=== PATIENT | female | born 1930 | race Caucasian/White ===

== ENCOUNTER 2016-07-04 00:29 | Inpatient (IN) | payer MEDICARE, MEDICAID ==
[~2016-07-04] VITALS: Ht 154.9 cm; Wt 54.4 kg
[2016-07-04 00:35] VITALS: BP 133/53
[2016-07-04] MEDS ORDERED: MIRTAZAPINE45 MG ORAL (00:51)
[2016-07-04] MEDS ORDERED: METOPROLOL TART25 MG ORAL (00:51)
[2016-07-04] MEDS ORDERED: TYLENOL PO (00:51)
[2016-07-04] MEDS ORDERED: HYDROCHLOROTHIA25 MG ORAL (00:51)
[2016-07-04] MEDS ORDERED: SEROQUEL50 MG ORAL (00:51)
[2016-07-04] MEDS ORDERED: MULTIVITAMINS1 EAC8 ORAL (00:51)
[2016-07-04] MEDS ORDERED: NAMENDA5 MG ORAL (00:51)
[2016-07-04] MEDS ORDERED: VITAMIN D400 INTLU ORAL (00:51)
[2016-07-04] MEDS ORDERED: MILK OF MA400 MG/51 ORAL (00:51)
[2016-07-04] MEDS ORDERED: MAGNESIUM400 M1 PO (00:51)
[2016-07-04] MEDS ORDERED: OMEPRAZOLE20 M2 ORAL (00:51)
[2016-07-04] MEDS ORDERED: LIPITOR10 MG ORAL (00:51)
[2016-07-04] MEDS ORDERED: VITAMIN D1000 UNI1 ORAL (00:51)
[2016-07-04 01:35] VITALS: BP 138/56
[2016-07-04 01:52] LABS: BASOPHILS % (AUTO) 0.4 % (0.0-2.0); EOSINOPHILS % (AUTO) 0.2 % (0.0-3.0); LYMPHOCYTES % (AUTO) 23.7 % (20.0-45.0); MEAN CORPUSCULAR HEMOGLOBIN 28.1 PG (27.0-31.0); MEAN CORPUSCULAR HGB CONC 34.1 G/DL (32.0-36.0); MEAN CORPUSCULAR VOLUME 82 FL (80-99); MEAN PLATELET VOLUME 7.3 FL (6.5-10.1); NEUTROPHILS % (AUTO) 69.7 % (45.0-75.0); PLATELET COUNT 287 K/UL (150-450); RED BLOOD COUNT 4.75 M/UL (4.20-5.40); RED CELL DISTRIBUTION WIDTH 12.7 % (11.6-14.8); WHITE BLOOD COUNT 8.2 K/UL (4.8-10.8)
[2016-07-04 01:53] LABS: APPEARANCE,URINE CLEAR; KETONES,URINE NEGATIVE (NEGATIVE); LEUKOCYTE ESTERASE ,URINE NEGATIVE (NEGATIVE); NITRITE,URINE NEGATIVE (NEGATIVE); PH,URINE 7 (4.5-8.0); PROTEIN,URINE NEGATIVE (NEGATIVE); UROBILINOGEN,URINE NORMAL MG/DL (0.0-1.0)
[2016-07-04 02:08] LABS: PROTHROMBIN TIME 10.1 SEC (9.30-11.50)
[2016-07-04 02:14] LABS: ALANINE AMINOTRANSFERASE 8 U/L (3-33); ANION GAP 14 (5-15); ASPARTATE AMINO TRANSFERASE 16 U/L (5-40); CALCIUM 9.3 mg/dL (8.6-10.2); CARBON DIOXIDE 30 mEQ/L (20-30); CHLORIDE 97 mEQ/L (98-107); CREATININE 1.3 mg/dL (0.5-0.9); HEMOLYSIS 7; LIPASE 23 U/L (< 60); POTASSIUM 3.6 mEQ/L (3.4-4.9); SODIUM 141 mEQ/L (135-145); TOTAL PROTEIN 7.1 g/dL (6.6-8.7)
--- NOTE | 2016-07-04 02:45 | Emergency Room Report ---
History of Present Illness General Chief Complaint: Gastrointestinal Illness Source: Medical Record, PMD Present Illness HPI This is a pleasantly demented 86-year-old English speaking female who is in a long term. She presents with chief complaint of vomiting. Onset this evening. Several episode. Per long term note and by PMD, there was some blood in it. Unable to get history from the patient. No diarrhea. No pain. Denies any other complaint. Allergies: Coded Allergies: No Known Allergies (Unverified , 07/04/16) Patient History Past Medical History: old chart reviewed, unable to obtain, HTN, dementia Past Surgical History: other Pertinent Family History: none Social History: Denies: smoking Now: No Immunizations: other Reviewed Nursing Documentation: PMH: Agreed, PSxH: Agreed Nursing Documentation-PMH Hx Cardiac Problems: Yes - HYPERCHOLESTEROLEMIA Hx Hypertension: Yes Hx Gastrointestinal Problems: Yes - GERD History Of Psychiatric Problem: Yes - DEPRESSION,SCHIZO,DEMENTIA Review of Systems Eye: Denies: blurred vision, eye pain ENT: Denies: ear pain, nose congestion, throat swelling Respiratory: Denies: cough, shortness of breath Cardiovascular: Denies: chest pain, palpitations Gastrointestinal: Reports: hematemesis, nausea, vomiting, Denies: abdominal pain, diarrhea Musculoskeletal: Denies: back pain, joint pain Skin: Denies: rash Neurological: Denies: headache, numbness Endocrine: Denies: increased thirst, increased urine Hematologic/Lymphatic: Denies: easy bruising All Other Systems: negative except mentioned in HPI Physical Exam Vital Signs Date Time Temp Pulse Resp B/P Pulse Ox O2 Delivery O2 Flow Rate FiO2 07/04/16 00:28 98.1 79 16 139/66 96 Room Air vitals normal Sp02 EP Interpretation: reviewed, normal General Appearance: well appearing, no apparent distress, alert Head: normocephalic, atraumatic Eyes: bilateral eye EOMI, bilateral eye PERRL ENT: hearing grossly normal, normal pharynx Neck: full range of motion, supple, no meningismus Respiratory: chest non-tender, lungs clear, normal breath sounds Cardiovascular #1: regular rate, rhythm, no murmur Gastrointestinal: normal bowel sounds, non tender, no mass, no organomegaly, no bruit, non-distended Musculoskeletal: back normal, normal range of motion Neurologic: alert Psychiatric: mood/affect normal Skin: warm/dry Medical Decision Making Diagnostic Impression: Primary Impression: Hematemesis Qualified Codes: K92.0 - Hematemesis; R11.0 - Nausea Additional Impression: Dementia Qualified Codes: G30.1 - Alzheimer's disease with late onset; F02.80 - Dementia in other diseases classified elsewhere without behavioral disturbance ER Course Patient present with hematemesis. Most likely Kristi-Marcus. CT scan unremarkable. Labs unremarkable. We'll admit patient for serial exam and blood work. I discussed the case with primary care Dr. No evidence of acute abdomen. No evidence of obstruction. No evidence of perforation. Lab Results Impression labs unremarkable Rhythm Strip Diag. Results EP Interpretation: yes Rate: 80 Rhythm: NSR, no PVC's, no ectopy Last Vital Signs Date Time Temp Pulse Resp B/P Pulse Ox O2 Delivery O2 Flow Rate FiO2 07/04/16 00:28 98.1 79 16 139/66 96 Room Air Status: improved Disposition: ADMITTED INPATIENT Condition: Serious Referrals: Coco Jackson MD (PCP) MILAGROS ALLEN M.D. Jul 04, 2016 02:45
[2016-07-04 03:35] VITALS: BP 136/58
[2016-07-04] MEDS ORDERED: LISINOPRIL20 MG ORAL (06:28)
[2016-07-04] MEDS ORDERED: DOCUSATE SODIU100 MG ORAL (06:28)
[2016-07-04] MEDS ORDERED: Miralax 17gm pkt ORAL PRN (07:00)
[2016-07-04] MEDS ORDERED: Ketorolac 30mg Inj IV PRN (07:00)
[2016-07-04] MEDS ORDERED: Nitroglycerin Subl 0.4mg tab (Bottle Of 25) SL PRN (07:00)
[2016-07-04] MEDS ORDERED: Mylanta II UD 30ml ORAL PRN (07:00)
[2016-07-04 08:00] VITALS: BP 112/70
[2016-07-04] MEDS ORDERED: Haloperidol 5mg/ml Inj IM PRN (08:30)
[2016-07-04] MEDS ORDERED: Lisinopril 20mg tab ORAL SCH (09:00)
[2016-07-04] MEDS ORDERED: Metoprolol 25mg tab ORAL SCH (09:00)
[2016-07-04 09:17] LABS: BASOPHILS % (AUTO) 0.2 % (0.0-2.0); LYMPHOCYTES % (AUTO) 24.3 % (20.0-45.0); MEAN CORPUSCULAR HEMOGLOBIN 27.5 PG (27.0-31.0); MEAN CORPUSCULAR HGB CONC 33.2 G/DL (32.0-36.0); MEAN CORPUSCULAR VOLUME 83 FL (80-99); MEAN PLATELET VOLUME 7.2 FL (6.5-10.1); MONOCYTES % (AUTO) 7.7 % (1.0-10.0); NEUTROPHILS % (AUTO) 67.8 % (45.0-75.0); PLATELET COUNT 292 K/UL (150-450); RED BLOOD COUNT 5.02 M/UL (4.20-5.40); RED CELL DISTRIBUTION WIDTH 12.9 % (11.6-14.8); WHITE BLOOD COUNT 6.2 K/UL (4.8-10.8)
--- NOTE | 2016-07-04 09:33 | Diagnostic Imaging Report ---
Clinical Indication: Abdominal pain Technique: No oral contrast utilized, per emergency room physician request IV administration nonionic contrast. Venous phase spiral acquisition obtained through the abdomen and pelvis. Multiplanar reconstructions were generated. Total dose length product 63 mGycm. CTDIvol(s) 14 mGy Comparison: None Findings: The appendix is normal. There are equivocally a very few scattered diverticula. No evidence of diverticulitis. No small bowel distention. No free or loculated intraperitoneal air or fluid. There is a small sliding-type hiatal hernia. The stomach and duodenum are otherwise unremarkable. There is broad-based diastasis of the rectus abdominis tendon. The liver, gallbladder, bile ducts, pancreas, spleen, adrenals are unremarkable. The kidneys demonstrate multiple cysts bilaterally. No mesenteric or retroperitoneal mass or adenopathy. No pelvic mass or adenopathy. Calcified granuloma is seen at the right lung base. There is a calcified granulomatous right hilar lymph node. There is bilateral basilar bronchial wall thickening and atelectasis. The heart is enlarged. Bones demonstrate degenerative spondylosis and mild bilateral hip degenerative changes. There is grade 1 anterolisthesis of L4 on L5 Impression: No acute abnormality Questionable colonic diverticulosis Evidence of old granulomatous disease of the right lung and pulmonary hilum Bilateral basilar bronchial wall thickening and pulmonary atelectasis Cardiomegaly Incidental findings as noted, including grade 1 anterolisthesis of L4 on L5, degenerative spondylosis, mild bilateral hip degenerative change, broad-based diastases of the rectus abdominis tendon, small sliding-type hiatal hernia, bilateral renal cysts This agrees with the preliminary interpretation provided overnight by [facility]erad[facility] service. The CT scanner at [facility] is accredited by the [employer] and the scans are performed using protocols designed to limit radiation exposure to as low as reasonably achievable to attain images of sufficient resolution adequate for diagnostic evaluation.
[2016-07-04] MEDS: Milk of Magnesia 30ml Ud ORAL SCH (10:13)
[2016-07-04] MEDS: Lisinopril 20mg tab ORAL SCH (10:14)
[2016-07-04] MEDS: Metoprolol 25mg tab ORAL SCH ×2 (10:14→22:22)
[2016-07-04 16:27] VITALS: BP 153/75
[2016-07-04] MEDS ORDERED: D5 1/2NS 1,000 ML IV SCH (17:40)
[2016-07-04 20:00] VITALS: BP 153/78
--- NOTE | 2016-07-04 20:28 | Consultation ---
DATE OF CONSULTATION: 07/04/2016 GASTROLOGY CONSULTATION CHIEF COMPLAINT: I was asked to this patient by Dr. Coco Jackson, for evaluation of upper gastrointestinal bleeding. . HISTORY OF PRESENT ILLNESS: The patient is a debilitated and demented 86-year-old [place]ian woman, who was brought into the hospital due to hematemesis. The patient herself is unable to provide any history and most of the information is only available from the chart. I spoke with the patient's family member by the name of , who stated that what she knows that she had heard some dark color emesis from the board and care where the patient stayed and therefore, the patient was brought to the hospital. The patient appears well nourished. She is sitting on a wheelchair without any complaints. PAST MEDICAL HISTORY: 1. History of dementia. 2. History of hypercholesterolemia. 3. History of hypertension. 4. Presumed history of gastroesophageal reflux disease based on the work result on her medication list. MEDICATIONS: Reviewed. SOCIAL HISTORY: The patient resides in a [facility] with no recent history of smoking or drinking. FAMILY HISTORY: Noncontributory. REVIEW OF SYSTEMS: Otherwise negative. PHYSICAL EXAMINATION: GENERAL: The patient is a debilitated elderly woman, seen in her wheelchair. HEENT: Normocephalic and atraumatic. Sclerae anicteric. Oropharynx clear. NECK: Supple. CHEST: Clear to auscultation. CARDIOVASCULAR: Regular rate. ABDOMEN: Soft with good bowel sounds. There is no organomegaly. There is an old scar in the pelvis area. EXTREMITIES: Revealed no edema. LABORATORY AND DIAGNOSTIC DATA: Laboratory data were noted. ASSESSMENT: This patient presents with presumably small bowel hematemesis versus hemoptysis. Her hematocrit was not changed and she appears hemodynamically intact and therefore, I suspect this is a minor process. From gastrointestinal standpoint, the differential diagnosis would include gastroesophageal reflux or peptic ulcers. Alternatively, the patient may have had different source of the bleeding, this is . The indications, risks, alternatives, and possible complications were explained the patient's family. Informed consent was obtained. RECOMMENDATION: 1. NPO after midnight. 2. Endoscopy tomorrow morning. 3. Continue other medications. Thank you very much. Marlys Andersen M.D. DR: TUNDE JOB#: [id number] CC:
[2016-07-04] MEDS ORDERED: Memantine 10mg tab ORAL SCH (21:00)
[2016-07-04 22:00] LABS: BASOPHILS % (AUTO) 0.3 % (0.0-2.0); EOSINOPHILS % (AUTO) 0.2 % (0.0-3.0); LYMPHOCYTES % (AUTO) 22.3 % (20.0-45.0); MEAN CORPUSCULAR HEMOGLOBIN 28.1 PG (27.0-31.0); MEAN CORPUSCULAR HGB CONC 33.7 G/DL (32.0-36.0); MEAN CORPUSCULAR VOLUME 83 FL (80-99); MEAN PLATELET VOLUME 6.7 FL (6.5-10.1); MONOCYTES % (AUTO) 6.3 % (1.0-10.0); PLATELET COUNT 256 K/UL (150-450); RED BLOOD COUNT 4.32 M/UL (4.20-5.40); WHITE BLOOD COUNT 7.3 K/UL (4.8-10.8)
[2016-07-04] MEDS: Memantine 10mg tab ORAL SCH (22:23)
[2016-07-04] MEDS ORDERED: Heparin 25,000u/D5W 500ml 500 ML IV SCH (22:30)
[2016-07-04] MEDS ORDERED: Heparin 5000 units/ml inj IV ONE (22:30)
--- NOTE | 2016-07-04 22:37 | History and Physical Report ---
DATE OF ADMISSION: 07/04/2016 HISTORY OF PRESENT ILLNESS: The patient is a poor historian, admitted for hematemesis at the [facility]. The patient also has agitation, admitted for GI bleed. The patient per nursing staff. The patient is a poor historian and cannot get from the patient. PAST MEDICAL HISTORY: Significant for GERD, hyperlipidemia, hypertension, episode of psychosis, dementia, and constipation. PAST SURGICAL HISTORY: None. ALLERGIES: No known allergies. MEDICATIONS: Vitamin D, Colace, hydrochlorothiazide, lisinopril, magnesium oxide, Namenda, metoprolol, mirtazapine, multivitamin, omeprazole, and . FAMILY HISTORY: Unable to obtain. SOCIAL HISTORY: Unable to obtain. REVIEW OF SYSTEMS: Unable to obtain. PHYSICAL EXAMINATION: VITAL SIGNS: Temperature is 98.4, pulse is 70, and blood pressure 133/53. HEENT: PERRLA. NECK: Supple. No lymphadenopathy. CHEST: Clear to auscultation. ABDOMEN: Soft and nontender. No organomegaly. EXTREMITIES: No edema. NEUROLOGIC: Reflexes are equal on both sides. . She is able to move extremities. LABORATORY DATA: WBC 8.3, hemoglobin 13.3, and platelets 287,000. Sodium 141, potassium 3.6, BUN 20, creatinine 1.3, and glucose of 112. negative. ASSESSMENT AND PLAN: 1. Vomiting blood. 2. Gastrointestinal bleed. 3. Mild dehydration. 4. Agitation. 5. Anxiety. I have asked Dr. Andersen, Dr. Moon, and Dr. Fernando to see the patient for the above-mentioned diagnoses and treatment. Coco Jackson M.D. DR: MAMIE JOB#: [id number] CC:
--- NOTE | 2016-07-04 23:29 | Consultation ---
History of Present Illness General Date patient seen: Jul 04, 2016 Chief Complaint: Gastrointestinal Illness Referring physician: Dr Henriquez Reason for Consultation: inpatinet management Present Illness HPI 86-year-old Azerbaijani speaking female with pmhx of Dementia, residential resident presented with chief complaint of vomiting. there was some blood in it. Patient is a very poor historian and all information is obtained form the chart. She looks very comfortable and not in any distress. Allergies: Coded Allergies: No Known Allergies (Unverified , 07/04/16) Medication History Scheduled Atorvastatin Calcium* (Lipitor*), 10 MG ORAL BEDTIME, (Reported) Cholecalciferol (Vitamin D3)* (Vitamin D*), 2,000 UNITS ORAL TWICE A DAY, ( Reported) Docusate Sodium* (Docusate Sodium*), 100 MG ORAL TWICE A DAY, (Reported) Hydrochlorothiazide* (Hydrochlorothiazide*), 25 MG ORAL DAILY, (Reported) Lisinopril (Lisinopril*), 20 MG ORAL DAILY, (Reported) Magnesium Hydroxide* (Milk Of Magnesia*), 30 ML ORAL DAILY, (Reported) Magnesium Oxide (Magnesium), 400 MG PO BID, (Reported) Memantine Hcl* (Namenda*), 5 MG ORAL BEDTIME, (Reported) Metoprolol Tartrate* (Metoprolol Tartrate*), 25 MG ORAL EVERY 12 HOURS, ( Reported) Mirtazapine* (Remeron*), 22.5 MG ORAL BEDTIME, (Reported) Multivitamin With Minerals (Multivitamins With Minerals*), 1 TAB ORAL DAILY, ( Reported) Omeprazole (Omeprazole), 20 MG ORAL DAILY, (Reported) Quetiapine Fumarate (Seroquel), 50 MG ORAL TWICE A DAY, (Reported) Vitamin D (Vitamin D3), 2,000 UNITS ORAL DAILY, (Reported) Scheduled PRN [Tylenol], 650 MG PO EVERY 4 HOURS PRN for Pain Scale (3-5), (Reported) Patient History Healthcare decision maker YEVGENIY BRYANT -A/R [employer]-POA [employer]CIAL Resuscitation status Full Code Advanced Directive on File Yes Past Medical/Surgical History Past Medical/Surgical History: (1) Dementia (2) HTN (hypertension) Review of Systems All Other Systems: negative except mentioned in HPI Physical Exam General Appearance: WD/WN, no apparent distress Lines, tubes and drains: peripheral HEENT: normocephalic, atraumatic Neck: normal alignment Respiratory/Chest: chest wall non-tender, lungs clear Breasts: no masses Abdomen: normal bowel sounds, non tender Genitourinary/Rectal: normal genital exam Extremities: normal range of motion, non-tender Skin Exam: normal pigmentation Neurologic: rib cloth knitter II-XII grossly normal Last 24 Hour Vital Signs Date Time Temp Pulse Resp B/P Pulse Ox O2 Delivery O2 Flow Rate FiO2 07/04/16 22:22 66 153/78 07/04/16 20:00 97.9 66 20 153/78 99 Room Air 07/04/16 16:27 98.4 79 18 153/75 95 Room Air 07/04/16 10:14 78 112/70 07/04/16 10:14 112/70 07/04/16 08:00 97.7 78 18 112/70 98 Room Air 07/04/16 04:00 98.6 76 17 136/58 100 Room Air 07/04/16 03:35 98.6 76 17 136/58 100 Room Air 07/04/16 01:35 74 17 138/56 99 Room Air 07/04/16 00:35 98.4 70 16 133/53 100 Room Air 07/04/16 00:28 98.1 79 16 139/66 96 Room Air Intake and Output 07/03/16 07/04/16 19:00 07:00 Intake Total 1000 ml Balance 1000 ml IV Total 1000 ml # Voids 2 Laboratory Tests Test 07/04/16 01:30 07/04/16 01:35 07/04/16 08:30 07/04/16 21:35 White Blood Count 8.2 K/UL (4.8-10.8) 6.2 K/UL (4.8-10.8) 7.3 K/UL (4.8-10.8) Red Blood Count 4.75 M/UL (4.20-5.40) 5.02 M/UL (4.20-5.40) 4.32 M/UL (4.20-5.40) Hemoglobin 13.3 G/DL (12.0-16.0) 13.8 G/DL (12.0-16.0) 12.1 G/DL (12.0-16.0) Hematocrit 39.0 % (37.0-47.0) 41.6 % (37.0-47.0) 35.9 % (37.0-47.0) L Mean Corpuscular Volume 82 FL (80-99) 83 FL (80-99) 83 FL (80-99) Mean Corpuscular Hemoglobin 28.1 PG (27.0-31.0) 27.5 PG (27.0-31.0) 28.1 PG (27.0-31.0) Mean Corpuscular Hemoglobin Concent 34.1 G/DL (32.0-36.0) 33.2 G/DL (32.0-36.0) 33.7 G/DL (32.0-36.0) Red Cell Distribution Width 12.7 % (11.6-14.8) 12.9 % (11.6-14.8) 13.0 % (11.6-14.8) Platelet Count 287 K/UL (150-450) 292 K/UL (150-450) 256 K/UL (150-450) Mean Platelet Volume 7.3 FL (6.5-10.1) 7.2 FL (6.5-10.1) 6.7 FL (6.5-10.1) Neutrophils (%) (Auto) 69.7 % (45.0-75.0) 67.8 % (45.0-75.0) 71.0 % (45.0-75.0) Lymphocytes (%) (Auto) 23.7 % (20.0-45.0) 24.3 % (20.0-45.0) 22.3 % (20.0-45.0) Monocytes (%) (Auto) 6.0 % (1.0-10.0) 7.7 % (1.0-10.0) 6.3 % (1.0-10.0) Eosinophils (%) (Auto) 0.2 % (0.0-3.0) 0.0 % (0.0-3.0) 0.2 % (0.0-3.0) Basophils (%) (Auto) 0.4 % (0.0-2.0) 0.2 % (0.0-2.0) 0.3 % (0.0-2.0) Prothrombin Time 10.1 SEC (9.30-11.50) Prothromb Time International Ratio 1.0 (0.9-1.1) Activated Partial Thromboplast Time 25 SEC (23-33) 27 SEC (23-33) Sodium Level 141 mEQ/L (135-145) Potassium Level 3.6 mEQ/L (3.4-4.9) Chloride Level 97 mEQ/L (98-107) L Carbon Dioxide Level 30 mEQ/L (20-30) Anion Gap 14 (5-15) Blood Urea Nitrogen 20 mg/dL (7-23) Creatinine 1.3 mg/dL (0.5-0.9) H Estimat Glomerular Filtration Rate mL/min (>60) Glucose Level 115 mg/dL (74-106) H Calcium Level 9.3 mg/dL (8.6-10.2) Total Bilirubin 0.6 mg/dL (0.0-1.2) Aspartate Amino Transf (AST/SGOT) 16 U/L (5-40) Alanine Aminotransferase (ALT/SGPT) 8 U/L (3-33) Alkaline Phosphatase 71 U/L (35-104) Total Protein 7.1 g/dL (6.6-8.7) Albumin 3.6 g/dL (3.5-5.2) Globulin 3.5 g/dL Albumin/Globulin Ratio 1.0 (1.0-2.7) Lipase 23 U/L (< 60) Urine Color Pale yellow Urine Appearance Clear Urine pH 7 (4.5-8.0) Urine Specific [place] 1.010 (1.005-1.035) Urine Protein Negative (NEGATIVE) Urine Glucose (UA) Negative (NEGATIVE) Urine Ketones Negative (NEGATIVE) Urine Occult Blood Negative (NEGATIVE) Urine Nitrite Negative (NEGATIVE) Urine Bilirubin Negative (NEGATIVE) Urine Urobilinogen Normal MG/DL (0.0-1.0) Urine Leukocyte Esterase Negative (NEGATIVE) Height (Feet): 5 Height (Inches): 1.00 Weight (Pounds): 120 Medications Current Medications Medications (Trade) Dose Ordered Sig/Selena Route PRN Reason Start Time Stop Time Status Last Admin Dose Admin Acetaminophen (Tylenol) 650 mg Q4H PRN ORAL Mild Pain/Temp > 100.5 07/04/16 06:45 08/03/16 06:44 Acetaminophen (Tylenol) 650 mg Q4H PRN ORAL fever 07/04/16 07:00 08/03/16 06:59 Al Hydroxide/Mg Hydroxide (Mylanta II) 30 ml Q6H PRN ORAL dyspepsia 07/04/16 07:00 08/03/16 06:59 Atorvastatin Calcium (Lipitor) 10 mg BEDTIME ORAL 07/04/16 21:00 08/03/16 20:59 07/04/16 22:22 Dextrose (Dextrose 50%) STAT PRN IV Hypoglycemia 07/04/16 07:00 08/03/16 06:59 Diphenhydramine HCl (Benadryl) 25 mg Q6H PRN ORAL Itching/Pruritis 07/04/16 07:00 08/03/16 06:59 Haloperidol Lactate 5 mg 5 mg Q6H PRN IM Agitation 07/04/16 08:30 08/03/16 08:29 Heparin Sodium/ Dextrose (Heparin) 500 ml @ 19.595 mls/ hr adjust per protocol IV 07/04/16 22:30 08/03/16 22:29 Hydrochlorothiazide (Hydrodiuril) 25 mg DAILY ORAL 07/04/16 09:00 08/03/16 08:59 07/04/16 10:14 Ketorolac Tromethamine 30 mg 30 mg Q6H PRN IV moderate pian 4-6 07/04/16 07:00 07/09/16 06:59 Lisinopril (Prinivil) 20 mg DAILY ORAL 07/04/16 09:00 08/03/16 08:59 07/04/16 10:14 Magnesium Hydroxide (Mom) 30 ml DAILY ORAL 07/04/16 09:00 08/03/16 08:59 07/04/16 10:13 Memantine (Namenda) 5 mg BEDTIME ORAL 07/04/16 21:00 08/03/16 20:59 07/04/16 22:23 Metoprolol Tartrate (Lopressor) 25 mg EVERY 12 HOURS ORAL 07/04/16 09:00 08/03/16 08:59 07/04/16 22:22 Mirtazapine (Remeron) 7.5 mg BEDTIME ORAL 07/05/16 21:00 08/04/16 20:59 UNV Morphine Sulfate (Morphine Sulfate) 2 mg Q4H PRN IVP severe Pain (Pain Scale 7-10) 07/04/16 07:00 07/11/16 06:59 Nitroglycerin (Ntg) 0.4 mg Q5M X 3 DOSES PRN SL Prn Chest Pain 07/04/16 07:00 08/03/16 06:59 Ondansetron HCl (Zofran) 4 mg Q6H PRN IVP Nausea & Vomiting 07/04/16 07:00 08/03/16 06:59 Pantoprazole (Protonix) 40 mg DAILY ORAL 07/04/16 09:00 08/03/16 08:59 07/04/16 10:14 Polyethylene Glycol (Miralax) 17 gm HSPRN PRN ORAL Constipation 07/04/16 07:00 08/03/16 06:59 Quetiapine Fumarate (SEROquel) 50 mg Q12HR ORAL 07/04/16 09:00 08/03/16 08:59 07/04/16 22:26 Sodium Chloride (0.45% NS 1000ml) 1,000 ml @ 65 mls/hr [id number] IV 07/04/16 08:49 08/03/16 08:48 Temazepam (Restoril) 15 mg HSPRN PRN ORAL Insomnia 07/04/16 07:00 07/11/16 06:59 Assessment/Plan Problem List: (1) Hematemesis ICD Codes: K92.0 - Hematemesis SNOMED: 4643589 Qualifiers: Qualified Codes: K92.0 - Hematemesis; R11.0 - Nausea (2) At high risk for aspiration ICD Codes: Z91.89 - Other specified personal risk factors, not elsewhere classified SNOMED: 414681116 (3) ATN (acute tubular necrosis) ICD Codes: N17.0 - Acute kidney failure with tubular necrosis SNOMED: 48118540 (4) Nursing difficulty ICD Codes: O92.79 - Other disorders of SNOMED: 219370137 (5) Debility ICD Codes: R53.81 - Other malaise SNOMED: 30342614 (6) Dementia ICD Codes: F03.90 - Unspecified dementia without behavioral disturbance SNOMED: 91988912 Qualifiers: Qualified Codes: G30.1 - Alzheimer's disease with late onset; F02.80 - Dementia in other diseases classified elsewhere without behavioral disturbance (7) HTN (hypertension) ICD Codes: I10 - Essential (primary) hypertension SNOMED: 59976038 (8) [facility] resident ICD Codes: Z59.3 - Problems related to living in residential institution SNOMED: 782823798 Assessment/Plan NPO IV fluids aspiration precaution check h/h GI evaluation check BELKIS Benton Jul 04, 2016 23:29
[2016-07-05] VITALS (11 sets, daily range): BP systolic 105–153; BP diastolic 47–91
[2016-07-05] MEDS ORDERED: NS Irrig 1000ml ONE (07:00)
[2016-07-05] MEDS ORDERED: Propofol 10mg/ml 20ml IV ONE (07:00)
[2016-07-05] MEDS ORDERED: NS 550ML IV ONE (07:13)
--- NOTE | 2016-07-05 07:14 | Anethesia Preoperative Eval ---
Anesthesia Pre-op PMH/ROS General Date of Evaluation: Jul 05, 2016 Time of Evaluation: 07:00 Anesthesiologist: mikayla ASA Score: ASA 3 Mallampati Score Class I : Soft palate, uvula, fauces, pillars visible Class II: Soft palate, uvula, fauces visible Class III: Soft palate, base of uvula visible Class IV: Only hard plate visible Mallampati Classification: Class II Surgeon: mani Diagnosis: GI bleed Surgical Procedure: egd Anesthesia History: none Allergies: Coded Allergies: No Known Allergies (Unverified , 07/04/16) Past Medical History Cardiovascular: Reports: HTN Gastrointestinal/Genitourinary: Reports: GERD Neurologic/Psychiatric: Reports: dementia Anesthesia Pre-op Phys. Exam Physician Exam Last Vital Signs Date Time Temp Pulse Resp B/P Pulse Ox O2 Delivery O2 Flow Rate FiO2 07/05/16 04:00 97.8 66 18 141/56 92 Room Air Airway Exam Mallampati Score: Class II Teeth: missing Anesthesia Pre-op A/P Labs Hematology Test 07/04/16 08:30 07/04/16 21:35 07/05/16 06:35 White Blood Count 6.2 K/UL (4.8-10.8) 7.3 K/UL (4.8-10.8) Pending Red Blood Count 5.02 M/UL (4.20-5.40) 4.32 M/UL (4.20-5.40) Pending Hemoglobin 13.8 G/DL (12.0-16.0) 12.1 G/DL (12.0-16.0) Pending Hematocrit 41.6 % (37.0-47.0) 35.9 % (37.0-47.0) L Pending Mean Corpuscular Volume 83 FL (80-99) 83 FL (80-99) Pending Mean Corpuscular Hemoglobin 27.5 PG (27.0-31.0) 28.1 PG (27.0-31.0) Pending Mean Corpuscular Hemoglobin Concent 33.2 G/DL (32.0-36.0) 33.7 G/DL (32.0-36.0) Pending Red Cell Distribution Width 12.9 % (11.6-14.8) 13.0 % (11.6-14.8) Pending Platelet Count 292 K/UL (150-450) 256 K/UL (150-450) Pending Mean Platelet Volume 7.2 FL (6.5-10.1) 6.7 FL (6.5-10.1) Pending Neutrophils (%) (Auto) 67.8 % (45.0-75.0) 71.0 % (45.0-75.0) Pending Lymphocytes (%) (Auto) 24.3 % (20.0-45.0) 22.3 % (20.0-45.0) Pending Monocytes (%) (Auto) 7.7 % (1.0-10.0) 6.3 % (1.0-10.0) Pending Eosinophils (%) (Auto) 0.0 % (0.0-3.0) 0.2 % (0.0-3.0) Pending Basophils (%) (Auto) 0.2 % (0.0-2.0) 0.3 % (0.0-2.0) Pending Coagulation Test 07/04/16 21:35 07/05/16 06:35 Activated Partial Thromboplast Time 27 SEC (23-33) Pending Prothrombin Time Pending Prothromb Time International Ratio Pending Chemistry Test 07/05/16 06:35 Sodium Level Pending Potassium Level Pending Chloride Level Pending Carbon Dioxide Level Pending Blood Urea Nitrogen Pending Creatinine Pending Estimat Glomerular Filtration Rate Pending Glucose Level Pending Calcium Level Pending Total Bilirubin Pending Aspartate Amino Transf (AST/SGOT) Pending Alanine Aminotransferase (ALT/SGPT) Pending Alkaline Phosphatase Pending Total Protein Pending Albumin Pending Globulin Pending Amylase Level Pending Lipase Pending Risk Assessment & Plan Plan: propofol Status Change Before Surgery: Stephen Randolph MD Jul 05, 2016 07:14
--- NOTE | 2016-07-05 07:15 | Immediate Post-Op Evaluation ---
Immediate Post-Op Evalulation Immediate Post-Op Evalulation Date of Evaluation: Jul 05, 2016 Time of Evaluation: 07:50 IV Fluids: 400 Blood Pressure Systolic: 105 Blood Pressure Diastolic: 69 Pulse Rate: 75 Respiratory Rate: 23 O2 Sat by Pulse Oximetry: 99 Temperature (Fahrenheit): 97.3 Pain Score (1-10): 0 Nausea: No Vomiting: No Complications none Patient Status: awake, patent, none Hydration Status: adequate Stephen Bryson MD Jul 05, 2016 07:15
--- NOTE | 2016-07-05 07:18 | 48 Hour Post Anesthesia Eval ---
Post Anesthesia Evaluation Date of Evaluation: Jul 05, 2016 Time of Evaluation: 08:10 Blood Pressure Systolic: 121 0: 55 Pulse Rate: 72 Respiratory Rate: 17 Temperature (Fahrenheit): 97.2 O2 Sat by Pulse Oximetry: 94 Airway: patent Nausea: No Vomiting: No Pain Intensity: 0 Hydration Status: adequate Cardiopulmonary Status: stable Mental Status/LOC: patient returned to baseline Follow-up Care/Observations: n/a Post-Anesthesia Complications: tolerated well Follow-up care needed: N/A Stephen Bryson MD Jul 05, 2016 07:18
--- NOTE | 2016-07-05 07:21 | Pre-Procedure Note/Attestation ---
Pre-Procedure Note/Attestation Complete Prior to Procedure Planned Procedure: not applicable Procedure Narrative: egd Indications for Procedure Pre-Operative Diagnosis: UGIB Attestation I attest that I discussed the nature of the procedure; its benefits; risks and complications; and alternatives (and the risks and benefits of such alternatives ), prior to the procedure, with the patient (or the patient's legal community health program representative). I attest that, if there was a reasonable possibility of needing a blood transfusion, the patient (or the patient's legal community health program representative) was given the [facility] standardized written summary, pursuant to the Fernando Wolbach Blood Safety Act ([place] Health and Safety Code # 1645, as amended). I attest that I re-evaluated the patient just prior to the surgery and that there has been no change in the patient's H&P, except as documented below: JUSTO MAYERS Jul 05, 2016 07:21
--- NOTE | 2016-07-05 07:21 | General Progress Note ---
Assessment/Plan Assessment/Plan Assessment - UGIB - Acute DVT - drop in H&H - ? hydration, GIB, ? effect of heparin - OBS Recommendations - Will proceed with EGD as planned to risk assess for IV heparin use - Monitor CBC - NPO Subjective Allergies: Coded Allergies: No Known Allergies (Unverified , 07/04/16) Subjective Above noted found to have acute femoral DVT last night now on heparin gtt H&H lower Objective Last 24 Hour Vital Signs Date Time Temp Pulse Resp B/P Pulse Ox O2 Delivery O2 Flow Rate FiO2 07/05/16 04:00 97.8 66 18 141/56 92 Room Air 07/05/16 00:00 97.9 68 18 146/58 91 Room Air 07/04/16 22:22 66 153/78 07/04/16 20:00 97.9 66 20 153/78 99 Room Air 07/04/16 16:27 98.4 79 18 153/75 95 Room Air 07/04/16 10:14 78 112/70 07/04/16 10:14 112/70 07/04/16 08:00 97.7 78 18 112/70 98 Room Air Intake and Output 07/04/16 07/05/16 19:00 07:00 Intake Total 480 ml 1019 ml Balance 480 ml 1019 ml Intake Oral 480 ml 560 ml IV Total 459 ml # Voids 3 3 Laboratory Tests 07/04/16 08:30: White Blood Count 6.2, Red Blood Count 5.02, Hemoglobin 13.8, Hematocrit 41.6, Mean Corpuscular Volume 83, Mean Corpuscular Hemoglobin 27.5, Mean Corpuscular Hemoglobin Concent 33.2, Red Cell Distribution Width 12.9, Platelet Count 292, Mean Platelet Volume 7.2, Neutrophils (%) (Auto) 67.8, Lymphocytes (%) (Auto) 24.3, Monocytes (%) (Auto) 7.7, Eosinophils (%) (Auto) 0.0, Basophils (%) (Auto ) 0.2 07/04/16 21:35: White Blood Count 7.3, Red Blood Count 4.32, Hemoglobin 12.1, Hematocrit 35.9L, Mean Corpuscular Volume 83, Mean Corpuscular Hemoglobin 28.1, Mean Corpuscular Hemoglobin Concent 33.7, Red Cell Distribution Width 13.0, Platelet Count 256, Mean Platelet Volume 6.7, Neutrophils (%) (Auto) 71.0, Lymphocytes (%) (Auto) 22.3, Monocytes (%) (Auto) 6.3, Eosinophils (%) (Auto) 0.2, Basophils (%) (Auto ) 0.3, Activated Partial Thromboplast Time 27 07/05/16 06:35: White Blood Count [Pending], Red Blood Count [Pending], Hemoglobin [Pending], Hematocrit [Pending], Mean Corpuscular Volume [Pending], Mean Corpuscular Hemoglobin [Pending], Mean Corpuscular Hemoglobin Concent [Pending], Red Cell Distribution Width [Pending], Platelet Count [Pending], Mean Platelet Volume [ Pending], Neutrophils (%) (Auto) [Pending], Lymphocytes (%) (Auto) [Pending], Monocytes (%) (Auto) [Pending], Eosinophils (%) (Auto) [Pending], Basophils (%) (Auto) [Pending], Activated Partial Thromboplast Time [Pending], Prothrombin Time [Pending], Prothromb Time International Ratio [Pending], Sodium Level [ Pending], Potassium Level [Pending], Chloride Level [Pending], Carbon Dioxide Level [Pending], Blood Urea Nitrogen [Pending], Creatinine [Pending], Estimat Glomerular Filtration Rate [Pending], Glucose Level [Pending], Calcium Level [ Pending], Total Bilirubin [Pending], Aspartate Amino Transf (AST/SGOT) [Pending] , Alanine Aminotransferase (ALT/SGPT) [Pending], Alkaline Phosphatase [Pending] , Total Protein [Pending], Albumin [Pending], Globulin [Pending], Amylase Level [Pending], Lipase [Pending] Height (Feet): 5 Height (Inches): 1.00 Weight (Pounds): 120 Objective WDWN NCAT Supple CTA RRR Soft ND NT no edema non focal JUSTO MAYERS Jul 05, 2016 07:21
[2016-07-05 07:27] LABS: ALANINE AMINOTRANSFERASE 7 U/L (3-33); AMYLASE 70 U/L (10-110); ANION GAP 14 (5-15); ASPARTATE AMINO TRANSFERASE 15 U/L (5-40); CALCIUM 9.1 mg/dL (8.6-10.2); CARBON DIOXIDE 27 mEQ/L (20-30); CHLORIDE 99 mEQ/L (98-107); CREATININE 1.2 mg/dL (0.5-0.9); HEMOLYSIS 4; LIPASE 21 U/L (< 60); POTASSIUM 3.9 mEQ/L (3.4-4.9); SODIUM 140 mEQ/L (135-145); TOTAL PROTEIN 6.6 g/dL (6.6-8.7)
[2016-07-05 07:28] LABS: PROTHROMBIN TIME 10.6 SEC (9.30-11.50)
[2016-07-05 07:41] LABS: BASOPHILS % (AUTO) 0.4 % (0.0-2.0); EOSINOPHILS % (AUTO) 0.1 % (0.0-3.0); LYMPHOCYTES % (AUTO) 30.8 % (20.0-45.0); MEAN CORPUSCULAR HEMOGLOBIN 27.7 PG (27.0-31.0); MEAN CORPUSCULAR HGB CONC 33.6 G/DL (32.0-36.0); MEAN CORPUSCULAR VOLUME 82 FL (80-99); MEAN PLATELET VOLUME 7.7 FL (6.5-10.1); MONOCYTES % (AUTO) 5.6 % (1.0-10.0); NEUTROPHILS % (AUTO) 63.1 % (45.0-75.0); PLATELET COUNT 292 K/UL (150-450); RED BLOOD COUNT 4.44 M/UL (4.20-5.40); RED CELL DISTRIBUTION WIDTH 12.9 % (11.6-14.8); WHITE BLOOD COUNT 7.4 K/UL (4.8-10.8)
--- NOTE | 2016-07-05 07:44 | Endoscopy Procedure Note ---
Endoscopy Procedure Note Indication for Procedure: UGIB Procedures Performed: EGD Operative Findings/Diagnosis: HH , GERD Specimen: none Pt Tolerated Procedure Well: Yes Estimated Blood Loss: none Anesthesiologist: Braydon Anesthesia: MAC Medication Given: see anesthesia record Implant(s) used?: No 50 yrs or older w/o bx or poly: Not Applicable 10yrs. F/U not recommended: Not Applicable If not recommended, why?: JUSTO MAYERS Jul 05, 2016 07:44
--- NOTE | 2016-07-05 07:46 | Brief Operative Note ---
Immediate Post Operative Note Operative Note Chief Complaint: UGI Pre-op Diagnosis: UGIB Procedure: EGD Post-op Diagnosis: 4 cm HH, GERD with lower esophageal erosions, no active bleeding mildly elevated but acceptable risk of GIB with anticoagulation - OK to continue IV heparin BID PPI Surgeon: mani Anesthesiologist: Braydon Anesthesia: moderate sedation Specimen: none Complications: yes Condition: stable Estimated Blood Loss: none Drains: none Implant(s) used?: No JUSTO MAYERS Jul 05, 2016 07:46
[2016-07-05] MEDS ORDERED: Heparin 25,000u/D5W 500ml 500 ML IV SCH ×3 (08:15→23:43)
[2016-07-05] MEDS: Heparin 25,000u/D5W 500ml 500 ML IV SCH ×2 (08:45→16:56)
[2016-07-05] MEDS: Milk of Magnesia 30ml Ud ORAL SCH (09:00)
[2016-07-05] MEDS: Metoprolol 25mg tab ORAL SCH ×2 (09:28→20:29)
[2016-07-05] MEDS: Lisinopril 20mg tab ORAL SCH (09:28)
[2016-07-05 11:05] LABS: PROTHROMBIN TIME 10.5 SEC (9.30-11.50)
[2016-07-05] MEDS ORDERED: Heparin 5000 units/ml inj IV ONE (16:30)
[2016-07-05] MEDS ORDERED: Warfarin Sodium 2.5mg ORAL ONE (17:00)
--- NOTE | 2016-07-05 17:08 | Consultation ---
DATE OF CONSULTATION: 07/05/2016 HEMATOLOGY/ONCOLOGY CONSULTATION CONSULTING PHYSICIAN: Mike Paige M.D. REFERRING PHYSICIAN: Coco Jackson M.D. REASON FOR CONSULTATION: Evaluation of acute clot, acute DVT of the left common femoral vein. IDENTIFYING DATA: Dear Dr. Coco Jackson, The patient is a pleasant 86-year-old female with history of dementia; history of debilitation; [place]ayan speaking; and history of speaking [place]ian, however, given dementia, her Bolivian speaking ability has gotten worse. At this time, she presented with dark color emesis from nursing facility, brought into the hospital for further evaluation. It was noted the patient had an acute blood clot in the common femoral vein. She also had an EGD completed this morning, which showed GERD as well as hiatal hernia. Hematology Service was consulted given the patient's history of acute clot. PAST MEDICAL HISTORY: Dementia, hypercholesterolemia, hypertension, and history of GERD. MEDICATIONS: Reviewed. SOCIAL HISTORY: Resides in [facility] and [facility]. No recent history of alcohol, tobacco or illicit drug use. FAMILY HISTORY: Noncontributory. REVIEW OF SYSTEMS: Constitutional: No fever, chills, or night sweats. Skin: No rashes, lumps, or itching. HEENT: No headache, hearing or vision changes. Breasts: No lumps, pain, or discharge. Pulmonary: No cough, sputum, or shortness of breath. Cardiovascular: No chest pain, tightness, or palpitations. Gastrointestinal: No nausea, vomiting, or diarrhea. Genitourinary: No dysuria, frequency, or urgency. Musculoskeletal: No joint swelling, muscle pain, or trauma. Neurological: No dizziness, fainting, or seizures. PHYSICAL EXAMINATION: GENERAL: In no acute distress. VITAL SIGNS: Temperature is 96.6 degrees Fahrenheit, pulse is 72, respiratory rate 12, blood pressure 153/91, and pulse oximetry 94% on room air. PULMONARY: Decreased breath sounds. CARDIOVASCULAR: Regular rate and rhythm. No S3 or S4. ABDOMEN: Soft, nontender, and nondistended. EXTREMITIES: A 1+ edema. LABORATORY AND DIAGNOSTIC DATA: BUN 15 and creatinine 1.0. INR 1 and PTT of 127. WBC 7.4, hemoglobin 12.3, hematocrit 36, and platelet count 290,000. ASSESSMENT: 1. Acute deep vein thrombosis of the left common femoral vein. The patient is currently on heparin drip, will be started on Coumadin. 2. Anemia, secondary to gastrointestinal bleed and hematemesis. Currently, no evidence of bleed noted on EGD. 3. Acute drop in hemoglobin and hematocrit. 4. Dementia. 5. Altered mental status. 6. Acute kidney injury. 7. Hiatal hernia. 8. Acid reflux. RECOMMENDATIONS: 1. Monitor counts. 2. Transfuse as needed. 3. Begin the patient on Coumadin. 4. Maintain INR between 2 and 3. 5. Continue heparin drip. 6. I will discuss with fpc. 7. We will see the patient on 07/11/2016 in Hematology Clinic for evaluation of the patient's INR. 8. We will follow up on Pulmonary and GI recommendations. 9. EGD has been reviewed. 10. No evidence of bleeding noted. 11. GI prophylaxis with Protonix. 12. DVT prophylaxis, continue heparin drip. 13. Discussed with the staff. Thank you, Dr. Coco Jackson, for this kind referral. Please do not hesitate to contact me with any further questions. Mike Paige M.D. DR: YULY JOB#: [id number] CC:
[2016-07-05 17:50] LABS: BASOPHILS % (AUTO) 0.5 % (0.0-2.0); EOSINOPHILS % (AUTO) 0.3 % (0.0-3.0); LYMPHOCYTES % (AUTO) 23.3 % (20.0-45.0); MEAN CORPUSCULAR HEMOGLOBIN 27.9 PG (27.0-31.0); MEAN CORPUSCULAR HGB CONC 33.4 G/DL (32.0-36.0); MEAN CORPUSCULAR VOLUME 84 FL (80-99); MONOCYTES % (AUTO) 5.7 % (1.0-10.0); NEUTROPHILS % (AUTO) 70.2 % (45.0-75.0); PLATELET COUNT 254 K/UL (150-450); RED BLOOD COUNT 4.04 M/UL (4.20-5.40); RED CELL DISTRIBUTION WIDTH 12.7 % (11.6-14.8); WHITE BLOOD COUNT 6.8 K/UL (4.8-10.8)
[2016-07-05] MEDS: Memantine 10mg tab ORAL SCH (20:29)
--- NOTE | 2016-07-05 21:59 | Consultation ---
DATE OF CONSULTATION: 07/05/2016 HISTORY OF PRESENT ILLNESS: This is an 86-year-old female, who is a poor historian. She has been admitted for hematemesis and has been admitted for gastrointestinal bleeding. She has also had a history of cognitive impairment, anxiety and agitation. The patient has been presenting with waxing and waning consciousness, impairment in concentration, memory and attention. due to severe agitation and being aggressive. The patient is a poor historian. Unable to provide any history secondary to impairment of cognition. PAST PSYCHIATRIC HISTORY: She has a history of cognitive impairment, agitation and noncompliance with medication. She has been treated with benzodiazepine and antipsychotics. PAST MEDICAL HISTORY: Significant for hypertension and hyperlipidemia. ALLERGIES: No known drug allergies. SUBSTANCE ABUSE HISTORY: No known history of illicit drug use or alcohol. MENTAL STATUS EXAMINATION: The patient is confused, disoriented, and uncooperative with examination. Poor historian. Mood is anxious. Affect is flat. Congruent with mood. Thought process is disorganized and there is a paucity of thought content. No suicidal or homicidal ideations. Cognition is impaired including memory concentration, and attention. Insight and judgment is impaired. ASSESSMENT: AXIS I Delirium having cognitive impairment. AXIS II Deferred. AXIS III Gastrointestinal bleeding. AXIS IV Low. AXIS V Global assessment of functioning is 20. PLAN: 1. The patient will be started on low-dose of antipsychotics. 2. Provide the patient with supportive therapy and reality orientation. Meena Moon M.D. DR: LUCIAN JOB#: [id number] CC:
--- NOTE | 2016-07-05 23:09 | General Progress Note ---
Assessment/Plan Assessment/Plan Assessment - UGIB - Acute DVT - drop in H&H - ? hydration, GIB, ? effect of heparin - OBS Recommendations - Will proceed with EGD as planned to risk assess for IV heparin use - will continue IV heparin, given acute DVT (per risk/benefit analysis) - since on heparin, will likely only do diagnostic EGD - Monitor CBC - NPO - Guarded Subjective Allergies: Coded Allergies: No Known Allergies (Unverified , 07/04/16) Subjective Above noted found to have acute femoral DVT last night now on heparin gtt H&H lower no melena overnight Objective Last 24 Hour Vital Signs Date Time Temp Pulse Resp B/P Pulse Ox O2 Delivery O2 Flow Rate FiO2 07/05/16 21:00 98.2 77 20 140/68 97 Room Air 07/05/16 20:29 73 153/59 07/05/16 20:00 99.0 73 19 153/59 93 Room Air 07/05/16 16:09 97.9 67 18 113/47 96 Room Air 07/05/16 11:57 96.1 64 19 146/71 95 Room Air 07/05/16 09:28 72 153/91 07/05/16 09:28 153/91 07/05/16 08:35 96.6 72 21 153/91 94 Room Air 07/05/16 08:20 72 17 94 07/05/16 08:05 97.2 72 17 121/55 94 Room Air 07/05/16 07:55 74 18 138/62 96 Room Air 07/05/16 07:50 73 15 120/66 98 Nasal Cannula 3.0 07/05/16 07:48 75 23 99 07/05/16 07:45 97.4 73 17 105/69 98 Nasal Cannula 3.0 07/05/16 04:00 97.8 66 18 141/56 92 Room Air 07/05/16 00:00 97.9 68 18 146/58 91 Room Air Intake and Output 07/04/16 07/05/16 19:00 07:00 Intake Total 480 ml 1084 ml Balance 480 ml 1084 ml Intake Oral 480 ml 560 ml IV Total 524 ml # Voids 3 3 Laboratory Tests 07/05/16 06:35: White Blood Count 7.4, Red Blood Count 4.44, Hemoglobin 12.3, Hematocrit 36.6L, Mean Corpuscular Volume 82, Mean Corpuscular Hemoglobin 27.7, Mean Corpuscular Hemoglobin Concent 33.6, Red Cell Distribution Width 12.9, Platelet Count 292, Mean Platelet Volume 7.7, Neutrophils (%) (Auto) 63.1, Lymphocytes (%) (Auto) 30.8, Monocytes (%) (Auto) 5.6, Eosinophils (%) (Auto) 0.1, Basophils (%) (Auto ) 0.4, Prothrombin Time 10.6, Prothromb Time International Ratio 1.0, Activated Partial Thromboplast Time 127H, Sodium Level 140, Potassium Level 3.9, Chloride Level 99, Carbon Dioxide Level 27, Anion Gap 14, Blood Urea Nitrogen 15, Creatinine 1.2H, Estimat Glomerular Filtration Rate , Glucose Level 107H, Calcium Level 9.1, Total Bilirubin 0.5, Aspartate Amino Transf (AST/SGOT) 15, Alanine Aminotransferase (ALT/SGPT) 7, Alkaline Phosphatase 66, Total Protein 6.6, Albumin 3.4L, Globulin 3.2, Albumin/Globulin Ratio 1.0, Amylase Level 70, Lipase 21 07/05/16 10:41: Prothrombin Time 10.5, Prothromb Time International Ratio 1.0 07/05/16 15:00: Activated Partial Thromboplast Time 62H 07/05/16 16:40: White Blood Count 6.8, Red Blood Count 4.04L, Hemoglobin 11.3L, Hematocrit 33.8L , Mean Corpuscular Volume 84, Mean Corpuscular Hemoglobin 27.9, Mean Corpuscular Hemoglobin Concent 33.4, Red Cell Distribution Width 12.7, Platelet Count 254, Mean Platelet Volume 7.0, Neutrophils (%) (Auto) 70.2, Lymphocytes (% ) (Auto) 23.3, Monocytes (%) (Auto) 5.7, Eosinophils (%) (Auto) 0.3, Basophils ( %) (Auto) 0.5 07/05/16 22:45: Activated Partial Thromboplast Time [Pending] Height (Feet): 5 Height (Inches): 1.00 Weight (Pounds): 120 Objective WDWN NCAT Supple CTA RRR Soft ND NT no edema non focal JUSTO MAYERS Jul 05, 2016 23:09
[2016-07-06] VITALS: BP 145/72
--- NOTE | 2016-07-06 00:01 | Pulmonology Progress Note ---
Assessment/Plan Problems: (1) Hematemesis (2) At high risk for aspiration (3) ATN (acute tubular necrosis) (4) HTN (hypertension) (5) Dementia (6) [facility] resident (7) Nursing difficulty (8) Debility Assessment/Plan no new complains H/H stable IV fluids aspiration precaution check h/h GI evaluation check electroltyes Subjective ROS Limited/Unobtainable: No Interval Events: doing better Allergies: Coded Allergies: No Known Allergies (Unverified , 07/04/16) Objective Last 24 Hour Vital Signs Date Time Temp Pulse Resp B/P Pulse Ox O2 Delivery O2 Flow Rate FiO2 07/05/16 21:00 98.2 77 20 140/68 97 Room Air 07/05/16 20:29 73 153/59 07/05/16 20:00 99.0 73 19 153/59 93 Room Air 07/05/16 16:09 97.9 67 18 113/47 96 Room Air 07/05/16 11:57 96.1 64 19 146/71 95 Room Air 07/05/16 09:28 72 153/91 07/05/16 09:28 153/91 07/05/16 08:35 96.6 72 21 153/91 94 Room Air 07/05/16 08:20 72 17 94 07/05/16 08:05 97.2 72 17 121/55 94 Room Air 07/05/16 07:55 74 18 138/62 96 Room Air 07/05/16 07:50 73 15 120/66 98 Nasal Cannula 3.0 07/05/16 07:48 75 23 99 07/05/16 07:45 97.4 73 17 105/69 98 Nasal Cannula 3.0 07/05/16 04:00 97.8 66 18 141/56 92 Room Air Intake and Output 07/05/16 07/06/16 19:00 07:00 Intake Total 1637.646 ml 450.521 ml Output Total 0 ml Balance 1637.646 ml 450.521 ml Intake Oral 480 ml 200 ml IV Total 1157.646 ml 250.521 ml Output Estimated Blood Loss 0 ml # Voids 1 2 General Appearance: WD/WN, no acute distress HEENT: atraumatic Respiratory/Chest: chest wall non-tender Cardiovascular: normal peripheral pulses Abdomen: normal bowel sounds Extremities: no cyanosis Microbiology Date/Time Source Procedure Growth Status 07/04/16 01:45 Arm Right Blood Culture - Preliminary NO GROWTH AFTER 24 HOURS Resulted 07/04/16 01:30 Arm Right Blood Culture - Preliminary NO GROWTH AFTER 24 HOURS Resulted Laboratory Tests 07/05/16 06:35: White Blood Count 7.4, Red Blood Count 4.44, Hemoglobin 12.3, Hematocrit 36.6L, Mean Corpuscular Volume 82, Mean Corpuscular Hemoglobin 27.7, Mean Corpuscular Hemoglobin Concent 33.6, Red Cell Distribution Width 12.9, Platelet Count 292, Mean Platelet Volume 7.7, Neutrophils (%) (Auto) 63.1, Lymphocytes (%) (Auto) 30.8, Monocytes (%) (Auto) 5.6, Eosinophils (%) (Auto) 0.1, Basophils (%) (Auto ) 0.4, Prothrombin Time 10.6, Prothromb Time International Ratio 1.0, Activated Partial Thromboplast Time 127H, Sodium Level 140, Potassium Level 3.9, Chloride Level 99, Carbon Dioxide Level 27, Anion Gap 14, Blood Urea Nitrogen 15, Creatinine 1.2H, Estimat Glomerular Filtration Rate , Glucose Level 107H, Calcium Level 9.1, Total Bilirubin 0.5, Aspartate Amino Transf (AST/SGOT) 15, Alanine Aminotransferase (ALT/SGPT) 7, Alkaline Phosphatase 66, Total Protein 6.6, Albumin 3.4L, Globulin 3.2, Albumin/Globulin Ratio 1.0, Amylase Level 70, Lipase 21 07/05/16 10:41: Prothrombin Time 10.5, Prothromb Time International Ratio 1.0 07/05/16 15:00: Activated Partial Thromboplast Time 62H 07/05/16 16:40: White Blood Count 6.8, Red Blood Count 4.04L, Hemoglobin 11.3L, Hematocrit 33.8L , Mean Corpuscular Volume 84, Mean Corpuscular Hemoglobin 27.9, Mean Corpuscular Hemoglobin Concent 33.4, Red Cell Distribution Width 12.7, Platelet Count 254, Mean Platelet Volume 7.0, Neutrophils (%) (Auto) 70.2, Lymphocytes (% ) (Auto) 23.3, Monocytes (%) (Auto) 5.7, Eosinophils (%) (Auto) 0.3, Basophils ( %) (Auto) 0.5 2/10/17 22:45: Activated Partial Thromboplast Time 123H Current Medications Medications (Trade) Dose Ordered Sig/Selena Route PRN Reason Start Time Stop Time Status Last Admin Dose Admin Acetaminophen (Tylenol) 650 mg Q4H PRN ORAL Mild Pain/Temp > 100.5 07/04/16 06:45 08/03/16 06:44 Acetaminophen (Tylenol) 650 mg Q4H PRN ORAL fever 07/04/16 07:00 08/03/16 06:59 Al Hydroxide/Mg Hydroxide (Mylanta II) 30 ml Q6H PRN ORAL dyspepsia 07/04/16 07:00 08/03/16 06:59 Atorvastatin Calcium (Lipitor) 10 mg BEDTIME ORAL 07/04/16 21:00 08/03/16 20:59 07/05/16 20:29 Dextrose (Dextrose 50%) STAT PRN IV Hypoglycemia 07/04/16 07:00 08/03/16 06:59 Diphenhydramine HCl (Benadryl) 25 mg Q6H PRN ORAL Itching/Pruritis 07/04/16 07:00 08/03/16 06:59 Haloperidol Lactate (Haldol) 5 mg Q6H PRN IM Agitation 07/04/16 08:30 08/03/16 08:29 Heparin Sodium/ Dextrose (Heparin) 500 ml @ 15.241 mls/ hr adjust per protocol IV 07/05/16 23:43 08/04/16 08:44 Hydrochlorothiazide (Hydrodiuril) 25 mg DAILY ORAL 07/04/16 09:00 08/03/16 08:59 07/05/16 09:28 Ketorolac Tromethamine 30 mg 30 mg Q6H PRN IV moderate pian 4-6 07/04/16 07:00 07/09/16 06:59 Lisinopril (Prinivil) 20 mg DAILY ORAL 07/04/16 09:00 08/03/16 08:59 07/05/16 09:28 Magnesium Hydroxide (Mom) 30 ml DAILY ORAL 07/04/16 09:00 08/03/16 08:59 07/04/16 10:13 Memantine (Namenda) 5 mg BEDTIME ORAL 07/04/16 21:00 08/03/16 20:59 07/05/16 20:29 Metoprolol Tartrate (Lopressor) 25 mg EVERY 12 HOURS ORAL 07/04/16 09:00 08/03/16 08:59 07/05/16 20:29 Mirtazapine (Remeron) 7.5 mg BEDTIME ORAL 07/05/16 21:00 08/04/16 20:59 07/05/16 20:29 Morphine Sulfate (Morphine Sulfate) 2 mg Q4H PRN IVP severe Pain (Pain Scale 7-10) 07/04/16 07:00 07/11/16 06:59 Nitroglycerin (Ntg) 0.4 mg Q5M X 3 DOSES PRN SL Prn Chest Pain 07/04/16 07:00 08/03/16 06:59 Ondansetron HCl (Zofran) 4 mg Q6H PRN IVP Nausea & Vomiting 07/04/16 07:00 08/03/16 06:59 Pantoprazole (Protonix) 40 mg BID ORAL 07/05/16 09:00 08/04/16 08:59 07/05/16 18:26 Polyethylene Glycol (Miralax) 17 gm HSPRN PRN ORAL Constipation 07/04/16 07:00 08/03/16 06:59 Quetiapine Fumarate (SEROquel) 50 mg Q12HR ORAL 07/04/16 09:00 08/03/16 08:59 07/05/16 20:29 Sodium Chloride (0.45% NS 1000ml) 1,000 ml @ 65 mls/hr [id number] IV 07/04/16 08:49 08/03/16 08:48 07/05/16 16:31 Temazepam (Restoril) 15 mg HSPRN PRN ORAL Insomnia 07/04/16 07:00 07/11/16 06:59 Warfarin Sodium 1 ea 1 ea DAILY PRN MISC Per rx protocol 07/05/16 12:00 08/04/16 11:59 BELKIS WELLINGTON Jul 06, 2016 00:01
[2016-07-06 04:00] VITALS: BP 129/84
[2016-07-06 06:38] LABS: BASOPHILS % (AUTO) 0.6 % (0.0-2.0); EOSINOPHILS % (AUTO) 0.3 % (0.0-3.0); LYMPHOCYTES % (AUTO) 36.5 % (20.0-45.0); MEAN CORPUSCULAR HEMOGLOBIN 27.9 PG (27.0-31.0); MEAN CORPUSCULAR HGB CONC 33.8 G/DL (32.0-36.0); MEAN CORPUSCULAR VOLUME 82 FL (80-99); MEAN PLATELET VOLUME 7.4 FL (6.5-10.1); MONOCYTES % (AUTO) 7.8 % (1.0-10.0); NEUTROPHILS % (AUTO) 54.8 % (45.0-75.0); PLATELET COUNT 212 K/UL (150-450)
[2016-07-06 07:07] LABS: INR 1.1 (0.9-1.1); PROTHROMBIN TIME 11.2 SEC (9.30-11.50)
[2016-07-06 07:51] VITALS: BP 117/90
[2016-07-06] MEDS: Metoprolol 25mg tab ORAL SCH ×2 (09:00→22:42)
[2016-07-06] MEDS: Lisinopril 20mg tab ORAL SCH (09:00)
[2016-07-06] MEDS: Milk of Magnesia 30ml Ud ORAL SCH (09:00)
[2016-07-06 12:18] VITALS: BP 131/79
--- NOTE | 2016-07-06 12:41 | Diagnostic Imaging Report ---
APPROVED REPORT CPT Code: 65500 Present Symptoms Lower Extremity Pain: RIGHT LEG: Venous imaging reveals a patent deep venous system. There is no evidence of thrombus within the femoral, popliteal or tibial segments. The greater saphenous vein is also within normal limits. Doppler indicates normal spontaneous flow within these segments. LEFT LEG: Venous imaging reveals acute thrombus in the common femoral and distal superficial femoral veins. Large collateral vein noted anterior to the distal superficial femoral artery. Imaging also reveals chronic, recanalized thrombus in the proximal superficial femoral vein. Remainder of the deep venous system within normal limits. No evidence of thrombus in the calf veins. Greater saphenous vein also within normal limits. TAMEKA Marx was notified of abnormal results at 2030 hrs.
--- NOTE | 2016-07-06 12:42 | General Progress Note ---
Assessment/Plan Problem List: (1) Dementia ICD Codes: F03.90 - Unspecified dementia without behavioral disturbance SNOMED: 38451301 Qualifiers: Qualified Codes: G30.1 - Alzheimer's disease with late onset; F02.80 - Dementia in other diseases classified elsewhere without behavioral disturbance (2) Hematemesis ICD Codes: K92.0 - Hematemesis SNOMED: 8700480 Qualifiers: Qualified Codes: K92.0 - Hematemesis; R11.0 - Nausea Status: progressing Assessment/Plan gi bleeding moniter for bleeding check h/h Subjective ROS Limited/Unobtainable: Yes Constitutional: Reports: no symptoms Allergies: Coded Allergies: No Known Allergies (Unverified , 07/04/16) Objective Last 24 Hour Vital Signs Date Time Temp Pulse Resp B/P Pulse Ox O2 Delivery O2 Flow Rate FiO2 07/06/16 12:18 97.9 66 19 131/79 97 Room Air 07/06/16 09:00 60 117/90 07/06/16 09:00 117/90 07/06/16 07:51 98.0 60 19 117/90 94 Room Air 07/06/16 04:00 97.2 72 18 129/84 95 Room Air 07/06/16 00:00 98.0 75 16 145/72 95 Room Air 07/05/16 21:00 98.2 77 20 140/68 97 Room Air 07/05/16 20:29 73 153/59 07/05/16 20:00 99.0 73 19 153/59 93 Room Air 07/05/16 16:09 97.9 67 18 113/47 96 Room Air Intake and Output 07/05/16 07/06/16 19:00 07:00 Intake Total 1917.646 ml 1380.474 ml Output Total 0 ml Balance 1917.646 ml 1380.474 ml Intake Oral 760 ml 500 ml IV Total 1157.646 ml 880.474 ml Output Estimated Blood Loss 0 ml # Voids 2 6 Laboratory Tests 07/05/16 15:00: Activated Partial Thromboplast Time 62H 07/05/16 16:40: White Blood Count 6.8, Red Blood Count 4.04L, Hemoglobin 11.3L, Hematocrit 33.8L , Mean Corpuscular Volume 84, Mean Corpuscular Hemoglobin 27.9, Mean Corpuscular Hemoglobin Concent 33.4, Red Cell Distribution Width 12.7, Platelet Count 254, Mean Platelet Volume 7.0, Neutrophils (%) (Auto) 70.2, Lymphocytes (% ) (Auto) 23.3, Monocytes (%) (Auto) 5.7, Eosinophils (%) (Auto) 0.3, Basophils ( %) (Auto) 0.5 07/05/16 22:45: Activated Partial Thromboplast Time 123H 07/06/16 05:45: Activated Partial Thromboplast Time 87H, White Blood Count 5.0, Red Blood Count 4.00L, Hemoglobin 11.2L, Hematocrit 33.0L, Mean Corpuscular Volume 82, Mean Corpuscular Hemoglobin 27.9, Mean Corpuscular Hemoglobin Concent 33.8, Red Cell Distribution Width 13.0, Platelet Count 212, Mean Platelet Volume 7.4, Neutrophils (%) (Auto) 54.8, Lymphocytes (%) (Auto) 36.5, Monocytes (%) (Auto) 7.8, Eosinophils (%) (Auto) 0.3, Basophils (%) (Auto) 0.6, Prothrombin Time 11.2 , Prothromb Time International Ratio 1.1 Height (Feet): 5 Height (Inches): 1.00 Weight (Pounds): 120 Neck: supple Cardiovascular: normal rate Respiratory/Chest: lungs clear Abdomen: soft Coco Jackson MD Jul 06, 2016 12:42
[2016-07-06 15:55] VITALS: BP 150/64
--- NOTE | 2016-07-06 16:36 | General Progress Note ---
Assessment/Plan Assessment/Plan ASSESSMENT: 1. Acute deep vein thrombosis of the left common femoral vein. The patient is currently on heparin drip, will be started on Coumadin. 2. Anemia, secondary to gastrointestinal bleed and hematemesis. Currently, no evidence of bleed noted on EGD. 3. Acute drop in hemoglobin and hematocrit. 4. Dementia. 5. Altered mental status. 6. Acute kidney injury. 7. Hiatal hernia. 8. Acid reflux. RECOMMENDATIONS: 1. Monitor counts. 2. Transfuse as needed. 3. Begin the patient on Coumadin. 4. Maintain INR between 2 and 3. 5. Continue heparin drip. 6. I will discuss with longterm. 7. We will see the patient on 07/11/2016 in [facility]ology Clinic for evaluation of the patient's INR. 8. We will follow up on Pulmonary and GI recommendations. 9. EGD has been reviewed. 10. No evidence of bleeding noted. 11. GI prophylaxis with Protonix. 12. DVT prophylaxis, continue heparin drip. 13. Discussed with the staff. Sirnath Paige M.D. Subjective Constitutional: Reports: no symptoms HEENT: Reports: no symptoms Cardiovascular: Reports: no symptoms Respiratory: Reports: no symptoms Gastrointestinal/Abdominal: Reports: no symptoms Genitourinary: Reports: no symptoms Neurologic/Psychiatric: Reports: no symptoms Endocrine: Reports: no symptoms Hematologic/Lymphatic: Reports: no symptoms Allergies: Coded Allergies: No Known Allergies (Unverified , 07/04/16) Objective Last 24 Hour Vital Signs Date Time Temp Pulse Resp B/P Pulse Ox O2 Delivery O2 Flow Rate FiO2 07/06/16 15:55 97.3 72 20 150/64 97 Room Air 07/06/16 12:18 97.9 66 19 131/79 97 Room Air 07/06/16 09:00 60 117/90 07/06/16 09:00 117/90 07/06/16 07:51 98.0 60 19 117/90 94 Room Air 07/06/16 04:00 97.2 72 18 129/84 95 Room Air 07/06/16 00:00 98.0 75 16 145/72 95 Room Air 07/05/16 21:00 98.2 77 20 140/68 97 Room Air 07/05/16 20:29 73 153/59 07/05/16 20:00 99.0 73 19 153/59 93 Room Air Intake and Output 07/05/16 07/06/16 19:00 07:00 Intake Total 1917.646 ml 1380.474 ml Output Total 0 ml Balance 1917.646 ml 1380.474 ml Intake Oral 760 ml 500 ml IV Total 1157.646 ml 880.474 ml Output Estimated Blood Loss 0 ml # Voids 2 6 Laboratory Tests 07/05/16 16:40: White Blood Count 6.8, Red Blood Count 4.04L, Hemoglobin 11.3L, Hematocrit 33.8L , Mean Corpuscular Volume 84, Mean Corpuscular Hemoglobin 27.9, Mean Corpuscular Hemoglobin Concent 33.4, Red Cell Distribution Width 12.7, Platelet Count 254, Mean Platelet Volume 7.0, Neutrophils (%) (Auto) 70.2, Lymphocytes (% ) (Auto) 23.3, Monocytes (%) (Auto) 5.7, Eosinophils (%) (Auto) 0.3, Basophils ( %) (Auto) 0.5 07/05/16 22:45: Activated Partial Thromboplast Time 123H 07/06/16 05:45: White Blood Count 5.0, Red Blood Count 4.00L, Hemoglobin 11.2L, Hematocrit 33.0L , Mean Corpuscular Volume 82, Mean Corpuscular Hemoglobin 27.9, Mean Corpuscular Hemoglobin Concent 33.8, Red Cell Distribution Width 13.0, Platelet Count 212, Mean Platelet Volume 7.4, Neutrophils (%) (Auto) 54.8, Lymphocytes (% ) (Auto) 36.5, Monocytes (%) (Auto) 7.8, Eosinophils (%) (Auto) 0.3, Basophils ( %) (Auto) 0.6, Activated Partial Thromboplast Time 87H, Prothrombin Time 11.2, Prothromb Time International Ratio 1.1 Height (Feet): 5 Height (Inches): 1.00 Weight (Pounds): 120 General Appearance: no apparent distress EENT: TMs normal Neck: supple Cardiovascular: regular rhythm Respiratory/Chest: lungs clear Abdomen: soft Extremities: non-tender Edema: no edema noted Arm (L), no edema noted Arm (R), no edema noted Leg (L), no edema noted Leg (R), no edema noted Pedal (L), no edema noted Pedal (R), no edema noted Generalized Neurologic: no motor/sensory deficits Skin: warm/dry Lymphatic: normal anterior cervical (L), normal anterior cervical (R), normal axillary (L), normal axillary (R), normal inguinal (L), normal inguinal (R), normal other, normal posterior cervical (L), normal posterior cervical (R), normal submandibular (L), normal submandibular (R), normal supraclavicular (L), normal supraclavicular (R) SRINATH PAIGE Jul 06, 2016 16:36
[2016-07-06] MEDS ORDERED: Warfarin Sodium 2.5mg ORAL SCH (17:00)
--- NOTE | 2016-07-06 19:09 | Operative Note - Dictated ---
DATE OF OPERATION: 07/05/2016 PROCEDURE: Upper gastric wall endoscopy. SURGEON: Marlys Andersen M.D. ANESTHESIA: Please see the separate anesthesiologist notes for details. PRE-ENDOSCOPIC DIAGNOSIS: Upper gastrointestinal bleeding. POST-ENDOSCOPIC DIAGNOSES: 1. A 4 to 5 cm hiatal hernia. 2. Gastroesophageal reflux disease with reflux related erosions and shallow ulcerations in the lower esophagus without active bleeding. DESCRIPTION OF PROCEDURE: The procedure, its risks, indications, alternatives, and possible complications were explained to the patient's family. Informed consent was obtained. The patient was then sedated in the left lateral decubitus position. A diagnostic upper endoscope was introduced through the oropharynx and advanced to the duodenum. The endoscope was then gradually withdrawn and the mucosa examined carefully. Examination was notable for above findings. RECOMMENDATIONS: 1. Reflux precautions. 2. Proton pump inhibitor. 3. Monitor CBC. 4. Resume oral diet. Marlys Andersen M.D. DR: SERGEI JOB#: [id number] CC:
--- NOTE | 2016-07-06 19:26 | Pulmonology Progress Note ---
Assessment/Plan Problems: (1) DVT (deep venous thrombosis) (2) Hematemesis (3) At high risk for aspiration (4) ATN (acute tubular necrosis) (5) HTN (hypertension) (6) Dementia (7) longterm resident (8) Nursing difficulty (9) Debility Assessment/Plan on heparing and coumadine no new complains H/H stable IV fluids aspiration precaution check h/h GI evaluation check electroltyes Subjective ROS Limited/Unobtainable: No Interval Events: venous dopller positiiove for DVT Allergies: Coded Allergies: No Known Allergies (Unverified , 07/04/16) Objective Last 24 Hour Vital Signs Date Time Temp Pulse Resp B/P Pulse Ox O2 Delivery O2 Flow Rate FiO2 07/06/16 15:55 97.3 72 20 150/64 97 Room Air 07/06/16 12:18 97.9 66 19 131/79 97 Room Air 07/06/16 09:00 60 117/90 07/06/16 09:00 117/90 07/06/16 07:51 98.0 60 19 117/90 94 Room Air 07/06/16 04:00 97.2 72 18 129/84 95 Room Air 07/06/16 00:00 98.0 75 16 145/72 95 Room Air 07/05/16 21:00 98.2 77 20 140/68 97 Room Air 07/05/16 20:29 73 153/59 07/05/16 20:00 99.0 73 19 153/59 93 Room Air Intake and Output 07/05/16 07/06/16 19:00 07:00 Intake Total 1917.646 ml 1380.474 ml Output Total 0 ml Balance 1917.646 ml 1380.474 ml Intake Oral 760 ml 500 ml IV Total 1157.646 ml 880.474 ml Output Estimated Blood Loss 0 ml # Voids 2 6 General Appearance: WD/WN HEENT: normocephalic Respiratory/Chest: chest wall non-tender Breasts: no masses Microbiology Date/Time Source Procedure Growth Status 07/04/16 01:45 Arm Right Blood Culture - Preliminary NO GROWTH AFTER 48 HOURS Resulted 07/04/16 01:30 Arm Right Blood Culture - Preliminary NO GROWTH AFTER 48 HOURS Resulted Laboratory Tests 07/05/16 22:45: Activated Partial Thromboplast Time 123H 07/06/16 05:45: Activated Partial Thromboplast Time 87H, White Blood Count 5.0, Red Blood Count 4.00L, Hemoglobin 11.2L, Hematocrit 33.0L, Mean Corpuscular Volume 82, Mean Corpuscular Hemoglobin 27.9, Mean Corpuscular Hemoglobin Concent 33.8, Red Cell Distribution Width 13.0, Platelet Count 212, Mean Platelet Volume 7.4, Neutrophils (%) (Auto) 54.8, Lymphocytes (%) (Auto) 36.5, Monocytes (%) (Auto) 7.8, Eosinophils (%) (Auto) 0.3, Basophils (%) (Auto) 0.6, Prothrombin Time 11.2 , Prothromb Time International Ratio 1.1 Current Medications Medications (Trade) Dose Ordered Sig/Selena Route PRN Reason Start Time Stop Time Status Last Admin Dose Admin Acetaminophen (Tylenol) 650 mg Q4H PRN ORAL Mild Pain/Temp > 100.5 07/04/16 06:45 08/03/16 06:44 Acetaminophen (Tylenol) 650 mg Q4H PRN ORAL fever 07/04/16 07:00 08/03/16 06:59 Al Hydroxide/Mg Hydroxide (Mylanta II) 30 ml Q6H PRN ORAL dyspepsia 07/04/16 07:00 08/03/16 06:59 Atorvastatin Calcium (Lipitor) 10 mg BEDTIME ORAL 07/04/16 21:00 08/03/16 20:59 07/05/16 20:29 Dextrose (Dextrose 50%) STAT PRN IV Hypoglycemia 07/04/16 07:00 08/03/16 06:59 Diphenhydramine HCl (Benadryl) 25 mg Q6H PRN ORAL Itching/Pruritis 07/04/16 07:00 08/03/16 06:59 Haloperidol Lactate (Haldol) 5 mg Q6H PRN IM Agitation 07/04/16 08:30 08/03/16 08:29 Heparin Sodium/ Dextrose (Heparin) 500 ml @ 15.241 mls/ hr adjust per protocol IV 07/05/16 23:43 08/04/16 08:44 07/06/16 00:22 Hydrochlorothiazide (Hydrodiuril) 25 mg DAILY ORAL 07/04/16 09:00 08/03/16 08:59 07/06/16 09:00 Ketorolac Tromethamine 30 mg 30 mg Q6H PRN IV moderate pian 4-6 07/04/16 07:00 07/09/16 06:59 Lisinopril (Prinivil) 20 mg DAILY ORAL 07/04/16 09:00 08/03/16 08:59 07/05/16 09:28 Magnesium Hydroxide (Mom) 30 ml DAILY ORAL 07/04/16 09:00 08/03/16 08:59 07/06/16 09:00 Memantine (Namenda) 5 mg BEDTIME ORAL 07/04/16 21:00 08/03/16 20:59 07/05/16 20:29 Metoprolol Tartrate (Lopressor) 25 mg EVERY 12 HOURS ORAL 07/04/16 09:00 08/03/16 08:59 07/05/16 20:29 Mirtazapine (Remeron) 7.5 mg BEDTIME ORAL 07/05/16 21:00 08/04/16 20:59 07/05/16 20:29 Morphine Sulfate (Morphine Sulfate) 2 mg Q4H PRN IVP severe Pain (Pain Scale 7-10) 07/04/16 07:00 07/11/16 06:59 Nitroglycerin (Ntg) 0.4 mg Q5M X 3 DOSES PRN SL Prn Chest Pain 07/04/16 07:00 08/03/16 06:59 Ondansetron HCl (Zofran) 4 mg Q6H PRN IVP Nausea & Vomiting 07/04/16 07:00 08/03/16 06:59 Pantoprazole (Protonix) 40 mg BID ORAL 07/05/16 09:00 08/04/16 08:59 07/06/16 18:34 Polyethylene Glycol (Miralax) 17 gm HSPRN PRN ORAL Constipation 07/04/16 07:00 08/03/16 06:59 Quetiapine Fumarate (SEROquel) 50 mg Q12HR ORAL 07/04/16 09:00 08/03/16 08:59 07/06/16 09:00 Sodium Chloride (0.45% NS 1000ml) 1,000 ml @ 65 mls/hr [id number] IV 07/04/16 08:49 08/03/16 08:48 07/06/16 05:01 Temazepam (Restoril) 15 mg HSPRN PRN ORAL Insomnia 07/04/16 07:00 07/11/16 06:59 Warfarin Sodium 1 ea 1 ea DAILY PRN MISC Per rx protocol 07/05/16 12:00 08/04/16 11:59 BELKIS WELLINGTON Jul 06, 2016 19:26
[2016-07-06 19:41] VITALS: BP 149/75
--- NOTE | 2016-07-06 21:13 | General Progress Note ---
Assessment/Plan Assessment/Plan Assessment - UGIB - GERD - Acute DVT - Anemia - OBS Recommendations - Anticoagulation - PPI - Monitor CBC - Elevate HOB Subjective Allergies: Coded Allergies: No Known Allergies (Unverified , 07/04/16) Subjective No events feels OK toleration PO Objective Last 24 Hour Vital Signs Date Time Temp Pulse Resp B/P Pulse Ox O2 Delivery O2 Flow Rate FiO2 07/06/16 19:41 98.7 71 20 149/75 94 Room Air 07/06/16 15:55 97.3 72 20 150/64 97 Room Air 07/06/16 12:18 97.9 66 19 131/79 97 Room Air 07/06/16 09:00 60 117/90 07/06/16 09:00 117/90 07/06/16 07:51 98.0 60 19 117/90 94 Room Air 07/06/16 04:00 97.2 72 18 129/84 95 Room Air 07/06/16 00:00 98.0 75 16 145/72 95 Room Air Intake and Output 07/05/16 07/06/16 19:00 07:00 Intake Total 1917.646 ml 1380.474 ml Output Total 0 ml Balance 1917.646 ml 1380.474 ml Intake Oral 760 ml 500 ml IV Total 1157.646 ml 880.474 ml Output Estimated Blood Loss 0 ml # Voids 2 6 Laboratory Tests 07/05/16 22:45: Activated Partial Thromboplast Time 123H 07/06/16 05:45: Activated Partial Thromboplast Time 87H, White Blood Count 5.0, Red Blood Count 4.00L, Hemoglobin 11.2L, Hematocrit 33.0L, Mean Corpuscular Volume 82, Mean Corpuscular Hemoglobin 27.9, Mean Corpuscular Hemoglobin Concent 33.8, Red Cell Distribution Width 13.0, Platelet Count 212, Mean Platelet Volume 7.4, Neutrophils (%) (Auto) 54.8, Lymphocytes (%) (Auto) 36.5, Monocytes (%) (Auto) 7.8, Eosinophils (%) (Auto) 0.3, Basophils (%) (Auto) 0.6, Prothrombin Time 11.2 , Prothromb Time International Ratio 1.1 Height (Feet): 5 Height (Inches): 1.00 Weight (Pounds): 120 Objective WDWN NCAT Supple CTA RRR Soft ND NT no edema non focal JUSTO MAYERS Jul 06, 2016 21:13
[2016-07-06] MEDS: Memantine 10mg tab ORAL SCH (22:42)
[2016-07-07] VITALS: BP 158/84
[2016-07-07 04:00] VITALS: BP 173/74
[2016-07-07 05:52] LABS: INR 1.2 (0.9-1.1); PROTHROMBIN TIME 12.2 SEC (9.30-11.50)
[2016-07-07 08:15] VITALS: BP 150/85
[2016-07-07] MEDS: Lisinopril 20mg tab ORAL SCH (11:17)
[2016-07-07] MEDS: Metoprolol 25mg tab ORAL SCH ×2 (11:18→21:07)
[2016-07-07] MEDS: Milk of Magnesia 30ml Ud ORAL SCH (11:18)
[2016-07-07 11:38] VITALS: BP 191/74
--- NOTE | 2016-07-07 12:14 | Diagnostic Imaging Report ---
Clinical history: Dyspnea. Technique: Portable AP chest radiograph was obtained. Comparison: 10/20/07. Findings: Lung volumes are low with probable basilar atelectasis and scattered changes of chronic lung disease. No focal consolidation or overt vascular congestion. Calcified right hilar lymph nodes are suspected. Degenerative changes involving the right humeral head and glenohumeral joint noted. Impression: Low lung volumes with probable basilar atelectasis and scattered changes of chronic lung disease. Prominent mediastinal diameter is likely due to age-related unfolding of the aorta exacerbated by low lung volumes. Consider PA and lateral chest radiographs in full inspiration when patient is able.
--- NOTE | 2016-07-07 13:21 | General Progress Note ---
Assessment/Plan Assessment/Plan ASSESSMENT: 1. Acute deep vein thrombosis of the left common femoral vein. On heparin gtt and coumadin as well 2. Anemia, secondary to gastrointestinal bleed and hematemesis. Currently is > 11 hgb 3. Acute drop in hemoglobin and hematocrit. Monitor 4. Dementia. 5. Altered mental status. 6. Acute kidney injury. 7. Hiatal hernia. 8. Acid reflux. RECOMMENDATIONS: 1. Monitor counts. 2. Transfuse as needed. 3. Continue Gi recs, for EGD 4. Maintain INR between 2-3. 5. Continue heparin gtt 6. We will see the patient on 07/11/2016 in Hematology Clinic for INR check 7. Follow up on pulmonary and GI recs 8. GI ppx with protonix 9. DW the staff. Thank you, Mike Paige M.D. Subjective Constitutional: Reports: no symptoms HEENT: Reports: no symptoms Cardiovascular: Reports: no symptoms Respiratory: Reports: no symptoms Gastrointestinal/Abdominal: Reports: poor appetite Genitourinary: Reports: no symptoms Neurologic/Psychiatric: Reports: no symptoms Endocrine: Reports: no symptoms Hematologic/Lymphatic: Reports: anemia Allergies: Coded Allergies: No Known Allergies (Unverified , 07/04/16) Subjective stable, no night sweats, fevers, chills or hematochezia Objective Last 24 Hour Vital Signs Date Time Temp Pulse Resp B/P Pulse Ox O2 Delivery O2 Flow Rate FiO2 07/07/16 11:38 97.0 64 20 191/74 95 Room Air 07/07/16 11:18 67 150/85 07/07/16 11:17 150/85 07/07/16 08:15 96.9 67 19 150/85 95 Room Air 07/07/16 00:00 97.9 73 16 158/84 94 Room Air 07/06/16 22:42 71 149/75 07/06/16 19:41 98.7 71 20 149/75 94 Room Air 07/06/16 15:55 97.3 72 20 150/64 97 Room Air Intake and Output 07/06/16 07/07/16 19:00 07:00 Intake Total 936.928 ml Balance 936.928 ml Intake Oral 360 ml IV Total 576.928 ml # Voids 1 5 Laboratory Tests 07/07/16 04:00: Prothrombin Time 12.2H, Prothromb Time International Ratio 1.2H 07/07/16 04:10: Activated Partial Thromboplast Time 98H 07/07/16 11:45: Activated Partial Thromboplast Time 95H Height (Feet): 5 Height (Inches): 1.00 Weight (Pounds): 120 General Appearance: no apparent distress EENT: TMs normal Neck: supple Cardiovascular: normal rate Respiratory/Chest: lungs clear Abdomen: non tender Extremities: normal inspection Edema: 1+ Leg (L), 1+ Leg (R) Edema: mild edema Neurologic: alert Skin: warm/dry Mike Paige Jul 07, 2016 13:21
[2016-07-07 16:00] VITALS: BP 156/79
--- NOTE | 2016-07-07 16:06 | Pulmonology Progress Note ---
Assessment/Plan Problems: (1) DVT (deep venous thrombosis) (2) At high risk for aspiration (3) ATN (acute tubular necrosis) (4) HTN (hypertension) (5) Dementia (6) [facility] resident (7) Nursing difficulty (8) Debility Assessment/Plan on heparing and coumadine no new complains H/H stable IV fluids aspiration precaution check h/h GI evaluation check electroltyes Subjective ROS Limited/Unobtainable: No Interval Events: comfortable Allergies: Coded Allergies: No Known Allergies (Unverified , 07/04/16) Objective Last 24 Hour Vital Signs Date Time Temp Pulse Resp B/P Pulse Ox O2 Delivery O2 Flow Rate FiO2 07/07/16 11:38 97.0 64 20 191/74 95 Room Air 07/07/16 11:18 67 150/85 07/07/16 11:17 150/85 07/07/16 08:15 96.9 67 19 150/85 95 Room Air 07/07/16 00:00 97.9 73 16 158/84 94 Room Air 07/06/16 22:42 71 149/75 07/06/16 19:41 98.7 71 20 149/75 94 Room Air Intake and Output 07/06/16 07/07/16 19:00 07:00 Intake Total 936.928 ml Balance 936.928 ml Intake Oral 360 ml IV Total 576.928 ml # Voids 1 5 General Appearance: WD/WN HEENT: normocephalic, atraumatic Respiratory/Chest: chest wall non-tender, lungs clear Breasts: no masses Cardiovascular: normal peripheral pulses Genitourinary: normal external genitalia Extremities: no cyanosis Skin: no rash Neurologic/Psychiatric: tree trimmer II-XII grossly normal, no motor/sensory deficits Laboratory Tests 07/07/16 04:00: Prothrombin Time 12.2H, Prothromb Time International Ratio 1.2H 07/07/16 04:10: Activated Partial Thromboplast Time 98H 07/07/16 11:45: Activated Partial Thromboplast Time 95H Current Medications Medications (Trade) Dose Ordered Sig/Selena Route PRN Reason Start Time Stop Time Status Last Admin Dose Admin Acetaminophen (Tylenol) 650 mg Q4H PRN ORAL Mild Pain/Temp > 100.5 07/04/16 06:45 08/03/16 06:44 Acetaminophen (Tylenol) 650 mg Q4H PRN ORAL fever 07/04/16 07:00 08/03/16 06:59 Al Hydroxide/Mg Hydroxide (Mylanta II) 30 ml Q6H PRN ORAL dyspepsia 07/04/16 07:00 08/03/16 06:59 Atorvastatin Calcium (Lipitor) 10 mg BEDTIME ORAL 07/04/16 21:00 08/03/16 20:59 07/06/16 22:41 Dextrose (Dextrose 50%) STAT PRN IV Hypoglycemia 07/04/16 07:00 08/03/16 06:59 Diphenhydramine HCl (Benadryl) 25 mg Q6H PRN ORAL Itching/Pruritis 07/04/16 07:00 08/03/16 06:59 Haloperidol Lactate (Haldol) 5 mg Q6H PRN IM Agitation 07/04/16 08:30 08/03/16 08:29 Heparin Sodium/ Dextrose (Heparin) 500 ml @ 13.063 mls/ hr adjust per protocol IV 07/07/16 05:49 08/04/16 08:44 Hydrochlorothiazide (Hydrodiuril) 25 mg DAILY ORAL 07/04/16 09:00 08/03/16 08:59 07/07/16 11:17 Ketorolac Tromethamine 30 mg 30 mg Q6H PRN IV moderate pian 4-6 07/04/16 07:00 07/09/16 06:59 Lisinopril (Prinivil) 20 mg DAILY ORAL 07/04/16 09:00 08/03/16 08:59 07/07/16 11:17 Magnesium Hydroxide (Mom) 30 ml DAILY ORAL 07/04/16 09:00 08/03/16 08:59 07/07/16 11:18 Memantine (Namenda) 5 mg BEDTIME ORAL 07/04/16 21:00 08/03/16 20:59 07/06/16 22:42 Metoprolol Tartrate (Lopressor) 25 mg EVERY 12 HOURS ORAL 07/04/16 09:00 08/03/16 08:59 07/07/16 11:18 Mirtazapine (Remeron) 7.5 mg BEDTIME ORAL 07/05/16 21:00 08/04/16 20:59 07/06/16 22:41 Morphine Sulfate (Morphine Sulfate) 2 mg Q4H PRN IVP severe Pain (Pain Scale 7-10) 07/04/16 07:00 07/11/16 06:59 Nitroglycerin (Ntg) 0.4 mg Q5M X 3 DOSES PRN SL Prn Chest Pain 07/04/16 07:00 08/03/16 06:59 Ondansetron HCl (Zofran) 4 mg Q6H PRN IVP Nausea & Vomiting 07/04/16 07:00 08/03/16 06:59 Pantoprazole (Protonix) 40 mg BID ORAL 07/05/16 09:00 08/04/16 08:59 07/07/16 11:17 Polyethylene Glycol (Miralax) 17 gm HSPRN PRN ORAL Constipation 07/04/16 07:00 08/03/16 06:59 Quetiapine Fumarate (SEROquel) 50 mg Q12HR ORAL 07/04/16 09:00 08/03/16 08:59 07/07/16 11:18 Sodium Chloride (0.45% NS 1000ml) 1,000 ml @ 65 mls/hr [id number] IV 07/04/16 08:49 08/03/16 08:48 07/07/16 13:40 Temazepam (Restoril) 15 mg HSPRN PRN ORAL Insomnia 07/04/16 07:00 07/11/16 06:59 Warfarin Sodium (Coumadin) 2.5 mg COUMADIN ORAL 07/07/16 17:00 07/07/16 17:01 Warfarin Sodium 1 ea 1 ea DAILY PRN MISC Per rx protocol 07/05/16 12:00 08/04/16 11:59 BELKIS WELLINGTON Jul 07, 2016 16:06
[2016-07-07] MEDS: Heparin 25,000u/D5W 500ml 500 ML IV SCH (16:16)
--- NOTE | 2016-07-07 16:52 | General Progress Note ---
Assessment/Plan Assessment/Plan Assessment - UGIB - GERD - resolved - Acute DVT - Anemia - OBS Recommendations - Anticoagulation - PPI - Monitor CBC - Elevate HOB Subjective Allergies: Coded Allergies: No Known Allergies (Unverified , 07/04/16) Subjective No events feels OK toleration PO Objective Last 24 Hour Vital Signs Date Time Temp Pulse Resp B/P Pulse Ox O2 Delivery O2 Flow Rate FiO2 07/07/16 16:00 98.0 66 18 156/79 97 Room Air 07/07/16 11:38 97.0 64 20 191/74 95 Room Air 07/07/16 11:18 67 150/85 07/07/16 11:17 150/85 07/07/16 08:15 96.9 67 19 150/85 95 Room Air 07/07/16 00:00 97.9 73 16 158/84 94 Room Air 07/06/16 22:42 71 149/75 07/06/16 19:41 98.7 71 20 149/75 94 Room Air Intake and Output 07/06/16 07/07/16 19:00 07:00 Intake Total 936.928 ml Balance 936.928 ml Intake Oral 360 ml IV Total 576.928 ml # Voids 1 5 Laboratory Tests 07/07/16 04:00: Prothrombin Time 12.2H, Prothromb Time International Ratio 1.2H 07/07/16 04:10: Activated Partial Thromboplast Time 98H 07/07/16 11:45: Activated Partial Thromboplast Time 95H Height (Feet): 5 Height (Inches): 1.00 Weight (Pounds): 120 Objective WDWN NCAT Supple CTA RRR Soft ND NT no edema non focal JUSTO MAYERS Jul 07, 2016 16:52
[2016-07-07] MEDS ORDERED: 1/2 NS 1000ml IV ONE (16:57)
[2016-07-07] MEDS ORDERED: Warfarin Sodium 2.5mg ORAL SCH (17:00)
[2016-07-07 20:00] VITALS: BP 171/83
[2016-07-07] MEDS: Memantine 10mg tab ORAL SCH (21:07)
[2016-07-08 04:00] VITALS: BP 173/74
[2016-07-08 04:41] LABS: INR 1.9 (0.9-1.1); PROTHROMBIN TIME 20.1 SEC (9.30-11.50)
[2016-07-08 06:39] VITALS: BP 166/71
[2016-07-08 08:00] VITALS: BP 173/93
[2016-07-08] MEDS: Milk of Magnesia 30ml Ud ORAL SCH (08:25)
[2016-07-08] MEDS: Lisinopril 20mg tab ORAL SCH (08:25)
[2016-07-08] MEDS: Metoprolol 25mg tab ORAL SCH ×2 (08:26→20:10)
--- NOTE | 2016-07-08 11:30 | General Progress Note ---
Assessment/Plan Assessment/Plan ASSESSMENT: 1. Acute deep vein thrombosis of the left common femoral vein. On heparin gtt and coumadin too 2. Anemia, secondary to gastrointestinal bleed and hematemesis. Currently is > 11 hgb 3. Acute drop in hemoglobin and hematocrit. Monitor 4. Dementia. 5. Altered mental status. 6. Acute kidney injury. 7. Hiatal hernia. 8. Acid reflux. RECOMMENDATIONS: 1. Monitor counts. 2. Transfuse as needed. 3. Followup Gi recs 4. Maintain INR between 2-3. 5. Continue heparin gtt 6. We will see the patient on 07/11/2016 in [facility]ology Clinic for INR check 7. Follow up on pulmonary and GI recs 8. GI ppx with protonix 9. DW the staff. Thank you, Mike Paige M.D. Subjective Constitutional: Reports: no symptoms HEENT: Reports: no symptoms Cardiovascular: Reports: no symptoms Respiratory: Reports: no symptoms Gastrointestinal/Abdominal: Reports: no symptoms Genitourinary: Reports: no symptoms Neurologic/Psychiatric: Reports: anxiety Endocrine: Reports: no symptoms Hematologic/Lymphatic: Reports: anemia Allergies: Coded Allergies: No Known Allergies (Unverified , 07/04/16) Subjective stable, no night sweats, fevers, chills or hematochezia Objective Last 24 Hour Vital Signs Date Time Temp Pulse Resp B/P Pulse Ox O2 Delivery O2 Flow Rate FiO2 07/08/16 08:26 62 173/93 07/08/16 08:25 173/93 07/08/16 08:25 173/93 07/08/16 08:00 97.7 62 18 173/93 94 Room Air 07/08/16 06:39 166/71 07/08/16 04:00 95.9 64 16 173/74 94 Room Air 07/07/16 21:07 64 171/83 07/07/16 20:00 97.2 64 18 171/83 94 Room Air 07/07/16 16:00 98.0 66 18 156/79 97 Room Air 07/07/16 11:38 97.0 64 20 191/74 95 Room Air Intake and Output 07/07/16 07/08/16 19:00 07:00 Intake Total 435 ml 1280 ml Balance 435 ml 1280 ml Intake Oral 240 ml 325 ml IV Total 195 ml 715 ml Other 240 ml # Voids 1 4 Laboratory Tests 07/07/16 11:45: Activated Partial Thromboplast Time 95H 07/08/16 04:05: Activated Partial Thromboplast Time 78H, Prothrombin Time 20.1H, Prothromb Time International Ratio 1.9H Height (Feet): 5 Height (Inches): 1.00 Weight (Pounds): 120 General Appearance: no apparent distress EENT: TMs normal Neck: normal inspection Cardiovascular: normal rate Respiratory/Chest: lungs clear Abdomen: soft Extremities: non-tender Edema: 1+ Leg (L), 1+ Leg (R) Edema: mild edema Neurologic: alert Skin: warm/dry Mike Paige Jul 08, 2016 11:30
--- NOTE | 2016-07-08 12:35 | General Progress Note ---
Assessment/Plan Problem List: (1) Dementia ICD Codes: F03.90 - Unspecified dementia without behavioral disturbance SNOMED: 15902704 Qualifiers: Qualified Codes: G30.1 - Alzheimer's disease with late onset; F02.80 - Dementia in other diseases classified elsewhere without behavioral disturbance (2) Hematemesis ICD Codes: K92.0 - Hematemesis SNOMED: 3301511 Qualifiers: Qualified Codes: K92.0 - Hematemesis; R11.0 - Nausea Status: progressing Assessment/Plan moniter for gi bleeding h/h is stable will discuss w gi re findings reviewed chart and labs Subjective ROS Limited/Unobtainable: Yes Constitutional: Reports: no symptoms Allergies: Coded Allergies: No Known Allergies (Unverified , 07/04/16) Objective Last 24 Hour Vital Signs Date Time Temp Pulse Resp B/P Pulse Ox O2 Delivery O2 Flow Rate FiO2 07/08/16 08:26 62 173/93 07/08/16 08:25 173/93 07/08/16 08:25 173/93 07/08/16 08:00 97.7 62 18 173/93 94 Room Air 07/08/16 06:39 166/71 07/08/16 04:00 95.9 64 16 173/74 94 Room Air 07/07/16 21:07 64 171/83 07/07/16 20:00 97.2 64 18 171/83 94 Room Air 07/07/16 16:00 98.0 66 18 156/79 97 Room Air Intake and Output 07/07/16 07/08/16 19:00 07:00 Intake Total 435 ml 1280 ml Balance 435 ml 1280 ml Intake Oral 240 ml 325 ml IV Total 195 ml 715 ml Other 240 ml # Voids 1 4 Laboratory Tests 07/08/16 04:05: Prothrombin Time 20.1H, Prothromb Time International Ratio 1.9H, Activated Partial Thromboplast Time 78H Height (Feet): 5 Height (Inches): 1.00 Weight (Pounds): 120 EENT: PERRL/EOMI Neck: supple Cardiovascular: normal rate Respiratory/Chest: lungs clear Abdomen: soft Coco Jackson MD Jul 08, 2016 12:35
[2016-07-08 12:48] VITALS: BP 134/58
[2016-07-08] MEDS ORDERED: 1/2 NS 1000ml IV ONE (15:13)
[2016-07-08] MEDS: Warfarin Sodium 1mg ORAL ONE ×2 (17:12→17:40)
--- NOTE | 2016-07-08 17:37 | Pulmonology Progress Note ---
Assessment/Plan Problems: (1) DVT (deep venous thrombosis) (2) At high risk for aspiration (3) ATN (acute tubular necrosis) (4) HTN (hypertension) (5) Dementia (6) long term resident (7) Nursing difficulty (8) Debility Assessment/Plan on heparin and coumadin no new complains H/H stable IV fluids aspiration precaution check h/h GI evaluation check electroltyes Subjective ROS Limited/Unobtainable: Yes Constitutional: Reports: anorexia, fatigue Respiratory: Reports: dyspnea at rest, dyspnea on exertion, productive cough, shortness of breath Neurologic: Reports: confusion, weakness Allergies: Coded Allergies: No Known Allergies (Unverified , 07/04/16) Objective Last 24 Hour Vital Signs Date Time Temp Pulse Resp B/P Pulse Ox O2 Delivery O2 Flow Rate FiO2 07/08/16 12:48 97.8 63 18 134/58 98 Room Air 07/08/16 08:26 62 173/93 07/08/16 08:25 173/93 07/08/16 08:25 173/93 07/08/16 08:00 97.7 62 18 173/93 94 Room Air 07/08/16 06:39 166/71 07/08/16 04:00 95.9 64 16 173/74 94 Room Air 07/07/16 21:07 64 171/83 07/07/16 20:00 97.2 64 18 171/83 94 Room Air Intake and Output 07/07/16 07/08/16 19:00 07:00 Intake Total 435 ml 1280 ml Balance 435 ml 1280 ml Intake Oral 240 ml 325 ml IV Total 195 ml 715 ml Other 240 ml # Voids 1 4 General Appearance: no acute distress HEENT: normocephalic, atraumatic, PERRL Respiratory/Chest: chest wall non-tender, decreased breath sounds, accessory muscle use Breasts: no masses Cardiovascular: normal peripheral pulses, normal rate, regular rhythm, no JVD Abdomen: normal bowel sounds, soft, non tender, no organomegaly Genitourinary: normal external genitalia Extremities: no cyanosis Skin: rash, lesions 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, responsive, abnormal CN, disoriented, depressed affect Laboratory Tests 07/08/16 04:05: Prothrombin Time 20.1H, Prothromb Time International Ratio 1.9H, Activated Partial Thromboplast Time 78H Current Medications Medications (Trade) Dose Ordered Sig/Selena Route PRN Reason Start Time Stop Time Status Last Admin Dose Admin Acetaminophen (Tylenol) 650 mg Q4H PRN ORAL Mild Pain/Temp > 100.5 07/04/16 06:45 08/03/16 06:44 Acetaminophen (Tylenol) 650 mg Q4H PRN ORAL fever 07/04/16 07:00 08/03/16 06:59 Al Hydroxide/Mg Hydroxide (Mylanta II) 30 ml Q6H PRN ORAL dyspepsia 07/04/16 07:00 08/03/16 06:59 Atorvastatin Calcium (Lipitor) 10 mg BEDTIME ORAL 07/04/16 21:00 08/03/16 20:59 07/07/16 21:07 Clonidine HCl (Catapres) 0.1 mg Q6H PRN ORAL SBP>160 07/08/16 07:30 08/07/16 07:29 07/08/16 08:25 Dextrose (Dextrose 50%) STAT PRN IV Hypoglycemia 07/04/16 07:00 08/03/16 06:59 Diphenhydramine HCl (Benadryl) 25 mg Q6H PRN ORAL Itching/Pruritis 07/04/16 07:00 08/03/16 06:59 Haloperidol Lactate (Haldol) 5 mg Q6H PRN IM Agitation 07/04/16 08:30 08/03/16 08:29 Heparin Sodium/ Dextrose (Heparin) 500 ml @ 13.063 mls/ hr adjust per protocol IV 07/07/16 05:49 08/04/16 08:44 07/07/16 16:16 Hydrochlorothiazide (Hydrodiuril) 25 mg DAILY ORAL 07/04/16 09:00 08/03/16 08:59 07/08/16 08:26 Ketorolac Tromethamine 30 mg 30 mg Q6H PRN IV moderate pian 4-6 07/04/16 07:00 07/09/16 06:59 Lisinopril (Prinivil) 20 mg DAILY ORAL 07/04/16 09:00 08/03/16 08:59 07/08/16 08:25 Magnesium Hydroxide (Mom) 30 ml DAILY ORAL 07/04/16 09:00 08/03/16 08:59 07/08/16 08:25 Memantine (Namenda) 5 mg BEDTIME ORAL 07/04/16 21:00 08/03/16 20:59 07/07/16 21:07 Metoprolol Tartrate (Lopressor) 25 mg EVERY 12 HOURS ORAL 07/04/16 09:00 08/03/16 08:59 07/08/16 08:26 Mirtazapine (Remeron) 7.5 mg BEDTIME ORAL 07/05/16 21:00 08/04/16 20:59 07/07/16 21:07 Morphine Sulfate (Morphine Sulfate) 2 mg Q4H PRN IVP severe Pain (Pain Scale 7-10) 07/04/16 07:00 07/11/16 06:59 Nitroglycerin (Ntg) 0.4 mg Q5M X 3 DOSES PRN SL Prn Chest Pain 07/04/16 07:00 08/03/16 06:59 Ondansetron HCl (Zofran) 4 mg Q6H PRN IVP Nausea & Vomiting 07/04/16 07:00 08/03/16 06:59 Pantoprazole (Protonix) 40 mg BID ORAL 07/05/16 09:00 08/04/16 08:59 07/08/16 08:26 Polyethylene Glycol (Miralax) 17 gm HSPRN PRN ORAL Constipation 07/04/16 07:00 08/03/16 06:59 Quetiapine Fumarate (SEROquel) 50 mg Q12HR ORAL 07/04/16 09:00 08/03/16 08:59 07/08/16 08:25 Sodium Chloride (0.45% NS 1000ml) 1,000 ml @ 65 mls/hr [id number] IV 07/04/16 08:49 08/03/16 08:48 07/08/16 04:07 Temazepam (Restoril) 15 mg HSPRN PRN ORAL Insomnia 07/04/16 07:00 07/11/16 06:59 Warfarin Sodium 1 ea 1 ea DAILY PRN MISC Per rx protocol 07/05/16 12:00 08/04/16 11:59 BELKIS WELLINGTON Jul 08, 2016 17:37
[2016-07-08] MEDS: Morphine Sulfate 2mg/ml Inj IVP PRN (17:52)
[2016-07-08 20:00] VITALS: BP_SYST 113; BP_SYST 151; BP_DIAS 60; BP_DIAS 83
[2016-07-08] MEDS: Memantine 10mg tab ORAL SCH (20:10)
--- NOTE | 2016-07-08 23:23 | General Progress Note ---
Assessment/Plan Assessment/Plan Assessment - UGIB - GERD - resolved - Acute DVT - anticoagulation - Anemia - OBS Recommendations - Anticoagulation - PPI - Monitor CBC - Elevate HOB Subjective Allergies: Coded Allergies: No Known Allergies (Unverified , 07/04/16) Subjective stable poor po no vomiting Objective Last 24 Hour Vital Signs Date Time Temp Pulse Resp B/P Pulse Ox O2 Delivery O2 Flow Rate FiO2 07/08/16 20:10 63 190/80 07/08/16 20:00 97.9 68 19 151/83 97 Room Air 07/08/16 20:00 98.0 16 113/60 98 Room Air 07/08/16 17:45 190/80 07/08/16 12:48 97.8 63 18 134/58 98 Room Air 07/08/16 08:26 62 173/93 07/08/16 08:25 173/93 07/08/16 08:25 173/93 07/08/16 08:00 97.7 62 18 173/93 94 Room Air 07/08/16 06:39 166/71 07/08/16 04:00 95.9 64 16 173/74 94 Room Air Intake and Output 07/07/16 07/08/16 19:00 07:00 Intake Total 435 ml 1280 ml Balance 435 ml 1280 ml Intake Oral 240 ml 325 ml IV Total 195 ml 715 ml Other 240 ml # Voids 1 4 Laboratory Tests 07/08/16 04:05: Prothrombin Time 20.1H, Prothromb Time International Ratio 1.9H, Activated Partial Thromboplast Time 78H Height (Feet): 5 Height (Inches): 1.00 Weight (Pounds): 120 Objective WDWN NCAT Supple CTA RRR Soft ND NT no edema non focal JUSTO MAYERS Jul 08, 2016 23:23
[2016-07-09] MEDS: Morphine Sulfate 2mg/ml Inj IVP PRN (01:16)
[2016-07-09 04:00] VITALS: BP 128/58
[2016-07-09 06:57] LABS: INR 2.9 (0.9-1.1); PROTHROMBIN TIME 30.9 SEC (9.30-11.50)
[2016-07-09 08:45] VITALS: BP 157/66
[2016-07-09] MEDS: Lisinopril 20mg tab ORAL SCH (08:48)
[2016-07-09] MEDS: Metoprolol 25mg tab ORAL SCH (08:49)
[2016-07-09] MEDS: Milk of Magnesia 30ml Ud ORAL SCH (08:49)
[2016-07-09] MEDS: Heparin 25,000u/D5W 500ml 500 ML IV SCH (08:53)
--- NOTE | 2016-07-09 11:56 | General Progress Note ---
Assessment/Plan Problem List: (1) Dementia ICD Codes: F03.90 - Unspecified dementia without behavioral disturbance SNOMED: 49100738 Qualifiers: Qualified Codes: G30.1 - Alzheimer's disease with late onset; F02.80 - Dementia in other diseases classified elsewhere without behavioral disturbance (2) Hematemesis ICD Codes: K92.0 - Hematemesis SNOMED: 0665960 Qualifiers: Qualified Codes: K92.0 - Hematemesis; R11.0 - Nausea Status: progressing Assessment/Plan no more gi bleed dc to snf Subjective ROS Limited/Unobtainable: Yes Constitutional: Reports: no symptoms Allergies: Coded Allergies: No Known Allergies (Unverified , 07/04/16) Objective Last 24 Hour Vital Signs Date Time Temp Pulse Resp B/P Pulse Ox O2 Delivery O2 Flow Rate FiO2 07/09/16 08:49 61 157/66 07/09/16 08:48 157/66 07/09/16 08:45 97.7 61 19 157/66 96 Room Air 07/09/16 04:00 97.8 64 16 128/58 97 Room Air 07/08/16 20:10 63 190/80 07/08/16 20:00 97.9 68 19 151/83 97 Room Air 07/08/16 20:00 98.0 16 113/60 98 Room Air 07/08/16 17:45 190/80 07/08/16 12:48 97.8 63 18 134/58 98 Room Air Intake and Output 07/08/16 07/09/16 19:00 07:00 Intake Total 380 ml 330 ml Balance 380 ml 330 ml Intake Oral 120 ml 200 ml IV Total 260 ml 130 ml # Voids 1 3 Laboratory Tests 07/09/16 04:45: Prothrombin Time 30.9H, Prothromb Time International Ratio 2.9H, Activated Partial Thromboplast Time 67H Height (Feet): 5 Height (Inches): 1.00 Weight (Pounds): 120 Neck: supple Cardiovascular: normal rate Respiratory/Chest: lungs clear Coco Jackson MD Jul 09, 2016 11:56
[2016-07-09 12:00] VITALS: BP 97/54
[2016-07-09 14:00] VITALS: BP 145/68
[2016-07-09] MEDS ORDERED: 1/2 NS 1000ml IV ONE (14:51)
--- NOTE | 2016-07-09 15:24 | General Progress Note ---
Assessment/Plan Assessment/Plan ASSESSMENT: 1. Acute deep vein thrombosis of the left common femoral vein. On coumadin 2. Anemia, secondary to gastrointestinal bleed and hematemesis. Currently is > 11 hgb 3. Acute drop in hemoglobin and hematocrit. Monitor 4. Dementia. 5. Altered mental status. 6. Acute kidney injury. 7. Hiatal hernia. 8. Acid reflux. RECOMMENDATIONS: 1. Monitor counts. 2. Transfuse as needed. 3. Followup Gi recs 4. Maintain INR between 2-3. 5. Continue heparin gtt 6. We will see the patient on 07/11/2016 in H[facility]ology [facility], patient in [facility] 7. Follow up on pulmonary and GI recs 8. GI ppx with protonix 9. DW the staff. Thank you, Mike Paige M.D. Subjective Constitutional: Reports: no symptoms HEENT: Reports: no symptoms Cardiovascular: Reports: no symptoms Respiratory: Reports: no symptoms Gastrointestinal/Abdominal: Reports: no symptoms Genitourinary: Reports: no symptoms Neurologic/Psychiatric: Reports: no symptoms Endocrine: Reports: no symptoms Hematologic/Lymphatic: Reports: anemia Allergies: Coded Allergies: No Known Allergies (Unverified , 07/04/16) Subjective stable, no night sweats, fevers, chills or hematochezia Objective Last 24 Hour Vital Signs Date Time Temp Pulse Resp B/P Pulse Ox O2 Delivery O2 Flow Rate FiO2 07/09/16 14:00 97.6 58 18 145/68 98 Room Air 07/09/16 12:00 97.5 50 14 97/54 96 Room Air 07/09/16 08:49 61 157/66 07/09/16 08:48 157/66 07/09/16 08:45 97.7 61 19 157/66 96 Room Air 07/09/16 04:00 97.8 64 16 128/58 97 Room Air 07/08/16 20:10 63 190/80 07/08/16 20:00 97.9 68 19 151/83 97 Room Air 07/08/16 20:00 98.0 16 113/60 98 Room Air 07/08/16 17:45 190/80 Intake and Output 07/08/16 07/09/16 19:00 07:00 Intake Total 380 ml 330 ml Balance 380 ml 330 ml Intake Oral 120 ml 200 ml IV Total 260 ml 130 ml # Voids 1 3 Laboratory Tests 07/09/16 04:45: Prothrombin Time 30.9H, Prothromb Time International Ratio 2.9H, Activated Partial Thromboplast Time 67H Height (Feet): 5 Height (Inches): 1.00 Weight (Pounds): 120 General Appearance: no apparent distress EENT: TMs normal Neck: supple Cardiovascular: regular rhythm Respiratory/Chest: normal breath sounds Abdomen: non tender Extremities: non-tender Edema: 1+ Leg (L), 1+ Leg (R) Edema: mild edema Neurologic: alert Skin: normal pigmentation Mike Paige Jul 09, 2016 15:23
--- NOTE | 2016-07-09 15:51 | General Progress Note ---
Assessment/Plan Assessment/Plan Assessment - UGIB - GERD - resolved - Acute DVT - anticoagulation - Anemia - OBS Recommendations - Anticoagulation - PPI - Monitor CBC - Elevate HOB - d/c planning Subjective Allergies: Coded Allergies: No Known Allergies (Unverified , 07/04/16) Subjective stable poor po no vomiting for dc today Objective Last 24 Hour Vital Signs Date Time Temp Pulse Resp B/P Pulse Ox O2 Delivery O2 Flow Rate FiO2 07/09/16 14:00 97.6 58 18 145/68 98 Room Air 07/09/16 12:00 97.5 50 14 97/54 96 Room Air 07/09/16 08:49 61 157/66 07/09/16 08:48 157/66 07/09/16 08:45 97.7 61 19 157/66 96 Room Air 07/09/16 04:00 97.8 64 16 128/58 97 Room Air 07/08/16 20:10 63 190/80 07/08/16 20:00 97.9 68 19 151/83 97 Room Air 07/08/16 20:00 98.0 16 113/60 98 Room Air 07/08/16 17:45 190/80 Intake and Output 07/08/16 07/09/16 19:00 07:00 Intake Total 380 ml 330 ml Balance 380 ml 330 ml Intake Oral 120 ml 200 ml IV Total 260 ml 130 ml # Voids 1 3 Laboratory Tests 07/09/16 04:45: Prothrombin Time 30.9H, Prothromb Time International Ratio 2.9H, Activated Partial Thromboplast Time 67H Height (Feet): 5 Height (Inches): 1.00 Weight (Pounds): 120 Objective WDWN NCAT Supple CTA RRR Soft ND NT no edema non focal JUSTO MAYERS Jul 09, 2016 15:51
--- NOTE | 2016-07-11 15:20 | Discharge Summary ---
Discharge Summary Hospital Course Date of Admission Jul 04, 2016 at 02:41 Date of Discharge Jul 09, 2016 at 14:52 Admitting Diagnosis GI BLEED MAHSA Lopez is a 86 year old female who was admitted on Jul 04, 2016 at 02:41 for Gastrointestinal Bleed Hospital Course [id number] Discharge Discharge Disposition Patient was discharged to SNF/Subacute Facility(03) Discharge Diagnoses: Joi Menchaca NP Jul 11, 2016 15:20
[2016-09-09] MEDS ORDERED: PROTONIX40 MG ORAL (13:23)
[2016-09-09] MEDS ORDERED: MIRTAZAPINE15 MG ORAL (13:23)
== END 2016-07-09 14:52 | DRG 377 ==
LOC: EDBD 00:29 → EMR 00:48 → 4W 02:41 → EDBEDREQ 03:31 → 4W 04:46 → 3E 07-09 05:35
PROC: 0DJ08ZZ Inspection of Upper Intestinal Tract, Via Natural or Artificial Opening Endoscopic (ICD-10-PCS; principal; 2016-07-05 07:24)
DX: K92.2 Gastrointestinal hemorrhage, unspecified (principal); N17.0 Acute kidney failure with tubular necrosis; D62 Acute posthemorrhagic anemia; I82.412 Acute embolism and thrombosis of left femoral vein; K22.10 Ulcer of esophagus without bleeding; E86.0 Dehydration; F41.9 Anxiety disorder, unspecified; R45.1 Restlessness and agitation; K21.9 Gastro-esophageal reflux disease without esophagitis; K44.9 Diaphragmatic hernia without obstruction or gangrene; E78.00 Pure hypercholesterolemia, unspecified; I10 Essential (primary) hypertension; Z91.14 Patient's other noncompliance with medication regimen; G31.84 Mild cognitive impairment of uncertain or unknown etiology
CPT/HCPCS: 36415; 71010; 74177; 80053; 81003; 82150; 83690; 85025; 85610; 85730; 87040; 93970; 94003; 94150; J2405

== ENCOUNTER 2016-08-13 18:38 | Inpatient (IN) | payer MEDICARE, MEDICAID ==
[~2016-08-13] VITALS: Ht 152.4 cm; Wt 48.1 kg
[~2016-08-13 18:38] MED LIST: DOCUSATE SODIU100 MG ORAL; HYDROCHLOROTHIA25 MG ORAL; LIPITOR10 MG ORAL; LISINOPRIL20 MG ORAL; MAGNESIUM400 M1 PO; METOPROLOL TART25 MG ORAL; MILK OF MA400 MG/51 ORAL; MIRTAZAPINE45 MG ORAL; MULTIVITAMINS1 EAC8 ORAL; NAMENDA5 MG ORAL; OMEPRAZOLE20 M2 ORAL; SEROQUEL50 MG ORAL; TYLENOL PO; VITAMIN D1000 UNI1 ORAL; VITAMIN D400 INTLU ORAL
--- NOTE | 2016-08-13 18:58 | Emergency Room Report ---
History of Present Illness General Chief Complaint: Vomiting Source: Patient Present Illness HPI Patient is a 86-year-old female presented after having increased fever as well as vomiting. Patient was noted to have fever. The patient had been having some dark vomiting. Patient was sent from half-way. She had prior history of dementia. Allergies: Coded Allergies: No Known Allergies (Unverified , 07/04/16) Patient History Limited by: language barrier Now: No Reviewed Nursing Documentation: PMH: Agreed, PSxH: Agreed Nursing Documentation-PMH Hx Cardiac Problems: Yes - HYPERCHOLESTEROLEMIA Hx Hypertension: Yes Hx Gastrointestinal Problems: Yes - GERD Hx Dementia: Yes Review of Systems All Other Systems: negative except mentioned in HPI Physical Exam Vital Signs Date Time Temp Pulse Resp B/P Pulse Ox O2 Delivery O2 Flow Rate FiO2 08/13/16 18:41 99.1 100 18 123/49 97 Sp02 EP Interpretation: reviewed, normal General Appearance: normal inspection, alert, moderate distress, Chronically Ill Head: atraumatic ENT: normal ENT inspection, hearing grossly normal, normal voice Neck: normal inspection, full range of motion, supple, no bony tend Respiratory: normal inspection, lungs clear, normal breath sounds, no respiratory distress, no retraction, no wheezing Cardiovascular #1: regular rate, rhythm, no edema Gastrointestinal: normal inspection, normal bowel sounds, non tender, soft, no guarding, no hernia Genitourinary: no CVA tenderness Musculoskeletal: normal inspection, back normal, normal range of motion Neurologic: normal inspection, alert, responsive, 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 Differential diagnoses included ischemic bowel, appendicitis, perforated viscus, abdominal aortic aneurysm, inferior myocardial infarction, viral gastroenteritis Because of complexity of patient's case laboratory testing and imaging studies were ordered.The patient was noted to be initially febrile and tachycardic. CT the abdomen pelvis read by radiology showed evidence of pyelonephritis without evidence of obstruction. Patient started on IV fluids as well as IV antibiotics.The patient given Tylenol for fever. Dr. Coco Burger was contacted for inpatient management Labs Test 08/13/16 19:10 08/13/16 21:28 White Blood Count 12.4 K/UL (4.8-10.8) Red Blood Count 4.22 M/UL (4.20-5.40) Hemoglobin 11.8 G/DL (12.0-16.0) Hematocrit 35.3 % (37.0-47.0) Mean Corpuscular Volume 84 FL (80-99) Mean Corpuscular Hemoglobin 28.1 PG (27.0-31.0) Mean Corpuscular Hemoglobin Concent 33.5 G/DL (32.0-36.0) Red Cell Distribution Width 13.4 % (11.6-14.8) Platelet Count 133 K/UL (150-450) Mean Platelet Volume 8.0 FL (6.5-10.1) Neutrophils (%) (Auto) % (45.0-75.0) Lymphocytes (%) (Auto) % (20.0-45.0) Monocytes (%) (Auto) % (1.0-10.0) Eosinophils (%) (Auto) % (0.0-3.0) Basophils (%) (Auto) % (0.0-2.0) Differential Total Cells Counted 100 Neutrophils % (Manual) 82 % (45-75) Lymphocytes % (Manual) 11 % (20-45) Monocytes % (Manual) 5 % (1-10) Eosinophils % (Manual) 0 % (0-3) Basophils % (Manual) 0 % (0-2) Band Neutrophils 2 % (0-8) Platelet Estimate Decreased Platelet Morphology Normal Red Blood Cell Morphology Normal Prothrombin Time 11.7 SEC (9.30-11.50) Prothromb Time International Ratio 1.1 (0.9-1.1) Activated Partial Thromboplast Time 29 SEC (23-33) Sodium Level 139 mEQ/L (135-145) Potassium Level 3.6 mEQ/L (3.4-4.9) Chloride Level 97 mEQ/L (98-107) Carbon Dioxide Level 23 mEQ/L (20-30) Anion Gap 19 (5-15) Blood Urea Nitrogen 31 mg/dL (7-23) Creatinine 1.6 mg/dL (0.5-0.9) Estimat Glomerular Filtration Rate mL/min (>60) Glucose Level 155 mg/dL (74-106) Lactic Acid Level 1.40 mmol/L (0.66-2.22) Calcium Level 9.1 mg/dL (8.6-10.2) Total Bilirubin 1.3 mg/dL (0.0-1.2) Direct Bilirubin 0.2 mg/dL (0.1-0.3) Aspartate Amino Transf (AST/SGOT) 22 U/L (5-40) Alanine Aminotransferase (ALT/SGPT) 9 U/L (3-33) Alkaline Phosphatase 65 U/L (35-104) Total Creatine Kinase 155 U/L (26-140) Creatine Kinase MB < 1.5 ng/mL (< 3.8) Creatine Kinase MB Relative Index Troponin I < 0.30 ng/mL (<=0.30) Pro-B-Type Natriuretic Peptide 3472 pg/mL (0-450) Total Protein 7.0 g/dL (6.6-8.7) Albumin 3.3 g/dL (3.5-5.2) Globulin 3.7 g/dL Albumin/Globulin Ratio 0.8 (1.0-2.7) Urine Color Yellow Urine Appearance Slightly cloudy Urine pH 5 (4.5-8.0) Urine Specific [place] 1.015 (1.005-1.035) Urine Protein 3+ (NEGATIVE) Urine Glucose (UA) Negative (NEGATIVE) Urine Ketones Negative (NEGATIVE) Urine Occult Blood 4+ (NEGATIVE) Urine Nitrite Positive (NEGATIVE) Urine Bilirubin Negative (NEGATIVE) Urine Urobilinogen Normal MG/DL (0.0-1.0) Urine Leukocyte Esterase 3+ (NEGATIVE) Urine RBC 15-20 /HPF (0 - 2) Urine WBC 10-15 /HPF (0 - 2) Urine Squamous Epithelial Cells Occasional /LPF Urine Amorphous Sediment Few /LPF (NONE) Urine Bacteria Many /HPF (NONE) EKG Diagnostic Results Rate: tachycardiac - 115 Rhythm: NSR ST Segments: no acute changes Rhythm Strip Diag. Results EP Interpretation: yes Rhythm: NSR, no PVC's, no ectopy Chest X-Ray Diagnostic Results EP Interpretation: Yes Findings: no consolidation, no effusion, no pneumothorax, no acute cardiopulmonary disease Number of Views: 1 Last Vital Signs Date Time Temp Pulse Resp B/P Pulse Ox O2 Delivery O2 Flow Rate FiO2 08/13/16 18:41 99.1 100 18 123/49 97 Status: unchanged Disposition: ADMITTED INPATIENT Condition: Serious Edson Stein Aug 13, 2016 18:58
[2016-08-13] MEDS ORDERED: Ampicillin/Sulbactam Sod 3 GM in NS 110 ML IV SCH (19:00)
[2016-08-13] MEDS ORDERED: metroNIDAZOLE 500mg 100 ML IV SCH (19:00)
[2016-08-13 19:15] VITALS: BP 123/49
[2016-08-13] MEDS ORDERED: Unasyn 3gm Inj ONE (19:25)
[2016-08-13] MEDS ORDERED: LORazepam Inj 2mg/ml 1ml IV ONE (19:45)
[2016-08-13 19:49] LABS: MEAN CORPUSCULAR HEMOGLOBIN 28.1 PG (27.0-31.0); MEAN CORPUSCULAR HGB CONC 33.5 G/DL (32.0-36.0); MEAN CORPUSCULAR VOLUME 84 FL (80-99); PLATELET COUNT 133 K/UL (150-450); RED BLOOD COUNT 4.22 M/UL (4.20-5.40); RED CELL DISTRIBUTION WIDTH 13.4 % (11.6-14.8); WHITE BLOOD COUNT 12.4 K/UL (4.8-10.8)
[2016-08-13 20:00] VITALS: BP 135/59
[2016-08-13 20:15] LABS: ALANINE AMINOTRANSFERASE 9 U/L (3-33); ALBUMIN/GLOBULIN RATIO 0.8 (1.0-2.7); ANION GAP 19 (5-15); ASPARTATE AMINO TRANSFERASE 22 U/L (5-40); CALCIUM 9.1 mg/dL (8.6-10.2); CARBON DIOXIDE 23 mEQ/L (20-30); CHLORIDE 97 mEQ/L (98-107); CREATININE 1.6 mg/dL (0.5-0.9); HEMOLYSIS 57; POTASSIUM 3.6 mEQ/L (3.4-4.9); SODIUM 139 mEQ/L (135-145)
[2016-08-13 20:19] LABS: INR 1.1 (0.9-1.1); PROTHROMBIN TIME 11.7 SEC (9.30-11.50)
[2016-08-13 20:26] LABS: CKMB < 1.5 ng/mL (< 3.8)
[2016-08-13 20:27] LABS: TROPONIN I < 0.30 ng/mL (<=0.30)
[2016-08-13 20:36] LABS: BILIRUBIN,DIRECT 0.2 mg/dL (0.1-0.3)
[2016-08-13 21:00] VITALS: BP 141/57
[2016-08-13 21:02] LABS: BAND NEUTROPHILS % (MANUAL) 2 % (0-8); LYMPHOCYTES % (MANUAL) 11 % (20-45); NEUTROPHILS % (MANUAL) 82 % (45-75); PLATELET MORPHOLOGY NORMAL; TOTAL CELLS COUNTED 100
[2016-08-13 21:03] LABS: BASOPHILS % (MANUAL) 0 % (0-2); EOSINOPHILS % (MANUAL) 0 % (0-3); PLATELET ESTIMATE DECREASED
--- NOTE | 2016-08-13 21:08 | Consultation ---
Consult Note Consult Note DATE OF CONSULTATION: 08/13/2016 HEMATOLOGY/ONCOLOGY CONSULTATION CONSULTING PHYSICIAN: Mike Paige M.D. REFERRING PHYSICIAN: Coco Jackson M.D. REASON FOR CONSULTATION: Evaluation of acute DVT of the left common femoral vein and anemia IDENTIFYING DATA: Dear Dr. Coco Jackson, The patient is a pleasant 86-year-old female with history of dementia; history of debilitation; Syrian speaking; and history of speaking Hungarian, however, given dementia, her Hungarian speaking ability has gotten worse. At this time, she presented with dark color emesis from nursing facility, brought into the hospital for further evaluation - in addition she was febrile. It was noted he patient had an acute blood clot in the common femoral vein on 07/05/16. She also had an EGD completed on previous admission, which showed GERD as well as hiatal hernia. Hematology Service was consulted given the patient's history of acute clot in regards to further anticoagulation PAST MEDICAL HISTORY: Dementia, hypercholesterolemia, hypertension, and history of GERD. MEDICATIONS: Reviewed. SOCIAL HISTORY: Resides in [facility] and [facility]. No recent history of alcohol, tobacco or illicit drug use. FAMILY HISTORY: Noncontributory. REVIEW OF SYSTEMS: Constitutional: No fever, chills, or night sweats. Skin: No rashes, lumps, or itching. HEENT: No headache, hearing or vision changes. Breasts: No lumps, pain, or discharge. Pulmonary: No cough, sputum, or shortness of breath. Cardiovascular: No chest pain, tightness, or palpitations. Gastrointestinal: No nausea, vomiting, or diarrhea. Genitourinary: No dysuria, frequency, or urgency. Musculoskeletal: No joint swelling, muscle pain, or trauma. Neurological: No dizziness, fainting, or seizures. PHYSICAL EXAMINATION: GENERAL: In no acute distress. VITAL SIGNS: Last 24 Hour Vital Signs Date Time Temp Pulse Resp B/P Pulse Ox O2 Delivery O2 Flow Rate FiO2 08/13/16 19:15 101.2 100 18 123/49 97 08/13/16 18:41 99.1 100 18 123/49 97 PULMONARY: Decreased breath sounds. CARDIOVASCULAR: Regular rate and rhythm. No S3 or S4. ABDOMEN: Soft, nontender, and nondistended. EXTREMITIES: A 1+ edema. ASSESSMENT: 1. Hx of acute deep vein thrombosis of the left common femoral vein. On coumadin 2. Anemia, secondary to gastrointestinal bleed and hematemesis. Currently is > 10 hgb 3. Thrombocytopenia - new onset, likely 2/2 infection, ID following, patient febrile 4. Nausea and vomiting - current and in past egd showed gerd 5. hx Altered mental status. 6. Acute kidney injury. 7. Hiatal hernia. 8. Acid reflux. RECOMMENDATIONS: 1. Monitor counts. 2. CT a/p is pending 3. Appreciate Gi ID, renal recs 4. If all stable, start coumadin tomorrow 5. Maintain INR between 2-3. 6. Anemia w/u pending 7. Duplex of lower ext to r/o dvt 8. GI ppx with protonix 9. DW the staff. Thank you, Mike Paige M.D. Mike Paige Aug 13, 2016 21:08
[2016-08-13 21:50] LABS: APPEARANCE,URINE SLIGHTLY CLOUDY; KETONES,URINE NEGATIVE (NEGATIVE); LEUKOCYTE ESTERASE ,URINE 3+ (NEGATIVE); NITRITE,URINE POSITIVE (NEGATIVE); PH,URINE 5 (4.5-8.0); PROTEIN,URINE 3+ (NEGATIVE); UROBILINOGEN,URINE NORMAL MG/DL (0.0-1.0)
[2016-08-13 22:01] LABS: RBC,URINE 15-20 /HPF (0 - 2)
[2016-08-13 22:02] LABS: AMORPHOUS SEDIMENT,UR FEW /LPF; BACTERIA,URINE MANY /HPF; SQUAMOUS EPITHELIAL CELL,UR OCCASIONAL /LPF (NONE/OCC)
[2016-08-13 22:30] VITALS: BP 141/57
[2016-08-13 22:59] LABS: PATH BLOOD SMEAR/OMC SENT TO PATHOLOGIST; RETICULOCYTE COUNT 1.2 % (0.0-2.0)
[2016-08-13] MEDS ORDERED: Morphine Sulfate 2mg/ml Inj IVP PRN (23:00)
[2016-08-13] MEDS ORDERED: Miralax 17gm pkt ORAL PRN (23:00)
[2016-08-13] MEDS ORDERED: Nitroglycerin Subl 0.4mg tab (Bottle Of 25) SL PRN (23:00)
[2016-08-13] MEDS ORDERED: Mylanta II UD 30ml ORAL PRN (23:00)
[2016-08-13 23:15] VITALS: BP 146/54
[2016-08-13] MEDS ORDERED: Acetaminophen 650 MG SUPP RECTAL ONE (23:45)
[2016-08-13 23:50] VITALS: BP 146/54
[2016-08-14] MEDS ORDERED: Zosyn 2.25gm inj ONE (00:51)
[2016-08-14] MEDS: Zosyn 2.25 gm in D5W 55ml IV SCH ×2 (00:58→10:30)
[2016-08-14] MEDS: D5 1/2NS 1,000 ML IV SCH ×3 (01:11→20:20)
[2016-08-14 01:30] VITALS: BP 140/60
[2016-08-14] MEDS ORDERED: HEPARIN SO5000 UNIT2 SUBQ (02:27)
[2016-08-14 04:00] VITALS: BP 97/50
[2016-08-14 05:03] LABS: MEAN CORPUSCULAR HEMOGLOBIN 27.9 PG (27.0-31.0); MEAN CORPUSCULAR HGB CONC 33.3 G/DL (32.0-36.0); MEAN CORPUSCULAR VOLUME 84 FL (80-99); MEAN PLATELET VOLUME 8.2 FL (6.5-10.1); PLATELET COUNT 134 K/UL (150-450); RED BLOOD COUNT 3.78 M/UL (4.20-5.40); RED CELL DISTRIBUTION WIDTH 13.7 % (11.6-14.8); WHITE BLOOD COUNT 12.1 K/UL (4.8-10.8)
[2016-08-14 05:31] LABS: ALANINE AMINOTRANSFERASE 9 U/L (3-33); ALBUMIN/GLOBULIN RATIO 0.9 (1.0-2.7); ANION GAP 16 (5-15); ASPARTATE AMINO TRANSFERASE 20 U/L (5-40); CALCIUM 8.1 mg/dL (8.6-10.2); CARBON DIOXIDE 25 mEQ/L (20-30); CHLORIDE 102 mEQ/L (98-107); CREATININE 1.7 mg/dL (0.5-0.9); HEMOLYSIS 4; MAGNESIUM 1.6 mg/dL (1.7-2.5); PHOSPHORUS 2.2 mg/dL (2.5-4.8); SODIUM 143 mEQ/L (135-145); TOTAL PROTEIN 5.9 g/dL (6.6-8.7); URIC ACID 7.7 mg/dL (3.0-7.5)
[2016-08-14 05:44] LABS: THYROID STIMULATING HORMONE 0.336 uIU/mL (0.300-4.500)
[2016-08-14] MEDS ORDERED: Piperacillin/Tazobactam 3.375 GM in NS 110 ML IVPB SCH (06:00)
[2016-08-14 06:11] LABS: AMYLASE 32 U/L (10-110); LIPASE 10 U/L (< 60)
[2016-08-14 06:35] LABS: APPEARANCE,URINE SLIGHTLY CLOUDY; KETONES,URINE NEGATIVE (NEGATIVE); LEUKOCYTE ESTERASE ,URINE 3+ (NEGATIVE); NITRITE,URINE NEGATIVE (NEGATIVE); PH,URINE 5 (4.5-8.0); PROTEIN,URINE 3+ (NEGATIVE); UROBILINOGEN,URINE NORMAL MG/DL (0.0-1.0)
[2016-08-14 06:48] LABS: BILIRUBIN,DIRECT 0.3 mg/dL (0.1-0.3)
[2016-08-14] MEDS: Heparin 5000 units/ml inj SUBQ SCH ×2 (07:24→20:58)
[2016-08-14 08:15] VITALS: BP 90/50
[2016-08-14 08:17] LABS: BACTERIA,URINE MODERATE /HPF; GRANULAR CASTS,URINE 0-2 /LPF; RBC,URINE 30-40 /HPF (0 - 2); SQUAMOUS EPITHELIAL CELL,UR FEW /LPF (NONE/OCC); WBC,URINE 60-80 /HPF (0 - 2)
[2016-08-14] MEDS: Pantoprazole Inj IVP SCH (08:21)
--- NOTE | 2016-08-14 08:33 | Infectious Diseases Prog Note ---
Assessment/Plan Problems: (1) Urinary tract infection Assessment & Plan: on zosyn, await culture (2) Sepsis Assessment & Plan: due to UTI, on zosyn, await urine culture (3) Diarrhea Assessment & Plan: rule out infectious etiology, will send stool culture and C diff toxin, and start oral vancomycin empirically (4) GI bleed Assessment & Plan: due to anticoagulation, monitor H/H , transfuse blood as needed , consult GI, and HEM/ONC (5) DVT (deep venous thrombosis) Assessment & Plan: management as per hematology Subjective Allergies: Coded Allergies: No Known Allergies (Unverified , 07/04/16) Objective Vital Signs Last 24 Hour Vital Signs Date Time Temp Pulse Resp B/P Pulse Ox O2 Delivery O2 Flow Rate FiO2 08/14/16 08:15 97.2 85 18 90/50 97 Room Air 08/14/16 04:00 104 08/14/16 04:00 98.4 92 18 97/50 91 Room Air 08/14/16 01:30 103.3 105 25 140/60 100 Room Air 08/14/16 01:30 103.3 105 25 140/60 100 Room Air 08/13/16 23:15 104.0 110 24 146/54 100 Room Air 08/13/16 22:30 115 22 141/57 97 Room Air 08/13/16 21:00 115 22 141/57 97 Room Air 08/13/16 20:00 99.8 109 21 135/59 97 Room Air 08/13/16 19:15 101.2 100 18 123/49 97 08/13/16 18:41 99.1 100 18 123/49 97 Height (Feet): 5 Height (Inches): 0.00 Weight (Pounds): 106 Laboratory Tests Test 08/13/16 19:10 08/13/16 21:28 08/14/16 04:50 08/14/16 06:00 White Blood Count 12.4 K/UL (4.8-10.8) H 12.1 K/UL (4.8-10.8) H Red Blood Count 4.22 M/UL (4.20-5.40) 3.78 M/UL (4.20-5.40) L Hemoglobin 11.8 G/DL (12.0-16.0) L 10.5 G/DL (12.0-16.0) L Hematocrit 35.3 % (37.0-47.0) L 31.6 % (37.0-47.0) L Mean Corpuscular Volume 84 FL (80-99) 84 FL (80-99) Mean Corpuscular Hemoglobin 28.1 PG (27.0-31.0) 27.9 PG (27.0-31.0) Mean Corpuscular Hemoglobin Concent 33.5 G/DL (32.0-36.0) 33.3 G/DL (32.0-36.0) Red Cell Distribution Width 13.4 % (11.6-14.8) 13.7 % (11.6-14.8) Platelet Count 133 K/UL (150-450) L 134 K/UL (150-450) L Mean Platelet Volume 8.0 FL (6.5-10.1) 8.2 FL (6.5-10.1) Neutrophils (%) (Auto) % (45.0-75.0) % (45.0-75.0) Lymphocytes (%) (Auto) % (20.0-45.0) % (20.0-45.0) Monocytes (%) (Auto) % (1.0-10.0) % (1.0-10.0) Eosinophils (%) (Auto) % (0.0-3.0) % (0.0-3.0) Basophils (%) (Auto) % (0.0-2.0) % (0.0-2.0) Differential Total Cells Counted 100 Neutrophils % (Manual) 82 % (45-75) H Pending Lymphocytes % (Manual) 11 % (20-45) L Pending Monocytes % (Manual) 5 % (1-10) Eosinophils % (Manual) 0 % (0-3) Basophils % (Manual) 0 % (0-2) Band Neutrophils 2 % (0-8) Platelet Estimate Decreased L Pending Platelet Morphology Normal Pending Red Blood Cell Morphology Normal Reticulocyte Count 1.2 % (0.0-2.0) Prothrombin Time 11.7 SEC (9.30-11.50) H Prothromb Time International Ratio 1.1 (0.9-1.1) Activated Partial Thromboplast Time 29 SEC (23-33) 29 SEC (23-33) Sodium Level 139 mEQ/L (135-145) 143 mEQ/L (135-145) Potassium Level 3.6 mEQ/L (3.4-4.9) 3.0 mEQ/L (3.4-4.9) L Chloride Level 97 mEQ/L (98-107) L 102 mEQ/L (98-107) Carbon Dioxide Level 23 mEQ/L (20-30) 25 mEQ/L (20-30) Anion Gap 19 (5-15) H 16 (5-15) H Blood Urea Nitrogen 31 mg/dL (7-23) H 29 mg/dL (7-23) H Creatinine 1.6 mg/dL (0.5-0.9) H 1.7 mg/dL (0.5-0.9) H Estimat Glomerular Filtration Rate mL/min (>60) mL/min (>60) Glucose Level 155 mg/dL (74-106) H 219 mg/dL (74-106) H Lactic Acid Level 1.40 mmol/L (0.66-2.22) Calcium Level 9.1 mg/dL (8.6-10.2) 8.1 mg/dL (8.6-10.2) L Total Bilirubin 1.3 mg/dL (0.0-1.2) H 1.1 mg/dL (0.0-1.2) Direct Bilirubin 0.2 mg/dL (0.1-0.3) 0.3 mg/dL (0.1-0.3) Aspartate Amino Transf (AST/SGOT) 22 U/L (5-40) 20 U/L (5-40) Alanine Aminotransferase (ALT/SGPT) 9 U/L (3-33) 9 U/L (3-33) Alkaline Phosphatase 65 U/L (35-104) 56 U/L (35-104) Total Creatine Kinase 155 U/L (26-140) H Creatine Kinase MB < 1.5 ng/mL (< 3.8) Creatine Kinase MB Relative Index Troponin I < 0.30 ng/mL (<=0.30) Pro-B-Type Natriuretic Peptide 3472 pg/mL (0-450) H Total Protein 7.0 g/dL (6.6-8.7) 5.9 g/dL (6.6-8.7) L Albumin 3.3 g/dL (3.5-5.2) L 2.8 g/dL (3.5-5.2) L Globulin 3.7 g/dL 3.1 g/dL Albumin/Globulin Ratio 0.8 (1.0-2.7) L 0.9 (1.0-2.7) L Urine Color Yellow Pale yellow Urine Appearance Slightly cloudy Slightly cloudy Urine pH 5 (4.5-8.0) 5 (4.5-8.0) Urine Specific [place] 1.015 (1.005-1.035) 1.015 (1.005-1.035) Urine Protein 3+ (NEGATIVE) H 3+ (NEGATIVE) H Urine Glucose (UA) Negative (NEGATIVE) Negative (NEGATIVE) Urine Ketones Negative (NEGATIVE) Negative (NEGATIVE) Urine Occult Blood 4+ (NEGATIVE) H 4+ (NEGATIVE) H Urine Nitrite Positive (NEGATIVE) H Negative (NEGATIVE) Urine Bilirubin Negative (NEGATIVE) Negative (NEGATIVE) Urine Urobilinogen Normal MG/DL (0.0-1.0) Normal MG/DL (0.0-1.0) Urine Leukocyte Esterase 3+ (NEGATIVE) H 3+ (NEGATIVE) H Urine RBC 15-20 /HPF (0 - 2) H 30-40 /HPF (0 - 2) H Urine WBC 10-15 /HPF (0 - 2) H 60-80 /HPF (0 - 2) H Urine Squamous Epithelial Cells Occasional /LPF Few /LPF (NONE/OCC) Urine Amorphous Sediment Few /LPF (NONE) H Urine Bacteria Many /HPF (NONE) H Moderate /HPF (NONE) H Plasma/Serum Osmolality Pending Uric Acid 7.7 mg/dL (3.0-7.5) H Phosphorus Level 2.2 mg/dL (2.5-4.8) L Magnesium Level 1.6 mg/dL (1.7-2.5) L Amylase Level 32 U/L (10-110) Lipase 10 U/L (< 60) Thyroid Stimulating Hormone (TSH) 0.336 uIU/mL (0.300-4.500) Free Thyroxine 1.40 ng/dL (0.86-1.85) Cortisol Pending Urine Granular Casts 0-2 /LPF (NONE) H Urine Eosinophils Pending Urine Osmolality Pending Urine Random Sodium 38 mmol/L Urine Random Chloride 43 mmol/L Urine Potassium Timed 73 mmol/L Current Medications Medications (Trade) Dose Ordered Sig/Selena Route PRN Reason Start Time Stop Time Status Last Admin Dose Admin Acetaminophen (Tylenol) 650 mg Q4H PRN ORAL fever 08/13/16 23:00 09/12/16 22:59 Al Hydroxide/Mg Hydroxide (Mylanta II) 30 ml Q6H PRN ORAL dyspepsia 08/13/16 23:00 09/12/16 22:59 Dextrose (Dextrose 50%) STAT PRN IV Hypoglycemia 08/13/16 23:00 09/12/16 22:59 Dextrose/Sodium Chloride (D5 0.45% NS) 1,000 ml @ 75 mls/hr [id number] IV 08/13/16 17:40 09/12/16 17:39 08/14/16 01:11 Diphenhydramine HCl (Benadryl) 25 mg Q6H PRN ORAL Itching/Pruritis 08/13/16 23:00 09/12/16 22:59 Heparin Sodium (Porcine) (Heparin 5000 units/ml) 5,000 units EVERY 12 HOURS SUBQ 08/14/16 09:00 09/13/16 08:59 Lisinopril (Prinivil) 20 mg DAILY ORAL 08/14/16 09:00 09/13/16 08:59 Magnesium Sulfate 100 ml @ 100 mls/hr Q1H IVPB 08/14/16 07:30 08/14/16 09:29 08/14/16 08:21 Metoprolol Tartrate (Lopressor) 25 mg EVERY 12 HOURS ORAL 08/14/16 09:00 09/13/16 08:59 Mirtazapine (Remeron) 22.5 mg BEDTIME ORAL 08/14/16 21:00 09/13/16 20:59 Morphine Sulfate (Morphine Sulfate) 2 mg Q4H PRN IVP severe Pain (Pain Scale 7-10) 08/13/16 23:00 08/20/16 22:59 Nitroglycerin (Ntg) 0.4 mg Q5M X 3 DOSES PRN SL Prn Chest Pain 08/13/16 23:00 09/12/16 22:59 Ondansetron HCl (Zofran) 4 mg Q6H PRN IVP Nausea & Vomiting 08/13/16 23:00 09/12/16 22:59 Pantoprazole 40 mg 40 mg DAILY IVP 08/14/16 09:00 09/13/16 08:59 08/14/16 08:21 Piperacillin Sod/ Tazobactam Sod 2.25 gm/Dextrose 55 ml @ 110 mls/hr Q8H IV 08/14/16 01:30 08/21/16 01:29 08/14/16 00:58 Polyethylene Glycol (Miralax) 17 gm HSPRN PRN ORAL Constipation 08/13/16 23:00 09/12/16 22:59 Potassium Chloride (KCl 10mEq/100ml Premix) 100 ml @ 100 mls/hr Q1H IVPB 08/14/16 08:00 08/14/16 11:59 Quetiapine Fumarate 50 mg 50 mg Q12HR ORAL 08/14/16 09:00 09/13/16 08:59 Temazepam (Restoril) 15 mg HSPRN PRN ORAL Insomnia 08/13/16 23:00 08/20/16 22:59 Erika Hart M.D. Aug 14, 2016 08:33
[2016-08-14] MEDS: Metoprolol 25mg tab ORAL SCH ×2 (08:35→20:36)
[2016-08-14] MEDS ORDERED: Lisinopril 20mg tab ORAL SCH (09:00)
--- NOTE | 2016-08-14 09:33 | Diagnostic Imaging Report ---
Indication: Abdominal pain Technique: Continuous helical transaxial imaging of the abdomen and pelvis was obtained from the lung bases to the pubic symphysis. No intravenous contrast was administered. Coronal 2-D reformats were also obtained. Total Dose length Product (DLP): [address] Dose Index Volume (CTDIvol): 11 mGy Comparison: 07/04/16 Findings: Multiple cysts, both within the central medullary parapelvic region as well as within the cortex of both kidneys noted. Overall there is no change compared to the last study. No nephrolithiasis identified. There is no hydronephrosis seen. Normal appendix demonstrated. Aorta is moderately calcified. Gallbladder is unremarkable. Solid organ evaluation is limited as no IV contrast was given on this examination. There is no free fluid or free air. Uterus is noted. Urinary bladder is unremarkable in appearance. There is narrowing of intervertebral discs and accompanying endplate osteophyte formation. Hypertrophied facet joints also demonstrated.. Anterolisthesis L4 on 5 noted. Multilevel vacuum disc phenomena noted as well. Minimal retrolisthesis at L1-2 demonstrated also. These findings are chronic. There is a hiatal hernia present. Accessory spleen noted. Impression: No significant change. Multiple bilateral renal cysts Atherosclerotic vascular disease Spondylosis Hiatal hernia Accessory spleen The CT scanner at [facility] is accredited by the [employer] and the scans are performed using protocols designed to limit radiation exposure to as low as reasonably achievable to attain images of sufficient resolution adequate for diagnostic evaluation.
[2016-08-14 09:35] LABS: BAND NEUTROPHILS % (MANUAL) 8 % (0-8); BASOPHILS % (MANUAL) 0 % (0-2); EOSINOPHILS % (MANUAL) 0 % (0-3); LYMPHOCYTES % (MANUAL) 7 % (20-45); NEUTROPHILS % (MANUAL) 83 % (45-75); PLATELET ESTIMATE DECREASED; PLATELET MORPHOLOGY NORMAL; TOTAL CELLS COUNTED 100
[2016-08-14] MEDS: Vancomycin oral 125mg/2.5ml ORAL SCH ×4 (10:00→21:27)
--- NOTE | 2016-08-14 10:42 | Diagnostic Imaging Report ---
Indication: Chest Pain Comparison: 07/07/16 A single view chest radiograph was obtained. Findings: Suggestion of mild right diaphragm eventration. Heart is enlarged. Bones are osteopenic. Severe erosive changes of the right shoulder again noted. Impression: No acute disease
[2016-08-14 11:43] VITALS: BP 95/46
--- NOTE | 2016-08-14 12:45 | Consultation ---
History of Present Illness General Date patient seen: Aug 14, 2016 Time patient seen: 12:42 Chief Complaint: Vomiting Reason for Consultation: possible UTI/Pyelo Present Illness HPI 86 yo female, [facility] resident with dementia, mostly kenyan speaking, admitted for abdominal pain/vomiting. History difficult to ascertain. Reviewed chart, images, labs. Allergies: Coded Allergies: No Known Allergies (Unverified , 07/04/16) Medication History Scheduled Atorvastatin Calcium* (Lipitor*), 10 MG ORAL BEDTIME, (Reported) Docusate Sodium* (Docusate Sodium*), 100 MG ORAL TWICE A DAY, (Reported) Heparin Sod (Porcine) (Heparin Sodium*), 5,000 UNITS SUBQ EVERY 12 HOURS, ( Reported) Hydrochlorothiazide* (Hydrochlorothiazide*), 25 MG ORAL DAILY, (Reported) Lisinopril (Lisinopril*), 20 MG ORAL DAILY, (Reported) Magnesium Oxide (Magnesium), 400 MG PO BID, (Reported) Memantine Hcl* (Namenda*), 5 MG ORAL BEDTIME, (Reported) Metoprolol Tartrate* (Metoprolol Tartrate*), 25 MG ORAL EVERY 12 HOURS, ( Reported) Mirtazapine* (Remeron*), 22.5 MG ORAL BEDTIME, (Reported) Multivitamin With Minerals (Multivitamins With Minerals*), 1 TAB ORAL DAILY, ( Reported) Omeprazole (Omeprazole), 20 MG ORAL DAILY, (Reported) Quetiapine Fumarate (Seroquel), 50 MG ORAL TWICE A DAY, (Reported) Vitamin D (Vitamin D3), 2,000 UNITS ORAL DAILY, (Reported) Scheduled PRN Magnesium Hydroxide* (Milk Of Magnesia*), 30 ML ORAL DAILY PRN for Constipation, (Reported) [Tylenol], 650 MG PO EVERY 4 HOURS PRN for Pain Scale (3-5), (Reported) Discontinued Medications Cholecalciferol (Vitamin D3)* (Vitamin D*), 2,000 UNITS ORAL TWICE A DAY, ( Reported) Discontinued Reason: Medication dose changed Patient History Limited by: medical condition History Provided By: Medical Record Healthcare decision maker Resuscitation status Full Code Advanced Directive on File Past Medical/Surgical History Past Medical/Surgical History: (1) HTN (hypertension) (2) ATN (acute tubular necrosis) (3) Debility (4) Urinary tract infection (5) [facility] resident Review of Systems ROS Narrative unable to ascertain due to dementia Physical Exam General Appearance: confused, mild distress HEENT: normocephalic Abdomen: soft Neurologic: disoriented Last 24 Hour Vital Signs Date Time Temp Pulse Resp B/P Pulse Ox O2 Delivery O2 Flow Rate FiO2 08/14/16 11:43 97.0 79 18 95/46 96 Room Air 08/14/16 08:35 85 90/50 08/14/16 08:35 90/50 08/14/16 08:15 97.2 85 18 90/50 97 Room Air 08/14/16 08:00 85 08/14/16 04:00 104 08/14/16 04:00 98.4 92 18 97/50 91 Room Air 08/14/16 01:30 103.3 105 25 140/60 100 Room Air 08/14/16 01:30 103.3 105 25 140/60 100 Room Air 08/13/16 23:15 104.0 110 24 146/54 100 Room Air 08/13/16 22:30 115 22 141/57 97 Room Air 08/13/16 21:00 115 22 141/57 97 Room Air 08/13/16 20:00 99.8 109 21 135/59 97 Room Air 08/13/16 19:15 101.2 100 18 123/49 97 08/13/16 18:41 99.1 100 18 123/49 97 Intake and Output 08/13/16 08/14/16 19:00 07:00 Intake Total 1660 ml Output Total 300 ml Balance 1360 ml Intake IV Total 1660 ml Output Urine Total 300 ml # Voids 1 Laboratory Tests Test 08/13/16 19:10 08/13/16 21:28 08/14/16 04:50 08/14/16 06:00 White Blood Count 12.4 K/UL (4.8-10.8) H 12.1 K/UL (4.8-10.8) H Red Blood Count 4.22 M/UL (4.20-5.40) 3.78 M/UL (4.20-5.40) L Hemoglobin 11.8 G/DL (12.0-16.0) L 10.5 G/DL (12.0-16.0) L Hematocrit 35.3 % (37.0-47.0) L 31.6 % (37.0-47.0) L Mean Corpuscular Volume 84 FL (80-99) 84 FL (80-99) Mean Corpuscular Hemoglobin 28.1 PG (27.0-31.0) 27.9 PG (27.0-31.0) Mean Corpuscular Hemoglobin Concent 33.5 G/DL (32.0-36.0) 33.3 G/DL (32.0-36.0) Red Cell Distribution Width 13.4 % (11.6-14.8) 13.7 % (11.6-14.8) Platelet Count 133 K/UL (150-450) L 134 K/UL (150-450) L Mean Platelet Volume 8.0 FL (6.5-10.1) 8.2 FL (6.5-10.1) Neutrophils (%) (Auto) % (45.0-75.0) % (45.0-75.0) Lymphocytes (%) (Auto) % (20.0-45.0) % (20.0-45.0) Monocytes (%) (Auto) % (1.0-10.0) % (1.0-10.0) Eosinophils (%) (Auto) % (0.0-3.0) % (0.0-3.0) Basophils (%) (Auto) % (0.0-2.0) % (0.0-2.0) Differential Total Cells Counted 100 100 Neutrophils % (Manual) 82 % (45-75) H 83 % (45-75) H Lymphocytes % (Manual) 11 % (20-45) L 7 % (20-45) L Monocytes % (Manual) 5 % (1-10) 2 % (1-10) Eosinophils % (Manual) 0 % (0-3) 0 % (0-3) Basophils % (Manual) 0 % (0-2) 0 % (0-2) Band Neutrophils 2 % (0-8) 8 % (0-8) Platelet Estimate Decreased L Decreased L Platelet Morphology Normal Normal Red Blood Cell Morphology Normal Normal Reticulocyte Count 1.2 % (0.0-2.0) Prothrombin Time 11.7 SEC (9.30-11.50) H Prothromb Time International Ratio 1.1 (0.9-1.1) Activated Partial Thromboplast Time 29 SEC (23-33) 29 SEC (23-33) Sodium Level 139 mEQ/L (135-145) 143 mEQ/L (135-145) Potassium Level 3.6 mEQ/L (3.4-4.9) 3.0 mEQ/L (3.4-4.9) L Chloride Level 97 mEQ/L (98-107) L 102 mEQ/L (98-107) Carbon Dioxide Level 23 mEQ/L (20-30) 25 mEQ/L (20-30) Anion Gap 19 (5-15) H 16 (5-15) H Blood Urea Nitrogen 31 mg/dL (7-23) H 29 mg/dL (7-23) H Creatinine 1.6 mg/dL (0.5-0.9) H 1.7 mg/dL (0.5-0.9) H Estimat Glomerular Filtration Rate mL/min (>60) mL/min (>60) Glucose Level 155 mg/dL (74-106) H 219 mg/dL (74-106) H Lactic Acid Level 1.40 mmol/L (0.66-2.22) Calcium Level 9.1 mg/dL (8.6-10.2) 8.1 mg/dL (8.6-10.2) L Total Bilirubin 1.3 mg/dL (0.0-1.2) H 1.1 mg/dL (0.0-1.2) Direct Bilirubin 0.2 mg/dL (0.1-0.3) 0.3 mg/dL (0.1-0.3) Aspartate Amino Transf (AST/SGOT) 22 U/L (5-40) 20 U/L (5-40) Alanine Aminotransferase (ALT/SGPT) 9 U/L (3-33) 9 U/L (3-33) Alkaline Phosphatase 65 U/L (35-104) 56 U/L (35-104) Total Creatine Kinase 155 U/L (26-140) H Creatine Kinase MB < 1.5 ng/mL (< 3.8) Creatine Kinase MB Relative Index Troponin I < 0.30 ng/mL (<=0.30) Pro-B-Type Natriuretic Peptide 3472 pg/mL (0-450) H Total Protein 7.0 g/dL (6.6-8.7) 5.9 g/dL (6.6-8.7) L Albumin 3.3 g/dL (3.5-5.2) L 2.8 g/dL (3.5-5.2) L Globulin 3.7 g/dL 3.1 g/dL Albumin/Globulin Ratio 0.8 (1.0-2.7) L 0.9 (1.0-2.7) L Urine Color Yellow Pale yellow Urine Appearance Slightly cloudy Slightly cloudy Urine pH 5 (4.5-8.0) 5 (4.5-8.0) Urine Specific [place] 1.015 (1.005-1.035) 1.015 (1.005-1.035) Urine Protein 3+ (NEGATIVE) H 3+ (NEGATIVE) H Urine Glucose (UA) Negative (NEGATIVE) Negative (NEGATIVE) Urine Ketones Negative (NEGATIVE) Negative (NEGATIVE) Urine Occult Blood 4+ (NEGATIVE) H 4+ (NEGATIVE) H Urine Nitrite Positive (NEGATIVE) H Negative (NEGATIVE) Urine Bilirubin Negative (NEGATIVE) Negative (NEGATIVE) Urine Urobilinogen Normal MG/DL (0.0-1.0) Normal MG/DL (0.0-1.0) Urine Leukocyte Esterase 3+ (NEGATIVE) H 3+ (NEGATIVE) H Urine RBC 15-20 /HPF (0 - 2) H 30-40 /HPF (0 - 2) H Urine WBC 10-15 /HPF (0 - 2) H 60-80 /HPF (0 - 2) H Urine Squamous Epithelial Cells Occasional /LPF Few /LPF (NONE/OCC) Urine Amorphous Sediment Few /LPF (NONE) H Urine Bacteria Many /HPF (NONE) H Moderate /HPF (NONE) H Plasma/Serum Osmolality Pending Uric Acid 7.7 mg/dL (3.0-7.5) H Phosphorus Level 2.2 mg/dL (2.5-4.8) L Magnesium Level 1.6 mg/dL (1.7-2.5) L Amylase Level 32 U/L (10-110) Lipase 10 U/L (< 60) Thyroid Stimulating Hormone (TSH) 0.336 uIU/mL (0.300-4.500) Free Thyroxine 1.40 ng/dL (0.86-1.85) Cortisol Pending Urine Granular Casts 0-2 /LPF (NONE) H Urine Eosinophils None seen Urine Osmolality Pending Urine Random Sodium 38 mmol/L Urine Random Chloride 43 mmol/L Urine Potassium Timed 73 mmol/L Height (Feet): 5 Height (Inches): 0.00 Weight (Pounds): 106 Medications Current Medications Medications (Trade) Dose Ordered Sig/Selena Route PRN Reason Start Time Stop Time Status Last Admin Dose Admin Acetaminophen (Tylenol) 650 mg Q4H PRN ORAL fever 08/13/16 23:00 09/12/16 22:59 Al Hydroxide/Mg Hydroxide (Mylanta II) 30 ml Q6H PRN ORAL dyspepsia 08/13/16 23:00 09/12/16 22:59 Dextrose (Dextrose 50%) STAT PRN IV Hypoglycemia 08/13/16 23:00 09/12/16 22:59 Dextrose/Sodium Chloride (D5 0.45% NS) 1,000 ml @ 75 mls/hr [id number] IV 08/13/16 17:40 09/12/16 17:39 08/14/16 01:11 Diphenhydramine HCl (Benadryl) 25 mg Q6H PRN ORAL Itching/Pruritis 08/13/16 23:00 09/12/16 22:59 Heparin Sodium (Porcine) (Heparin 5000 units/ml) 5,000 units EVERY 12 HOURS SUBQ 08/14/16 09:00 09/13/16 08:59 Lisinopril (Prinivil) 20 mg DAILY ORAL 08/14/16 09:00 09/13/16 08:59 Metoprolol Tartrate (Lopressor) 25 mg EVERY 12 HOURS ORAL 08/14/16 09:00 09/13/16 08:59 Mirtazapine (Remeron) 22.5 mg BEDTIME ORAL 08/14/16 21:00 09/13/16 20:59 Morphine Sulfate (Morphine Sulfate) 2 mg Q4H PRN IVP severe Pain (Pain Scale 7-10) 08/13/16 23:00 08/20/16 22:59 Nitroglycerin (Ntg) 0.4 mg Q5M X 3 DOSES PRN SL Prn Chest Pain 08/13/16 23:00 09/12/16 22:59 Ondansetron HCl (Zofran) 4 mg Q6H PRN IVP Nausea & Vomiting 08/13/16 23:00 09/12/16 22:59 Pantoprazole 40 mg 40 mg DAILY IVP 08/14/16 09:00 09/13/16 08:59 08/14/16 08:21 Piperacillin Sod/ Tazobactam Sod/ Dextrose (Zosyn/D5W) 55 ml @ 110 mls/hr Q8H IV 08/14/16 01:30 08/21/16 01:29 08/14/16 10:30 Polyethylene Glycol (Miralax) 17 gm HSPRN PRN ORAL Constipation 08/13/16 23:00 09/12/16 22:59 Quetiapine Fumarate 50 mg 50 mg Q12HR ORAL 08/14/16 09:00 09/13/16 08:59 Temazepam (Restoril) 15 mg HSPRN PRN ORAL Insomnia 08/13/16 23:00 08/20/16 22:59 Vancomycin HCl (Vancomycin) 125 mg FOUR TIMES A DAY ORAL 08/14/16 10:00 08/21/16 09:[address]: multiple bilateral cysts, maybe mild hydro on right. no stone. normal bladder Assessment/Plan Status: stable Assessment/Plan 86 yo female with likely UTI/pyelonephritis. No obstruction noted on imaging, no stone. Difficult to ascertain more history. 1. 2 weeks culture specific abx 2. no further intervention. Romero Luke M.D. Aug 14, 2016 12:45
--- NOTE | 2016-08-14 13:39 | Diagnostic Imaging Report ---
APPROVED REPORT CPT Code: 63619 Present Symptoms Comments: R/O DVT Abdominal distension Past History DVT : RIGHT LEG: Venous imaging reveals a patent deep venous system. There is no evidence of thrombus within the femoral, popliteal or tibial segments. The greater saphenous vein is also within normal limits. Doppler indicates normal spontaneous flow within these segments. LEFT LEG: Venous imaging reveals acute thrombus in the common femoral and popliteal veins. 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 Large collateral vein noted anterior to the superficial femoral artery. Remainder of the deep venous system within normal limits. No evidence of thrombus in the calf veins. Greater saphenous vein also within normal limits. TAMEKA Hills was notified of abnormal results at 1145hours.
--- NOTE | 2016-08-14 13:47 | Consultation ---
Consult Note Consult Note Asked to eval for renal failure- Patient is a 86-year-old female presented after having increased fever as well as vomiting. Patient was noted to have fever. The patient had been having some dark vomiting. Patient was sent from [facility]. She had prior history of dementia. Hx Cardiac Problems: Yes - HYPERCHOLESTEROLEMIA Hx Hypertension: Yes Hx Gastrointestinal Problems: Yes - GERD Hx Dementia: Yes patinet examined- Data reviewed . Assessment/Plan status: Acute kidney injury, partially dehydration, and low BP, partly sepsis Encephalopathy UTI , Sepsis Vomiting and Diarrhea ? infectious DVT Aspiration prone Dementia Plan: Slow hydrate- Monitor renal parameters- avoid nephrotoxics- Keeps BP and BS in check DC Lisinopril- Fluid challenge DRE CHAN Aug 14, 2016 13:46
[2016-08-14 16:00] VITALS: BP 142/73
--- NOTE | 2016-08-14 16:38 | Consultation ---
History of Present Illness General Date patient seen: Aug 14, 2016 Chief Complaint: Vomiting Reason for Consultation: inpatient management Present Illness HPI 86-year-old female with hx of advanced dementia, intermediate resident, brought in with CC of fever as well as vomiting. Apparently the vomit was dark color. Pt can't give any history and all information was obtained from medical records. She admitted for further care. Allergies: Coded Allergies: No Known Allergies (Unverified , 07/04/16) Medication History Scheduled Atorvastatin Calcium* (Lipitor*), 10 MG ORAL BEDTIME, (Reported) Docusate Sodium* (Docusate Sodium*), 100 MG ORAL TWICE A DAY, (Reported) Heparin Sod (Porcine) (Heparin Sodium*), 5,000 UNITS SUBQ EVERY 12 HOURS, ( Reported) Hydrochlorothiazide* (Hydrochlorothiazide*), 25 MG ORAL DAILY, (Reported) Lisinopril (Lisinopril*), 20 MG ORAL DAILY, (Reported) Magnesium Oxide (Magnesium), 400 MG PO BID, (Reported) Memantine Hcl* (Namenda*), 5 MG ORAL BEDTIME, (Reported) Metoprolol Tartrate* (Metoprolol Tartrate*), 25 MG ORAL EVERY 12 HOURS, ( Reported) Mirtazapine* (Remeron*), 22.5 MG ORAL BEDTIME, (Reported) Multivitamin With Minerals (Multivitamins With Minerals*), 1 TAB ORAL DAILY, ( Reported) Omeprazole (Omeprazole), 20 MG ORAL DAILY, (Reported) Quetiapine Fumarate (Seroquel), 50 MG ORAL TWICE A DAY, (Reported) Vitamin D (Vitamin D3), 2,000 UNITS ORAL DAILY, (Reported) Scheduled PRN Magnesium Hydroxide* (Milk Of Magnesia*), 30 ML ORAL DAILY PRN for Constipation, (Reported) [Tylenol], 650 MG PO EVERY 4 HOURS PRN for Pain Scale (3-5), (Reported) Discontinued Medications Cholecalciferol (Vitamin D3)* (Vitamin D*), 2,000 UNITS ORAL TWICE A DAY, ( Reported) Discontinued Reason: Medication dose changed Patient History Healthcare decision maker Resuscitation status Full Code Advanced Directive on File Social History Social History: (1) HTN (hypertension) (2) Debility (3) DVT (deep venous thrombosis) Review of Systems All Other Systems: negative except mentioned in HPI Physical Exam General Appearance: WD/WN Lines, tubes and drains: peripheral HEENT: normocephalic, atraumatic Neck: non-tender, normal alignment Respiratory/Chest: chest wall non-tender, lungs clear Breasts: no masses Abdomen: normal bowel sounds Last 24 Hour Vital Signs Date Time Temp Pulse Resp B/P Pulse Ox O2 Delivery O2 Flow Rate FiO2 08/14/16 16:00 97.7 81 19 142/73 95 Room Air 08/14/16 12:00 73 08/14/16 11:43 97.0 79 18 95/46 96 Room Air 08/14/16 08:35 85 90/50 08/14/16 08:35 90/50 08/14/16 08:15 97.2 85 18 90/50 97 Room Air 08/14/16 08:00 85 08/14/16 04:00 104 08/14/16 04:00 98.4 92 18 97/50 91 Room Air 08/14/16 01:30 103.3 105 25 140/60 100 Room Air 08/14/16 01:30 103.3 105 25 140/60 100 Room Air 08/13/16 23:15 104.0 110 24 146/54 100 Room Air 08/13/16 22:30 115 22 141/57 97 Room Air 08/13/16 21:00 115 22 141/57 97 Room Air 08/13/16 20:00 99.8 109 21 135/59 97 Room Air 08/13/16 19:15 101.2 100 18 123/49 97 08/13/16 18:41 99.1 100 18 123/49 97 Intake and Output 08/13/16 08/14/16 19:00 07:00 Intake Total 1660 ml Output Total 300 ml Balance 1360 ml Intake IV Total 1660 ml Output Urine Total 300 ml # Voids 1 Laboratory Tests Test 08/13/16 19:10 08/13/16 21:28 08/14/16 04:50 08/14/16 06:00 White Blood Count 12.4 K/UL (4.8-10.8) H 12.1 K/UL (4.8-10.8) H Red Blood Count 4.22 M/UL (4.20-5.40) 3.78 M/UL (4.20-5.40) L Hemoglobin 11.8 G/DL (12.0-16.0) L 10.5 G/DL (12.0-16.0) L Hematocrit 35.3 % (37.0-47.0) L 31.6 % (37.0-47.0) L Mean Corpuscular Volume 84 FL (80-99) 84 FL (80-99) Mean Corpuscular Hemoglobin 28.1 PG (27.0-31.0) 27.9 PG (27.0-31.0) Mean Corpuscular Hemoglobin Concent 33.5 G/DL (32.0-36.0) 33.3 G/DL (32.0-36.0) Red Cell Distribution Width 13.4 % (11.6-14.8) 13.7 % (11.6-14.8) Platelet Count 133 K/UL (150-450) L 134 K/UL (150-450) L Mean Platelet Volume 8.0 FL (6.5-10.1) 8.2 FL (6.5-10.1) Neutrophils (%) (Auto) % (45.0-75.0) % (45.0-75.0) Lymphocytes (%) (Auto) % (20.0-45.0) % (20.0-45.0) Monocytes (%) (Auto) % (1.0-10.0) % (1.0-10.0) Eosinophils (%) (Auto) % (0.0-3.0) % (0.0-3.0) Basophils (%) (Auto) % (0.0-2.0) % (0.0-2.0) Differential Total Cells Counted 100 100 Neutrophils % (Manual) 82 % (45-75) H 83 % (45-75) H Lymphocytes % (Manual) 11 % (20-45) L 7 % (20-45) L Monocytes % (Manual) 5 % (1-10) 2 % (1-10) Eosinophils % (Manual) 0 % (0-3) 0 % (0-3) Basophils % (Manual) 0 % (0-2) 0 % (0-2) Band Neutrophils 2 % (0-8) 8 % (0-8) Platelet Estimate Decreased L Decreased L Platelet Morphology Normal Normal Red Blood Cell Morphology Normal Normal Reticulocyte Count 1.2 % (0.0-2.0) Prothrombin Time 11.7 SEC (9.30-11.50) H Prothromb Time International Ratio 1.1 (0.9-1.1) Activated Partial Thromboplast Time 29 SEC (23-33) 29 SEC (23-33) Sodium Level 139 mEQ/L (135-145) 143 mEQ/L (135-145) Potassium Level 3.6 mEQ/L (3.4-4.9) 3.0 mEQ/L (3.4-4.9) L Chloride Level 97 mEQ/L (98-107) L 102 mEQ/L (98-107) Carbon Dioxide Level 23 mEQ/L (20-30) 25 mEQ/L (20-30) Anion Gap 19 (5-15) H 16 (5-15) H Blood Urea Nitrogen 31 mg/dL (7-23) H 29 mg/dL (7-23) H Creatinine 1.6 mg/dL (0.5-0.9) H 1.7 mg/dL (0.5-0.9) H Estimat Glomerular Filtration Rate mL/min (>60) mL/min (>60) Glucose Level 155 mg/dL (74-106) H 219 mg/dL (74-106) H Lactic Acid Level 1.40 mmol/L (0.66-2.22) Calcium Level 9.1 mg/dL (8.6-10.2) 8.1 mg/dL (8.6-10.2) L Total Bilirubin 1.3 mg/dL (0.0-1.2) H 1.1 mg/dL (0.0-1.2) Direct Bilirubin 0.2 mg/dL (0.1-0.3) 0.3 mg/dL (0.1-0.3) Aspartate Amino Transf (AST/SGOT) 22 U/L (5-40) 20 U/L (5-40) Alanine Aminotransferase (ALT/SGPT) 9 U/L (3-33) 9 U/L (3-33) Alkaline Phosphatase 65 U/L (35-104) 56 U/L (35-104) Total Creatine Kinase 155 U/L (26-140) H Creatine Kinase MB < 1.5 ng/mL (< 3.8) Creatine Kinase MB Relative Index Troponin I < 0.30 ng/mL (<=0.30) Pro-B-Type Natriuretic Peptide 3472 pg/mL (0-450) H Total Protein 7.0 g/dL (6.6-8.7) 5.9 g/dL (6.6-8.7) L Albumin 3.3 g/dL (3.5-5.2) L 2.8 g/dL (3.5-5.2) L Globulin 3.7 g/dL 3.1 g/dL Albumin/Globulin Ratio 0.8 (1.0-2.7) L 0.9 (1.0-2.7) L Urine Color Yellow Pale yellow Urine Appearance Slightly cloudy Slightly cloudy Urine pH 5 (4.5-8.0) 5 (4.5-8.0) Urine Specific [place] 1.015 (1.005-1.035) 1.015 (1.005-1.035) Urine Protein 3+ (NEGATIVE) H 3+ (NEGATIVE) H Urine Glucose (UA) Negative (NEGATIVE) Negative (NEGATIVE) Urine Ketones Negative (NEGATIVE) Negative (NEGATIVE) Urine Occult Blood 4+ (NEGATIVE) H 4+ (NEGATIVE) H Urine Nitrite Positive (NEGATIVE) H Negative (NEGATIVE) Urine Bilirubin Negative (NEGATIVE) Negative (NEGATIVE) Urine Urobilinogen Normal MG/DL (0.0-1.0) Normal MG/DL (0.0-1.0) Urine Leukocyte Esterase 3+ (NEGATIVE) H 3+ (NEGATIVE) H Urine RBC 15-20 /HPF (0 - 2) H 30-40 /HPF (0 - 2) H Urine WBC 10-15 /HPF (0 - 2) H 60-80 /HPF (0 - 2) H Urine Squamous Epithelial Cells Occasional /LPF Few /LPF (NONE/OCC) Urine Amorphous Sediment Few /LPF (NONE) H Urine Bacteria Many /HPF (NONE) H Moderate /HPF (NONE) H Plasma/Serum Osmolality Pending Uric Acid 7.7 mg/dL (3.0-7.5) H Phosphorus Level 2.2 mg/dL (2.5-4.8) L Magnesium Level 1.6 mg/dL (1.7-2.5) L Amylase Level 32 U/L (10-110) Lipase 10 U/L (< 60) Thyroid Stimulating Hormone (TSH) 0.336 uIU/mL (0.300-4.500) Free Thyroxine 1.40 ng/dL (0.86-1.85) Cortisol Pending Urine Granular Casts 0-2 /LPF (NONE) H Urine Eosinophils None seen Urine Osmolality Pending Urine Random Sodium 38 mmol/L Urine Random Chloride 43 mmol/L Urine Potassium Timed 73 mmol/L Test 08/14/16 14:50 Urine Random Sodium 46 mmol/L Height (Feet): 5 Height (Inches): 0.00 Weight (Pounds): 106 Medications Current Medications Medications (Trade) Dose Ordered Sig/Selena Route PRN Reason Start Time Stop Time Status Last Admin Dose Admin Acetaminophen (Tylenol) 650 mg Q4H PRN ORAL fever 08/13/16 23:00 09/12/16 22:59 Dextrose (Dextrose 50%) STAT PRN IV Hypoglycemia 08/13/16 23:00 09/12/16 22:59 Dextrose/Sodium Chloride (D5 0.45% NS) 1,000 ml @ 75 mls/hr [id number] IV 08/13/16 17:40 09/12/16 17:39 08/14/16 01:11 Heparin Sodium (Porcine) (Heparin 5000 units/ml) 5,000 units EVERY 12 HOURS SUBQ 08/14/16 09:00 09/13/16 08:59 Metoprolol Tartrate (Lopressor) 25 mg EVERY 12 HOURS ORAL 08/14/16 09:00 09/13/16 08:59 Mirtazapine (Remeron) 22.5 mg BEDTIME ORAL 08/14/16 21:00 09/13/16 20:59 Morphine Sulfate (Morphine Sulfate) 2 mg Q4H PRN IVP severe Pain (Pain Scale 7-10) 08/13/16 23:00 08/20/16 22:59 Nitroglycerin (Ntg) 0.4 mg Q5M X 3 DOSES PRN SL Prn Chest Pain 08/13/16 23:00 09/12/16 22:59 Ondansetron HCl (Zofran) 4 mg Q6H PRN IVP Nausea & Vomiting 08/13/16 23:00 09/12/16 22:59 Pantoprazole (Protonix) 40 mg DAILY IVP 08/14/16 09:00 09/13/16 08:59 08/14/16 08:21 Piperacillin Sod/ Tazobactam Sod/ Dextrose (Zosyn/D5W) 110 ml @ 27.5 mls/hr EVERY 12 HOURS IVPB 08/14/16 21:00 08/19/16 20:59 Polyethylene Glycol (Miralax) 17 gm HSPRN PRN ORAL Constipation 08/13/16 23:00 09/12/16 22:59 Quetiapine Fumarate 50 mg 50 mg Q12HR ORAL 08/14/16 09:00 09/13/16 08:59 Vancomycin HCl 125 mg 125 mg FOUR TIMES A DAY ORAL 08/14/16 10:00 08/21/16 09:59 Assessment/Plan Problem List: (1) Sepsis ICD Codes: A41.9 - Sepsis, unspecified organism SNOMED: 04029213 (2) Pyelonephritis ICD Codes: N12 - Tubulo-interstitial nephritis, not specified as acute or chronic SNOMED: 94654464 (3) At high risk for aspiration ICD Codes: Z91.89 - Other specified personal risk factors, not elsewhere classified SNOMED: 754307328 (4) Dehydration ICD Codes: E86.0 - Dehydration SNOMED: 18731531 Assessment/Plan IV antibiotics check cultures check electrolytes BELKIS WELLINGTON Aug 14, 2016 16:38
--- NOTE | 2016-08-14 17:46 | General Progress Note ---
Assessment/Plan Assessment/Plan ASSESSMENT: 1. Acute deep vein thrombosis of the left common femoral vein. On coumadin 2. Anemia, secondary to gastrointestinal bleed and hematemesis. Currently is > 10 hgb 3. Thrombocytopenia - new onset, likely 2/2 infection, ID following, patient febrile, is on abx 4. Nausea and vomiting - current and in past egd showed gerd 5. Dementia/Altered mental status. 6. Acute kidney injury. 7. Hiatal hernia. 8. Acid reflux. RECOMMENDATIONS: 1. Monitor counts. 2. CT a/p shows accessory spleen 3. Appreciate Gi ID, renal recs 4. Begin coumadin tomorrow 5. Maintain INR between 2-3. 6. Anemia w/u in prior reviewed, shows ACD 7. Duplex of lower ext to r/o dvt shows same dvt as before 8. GI ppx with protonix 9. DW the staff. Thank you, Mike Paige M.D. Subjective Constitutional: Reports: no symptoms HEENT: Reports: no symptoms Cardiovascular: Reports: no symptoms Respiratory: Reports: no symptoms Gastrointestinal/Abdominal: Reports: poor appetite Genitourinary: Reports: no symptoms Neurologic/Psychiatric: Reports: no symptoms Endocrine: Reports: no symptoms Hematologic/Lymphatic: Reports: anemia Allergies: Coded Allergies: No Known Allergies (Unverified , 07/04/16) Subjective stable, difficult to obtain further history, is demented Objective Last 24 Hour Vital Signs Date Time Temp Pulse Resp B/P Pulse Ox O2 Delivery O2 Flow Rate FiO2 08/14/16 16:00 97.7 81 19 142/73 95 Room Air 08/14/16 12:00 73 08/14/16 11:43 97.0 79 18 95/46 96 Room Air 08/14/16 08:35 85 90/50 08/14/16 08:35 90/50 08/14/16 08:15 97.2 85 18 90/50 97 Room Air 08/14/16 08:00 85 08/14/16 04:00 104 08/14/16 04:00 98.4 92 18 97/50 91 Room Air 08/14/16 01:30 103.3 105 25 140/60 100 Room Air 08/14/16 01:30 103.3 105 25 140/60 100 Room Air 08/13/16 23:15 104.0 110 24 146/54 100 Room Air 08/13/16 22:30 115 22 141/57 97 Room Air 08/13/16 21:00 115 22 141/57 97 Room Air 08/13/16 20:00 99.8 109 21 135/59 97 Room Air 08/13/16 19:15 101.2 100 18 123/49 97 08/13/16 18:41 99.1 100 18 123/49 97 Intake and Output 08/13/16 08/14/16 19:00 07:00 Intake Total 1660 ml Output Total 300 ml Balance 1360 ml Intake IV Total 1660 ml Output Urine Total 300 ml # Voids 1 Laboratory Tests 08/13/16 19:10: White Blood Count 12.4H, Red Blood Count 4.22, Hemoglobin 11.8L, Hematocrit 35.3L, Mean Corpuscular Volume 84, Mean Corpuscular Hemoglobin 28.1, Mean Corpuscular Hemoglobin Concent 33.5, Red Cell Distribution Width 13.4, Platelet Count 133L, Mean Platelet Volume 8.0, Neutrophils (%) (Auto) , Lymphocytes (%) ( Auto) , Monocytes (%) (Auto) , Eosinophils (%) (Auto) , Basophils (%) (Auto) , Differential Total Cells Counted 100, Neutrophils % (Manual) 82H, Lymphocytes % (Manual) 11L, Monocytes % (Manual) 5, Eosinophils % (Manual) 0, Basophils % ( Manual) 0, Band Neutrophils 2, Platelet Estimate DecreasedL, Platelet Morphology Normal, Red Blood Cell Morphology Normal, Reticulocyte Count 1.2, Prothrombin Time 11.7H, Prothromb Time International Ratio 1.1, Activated Partial Thromboplast Time 29, Sodium Level 139, Potassium Level 3.6, Chloride Level 97L, Carbon Dioxide Level 23, Anion Gap 19H, Blood Urea Nitrogen 31H, Creatinine 1.6H, Estimat Glomerular Filtration Rate , Glucose Level 155H, Lactic Acid Level 1.40, Calcium Level 9.1, Total Bilirubin 1.3H, Direct Bilirubin 0.2, Aspartate Amino Transf (AST/SGOT) 22, Alanine Aminotransferase ( ALT/SGPT) 9, Alkaline Phosphatase 65, Total Creatine Kinase 155H, Creatine Kinase MB < 1.5, Creatine Kinase MB Relative Index , Troponin I < 0.30, Pro-B- Type Natriuretic Peptide 3472H, Total Protein 7.0, Albumin 3.3L, Globulin 3.7, Albumin/Globulin Ratio 0.8L 08/13/16 21:28: Urine Color Yellow, Urine Appearance Slightly cloudy, Urine pH 5, Urine Specific [place] 1.015, Urine Protein 3+H, Urine Glucose (UA) Negative, Urine Ketones Negative, Urine Occult Blood 4+H, Urine Nitrite PositiveH, Urine Bilirubin Negative, Urine Urobilinogen Normal, Urine Leukocyte Esterase 3+H, Urine RBC 15-20H, Urine WBC 10-15H, Urine Squamous Epithelial Cells Occasional, Urine Amorphous Sediment FewH, Urine Bacteria ManyH 08/14/16 04:50: White Blood Count 12.1H, Red Blood Count 3.78L, Hemoglobin 10.5L, Hematocrit 31.6L, Mean Corpuscular Volume 84, Mean Corpuscular Hemoglobin 27.9, Mean Corpuscular Hemoglobin Concent 33.3, Red Cell Distribution Width 13.7, Platelet Count 134L, Mean Platelet Volume 8.2, Neutrophils (%) (Auto) , Lymphocytes (%) ( Auto) , Monocytes (%) (Auto) , Eosinophils (%) (Auto) , Basophils (%) (Auto) , Differential Total Cells Counted 100, Neutrophils % (Manual) 83H, Lymphocytes % (Manual) 7L, Monocytes % (Manual) 2, Eosinophils % (Manual) 0, Basophils % ( Manual) 0, Band Neutrophils 8, Platelet Estimate DecreasedL, Platelet Morphology Normal, Red Blood Cell Morphology Normal, Activated Partial Thromboplast Time 29, Sodium Level 143, Potassium Level 3.0L, Chloride Level 102 , Carbon Dioxide Level 25, Anion Gap 16H, Blood Urea Nitrogen 29H, Creatinine 1.7H, Estimat Glomerular Filtration Rate , Glucose Level 219H, Calcium Level 8.1L, Total Bilirubin 1.1, Direct Bilirubin 0.3, Aspartate Amino Transf (AST/ SGOT) 20, Alanine Aminotransferase (ALT/SGPT) 9, Alkaline Phosphatase 56, Total Protein 5.9L, Albumin 2.8L, Globulin 3.1, Albumin/Globulin Ratio 0.9L, Plasma/ Serum Osmolality [Pending], Uric Acid 7.7H, Phosphorus Level 2.2L, Magnesium Level 1.6L, Amylase Level 32, Lipase 10, Thyroid Stimulating Hormone (TSH) 0.336 , Free Thyroxine 1.40, Cortisol [Pending] 08/14/16 06:00: Urine Color Pale yellow, Urine Appearance Slightly cloudy, Urine pH 5, Urine Specific [place] 1.015, Urine Protein 3+H, Urine Glucose (UA) Negative, Urine Ketones Negative, Urine Occult Blood 4+H, Urine Nitrite Negative, Urine Bilirubin Negative, Urine Urobilinogen Normal, Urine Leukocyte Esterase 3+H, Urine RBC 30-40H, Urine WBC 60-80H, Urine Squamous Epithelial Cells Few, Urine Bacteria ModerateH, Urine Granular Casts 0-2H, Urine Eosinophils None seen, Urine Osmolality [Pending], Urine Random Sodium 38, Urine Random Chloride 43, Urine Potassium Timed 73 08/14/16 14:50: Urine Random Sodium 46 Height (Feet): 5 Height (Inches): 0.00 Weight (Pounds): 106 General Appearance: no apparent distress EENT: TMs normal Neck: normal inspection Cardiovascular: regular rhythm Respiratory/Chest: normal breath sounds Abdomen: non tender Extremities: non-tender Edema: 1+ Leg (L), 1+ Leg (R) Edema: mild edema Neurologic: oriented x 3 Skin: warm/dry Mike Paige Aug 14, 2016 17:46
[2016-08-14 20:00] VITALS: BP 159/100
[2016-08-14] MEDS ORDERED: Warfarin Sodium 4mg PO ONE (20:00)
[2016-08-14] MEDS: Zosyn 3.375gm q12h **Extended infusion IVPB SCH ×2 (21:29)
--- NOTE | 2016-08-14 22:48 | Consultation ---
DATE OF CONSULTATION: 08/14/2016 INFECTIOUS DISEASE CONSULTATION REQUESTING PHYSICIAN: Coco Jackson M.D. REASON FOR CONSULTATION: Sepsis, urinary tract infection and diarrhea. Recommendation for antibiotics therapy. HISTORY OF PRESENT ILLNESS: The patient is an 86-year-old female with dementia, GERD, hypertension, and hyperlipidemia, who was sent from [facility] for fever and vomiting. The patient had some dark emesis at the sn[facility], as per the report and she was sent for further evaluation and management. She was found to be febrile in the emergency room with temperature 99.1 degrees, pulse [place] 100[place] [address].4 with hemoglobin of 11.8. The patient's urinalysis showed evidence of infection, so she was admitted for further evaluation and management and I was asked by the primary provider for antibiotics recommendation and further care. As of note, the patient is demented and cannot provide any history at this point. PAST MEDICAL HISTORY: Significant for hypercholesterolemia, hypertension, GERD and dementia. PAST SURGICAL HISTORY: Negative. ALLERGIES: She has no known drug allergy. MEDICATIONS: The patient was started on Zosyn by the cross country coach. For the rest of her medications, please refer to MAR. FAMILY HISTORY: Unable to obtain. REVIEW OF SYSTEMS: Unable to obtain. The patient is demented and cannot provide any good history. PHYSICAL EXAMINATION: VITAL SIGNS: Temperature 97 degrees, pulse 79, respirations 18, blood pressure 95/46, and pulse oximetry 96% on room air. GENERAL: This is an elderly female, lying in bed, awake, alert, nonverbal, not in distress. Demented and seems comfortable. HEENT: Normocephalic and atraumatic. Pupils are reactive to light equally. Dry oral mucosa. Poor dental hygiene. NECK: Supple. No lymphadenopathy. CARDIOVASCULAR: Regular rate and rhythm. No murmur. LUNGS: Clear bilaterally. No wheezing or rhonchi. ABDOMEN: Soft, nontender, and nondistended. Positive bowel sounds. No hepatosplenomegaly. EXTREMITIES: No edema. No cyanosis. LABORATORY DATA: Showed white count Of 12.1, hemoglobin of 10.5, hematocrit of 31.6, and platelet count of 134,000. BUN of 29 and creatinine of 1.7. Urinalysis showed +3 leukocyte esterase, WBC 10 to 15, and urine bacteria many. IMAGING STUDIES: She had chest x-ray on admission showed no acute disease. Abdominal CT scan showed no significant change, multiple bilateral renal cysts, atherosclerotic vascular disease, spondylosis and hiatal hernia. 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 ASSESSMENT AND PLAN: 1. Urinary tract infection possible pyelonephritis on Zosyn already. Await urine culture results. Tailor antibiotics as needed. 2. Sepsis due to the above. Continue Zosyn. We will add vancomycin for empiric treatment until culture is obtained. Tailor antibiotics as needed. 3. Diarrhea, rule out infectious etiology. We will send stool culture and C. difficile toxin and start oral vancomycin empirically. 4. Possible gastrointestinal bleeding. Monitor hemoglobin and hematocrit. Transfuse blood as needed. Consult gastroenterology . 5. Deep vein thrombosis of the left lower extremity. Hematology oncology is consulted for the management as per their recommendation. Erika Hart M.D. DR: LORNA JOB#: [id number] CC: MIO
[2016-08-15] VITALS: BP 143/98
[2016-08-15] MEDS: D5 1/2NS 1,000 ML IV SCH (01:00)
[2016-08-15 04:00] VITALS: BP 112/56
[2016-08-15 06:35] LABS: BASOPHILS % (AUTO) 0.3 % (0.0-2.0); EOSINOPHILS % (AUTO) 0.1 % (0.0-3.0); LYMPHOCYTES % (AUTO) 11.7 % (20.0-45.0); MEAN CORPUSCULAR HEMOGLOBIN 27.8 PG (27.0-31.0); MEAN CORPUSCULAR HGB CONC 33.3 G/DL (32.0-36.0); MEAN CORPUSCULAR VOLUME 83 FL (80-99); MONOCYTES % (AUTO) 6.1 % (1.0-10.0); NEUTROPHILS % (AUTO) 81.7 % (45.0-75.0); PLATELET COUNT 128 K/UL (150-450); RED BLOOD COUNT 3.71 M/UL (4.20-5.40); RED CELL DISTRIBUTION WIDTH 13.8 % (11.6-14.8); WHITE BLOOD COUNT 6.2 K/UL (4.8-10.8)
[2016-08-15 06:41] LABS: INR 1.1 (0.9-1.1); PROTHROMBIN TIME 11.2 SEC (9.30-11.50)
[2016-08-15 07:07] LABS: TROPONIN I < 0.30 ng/mL (<=0.30)
[2016-08-15 07:11] LABS: HEMOGLOBIN A1C 5.4 % (< 6.0)
[2016-08-15 07:54] LABS: ALANINE AMINOTRANSFERASE 8 U/L (3-33); ALBUMIN/GLOBULIN RATIO 1.1 (1.0-2.7); ANION GAP 17 (5-15); ASPARTATE AMINO TRANSFERASE 22 U/L (5-40); CALCIUM 8.3 mg/dL (8.6-10.2); CARBON DIOXIDE 25 mEQ/L (20-30); CHLORIDE 102 mEQ/L (98-107); CHOLESTEROL 96 mg/dL (< 200); CREATININE 1.3 mg/dL (0.5-0.9); CRP QUANT 23.3 mg/dL (< 0.5); HEMOLYSIS 4; LDL CHOLESTEROL (CALC.) 57 mg/dL (60-99); MAGNESIUM 2.2 mg/dL (1.7-2.5); PHOSPHORUS 2.8 mg/dL (2.5-4.8); POTASSIUM 3.4 mEQ/L (3.4-4.9); SODIUM 144 mEQ/L (135-145); TOTAL PROTEIN 5.5 g/dL (6.6-8.7); URIC ACID 6.2 mg/dL (3.0-7.5)
[2016-08-15 07:55] LABS: THYROID STIMULATING HORMONE 0.537 uIU/mL (0.300-4.500)
[2016-08-15 08:08] VITALS: BP 145/63
[2016-08-15 08:11] LABS: CORTISOL LC 25.8 ug/dL (.)
[2016-08-15] MEDS: Pantoprazole Inj IVP SCH (08:32)
[2016-08-15] MEDS: Metoprolol 25mg tab ORAL SCH ×2 (08:33→22:18)
[2016-08-15] MEDS: Heparin 5000 units/ml inj SUBQ SCH (08:35)
--- NOTE | 2016-08-15 08:38 | History and Physical Report ---
DATE OF ADMISSION: 08/13/2016 HISTORY OF PRESENT ILLNESS: The patient is a very poor historian, cannot obtain any history from the patient. The patient is here because of vomiting, fever of 101, not eating, weight loss, failure to thrive, and CT shows possible pyelonephritis, possible passing of a kidney stone. Again, cannot obtain any history from the patient and because of this reason the patient is being admitted. PAST MEDICAL HISTORY: Significant for advanced dementia, psychosis, hypertension, mood disorder, GERD, constipation, and hyperlipidemia. PAST SURGICAL HISTORY: Denies. ALLERGIES: No known allergies. MEDICATIONS: 1. Lipitor. 2. Colace. 3. Heparin. 4. Lisinopril. 5. Namenda. 6. Metoprolol. 7. Mirtazapine. 8. Multivitamin. 9. Omeprazole. 10. Seroquel. SOCIAL HISTORY: Unable to obtain. FAMILY HISTORY: Unable to obtain. REVIEW OF SYSTEMS: Unable to obtain. A very poor historian. PHYSICAL EXAMINATION: VITAL SIGNS: Temperature 98.4, pulse 93, and blood pressure 97/50. HEENT: PERRLA. NECK: Supple. CHEST: Clear to auscultation. CARDIOVASCULAR: Regular rate and rhythm. ABDOMEN: Soft and nontender. EXTREMITIES: No edema. NEUROLOGIC: Oriented x3, does respond to noxious stimuli. Poor historian, which is her baseline. LABORATORY DATA: WBC of 12.4, hemoglobin 11.8, and platelet of 133,000. Sodium , potassium 3, BUN 39 and creatinine 1.7. Glucose of 219. Total bilirubin 1.1. ASSESSMENT AND PLAN: Fever at the [facility], vomiting, failure to thrive, not eating. Possible pyelonephritis, possible kidney stones on the imaging scan, and dehydration, hypokalemia, and azotemia. , the urologist as well as Dr. Fernando, and Dr. Hart, Dr. Andersen, and Dr. Paige to see the patient for the above-mentioned diagnoses and treatment. Coco Jackson M.D. DR: FRANKLIN JOB#: [id number] CC:
[2016-08-15] MEDS: Vancomycin oral 125mg/2.5ml ORAL SCH ×4 (09:00→22:19)
[2016-08-15] MEDS: Zosyn 3.375gm q12h **Extended infusion IVPB SCH ×4 (09:37→22:18)
--- NOTE | 2016-08-15 10:56 | General Progress Note ---
Assessment/Plan Problem List: (1) Pyelonephritis ICD Codes: N12 - Tubulo-interstitial nephritis, not specified as acute or chronic SNOMED: 10232558 (2) Dehydration ICD Codes: E86.0 - Dehydration SNOMED: 89845164 (3) Sepsis ICD Codes: A41.9 - Sepsis, unspecified organism SNOMED: 51410320 (4) Debility ICD Codes: R53.81 - Other malaise SNOMED: 19597777 (5) HTN (hypertension) ICD Codes: I10 - Essential (primary) hypertension SNOMED: 74779532 Status: progressing Assessment/Plan afebrle sepsis and uti abx per id dehyration is improving Subjective ROS Limited/Unobtainable: Yes Constitutional: Reports: no symptoms Allergies: Coded Allergies: No Known Allergies (Unverified , 07/04/16) Objective Last 24 Hour Vital Signs Date Time Temp Pulse Resp B/P Pulse Ox O2 Delivery O2 Flow Rate FiO2 08/15/16 08:33 84 145/63 08/15/16 08:08 97.5 84 18 145/63 96 Room Air 08/15/16 04:00 97.9 89 18 112/56 93 Room Air 08/15/16 04:00 93 08/15/16 00:00 86 08/15/16 00:00 99.1 82 18 143/98 95 Room Air 08/14/16 20:36 80 159/100 08/14/16 20:00 70 08/14/16 20:00 97.7 80 20 159/100 96 Room Air 08/14/16 16:00 83 08/14/16 16:00 97.7 81 19 142/73 95 Room Air 08/14/16 12:00 73 08/14/16 11:43 97.0 79 18 95/46 96 Room Air Intake and Output 08/14/16 08/15/16 19:00 07:00 Intake Total 1684 ml 402.5 ml Output Total 150 ml 730 ml Balance 1534 ml -327.5 ml Intake IV Total 1684 ml 402.5 ml Output Urine Total 150 ml 730 ml Laboratory Tests 08/14/16 14:50: Urine Random Sodium 46 08/15/16 04:45: White Blood Count 6.2, Red Blood Count 3.71L, Hemoglobin 10.3L, Hematocrit 31.0L , Mean Corpuscular Volume 83, Mean Corpuscular Hemoglobin 27.8, Mean Corpuscular Hemoglobin Concent 33.3, Red Cell Distribution Width 13.8, Platelet Count 128L, Mean Platelet Volume 9.0, Neutrophils (%) (Auto) 81.7H, Lymphocytes (%) (Auto) 11.7L, Monocytes (%) (Auto) 6.1, Eosinophils (%) (Auto) 0.1, Basophils (%) (Auto) 0.3, Prothrombin Time 11.2, Prothromb Time International Ratio 1.1, Sodium Level 144, Potassium Level 3.4, Chloride Level 102, Carbon Dioxide Level 25, Anion Gap 17H, Blood Urea Nitrogen 25H, Creatinine 1.3H, Estimat Glomerular Filtration Rate , Glucose Level 120#H, Hemoglobin A1c 5.4, Uric Acid 6.2, Calcium Level 8.3L, Phosphorus Level 2.8, Magnesium Level 2.2, Total Bilirubin 0.6, Gamma Glutamyl Transpeptidase 13, Aspartate Amino Transf ( AST/SGOT) 22, Alanine Aminotransferase (ALT/SGPT) 8, Alkaline Phosphatase 57, Total Creatine Kinase 221H, Troponin I < 0.30, C-Reactive Protein, Quantitative 23.3H, Pro-B-Type Natriuretic Peptide 6814H, Total Protein 5.5L, Albumin 2.9L, Globulin 2.6, Albumin/Globulin Ratio 1.1, Triglycerides Level 167H, Cholesterol Level 96, LDL Cholesterol 57L, HDL Cholesterol 6, Cholesterol/HDL Ratio 16.0H, Thyroid Stimulating Hormone (TSH) 0.537 08/15/16 06:00: Urine Eosinophils None seen Height (Feet): 5 Height (Inches): 0.00 Weight (Pounds): 106 EENT: PERRL/EOMI Neck: supple Cardiovascular: normal rate Respiratory/Chest: lungs clear Coco Jackson MD Aug 15, 2016 10:56
--- NOTE | 2016-08-15 11:06 | Diagnostic Imaging Report ---
Indication:Elevated Bun and Creatinine. Technique: Grayscale and duplex Doppler imaging of the kidneys performed. Comparison: CT 08/13/16 Findings: Multiple cysts are present within both kidneys. This was described on the CT report and confirmed by ultrasound. The largest single cyst is demonstrated in the right kidney and measures approximately 6.3 x 4.2 cm. There is no hydronephrosis definitely identified. There is a prominent right parapelvic cyst also noted. Renal cortical echogenicity is slightly increased above normal. The right kidney is 10.3 CM and the left 9.8 CM in length. IVC is unremarkable. There is a Barahona catheter present. Assess the urinary bladder is nondistended. Impression: Multiple bilateral renal cysts. Slightly increased cortical echogenicity suggestive of medical renal disease. Please correlate clinically.
[2016-08-15 11:18] VITALS: BP 118/50
--- NOTE | 2016-08-15 14:59 | General Progress Note ---
Assessment/Plan Assessment/Plan ASSESSMENT: 1. Acute deep vein thrombosis of the left common femoral vein. Remains on coumadin 2. Anemia, secondary to gastrointestinal bleed and hematemesis. Currently hgb > 10 3. Thrombocytopenia - new onset, likely 2/2 infection, ID following, patient febrile, is on abx 4. Nausea and vomiting - current and in past egd showed gerd 5. Dementia/Altered mental status. 6. Acute kidney injury. 7. Hiatal hernia. 8. Acid reflux. RECOMMENDATIONS: 1. Monitor counts. 2. CT a/p shows accessory spleen 3. Appreciate Gi ID, renal recs 4. Continue Coumadin 5. Maintain INR between 2-3. 6. Anemia w/u in prior reviewed, shows ACD 7. Duplex of lower ext to r/o dvt shows same dvt as before 8. GI ppx with protonix 9. DW the staff. Thank you, Mike Paige M.D. Subjective Constitutional: Reports: no symptoms HEENT: Reports: no symptoms Cardiovascular: Reports: no symptoms Respiratory: Reports: no symptoms Gastrointestinal/Abdominal: Reports: poor appetite Genitourinary: Reports: no symptoms Neurologic/Psychiatric: Reports: no symptoms Endocrine: Reports: no symptoms Hematologic/Lymphatic: Reports: anemia Allergies: Coded Allergies: No Known Allergies (Unverified , 07/04/16) Subjective stable, difficult to obtain further history, is demented, speaks [place] Objective Last 24 Hour Vital Signs Date Time Temp Pulse Resp B/P Pulse Ox O2 Delivery O2 Flow Rate FiO2 08/15/16 11:18 98.1 78 18 118/50 95 Room Air 08/15/16 08:33 84 145/63 08/15/16 08:08 97.5 84 18 145/63 96 Room Air 08/15/16 08:00 88 08/15/16 04:00 97.9 89 18 112/56 93 Room Air 08/15/16 04:00 93 08/15/16 00:00 86 08/15/16 00:00 99.1 82 18 143/98 95 Room Air 08/14/16 20:36 80 159/100 08/14/16 20:00 70 08/14/16 20:00 97.7 80 20 159/100 96 Room Air 08/14/16 16:00 83 08/14/16 16:00 97.7 81 19 142/73 95 Room Air Intake and Output 08/14/16 08/15/16 19:00 07:00 Intake Total 1684 ml 402.5 ml Output Total 150 ml 730 ml Balance 1534 ml -327.5 ml Intake IV Total 1684 ml 402.5 ml Output Urine Total 150 ml 730 ml Laboratory Tests 08/15/16 04:45: White Blood Count 6.2, Red Blood Count 3.71L, Hemoglobin 10.3L, Hematocrit 31.0L , Mean Corpuscular Volume 83, Mean Corpuscular Hemoglobin 27.8, Mean Corpuscular Hemoglobin Concent 33.3, Red Cell Distribution Width 13.8, Platelet Count 128L, Mean Platelet Volume 9.0, Neutrophils (%) (Auto) 81.7H, Lymphocytes (%) (Auto) 11.7L, Monocytes (%) (Auto) 6.1, Eosinophils (%) (Auto) 0.1, Basophils (%) (Auto) 0.3, Prothrombin Time 11.2, Prothromb Time International Ratio 1.1, Sodium Level 144, Potassium Level 3.4, Chloride Level 102, Carbon Dioxide Level 25, Anion Gap 17H, Blood Urea Nitrogen 25H, Creatinine 1.3H, Estimat Glomerular Filtration Rate , Glucose Level 120#H, Hemoglobin A1c 5.4, Uric Acid 6.2, Calcium Level 8.3L, Phosphorus Level 2.8, Magnesium Level 2.2, Total Bilirubin 0.6, Gamma Glutamyl Transpeptidase 13, Aspartate Amino Transf ( AST/SGOT) 22, Alanine Aminotransferase (ALT/SGPT) 8, Alkaline Phosphatase 57, Total Creatine Kinase 221H, Troponin I < 0.30, C-Reactive Protein, Quantitative 23.3H, Pro-B-Type Natriuretic Peptide 6814H, Total Protein 5.5L, Albumin 2.9L, Globulin 2.6, Albumin/Globulin Ratio 1.1, Triglycerides Level 167H, Cholesterol Level 96, LDL Cholesterol 57L, HDL Cholesterol 6, Cholesterol/HDL Ratio 16.0H, Thyroid Stimulating Hormone (TSH) 0.537 08/15/16 06:00: Urine Eosinophils None seen Height (Feet): 5 Height (Inches): 0.00 Weight (Pounds): 106 General Appearance: no apparent distress EENT: TMs normal Neck: supple Cardiovascular: regular rhythm Respiratory/Chest: normal breath sounds Extremities: non-tender Edema: 1+ Leg (L), 1+ Leg (R) Edema: mild edema Neurologic: no motor/sensory deficits Skin: normal pigmentation Mike Paige Aug 15, 2016 14:59
--- NOTE | 2016-08-15 15:59 | Infectious Diseases Prog Note ---
Assessment/Plan Problems: (1) Urinary tract infection Assessment & Plan: with gram negative rods, on zosyn empirically , await culture (2) Sepsis Assessment & Plan: with gram negative rods and gram positive cocci in cluster suspect staphylococcus , on zosyn and vancomycin , await identifications and sensitivities from blood and urine (3) Diarrhea Assessment & Plan: improved, rule out infectious etiology, will send stool culture and C diff toxin, and continue oral vancomycin empirically (4) DVT (deep venous thrombosis) Assessment & Plan: of the left leg veins , management as per hematology Subjective ROS Limited/Unobtainable: Yes Allergies: Coded Allergies: No Known Allergies (Unverified , 07/04/16) Subjective she is quiet and comfortable, lying in bed, open eyes spontaneously, not agitated Objective Vital Signs Last 24 Hour Vital Signs Date Time Temp Pulse Resp B/P Pulse Ox O2 Delivery O2 Flow Rate FiO2 08/15/16 12:00 72 08/15/16 11:18 98.1 78 18 118/50 95 Room Air 08/15/16 08:33 84 145/63 08/15/16 08:08 97.5 84 18 145/63 96 Room Air 08/15/16 08:00 88 08/15/16 04:00 97.9 89 18 112/56 93 Room Air 08/15/16 04:00 93 08/15/16 00:00 86 08/15/16 00:00 99.1 82 18 143/98 95 Room Air 08/14/16 20:36 80 159/100 08/14/16 20:00 70 08/14/16 20:00 97.7 80 20 159/100 96 Room Air 08/14/16 16:00 83 08/14/16 16:00 97.7 81 19 142/73 95 Room Air Height (Feet): 5 Height (Inches): 0.00 Weight (Pounds): 106 General Appearance: WD/WN, no acute distress HEENT: normocephalic, atraumatic, anicteric, no JVD Respiratory/Chest: chest wall non-tender, no accessory muscle use, decreased breath sounds, crackles/rales Cardiovascular: normal peripheral pulses, normal rate, regular rhythm Abdomen: normal bowel sounds, soft, non tender, no organomegaly, non distended , no mass Extremities: no cyanosis, no clubbing Skin: no rash, no lesions Microbiology Date/Time Source Procedure Growth Status 08/13/16 19:15 Blood Blood Culture - Preliminary Resulted 08/13/16 19:10 Blood Blood Culture - Preliminary Resulted 08/14/16 06:00 Urine,Clean Catch Urine Culture - Preliminary Gram Negative Bacillus 1 Resulted 08/13/16 21:28 Urine,Clean Catch Urine Culture - Preliminary Gram Negative Bacillus 1 Resulted Laboratory Tests Test 08/15/16 04:45 08/15/16 06:00 White Blood Count 6.2 K/UL (4.8-10.8) Red Blood Count 3.71 M/UL (4.20-5.40) L Hemoglobin 10.3 G/DL (12.0-16.0) L Hematocrit 31.0 % (37.0-47.0) L Mean Corpuscular Volume 83 FL (80-99) Mean Corpuscular Hemoglobin 27.8 PG (27.0-31.0) Mean Corpuscular Hemoglobin Concent 33.3 G/DL (32.0-36.0) Red Cell Distribution Width 13.8 % (11.6-14.8) Platelet Count 128 K/UL (150-450) L Mean Platelet Volume 9.0 FL (6.5-10.1) Neutrophils (%) (Auto) 81.7 % (45.0-75.0) H Lymphocytes (%) (Auto) 11.7 % (20.0-45.0) L Monocytes (%) (Auto) 6.1 % (1.0-10.0) Eosinophils (%) (Auto) 0.1 % (0.0-3.0) Basophils (%) (Auto) 0.3 % (0.0-2.0) Prothrombin Time 11.2 SEC (9.30-11.50) Prothromb Time International Ratio 1.1 (0.9-1.1) Sodium Level 144 mEQ/L (135-145) Potassium Level 3.4 mEQ/L (3.4-4.9) Chloride Level 102 mEQ/L (98-107) Carbon Dioxide Level 25 mEQ/L (20-30) Anion Gap 17 (5-15) H Blood Urea Nitrogen 25 mg/dL (7-23) H Creatinine 1.3 mg/dL (0.5-0.9) H Estimat Glomerular Filtration Rate mL/min (>60) Glucose Level 120 mg/dL (74-106) #H Hemoglobin A1c 5.4 % (< 6.0) Uric Acid 6.2 mg/dL (3.0-7.5) Calcium Level 8.3 mg/dL (8.6-10.2) L Phosphorus Level 2.8 mg/dL (2.5-4.8) Magnesium Level 2.2 mg/dL (1.7-2.5) Total Bilirubin 0.6 mg/dL (0.0-1.2) Gamma Glutamyl Transpeptidase 13 U/L (5-36) Aspartate Amino Transf (AST/SGOT) 22 U/L (5-40) Alanine Aminotransferase (ALT/SGPT) 8 U/L (3-33) Alkaline Phosphatase 57 U/L (35-104) Total Creatine Kinase 221 U/L (26-140) H Troponin I < 0.30 ng/mL (<=0.30) C-Reactive Protein, Quantitative 23.3 mg/dL (< 0.5) H Pro-B-Type Natriuretic Peptide 6814 pg/mL (0-450) H Total Protein 5.5 g/dL (6.6-8.7) L Albumin 2.9 g/dL (3.5-5.2) L Globulin 2.6 g/dL Albumin/Globulin Ratio 1.1 (1.0-2.7) Triglycerides Level 167 mg/dL (< 150) H Cholesterol Level 96 mg/dL (< 200) LDL Cholesterol 57 mg/dL (60-99) L HDL Cholesterol 6 mg/dL (> 60) Cholesterol/HDL Ratio 16.0 (3.3-4.4) H Thyroid Stimulating Hormone (TSH) 0.537 uIU/mL (0.300-4.500) Urine Eosinophils None seen Current Medications Medications (Trade) Dose Ordered Sig/Selena Route PRN Reason Start Time Stop Time Status Last Admin Dose Admin Acetaminophen (Tylenol) 650 mg Q4H PRN ORAL fever 08/13/16 23:00 09/12/16 22:59 Dextrose (Dextrose 50%) STAT PRN IV Hypoglycemia 08/13/16 23:00 09/12/16 22:59 Dextrose/Sodium Chloride (D5 0.45% NS) 1,000 ml @ 75 mls/hr [id number] IV 08/13/16 17:40 4/20/17 17:39 08/15/16 01:00 Metoprolol Tartrate (Lopressor) 25 mg EVERY 12 HOURS ORAL 08/14/16 09:00 09/13/16 08:59 08/15/16 08:33 Mirtazapine (Remeron) 30 mg BEDTIME ORAL 08/15/16 21:00 09/14/16 20:59 Morphine Sulfate (Morphine Sulfate) 2 mg Q4H PRN IVP severe Pain (Pain Scale 7-10) 08/13/16 23:00 08/20/16 22:59 Nitroglycerin (Ntg) 0.4 mg Q5M X 3 DOSES PRN SL Prn Chest Pain 08/13/16 23:00 09/12/16 22:59 Ondansetron HCl (Zofran) 4 mg Q6H PRN IVP Nausea & Vomiting 08/13/16 23:00 09/12/16 22:59 Pantoprazole (Protonix) 40 mg DAILY IVP 08/14/16 09:00 09/13/16 08:59 08/15/16 08:32 Piperacillin Sod/ Tazobactam Sod/ Dextrose (Zosyn/D5W) 110 ml @ 27.5 mls/hr EVERY 12 HOURS IVPB 08/14/16 21:00 08/19/16 20:59 08/15/16 09:37 Polyethylene Glycol (Miralax) 17 gm HSPRN PRN ORAL Constipation 08/13/16 23:00 09/12/16 22:59 Quetiapine Fumarate 50 mg 50 mg Q12HR ORAL 08/14/16 09:00 09/13/16 08:59 08/15/16 08:32 Vancomycin HCl 125 mg 125 mg FOUR TIMES A DAY ORAL 08/14/16 10:00 08/21/16 09:59 08/15/16 12:59 Warfarin Sodium (Coumadin per pharmacy) 1 ea DAILY PRN MISC Per rx protocol 08/14/16 18:00 09/13/16 17:59 Warfarin Sodium (Coumadin) 4 mg COUMADIN ONCE PO 08/15/16 17:00 08/15/16 17:01 Erika Hart M.D. Aug 15, 2016 15:59
[2016-08-15 16:00] VITALS: BP 151/71
--- NOTE | 2016-08-15 16:53 | General Progress Note ---
Assessment/Plan Status: stable Status Narrative Cr down 1.3 Assessment/Plan Acute kidney injury, partially dehydration, and low BP, partly sepsis Encephalopathy UTI , Sepsis Vomiting and Diarrhea ? infectious DVT Aspiration prone Dementia Plan: Slow hydrate- Monitor renal parameters- avoid nephrotoxics- Keeps BP and BS in check Fluid challenged previously Subjective Constitutional: Reports: malaise, weakness Allergies: Coded Allergies: No Known Allergies (Unverified , 07/04/16) Objective Last 24 Hour Vital Signs Date Time Temp Pulse Resp B/P Pulse Ox O2 Delivery O2 Flow Rate FiO2 08/15/16 16:00 97.9 79 20 151/71 98 Room Air 08/15/16 12:00 72 08/15/16 11:18 98.1 78 18 118/50 95 Room Air 08/15/16 08:33 84 145/63 08/15/16 08:08 97.5 84 18 145/63 96 Room Air 08/15/16 08:00 88 08/15/16 04:00 97.9 89 18 112/56 93 Room Air 08/15/16 04:00 93 08/15/16 00:00 86 08/15/16 00:00 99.1 82 18 143/98 95 Room Air 08/14/16 20:36 80 159/100 08/14/16 20:00 70 08/14/16 20:00 97.7 80 20 159/100 96 Room Air Intake and Output 08/14/16 08/15/16 19:00 07:00 Intake Total 1684 ml 402.5 ml Output Total 150 ml 730 ml Balance 1534 ml -327.5 ml Intake IV Total 1684 ml 402.5 ml Output Urine Total 150 ml 730 ml Laboratory Tests 08/15/16 04:45: White Blood Count 6.2, Red Blood Count 3.71L, Hemoglobin 10.3L, Hematocrit 31.0L , Mean Corpuscular Volume 83, Mean Corpuscular Hemoglobin 27.8, Mean Corpuscular Hemoglobin Concent 33.3, Red Cell Distribution Width 13.8, Platelet Count 128L, Mean Platelet Volume 9.0, Neutrophils (%) (Auto) 81.7H, Lymphocytes (%) (Auto) 11.7L, Monocytes (%) (Auto) 6.1, Eosinophils (%) (Auto) 0.1, Basophils (%) (Auto) 0.3, Prothrombin Time 11.2, Prothromb Time International Ratio 1.1, Sodium Level 144, Potassium Level 3.4, Chloride Level 102, Carbon Dioxide Level 25, Anion Gap 17H, Blood Urea Nitrogen 25H, Creatinine 1.3H, Estimat Glomerular Filtration Rate , Glucose Level 120#H, Hemoglobin A1c 5.4, Uric Acid 6.2, Calcium Level 8.3L, Phosphorus Level 2.8, Magnesium Level 2.2, Total Bilirubin 0.6, Gamma Glutamyl Transpeptidase 13, Aspartate Amino Transf ( AST/SGOT) 22, Alanine Aminotransferase (ALT/SGPT) 8, Alkaline Phosphatase 57, Total Creatine Kinase 221H, Troponin I < 0.30, C-Reactive Protein, Quantitative 23.3H, Pro-B-Type Natriuretic Peptide 6814H, Total Protein 5.5L, Albumin 2.9L, Globulin 2.6, Albumin/Globulin Ratio 1.1, Triglycerides Level 167H, Cholesterol Level 96, LDL Cholesterol 57L, HDL Cholesterol 6, Cholesterol/HDL Ratio 16.0H, Thyroid Stimulating Hormone (TSH) 0.537 08/15/16 06:00: Urine Eosinophils None seen Height (Feet): 5 Height (Inches): 0.00 Weight (Pounds): 106 General Appearance: no apparent distress Objective PE not changed DRE CHAN Aug 15, 2016 16:53
[2016-08-15] MEDS ORDERED: Warfarin Sodium 4mg PO ONE (17:00)
--- NOTE | 2016-08-15 17:01 | Neurology Progress Note ---
Interim History Interim History ROS Limited/Unobtainable: Yes Objective Physical Exam Last Vital Signs Date Time Temp Pulse Resp B/P Pulse Ox O2 Delivery O2 Flow Rate FiO2 08/15/16 16:00 97.9 79 20 151/71 98 Room Air Laboratory Tests Test 08/15/16 04:45 08/15/16 06:00 White Blood Count 6.2 K/UL (4.8-10.8) Red Blood Count 3.71 M/UL (4.20-5.40) L Hemoglobin 10.3 G/DL (12.0-16.0) L Hematocrit 31.0 % (37.0-47.0) L Mean Corpuscular Volume 83 FL (80-99) Mean Corpuscular Hemoglobin 27.8 PG (27.0-31.0) Mean Corpuscular Hemoglobin Concent 33.3 G/DL (32.0-36.0) Red Cell Distribution Width 13.8 % (11.6-14.8) Platelet Count 128 K/UL (150-450) L Mean Platelet Volume 9.0 FL (6.5-10.1) Neutrophils (%) (Auto) 81.7 % (45.0-75.0) H Lymphocytes (%) (Auto) 11.7 % (20.0-45.0) L Monocytes (%) (Auto) 6.1 % (1.0-10.0) Eosinophils (%) (Auto) 0.1 % (0.0-3.0) Basophils (%) (Auto) 0.3 % (0.0-2.0) Prothrombin Time 11.2 SEC (9.30-11.50) Prothromb Time International Ratio 1.1 (0.9-1.1) Sodium Level 144 mEQ/L (135-145) Potassium Level 3.4 mEQ/L (3.4-4.9) Chloride Level 102 mEQ/L (98-107) Carbon Dioxide Level 25 mEQ/L (20-30) Anion Gap 17 (5-15) H Blood Urea Nitrogen 25 mg/dL (7-23) H Creatinine 1.3 mg/dL (0.5-0.9) H Estimat Glomerular Filtration Rate mL/min (>60) Glucose Level 120 mg/dL (74-106) #H Hemoglobin A1c 5.4 % (< 6.0) Uric Acid 6.2 mg/dL (3.0-7.5) Calcium Level 8.3 mg/dL (8.6-10.2) L Phosphorus Level 2.8 mg/dL (2.5-4.8) Magnesium Level 2.2 mg/dL (1.7-2.5) Total Bilirubin 0.6 mg/dL (0.0-1.2) Gamma Glutamyl Transpeptidase 13 U/L (5-36) Aspartate Amino Transf (AST/SGOT) 22 U/L (5-40) Alanine Aminotransferase (ALT/SGPT) 8 U/L (3-33) Alkaline Phosphatase 57 U/L (35-104) Total Creatine Kinase 221 U/L (26-140) H Troponin I < 0.30 ng/mL (<=0.30) C-Reactive Protein, Quantitative 23.3 mg/dL (< 0.5) H Pro-B-Type Natriuretic Peptide 6814 pg/mL (0-450) H Total Protein 5.5 g/dL (6.6-8.7) L Albumin 2.9 g/dL (3.5-5.2) L Globulin 2.6 g/dL Albumin/Globulin Ratio 1.1 (1.0-2.7) Triglycerides Level 167 mg/dL (< 150) H Cholesterol Level 96 mg/dL (< 200) LDL Cholesterol 57 mg/dL (60-99) L HDL Cholesterol 6 mg/dL (> 60) Cholesterol/HDL Ratio 16.0 (3.3-4.4) H Thyroid Stimulating Hormone (TSH) 0.537 uIU/mL (0.300-4.500) Urine Eosinophils None seen Impression/Recommendations Status: stable Recommendations #[id number] SRIKANTH LESLIE Aug 15, 2016 17:01
[2016-08-15] MEDS ORDERED: D5 1/2NS 1,000 ML IV SCH (17:30)
[2016-08-15] MEDS ORDERED: Lisinopril 2.5mg tab ORAL SCH (18:00)
[2016-08-15] MEDS ORDERED: D5 1/2NS 1000ml IV ONE (18:19)
[2016-08-15 20:00] VITALS: BP 167/93
--- NOTE | 2016-08-15 20:25 | General Progress Note ---
Assessment/Plan Assessment/Plan Assessment - N/V - Diarrhea - encephalopathy - GERD Recommendations - check swallow study - follow mental status - check stool w/u - abx per ID Thank you Marlys Andersen MD Subjective Allergies: Coded Allergies: No Known Allergies (Unverified , 07/04/16) Objective Last 24 Hour Vital Signs Date Time Temp Pulse Resp B/P Pulse Ox O2 Delivery O2 Flow Rate FiO2 08/15/16 17:38 195/83 08/15/16 16:00 97.9 79 20 151/71 98 Room Air 08/15/16 16:00 63 08/15/16 12:00 72 08/15/16 11:18 98.1 78 18 118/50 95 Room Air 08/15/16 08:33 84 145/63 08/15/16 08:08 97.5 84 18 145/63 96 Room Air 08/15/16 08:00 88 08/15/16 04:00 97.9 89 18 112/56 93 Room Air 08/15/16 04:00 93 08/15/16 00:00 86 08/15/16 00:00 99.1 82 18 143/98 95 Room Air 08/14/16 20:36 80 159/100 Intake and Output 08/14/16 08/15/16 19:00 07:00 Intake Total 1684 ml 477.5 ml Output Total 150 ml 730 ml Balance 1534 ml -252.5 ml Intake IV Total 1684 ml 477.5 ml Output Urine Total 150 ml 730 ml Laboratory Tests 08/15/16 04:45: White Blood Count 6.2, Red Blood Count 3.71L, Hemoglobin 10.3L, Hematocrit 31.0L , Mean Corpuscular Volume 83, Mean Corpuscular Hemoglobin 27.8, Mean Corpuscular Hemoglobin Concent 33.3, Red Cell Distribution Width 13.8, Platelet Count 128L, Mean Platelet Volume 9.0, Neutrophils (%) (Auto) 81.7H, Lymphocytes (%) (Auto) 11.7L, Monocytes (%) (Auto) 6.1, Eosinophils (%) (Auto) 0.1, Basophils (%) (Auto) 0.3, Prothrombin Time 11.2, Prothromb Time International Ratio 1.1, Sodium Level 144, Potassium Level 3.4, Chloride Level 102, Carbon Dioxide Level 25, Anion Gap 17H, Blood Urea Nitrogen 25H, Creatinine 1.3H, Estimat Glomerular Filtration Rate , Glucose Level 120#H, Hemoglobin A1c 5.4, Uric Acid 6.2, Calcium Level 8.3L, Phosphorus Level 2.8, Magnesium Level 2.2, Total Bilirubin 0.6, Gamma Glutamyl Transpeptidase 13, Aspartate Amino Transf ( AST/SGOT) 22, Alanine Aminotransferase (ALT/SGPT) 8, Alkaline Phosphatase 57, Total Creatine Kinase 221H, Troponin I < 0.30, C-Reactive Protein, Quantitative 23.3H, Pro-B-Type Natriuretic Peptide 6814H, Total Protein 5.5L, Albumin 2.9L, Globulin 2.6, Albumin/Globulin Ratio 1.1, Triglycerides Level 167H, Cholesterol Level 96, LDL Cholesterol 57L, HDL Cholesterol 6, Cholesterol/HDL Ratio 16.0H, Thyroid Stimulating Hormone (TSH) 0.537 08/15/16 06:00: Urine Eosinophils None seen Height (Feet): 5 Height (Inches): 0.00 Weight (Pounds): 106 MARLYS ANDERSEN Aug 15, 2016 20:25
--- NOTE | 2016-08-15 22:28 | Progress Note ---
DATE: 08/15/2016 SUBJECTIVE: The patient's mental condition is unchanged since previous encounter. Continues to present with waxing and waning consciousness. Not engaged during the evaluation, has impairment cognition. Poor insight and judgment. MENTAL STATUS EXAMINATION: Confused and disoriented. Mood is anxious. Affect is constricted. Congruent mood. Thought process, there is a paucity of thought content. Cognition is impaired including memory concentration, and attention. Insight and judgment non-existent. ASSESSMENT: Delirium. PLAN: 1. The patient will be continued on Seroquel 50 mg b.i.d. 2. Remeron 30 mg p.o. nightly. 3. We will continue follow and readjust the medications. Meena Moon M.D. DR: PEGGY JOB#: [id number] CC:
--- NOTE | 2016-08-15 22:38 | Consultation ---
DATE OF CONSULTATION: 08/15/2016 NEUROLOGICAL CONSULTATION REQUESTING PHYSICIAN: Coco Jackson M.D. HISTORY OF PRESENT ILLNESS: This is an 86-year-old female, resident of a nursing facility, who was seen in neurological consultation to evaluate persistent lethargy. The patient developed fever and nausea, vomiting, with this she was brought to emergency room, she had a low-grade fever of 99.1 degrees. Blood pressure 123/49. Her initial laboratory work included a CBC study with WBC 12.4. Coagulation panel unremarkable. Chemistry panel, BUN of 31, creatinine 1.6, blood sugar 155. Elevated BNP 3472. Low albumin 3.3. Imaging studies included a chest x-ray with no acute disease. CT of the pelvis and abdomen, atherosclerotic vascular disease, multiple renal cysts. No significant changes from previous study. The patient was diagnosed with urinary infection with possible pyelonephritis, placed on Zosyn, continued with IV fluids, antibiotics. The patient who has preexistent dementia, had some changes in mental status, but in the last two days noted to be less responsive and Neurology consult was requested. Venous duplex study of both lower extremities revealed acute thrombosis, common femoral popliteal veins on the left and chronic thrombus superficial femoral vein. BNP elevated to CRP of 23.3, but normal TSH and normal troponin. PAST MEDICAL HISTORY: The patient has a history of senile dementia with behavioral abnormalities, history of gastroesophageal reflux disease, DVT of the lower extremity, history of hypertension, and hyperlipidemia. MEDICATIONS: Treatment prior to admission included atorvastatin, lisinopril, hydrochlorothiazide, magnesium oxide, Namenda 5 mg daily, metoprolol, Remeron 22.5 mg at bedtime, omeprazole, Seroquel 50 mg twice a day, and vitamin D. ALLERGIES: None reported. SOCIAL HISTORY: Resident of nursing facility. FAMILY HISTORY: Unavailable. REVIEW OF SYSTEMS: Limited history, the patient had limited verbal output indicating that she is feeling fine. PHYSICAL EXAMINATION: GENERAL: A well-developed and well-nourished elderly female, found to be asleep, on vigorous stimulation she would open eyes. MUSCULOSKELETAL: Her musculoskeletal examination was unremarkable. There are no deformities. Peripheral pulses 1+ symmetric. MENTAL STATUS EXAMINATION: When awake, has a brief eye contact. Able to follow one or two simple commands, but has very limited verbal output, angry, and not cooperative during exam. CRANIAL NERVE II: Pupils both responding to light and accommodation. Extraocular movement are intact. No nystagmus. CRANIAL NERVE V: Normal corneal responses. CRANIAL NERVE VII: No facial asymmetry. CRANIAL NERVE VIII: Decreased hearing. CRANIAL NERVES IX THROUGH XII: Tongue is in midline. Symmetric palate elevation. MOTOR EXAMINATION: Revealed normal muscle tone, strength appears normal. The patient was able to lift arms and legs against gravity. Deep tendon reflexes 1+ symmetric with downgoing toes on both sides. SENSORY EXAMINATION: Normal to pinprick, gait not tested. IMPRESSION: 1. The patient is an 86-year-old female with persistent lethargy multifactorial due to underlying infection, polypharmacy with sedatives. Doubt presence of stroke or seizure activities. 2. Senile dementia with behavioral abnormalities. 3. Urinary tract infection. 4. Hypertension. 5. Gastroesophageal reflux disease. 6. Degenerative joint disease. RECOMMENDATION: 1. Hold all sedatives, continue with IV fluids and antibiotics, may use as needed sedation only. 2. The patient to be observed for any paroxysmal events. Thank you for allowing me to see this interesting patient in neurological consultation. Herber Franks M.D. DR: Felix JOB#: [id number] CC:
--- NOTE | 2016-08-15 22:41 | Pulmonology Progress Note ---
Assessment/Plan Problems: (1) Sepsis (2) Pyelonephritis (3) At high risk for aspiration (4) Dehydration Assessment/Plan continue antibiotics check cultures anemia w/u GI w/u H/H stable, might go to med/surg all labs and notes reviewed Subjective ROS Limited/Unobtainable: No Interval Events: comfortable Allergies: Coded Allergies: No Known Allergies (Unverified , 07/04/16) Objective Last 24 Hour Vital Signs Date Time Temp Pulse Resp B/P Pulse Ox O2 Delivery O2 Flow Rate FiO2 08/15/16 22:18 80 162/90 08/15/16 20:00 97.7 83 19 167/93 96 Room Air 08/15/16 17:38 195/83 08/15/16 16:00 97.9 79 20 151/71 98 Room Air 08/15/16 16:00 63 08/15/16 12:00 72 08/15/16 11:18 98.1 78 18 118/50 95 Room Air 08/15/16 08:33 84 145/63 08/15/16 08:08 97.5 84 18 145/63 96 Room Air 08/15/16 08:00 88 08/15/16 04:00 97.9 89 18 112/56 93 Room Air 08/15/16 04:00 93 08/15/16 00:00 86 08/15/16 00:00 99.1 82 18 143/98 95 Room Air Intake and Output 08/14/16 08/15/16 19:00 07:00 Intake Total 1684 ml 477.5 ml Output Total 150 ml 730 ml Balance 1534 ml -252.5 ml Intake IV Total 1684 ml 477.5 ml Output Urine Total 150 ml 730 ml Objective General Appearance: WD/WN HEENT: normocephalic, atraumatic Respiratory/Chest: chest wall non-tender, lungs clear Breasts: no masses Cardiovascular: normal peripheral pulses Abdomen: normal bowel sounds, soft, non tender Genitourinary: normal external genitalia Extremities: no cyanosis Neurologic/Psychiatric: retention manager II-XII grossly normal, Lymphatic: no neck adenopathy Microbiology Date/Time Source Procedure Growth Status 08/13/16 19:15 Blood Blood Culture - Preliminary Resulted 08/13/16 19:10 Blood Blood Culture - Preliminary Resulted 08/14/16 06:00 Urine,Clean Catch Urine Culture - Preliminary Gram Negative Bacillus 1 Resulted 08/13/16 21:28 Urine,Clean Catch Urine Culture - Preliminary Gram Negative Bacillus 1 Resulted Laboratory Tests 08/15/16 04:45: White Blood Count 6.2, Red Blood Count 3.71L, Hemoglobin 10.3L, Hematocrit 31.0L , Mean Corpuscular Volume 83, Mean Corpuscular Hemoglobin 27.8, Mean Corpuscular Hemoglobin Concent 33.3, Red Cell Distribution Width 13.8, Platelet Count 128L, Mean Platelet Volume 9.0, Neutrophils (%) (Auto) 81.7H, Lymphocytes (%) (Auto) 11.7L, Monocytes (%) (Auto) 6.1, Eosinophils (%) (Auto) 0.1, Basophils (%) (Auto) 0.3, Prothrombin Time 11.2, Prothromb Time International Ratio 1.1, Sodium Level 144, Potassium Level 3.4, Chloride Level 102, Carbon Dioxide Level 25, Anion Gap 17H, Blood Urea Nitrogen 25H, Creatinine 1.3H, Estimat Glomerular Filtration Rate , Glucose Level 120#H, Hemoglobin A1c 5.4, Uric Acid 6.2, Calcium Level 8.3L, Phosphorus Level 2.8, Magnesium Level 2.2, Total Bilirubin 0.6, Gamma Glutamyl Transpeptidase 13, Aspartate Amino Transf ( AST/SGOT) 22, Alanine Aminotransferase (ALT/SGPT) 8, Alkaline Phosphatase 57, Total Creatine Kinase 221H, Troponin I < 0.30, C-Reactive Protein, Quantitative 23.3H, Pro-B-Type Natriuretic Peptide 6814H, Total Protein 5.5L, Albumin 2.9L, Globulin 2.6, Albumin/Globulin Ratio 1.1, Triglycerides Level 167H, Cholesterol Level 96, LDL Cholesterol 57L, HDL Cholesterol 6, Cholesterol/HDL Ratio 16.0H, Thyroid Stimulating Hormone (TSH) 0.537 08/15/16 06:00: Urine Eosinophils None seen Current Medications Medications (Trade) Dose Ordered Sig/Selena Route PRN Reason Start Time Stop Time Status Last Admin Dose Admin Acetaminophen (Tylenol) 650 mg Q4H PRN ORAL fever 08/13/16 23:00 09/12/16 22:59 Dextrose (Dextrose 50%) STAT PRN IV Hypoglycemia 08/13/16 23:00 09/12/16 22:59 Dextrose/Sodium Chloride (D5 0.45% NS) 1,000 ml @ 40 mls/hr Q24H IV 08/15/16 17:30 09/14/16 17:29 08/15/16 17:32 Lisinopril (Zestril) 5 mg DAILY ORAL 08/15/16 18:00 09/14/16 17:59 08/15/16 17:38 Metoprolol Tartrate (Lopressor) 25 mg EVERY 12 HOURS ORAL 08/14/16 09:00 09/13/16 08:59 08/15/16 22:18 Mirtazapine 30 mg 30 mg BEDTIME ORAL 08/15/16 21:00 09/14/16 20:59 08/15/16 22:18 Morphine Sulfate (Morphine Sulfate) 2 mg Q4H PRN IVP severe Pain (Pain Scale 7-10) 08/13/16 23:00 08/20/16 22:59 Nitroglycerin (Ntg) 0.4 mg Q5M X 3 DOSES PRN SL Prn Chest Pain 08/13/16 23:00 09/12/16 22:59 Ondansetron HCl (Zofran) 4 mg Q6H PRN IVP Nausea & Vomiting 08/13/16 23:00 09/12/16 22:59 Pantoprazole (Protonix) 40 mg DAILY IVP 08/14/16 09:00 09/13/16 08:59 08/15/16 08:32 Piperacillin Sod/ Tazobactam Sod/ Dextrose (Zosyn/D5W) 110 ml @ 27.5 mls/hr EVERY 12 HOURS IVPB 08/14/16 21:00 08/19/16 20:59 08/15/16 22:18 Polyethylene Glycol (Miralax) 17 gm HSPRN PRN ORAL Constipation 08/13/16 23:00 09/12/16 22:59 Quetiapine Fumarate (SEROquel) 25 mg Q12HR PRN ORAL agitation 08/15/16 17:30 09/14/16 17:29 Vancomycin HCl 125 mg 125 mg FOUR TIMES A DAY ORAL 08/14/16 10:00 08/21/16 09:59 08/15/16 22:19 Warfarin Sodium (Coumadin per pharmacy) 1 ea DAILY PRN MISC Per rx protocol 08/14/16 18:00 09/13/16 17:59 BELKIS WELLINGTON Aug 15, 2016 22:41
--- NOTE | 2016-08-15 23:08 | Consultation ---
DATE OF CONSULTATION: 08/14/2016 HISTORY OF PRESENT ILLNESS: The patient is a an 86-year-old female with a history of multiple medical problems including dementia, psychotic disorder, hypertension, depression, GERD and hyperlipidemia, who has been admitted for altered mental status and failure to thrive. She has been losing weight and has had decreased appetite, presented with fever and vomiting. During the evaluation, the patient presents with waxing and waning consciousness, not engaged during the evaluation, poor insight and judgment. I was not able to gather information from the patient, therefore most of the information was retrieved from the chart. PAST MEDICAL HISTORY: Includes hypertension, acute tubular necrosis, DVT, diarrhea, sepsis, and dehydration. PAST PSYCHIATRIC HISTORY: Dementia, depression, and psychotic disorder has been treated with antipsychotics and antidepressant. No history of suicide attempts. SUBSTANCE ABUSE HISTORY: No history of illicit drug use or alcohol. SOCIAL HISTORY: The patient resides in a board and care. MENTAL STATUS EXAMINATION: The patient is confused. Presents with waxing and waning consciousness. Mood is anxious and neutral. Affect is constricted. Congruent mood. Thought process is concrete. Thought content, no suicidal or homicidal ideations. ASSESSMENT: AXIS I Delirium due to general medical condition. AXIS II Deferred. AXIS III As above. AXIS IV Low to moderate. AXIS V Global assessment of functioning is 10. PLAN: 1. Seroquel 50 mg b.i.d. and mirtazapine will be increased to 30 mg p.o. q.h.s. 2. The patient was provided with reality orientation. 3. Avoid prescribing benzodiazepine, anticholinergics, or opiate pain medication as it may exacerbate the delirium and agitation. Meena Moon M.D. DR: LUCIAN JOB#: [id number] CC:
[2016-08-16 00:10] VITALS: BP 159/92
[2016-08-16] MEDS ORDERED: D5 1/2NS 1,000 ML IV SCH ×3 (03:30→17:30)
[2016-08-16] MEDS ORDERED: Nitroglycerin Subl 0.4mg tab (Bottle Of 25) SL PRN ×3 (03:30→23:00)
[2016-08-16 04:00] VITALS: BP 151/72
[2016-08-16] MEDS ORDERED: Morphine Sulfate 2mg/ml Inj IVP PRN ×3 (04:32→23:00)
[2016-08-16] MEDS ORDERED: Miralax 17gm pkt ORAL PRN ×3 (04:36→23:00)
[2016-08-16 05:27] LABS: BASOPHILS % (AUTO) 0.4 % (0.0-2.0); EOSINOPHILS % (AUTO) 0.1 % (0.0-3.0); LYMPHOCYTES % (AUTO) 18.8 % (20.0-45.0); MEAN CORPUSCULAR HEMOGLOBIN 27.5 PG (27.0-31.0); MEAN CORPUSCULAR HGB CONC 33.1 G/DL (32.0-36.0); MEAN CORPUSCULAR VOLUME 83 FL (80-99); MEAN PLATELET VOLUME 8.9 FL (6.5-10.1); MONOCYTES % (AUTO) 9.1 % (1.0-10.0); NEUTROPHILS % (AUTO) 71.6 % (45.0-75.0); PLATELET COUNT 141 K/UL (150-450); RED BLOOD COUNT 3.63 M/UL (4.20-5.40); RED CELL DISTRIBUTION WIDTH 13.8 % (11.6-14.8)
[2016-08-16 05:41] LABS: INR 1.9 (0.9-1.1); PROTHROMBIN TIME 19.8 SEC (9.30-11.50)
[2016-08-16 05:49] LABS: ALANINE AMINOTRANSFERASE 9 U/L (3-33); ALBUMIN/GLOBULIN RATIO 0.6 (1.0-2.7); ANION GAP 14 (5-15); ASPARTATE AMINO TRANSFERASE 20 U/L (5-40); CALCIUM 8.2 mg/dL (8.6-10.2); CARBON DIOXIDE 23 mEQ/L (20-30); CHLORIDE 106 mEQ/L (98-107); CREATININE 1.3 mg/dL (0.5-0.9); HEMOLYSIS 5; MAGNESIUM 1.8 mg/dL (1.7-2.5); PHOSPHORUS 2.8 mg/dL (2.5-4.8); POTASSIUM 3.2 mEQ/L (3.4-4.9); SODIUM 143 mEQ/L (135-145); TOTAL PROTEIN 5.6 g/dL (6.6-8.7)
[2016-08-16 06:55] LABS: URIC ACID 4.8 mg/dL (3.0-7.5)
[2016-08-16 08:00] VITALS: BP 140/76
--- NOTE | 2016-08-16 08:48 | Consultation ---
DATE OF CONSULTATION: 08/15/2016 GASTROENTEROLOGY CONSULTATION CONSULTING PHYSICIAN: Marlys Andersen M.D. CHIEF COMPLAINT: I was asked to see this patient for evaluation of nausea and vomiting and diarrhea. HISTORY OF PRESENT ILLNESS: The patient is an 86-year-old Somali woman who lives in the residential with advanced dementia, who was brought into the hospital due to sepsis and urinary tract infection and diarrhea. The patient apparently had some dark emesis at the residential and was subsequently brought to the emergency room for evaluation. She was found to be febrile here to a low degree and with elevated white count. She was admitted for infection and she . Not much more history is obtained from the patient since she has encephalopathy and does not respond. The remainder of the story is only available from the chart. PAST MEDICAL HISTORY: History of hypercholesterolemia, hypertension, gastroesophageal reflux disease, and dementia. FAMILY HISTORY: Unavailable. SOCIAL HISTORY: The patient resides in a residential. Has had no recent history of smoking or drinking. REVIEW OF SYSTEMS: Review of systems is otherwise negative. PHYSICAL EXAMINATION: GENERAL: A well-developed woman, who barely opens her eyes for examination. HEENT: Normocephalic and atraumatic. Oropharynx could not be seen. NECK: Supple. CHEST: Clear to auscultation. CARDIOVASCULAR: Regular rate. ABDOMEN: Soft and seemingly nontender. Good bowel sounds. There is no organomegaly. EXTREMITIES: Revealed no edema. LABORATORY DATA: Noted. ASSESSMENT: This patient presents with nausea, vomiting, and diarrhea, which appear to be possibly transient. Differential diagnosis would include gastroenteritis, which could be viral. Other possibilities be evaluated. The patient also has a significant degree of encephalopathy and therefore her oral intake is likely not safe yet. She before feeding her. I would monitor and check stool evaluation and do a swallow study in the morning. RECOMMENDATIONS: Per above discussion and per orders written in the chart. Thank you for asking me to participate in the care of this patient. Marlys Andersen M.D. DR: PLACIDO JOB#: [id number] CC:
[2016-08-16] MEDS ORDERED: Metoprolol 25mg tab ORAL SCH ×2 (09:00)
[2016-08-16] MEDS ORDERED: Pantoprazole Inj IVP SCH ×2 (09:00)
[2016-08-16] MEDS ORDERED: Piperacillin/Tazobactam 3.375 GM in D5W 110 ML IVPB SCH ×2 (09:00→21:00)
[2016-08-16] MEDS ORDERED: Lisinopril 2.5mg tab ORAL SCH ×2 (09:00→18:00)
[2016-08-16] MEDS: Piperacillin/Tazobactam 3.375 GM in D5W 110 ML IVPB SCH ×3 (09:00→21:16)
[2016-08-16] MEDS ORDERED: Vancomycin oral 125mg/2.5ml ORAL SCH ×2 (09:00→10:00)
[2016-08-16] MEDS: Pantoprazole Inj IVP SCH (09:13)
[2016-08-16] MEDS: Metoprolol 25mg tab ORAL SCH ×2 (09:13→21:16)
[2016-08-16] MEDS: Lisinopril 2.5mg tab ORAL SCH (09:14)
[2016-08-16] MEDS: Vancomycin oral 125mg/2.5ml ORAL SCH ×4 (09:17→21:16)
[2016-08-16] MEDS ORDERED: Lidocaine 1% Plain 30 ml INJ PRN (09:45)
[2016-08-16] MEDS ORDERED: Heparin 2000 units/Ns 1000ml INJ PRN (09:45)
[2016-08-16] MEDS ORDERED: Sodium Bicarbonate 8.4% 50ml Inj IV PRN (10:00)
[2016-08-16 12:00] VITALS: BP 139/80
--- NOTE | 2016-08-16 14:49 | General Progress Note ---
Assessment/Plan Problem List: (1) Pyelonephritis ICD Codes: N12 - Tubulo-interstitial nephritis, not specified as acute or chronic SNOMED: 05147581 (2) Dehydration ICD Codes: E86.0 - Dehydration SNOMED: 81132064 (3) Sepsis ICD Codes: A41.9 - Sepsis, unspecified organism SNOMED: 86863412 (4) Debility ICD Codes: R53.81 - Other malaise SNOMED: 85246636 (5) HTN (hypertension) ICD Codes: I10 - Essential (primary) hypertension SNOMED: 95866671 Status: progressing Assessment/Plan afebrile dehydration vitals stable reviewed chart and meds sepsis improving Subjective ROS Limited/Unobtainable: Yes Constitutional: Reports: no symptoms Allergies: Coded Allergies: No Known Allergies (Unverified , 07/04/16) Objective Last 24 Hour Vital Signs Date Time Temp Pulse Resp B/P Pulse Ox O2 Delivery O2 Flow Rate FiO2 08/16/16 12:00 97.8 68 18 139/80 98 Room Air 08/16/16 09:14 140/76 08/16/16 09:13 66 140/76 08/16/16 08:00 97.7 66 18 140/76 98 Room Air 08/16/16 04:00 98.2 73 19 151/72 99 Room Air 08/16/16 00:10 98.2 74 20 159/92 95 Room Air 08/15/16 22:18 80 162/90 08/15/16 20:00 97.7 83 19 167/93 96 Room Air 08/15/16 17:38 195/83 08/15/16 16:00 97.9 79 20 151/71 98 Room Air 08/15/16 16:00 63 Intake and Output 08/15/16 08/16/16 19:00 07:00 Intake Total 750.0 ml 280 ml Output Total 200 ml 500 ml Balance 550.0 ml -220 ml Intake IV Total 750.0 ml 280 ml Output Urine Total 200 ml 500 ml Laboratory Tests 08/16/16 05:00: White Blood Count 5.0, Red Blood Count 3.63L, Hemoglobin 10.0L, Hematocrit 30.2L , Mean Corpuscular Volume 83, Mean Corpuscular Hemoglobin 27.5, Mean Corpuscular Hemoglobin Concent 33.1, Red Cell Distribution Width 13.8, Platelet Count 141L, Mean Platelet Volume 8.9, Neutrophils (%) (Auto) 71.6, Lymphocytes ( %) (Auto) 18.8L, Monocytes (%) (Auto) 9.1, Eosinophils (%) (Auto) 0.1, Basophils (%) (Auto) 0.4, Prothrombin Time 19.8H, Prothromb Time International Ratio 1.9H, Sodium Level 143, Potassium Level 3.2L, Chloride Level 106, Carbon Dioxide Level 23, Anion Gap 14, Blood Urea Nitrogen 16, Creatinine 1.3H, Estimat Glomerular Filtration Rate , Glucose Level 120H, Uric Acid 4.8, Calcium Level 8.2L, Phosphorus Level 2.8, Magnesium Level 1.8, Total Bilirubin 0.6, Aspartate Amino Transf (AST/SGOT) 20, Alanine Aminotransferase (ALT/SGPT) 9, Alkaline Phosphatase 47, Total Protein 5.6L, Albumin 2.3L, Globulin 3.3, Albumin /Globulin Ratio 0.6L 08/16/16 05:15: Urine Eosinophils None seen Height (Feet): 5 Height (Inches): 0.00 Weight (Pounds): 106 EENT: PERRL/EOMI Neck: supple Cardiovascular: normal rate Respiratory/Chest: lungs clear Abdomen: soft Coco Jackson MD Aug 16, 2016 14:49
--- NOTE | 2016-08-16 15:13 | Infectious Diseases Prog Note ---
Assessment/Plan Problems: (1) Urinary tract infection Assessment & Plan: with E coli, on zosyn empirically (2) Sepsis Assessment & Plan: with gram negative rods, most likely E coli, source is UTI, and coag negative staph most likely contamination , on zosyn and vancomycin , await identifications and sensitivities from blood culture (3) Diarrhea Assessment & Plan: improved, rule out infectious etiology, will send stool culture and C diff toxin, and continue oral vancomycin empirically (4) DVT (deep venous thrombosis) Assessment & Plan: of the left leg veins , management as per hematology Subjective ROS Limited/Unobtainable: Yes Allergies: Coded Allergies: No Known Allergies (Unverified , 07/04/16) Subjective she is demented , comfortable, lying in bed, open eyes spontaneously, not agitated, afebrile Objective Vital Signs Last 24 Hour Vital Signs Date Time Temp Pulse Resp B/P Pulse Ox O2 Delivery O2 Flow Rate FiO2 08/16/16 12:00 97.8 68 18 139/80 98 Room Air 08/16/16 09:14 140/76 08/16/16 09:13 66 140/76 08/16/16 08:00 97.7 66 18 140/76 98 Room Air 08/16/16 04:00 98.2 73 19 151/72 99 Room Air 08/16/16 00:10 98.2 74 20 159/92 95 Room Air 08/15/16 22:18 80 162/90 08/15/16 20:00 97.7 83 19 167/93 96 Room Air 08/15/16 17:38 195/83 08/15/16 16:00 97.9 79 20 151/71 98 Room Air 08/15/16 16:00 63 Height (Feet): 5 Height (Inches): 0.00 Weight (Pounds): 106 General Appearance: WD/WN, no acute distress HEENT: normocephalic, atraumatic, anicteric, mucous membranes moist, PERRL Respiratory/Chest: chest wall non-tender, lungs clear, normal breath sounds, no respiratory distress, no accessory muscle use Cardiovascular: normal peripheral pulses, normal rate, regular rhythm, no gallop/murmur, no JVD Abdomen: normal bowel sounds, soft, non tender, no organomegaly, non distended , no mass Extremities: no cyanosis, no clubbing Skin: no rash, no lesions Microbiology Date/Time Source Procedure Growth Status 08/13/16 19:15 Blood Blood Culture - Preliminary Staphylococcus Sp Coag Neg Resulted 08/13/16 19:10 Blood Blood Culture - Preliminary Gram Negative Bacillus 1 Resulted 08/13/16 23:25 Nasal Nares MRSA Culture - Final NO METHICILLIN RESISTANT STAPH AUREUS... Complete 08/14/16 06:00 Urine,Clean Catch Urine Culture - Final Escherichia Coli Complete 08/13/16 21:28 Urine,Clean Catch Urine Culture - Final Escherichia Coli Complete 08/13/16 23:25 Rectum VRE Culture - Final NO VANCOMYCIN RESISTANT ENTEROCOCCUS ... Complete Laboratory Tests Test 08/16/16 05:00 08/16/16 05:15 White Blood Count 5.0 K/UL (4.8-10.8) Red Blood Count 3.63 M/UL (4.20-5.40) L Hemoglobin 10.0 G/DL (12.0-16.0) L Hematocrit 30.2 % (37.0-47.0) L Mean Corpuscular Volume 83 FL (80-99) Mean Corpuscular Hemoglobin 27.5 PG (27.0-31.0) Mean Corpuscular Hemoglobin Concent 33.1 G/DL (32.0-36.0) Red Cell Distribution Width 13.8 % (11.6-14.8) Platelet Count 141 K/UL (150-450) L Mean Platelet Volume 8.9 FL (6.5-10.1) Neutrophils (%) (Auto) 71.6 % (45.0-75.0) Lymphocytes (%) (Auto) 18.8 % (20.0-45.0) L Monocytes (%) (Auto) 9.1 % (1.0-10.0) Eosinophils (%) (Auto) 0.1 % (0.0-3.0) Basophils (%) (Auto) 0.4 % (0.0-2.0) Prothrombin Time 19.8 SEC (9.30-11.50) H Prothromb Time International Ratio 1.9 (0.9-1.1) H Sodium Level 143 mEQ/L (135-145) Potassium Level 3.2 mEQ/L (3.4-4.9) L Chloride Level 106 mEQ/L (98-107) Carbon Dioxide Level 23 mEQ/L (20-30) Anion Gap 14 (5-15) Blood Urea Nitrogen 16 mg/dL (7-23) Creatinine 1.3 mg/dL (0.5-0.9) H Estimat Glomerular Filtration Rate mL/min (>60) Glucose Level 120 mg/dL (74-106) H Uric Acid 4.8 mg/dL (3.0-7.5) Calcium Level 8.2 mg/dL (8.6-10.2) L Phosphorus Level 2.8 mg/dL (2.5-4.8) Magnesium Level 1.8 mg/dL (1.7-2.5) Total Bilirubin 0.6 mg/dL (0.0-1.2) Aspartate Amino Transf (AST/SGOT) 20 U/L (5-40) Alanine Aminotransferase (ALT/SGPT) 9 U/L (3-33) Alkaline Phosphatase 47 U/L (35-104) Total Protein 5.6 g/dL (6.6-8.7) L Albumin 2.3 g/dL (3.5-5.2) L Globulin 3.3 g/dL Albumin/Globulin Ratio 0.6 (1.0-2.7) L Urine Eosinophils None seen Current Medications Medications (Trade) Dose Ordered Sig/Selena Route PRN Reason Start Time Stop Time Status Last Admin Dose Admin Acetaminophen (Tylenol) 650 mg Q4H PRN ORAL fever 08/16/16 04:28 09/15/16 04:27 Dextrose (Dextrose 50%) STAT PRN IV Hypoglycemia 08/16/16 23:00 09/15/16 22:59 Heparin Sodium/ Sodium Chloride (Heparin 2000 units/Ns 1000ml premix) 2,000 unit ONCE PRN INJ PICC PLACEMENT 08/16/16 09:45 08/17/16 23:59 Lidocaine HCl (Xylocaine 1% 30ml) 30 ml ONCE PRN INJ PICC PLACEMENT 08/16/16 09:45 08/17/16 23:59 Lisinopril (Zestril) 5 mg DAILY ORAL 08/16/16 09:00 09/15/16 08:59 08/16/16 09:14 Metoprolol Tartrate (Lopressor) 25 mg EVERY 12 HOURS ORAL 08/16/16 09:00 09/15/16 08:59 08/16/16 09:13 Mirtazapine (Remeron) 30 mg BEDTIME ORAL 08/16/16 21:00 09/15/16 20:59 Morphine Sulfate (Morphine Sulfate) 2 mg Q4H PRN IVP severe Pain (Pain Scale 7-10) 08/16/16 04:32 08/23/16 04:31 Nitroglycerin (Ntg) 0.4 mg Q5M X 3 DOSES PRN SL Prn Chest Pain 08/16/16 03:30 09/15/16 03:29 Ondansetron HCl (Zofran) 4 mg Q6H PRN IVP Nausea & Vomiting 08/16/16 04:34 09/15/16 04:33 Pantoprazole (Protonix) 40 mg DAILY IVP 08/16/16 09:00 09/15/16 08:59 08/16/16 09:13 Piperacillin Sod/ Tazobactam Sod/ Dextrose (Zosyn/D5W) 110 ml @ 27.5 mls/hr EVERY 12 HOURS IVPB 08/16/16 09:00 08/23/16 08:59 Polyethylene Glycol (Miralax) 17 gm HSPRN PRN ORAL Constipation 08/16/16 04:36 09/15/16 04:35 Quetiapine Fumarate (SEROquel) 25 mg Q12H PRN ORAL agitation 08/16/16 04:03 09/15/16 04:02 Sodium Bicarbonate (Sodium Bicarbonate) 50 ml ONCE PRN IV PICC PLACEMENT 08/16/16 10:00 08/17/16 23:59 Vancomycin HCl (Vancomycin) 125 mg FOUR TIMES A DAY ORAL 08/16/16 09:00 08/23/16 08:59 08/16/16 12:49 Warfarin Sodium (Coumadin per pharmacy) 1 ea DAILY PRN MISC Per rx protocol 08/16/16 09:00 09/15/16 08:59 Erika Hart M.D. Aug 16, 2016 15:13
--- NOTE | 2016-08-16 15:48 | General Progress Note ---
Assessment/Plan Status: stable Assessment/Plan Acute kidney injury, partially dehydration, and low BP, partly sepsis Encephalopathy UTI , Sepsis Vomiting and Diarrhea ? infectious DVT Aspiration prone Dementia Plan: Slow hydrate- K supplement Monitor renal parameters- avoid nephrotoxics- Keeps BP and BS in check Fluid challenged previously Subjective ROS Limited/Unobtainable: No Constitutional: Reports: malaise Allergies: Coded Allergies: No Known Allergies (Unverified , 07/04/16) Objective Last 24 Hour Vital Signs Date Time Temp Pulse Resp B/P Pulse Ox O2 Delivery O2 Flow Rate FiO2 08/16/16 12:00 97.8 68 18 139/80 98 Room Air 08/16/16 09:14 140/76 08/16/16 09:13 66 140/76 08/16/16 08:00 97.7 66 18 140/76 98 Room Air 08/16/16 04:00 98.2 73 19 151/72 99 Room Air 08/16/16 00:10 98.2 74 20 159/92 95 Room Air 08/15/16 22:18 80 162/90 08/15/16 20:00 97.7 83 19 167/93 96 Room Air 08/15/16 17:38 195/83 08/15/16 16:00 97.9 79 20 151/71 98 Room Air 08/15/16 16:00 63 Intake and Output 08/15/16 08/16/16 19:00 07:00 Intake Total 750.0 ml 280 ml Output Total 200 ml 500 ml Balance 550.0 ml -220 ml Intake IV Total 750.0 ml 280 ml Output Urine Total 200 ml 500 ml Laboratory Tests 08/16/16 05:00: White Blood Count 5.0, Red Blood Count 3.63L, Hemoglobin 10.0L, Hematocrit 30.2L , Mean Corpuscular Volume 83, Mean Corpuscular Hemoglobin 27.5, Mean Corpuscular Hemoglobin Concent 33.1, Red Cell Distribution Width 13.8, Platelet Count 141L, Mean Platelet Volume 8.9, Neutrophils (%) (Auto) 71.6, Lymphocytes ( %) (Auto) 18.8L, Monocytes (%) (Auto) 9.1, Eosinophils (%) (Auto) 0.1, Basophils (%) (Auto) 0.4, Prothrombin Time 19.8H, Prothromb Time International Ratio 1.9H, Sodium Level 143, Potassium Level 3.2L, Chloride Level 106, Carbon Dioxide Level 23, Anion Gap 14, Blood Urea Nitrogen 16, Creatinine 1.3H, Estimat Glomerular Filtration Rate , Glucose Level 120H, Uric Acid 4.8, Calcium Level 8.2L, Phosphorus Level 2.8, Magnesium Level 1.8, Total Bilirubin 0.6, Aspartate Amino Transf (AST/SGOT) 20, Alanine Aminotransferase (ALT/SGPT) 9, Alkaline Phosphatase 47, Total Protein 5.6L, Albumin 2.3L, Globulin 3.3, Albumin /Globulin Ratio 0.6L 08/16/16 05:15: Urine Eosinophils None seen Height (Feet): 5 Height (Inches): 0.00 Weight (Pounds): 106 General Appearance: no apparent distress Objective PE not changed DRE CHAN 24, 2017 15:47
[2016-08-16 16:00] VITALS: BP 178/66
--- NOTE | 2016-08-16 17:28 | Diagnostic Imaging Report ---
Indications: Needs long-term IV access Technique: Ultrasound confirms patent compressible right brachial vein. Total sterile technique, including sterile probe cover and sterile gel, hat, mask,, sterile gown, large sterile drape, and preparation with 2% chlorhexidine utilized. Local anesthesia with 1% lidocaine. Under real-time ultrasound guidance, puncture tracheal vein using 21-gauge needle, documented and archived, passage 0.018 guidewire under direct fluoroscopy, which was used to determine appropriate catheter length, exchange for 5 Chadian peel-away sheath. 5 [place] Bard dual-lumen power PICC cut to 28 cm. It was inserted through the peel-away sheath. Peel-away sheath and guidewire removed. Catheter fixed to the skin. Both catheter ports aspirated and flushed. Patient tolerated procedure well, without immediate complication. Digital radiograph documents satisfactory catheter tip position, at the cavoatrial junction. Total fluoroscopy time 0.3 minutes. Total dose area product 11 dGycm2 Impression: Successful placement of right arm PICC under sonographic and fluoroscopic guidance, as described above.
[2016-08-16 20:00] VITALS: BP 172/85
--- NOTE | 2016-08-16 20:18 | General Progress Note ---
Assessment/Plan Assessment/Plan ASSESSMENT: 1. Acute deep vein thrombosis of the left common femoral vein. Remains on coumadin 2. Anemia, secondary to gastrointestinal bleed and hematemesis. Currently hgb > 10 3. Thrombocytopenia - new onset, likely 2/2 infection, ID following, patient febrile, is on abx 4. Nausea and vomiting - current and in past egd showed gerd 5. Dementia/Altered mental status. 6. Acute kidney injury. 7. Hiatal hernia. 8. Acid reflux. RECOMMENDATIONS: 1. Monitor counts. 2. CT a/p shows accessory spleen 3. Appreciate Gi ID, renal recs 4. Continue Coumadin 5. Maintain INR between 2-3. 6. Anemia w/u in prior reviewed, shows ACD 7. Duplex of lower ext to r/o dvt shows same dvt as before 8. GI ppx with protonix 9. DW the staff. Thank you, Mike Paige M.D. Subjective Constitutional: Reports: no symptoms HEENT: Reports: no symptoms Cardiovascular: Reports: no symptoms Respiratory: Reports: no symptoms Gastrointestinal/Abdominal: Reports: no symptoms Genitourinary: Reports: no symptoms Neurologic/Psychiatric: Reports: no symptoms Endocrine: Reports: no symptoms Hematologic/Lymphatic: Reports: anemia Allergies: Coded Allergies: No Known Allergies (Unverified , 07/04/16) Subjective stable, difficult to obtain further history, is demented Objective Last 24 Hour Vital Signs Date Time Temp Pulse Resp B/P Pulse Ox O2 Delivery O2 Flow Rate FiO2 08/16/16 16:00 97.3 70 20 178/66 97 Room Air 08/16/16 12:00 97.8 68 18 139/80 98 Room Air 08/16/16 09:14 140/76 08/16/16 09:13 66 140/76 08/16/16 08:00 97.7 66 18 140/76 98 Room Air 08/16/16 04:00 98.2 73 19 151/72 99 Room Air 08/16/16 00:10 98.2 74 20 159/92 95 Room Air 08/15/16 22:18 80 162/90 Intake and Output 08/15/16 08/16/16 19:00 07:00 Intake Total 750.0 ml 280 ml Output Total 200 ml 500 ml Balance 550.0 ml -220 ml Intake IV Total 750.0 ml 280 ml Output Urine Total 200 ml 500 ml Laboratory Tests 08/16/16 05:00: White Blood Count 5.0, Red Blood Count 3.63L, Hemoglobin 10.0L, Hematocrit 30.2L , Mean Corpuscular Volume 83, Mean Corpuscular Hemoglobin 27.5, Mean Corpuscular Hemoglobin Concent 33.1, Red Cell Distribution Width 13.8, Platelet Count 141L, Mean Platelet Volume 8.9, Neutrophils (%) (Auto) 71.6, Lymphocytes ( %) (Auto) 18.8L, Monocytes (%) (Auto) 9.1, Eosinophils (%) (Auto) 0.1, Basophils (%) (Auto) 0.4, Prothrombin Time 19.8H, Prothromb Time International Ratio 1.9H, Sodium Level 143, Potassium Level 3.2L, Chloride Level 106, Carbon Dioxide Level 23, Anion Gap 14, Blood Urea Nitrogen 16, Creatinine 1.3H, Estimat Glomerular Filtration Rate , Glucose Level 120H, Uric Acid 4.8, Calcium Level 8.2L, Phosphorus Level 2.8, Magnesium Level 1.8, Total Bilirubin 0.6, Aspartate Amino Transf (AST/SGOT) 20, Alanine Aminotransferase (ALT/SGPT) 9, Alkaline Phosphatase 47, Total Protein 5.6L, Albumin 2.3L, Globulin 3.3, Albumin /Globulin Ratio 0.6L 08/16/16 05:15: Urine Eosinophils None seen Height (Feet): 5 Height (Inches): 0.00 Weight (Pounds): 106 General Appearance: no apparent distress EENT: TMs normal Neck: supple Cardiovascular: regular rhythm Respiratory/Chest: lungs clear Abdomen: non tender Extremities: non-tender Edema: 1+ Leg (L), 1+ Leg (R) Edema: mild edema Neurologic: oriented x 3 Skin: warm/dry Mike Paige Aug 16, 2016 20:18
--- NOTE | 2016-08-16 20:24 | General Progress Note ---
Assessment/Plan Assessment/Plan Assessment - N/V - resolved - Diarrhea - encephalopathy - GERD Recommendations - po diet per ST rec - follow mental status - check stool w/u - abx per ID Subjective Allergies: Coded Allergies: No Known Allergies (Unverified , 07/04/16) Subjective more awake today swallow evaluation noted diet advanced Objective Last 24 Hour Vital Signs Date Time Temp Pulse Resp B/P Pulse Ox O2 Delivery O2 Flow Rate FiO2 08/16/16 16:00 97.3 70 20 178/66 97 Room Air 08/16/16 12:00 97.8 68 18 139/80 98 Room Air 08/16/16 09:14 140/76 08/16/16 09:13 66 140/76 08/16/16 08:00 97.7 66 18 140/76 98 Room Air 08/16/16 04:00 98.2 73 19 151/72 99 Room Air 08/16/16 00:10 98.2 74 20 159/92 95 Room Air 08/15/16 22:18 80 162/90 Intake and Output 08/15/16 08/16/16 19:00 07:00 Intake Total 750.0 ml 280 ml Output Total 200 ml 500 ml Balance 550.0 ml -220 ml Intake IV Total 750.0 ml 280 ml Output Urine Total 200 ml 500 ml Laboratory Tests 08/16/16 05:00: White Blood Count 5.0, Red Blood Count 3.63L, Hemoglobin 10.0L, Hematocrit 30.2L , Mean Corpuscular Volume 83, Mean Corpuscular Hemoglobin 27.5, Mean Corpuscular Hemoglobin Concent 33.1, Red Cell Distribution Width 13.8, Platelet Count 141L, Mean Platelet Volume 8.9, Neutrophils (%) (Auto) 71.6, Lymphocytes ( %) (Auto) 18.8L, Monocytes (%) (Auto) 9.1, Eosinophils (%) (Auto) 0.1, Basophils (%) (Auto) 0.4, Prothrombin Time 19.8H, Prothromb Time International Ratio 1.9H, Sodium Level 143, Potassium Level 3.2L, Chloride Level 106, Carbon Dioxide Level 23, Anion Gap 14, Blood Urea Nitrogen 16, Creatinine 1.3H, Estimat Glomerular Filtration Rate , Glucose Level 120H, Uric Acid 4.8, Calcium Level 8.2L, Phosphorus Level 2.8, Magnesium Level 1.8, Total Bilirubin 0.6, Aspartate Amino Transf (AST/SGOT) 20, Alanine Aminotransferase (ALT/SGPT) 9, Alkaline Phosphatase 47, Total Protein 5.6L, Albumin 2.3L, Globulin 3.3, Albumin /Globulin Ratio 0.6L 08/16/16 05:15: Urine Eosinophils None seen Height (Feet): 5 Height (Inches): 0.00 Weight (Pounds): 106 JUSTO MAYERS Aug 16, 2016 20:24
--- NOTE | 2016-08-16 22:59 | Pulmonology Progress Note ---
Assessment/Plan Problems: (1) Sepsis (2) Pyelonephritis (3) At high risk for aspiration (4) Dehydration Assessment/Plan continue antibiotics check cultures anemia w/u GI w/u H/H stable, might go to med/surg all labs and notes reviewed Subjective Allergies: Coded Allergies: No Known Allergies (Unverified , 07/04/16) Objective Last 24 Hour Vital Signs Date Time Temp Pulse Resp B/P Pulse Ox O2 Delivery O2 Flow Rate FiO2 08/16/16 21:16 56 172/85 08/16/16 21:16 56 172/85 08/16/16 20:00 97.3 56 18 172/85 98 Room Air 08/16/16 16:00 97.3 70 20 178/66 97 Room Air 08/16/16 12:00 97.8 68 18 139/80 98 Room Air 08/16/16 09:14 140/76 08/16/16 09:13 66 140/76 08/16/16 08:00 97.7 66 18 140/76 98 Room Air 08/16/16 04:00 98.2 73 19 151/72 99 Room Air 08/16/16 00:10 98.2 74 20 159/92 95 Room Air Intake and Output 08/15/16 08/16/16 19:00 07:00 Intake Total 750.0 ml 280 ml Output Total 200 ml 500 ml Balance 550.0 ml -220 ml IV Total 750.0 ml 280 ml Output Urine Total 200 ml 500 ml Objective General Appearance: WD/WN HEENT: normocephalic, atraumatic Respiratory/Chest: chest wall non-tender, lungs clear Breasts: no masses Cardiovascular: normal peripheral pulses Abdomen: normal bowel sounds, soft, non tender Genitourinary: normal external genitalia Extremities: no cyanosis 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 Complete 08/14/16 06:00 Urine,Clean Catch Urine Culture - Final Escherichia Coli Complete 08/13/16 23:25 Rectum VRE Culture - Final NO VANCOMYCIN RESISTANT ENTEROCOCCUS ... Complete Laboratory Tests 08/16/16 05:00: White Blood Count 5.0, Red Blood Count 3.63L, Hemoglobin 10.0L, Hematocrit 30.2L , Mean Corpuscular Volume 83, Mean Corpuscular Hemoglobin 27.5, Mean Corpuscular Hemoglobin Concent 33.1, Red Cell Distribution Width 13.8, Platelet Count 141L, Mean Platelet Volume 8.9, Neutrophils (%) (Auto) 71.6, Lymphocytes ( %) (Auto) 18.8L, Monocytes (%) (Auto) 9.1, Eosinophils (%) (Auto) 0.1, Basophils (%) (Auto) 0.4, Prothrombin Time 19.8H, Prothromb Time International Ratio 1.9H, Sodium Level 143, Potassium Level 3.2L, Chloride Level 106, Carbon Dioxide Level 23, Anion Gap 14, Blood Urea Nitrogen 16, Creatinine 1.3H, Estimat Glomerular Filtration Rate , Glucose Level 120H, Uric Acid 4.8, Calcium Level 8.2L, Phosphorus Level 2.8, Magnesium Level 1.8, Total Bilirubin 0.6, Aspartate Amino Transf (AST/SGOT) 20, Alanine Aminotransferase (ALT/SGPT) 9, Alkaline Phosphatase 47, Total Protein 5.6L, Albumin 2.3L, Globulin 3.3, Albumin /Globulin Ratio 0.6L 08/16/16 05:15: Urine Eosinophils None seen Current Medications Medications (Trade) Dose Ordered Sig/Selena Route PRN Reason Start Time Stop Time Status Last Admin Dose Admin Acetaminophen (Tylenol) 650 mg Q4H PRN ORAL fever 08/16/16 04:28 09/15/16 04:27 Dextrose (Dextrose 50%) STAT PRN IV Hypoglycemia 08/16/16 23:00 09/15/16 22:59 Heparin Sodium/ Sodium Chloride (Heparin 2000 units/Ns 1000ml premix) 2,000 unit ONCE PRN INJ PICC PLACEMENT 08/16/16 09:45 08/17/16 23:59 Lidocaine HCl (Xylocaine 1% 30ml) 30 ml ONCE PRN INJ PICC PLACEMENT 08/16/16 09:45 08/17/16 23:59 Lisinopril (Zestril) 5 mg DAILY ORAL 08/16/16 09:00 09/15/16 08:59 08/16/16 09:14 Metoprolol Tartrate (Lopressor) 25 mg EVERY 12 HOURS ORAL 08/16/16 09:00 09/15/16 08:59 08/16/16 21:16 Mirtazapine (Remeron) 30 mg BEDTIME ORAL 08/16/16 21:00 09/15/16 20:59 08/16/16 21:16 Morphine Sulfate (Morphine Sulfate) 2 mg Q4H PRN IVP severe Pain (Pain Scale 7-10) 08/16/16 04:32 08/23/16 04:31 Nitroglycerin (Ntg) 0.4 mg Q5M X 3 DOSES PRN SL Prn Chest Pain 08/16/16 03:30 09/15/16 03:29 Ondansetron HCl (Zofran) 4 mg Q6H PRN IVP Nausea & Vomiting 08/16/16 04:34 09/15/16 04:33 Pantoprazole (Protonix) 40 mg DAILY IVP 08/16/16 09:00 09/15/16 08:59 08/16/16 09:13 Piperacillin Sod/ Tazobactam Sod/ Dextrose (Zosyn/D5W) 110 ml @ 27.5 mls/hr EVERY 12 HOURS IVPB 08/16/16 09:00 08/23/16 08:59 08/16/16 21:16 Polyethylene Glycol (Miralax) 17 gm HSPRN PRN ORAL Constipation 08/16/16 04:36 09/15/16 04:35 Quetiapine Fumarate (SEROquel) 25 mg Q12H PRN ORAL agitation 08/16/16 04:03 09/15/16 04:02 Sodium Bicarbonate (Sodium Bicarbonate) 50 ml ONCE PRN IV PICC PLACEMENT 08/16/16 10:00 08/17/16 23:59 Vancomycin HCl (Vancomycin) 125 mg FOUR TIMES A DAY ORAL 08/16/16 09:00 08/23/16 08:59 08/16/16 21:16 Warfarin Sodium (Coumadin per pharmacy) 1 ea DAILY PRN MISC Per rx protocol 08/16/16 09:00 09/15/16 08:59 BELKIS WELLINGTON Aug 16, 2016 22:59
[2016-08-17] VITALS: BP 169/80
[2016-08-17 04:00] VITALS: BP 159/69
[2016-08-17 07:25] LABS: INR 2.8 (0.9-1.1); PROTHROMBIN TIME 29.4 SEC (9.30-11.50)
[2016-08-17 08:00] VITALS: BP 152/75
[2016-08-17] MEDS: Metoprolol 25mg tab ORAL SCH ×2 (08:57→21:33)
[2016-08-17] MEDS: Lisinopril 2.5mg tab ORAL SCH ×2 (08:57→17:12)
[2016-08-17] MEDS: Vancomycin oral 125mg/2.5ml ORAL SCH (08:57)
[2016-08-17] MEDS: Pantoprazole Inj IVP SCH (10:00)
--- NOTE | 2016-08-17 11:59 | General Progress Note ---
Assessment/Plan Problem List: (1) Pyelonephritis ICD Codes: N12 - Tubulo-interstitial nephritis, not specified as acute or chronic SNOMED: 46025153 (2) Dehydration ICD Codes: E86.0 - Dehydration SNOMED: 70041189 (3) Sepsis ICD Codes: A41.9 - Sepsis, unspecified organism SNOMED: 66692167 (4) Debility ICD Codes: R53.81 - Other malaise SNOMED: 37800600 (5) HTN (hypertension) ICD Codes: I10 - Essential (primary) hypertension SNOMED: 27381290 Status: progressing Assessment/Plan dehyration sepsis afebrile pyelopnephritis improving poor historian vitals stable Subjective ROS Limited/Unobtainable: Yes Constitutional: Reports: no symptoms Allergies: Coded Allergies: No Known Allergies (Unverified , 07/04/16) Objective Last 24 Hour Vital Signs Date Time Temp Pulse Resp B/P Pulse Ox O2 Delivery O2 Flow Rate FiO2 08/17/16 08:57 152/75 08/17/16 08:57 74 152/75 08/17/16 08:00 97.9 74 18 152/75 97 Room Air 08/17/16 04:00 97.7 63 18 159/69 96 Room Air 08/17/16 00:00 97.7 72 18 169/80 96 Room Air 08/16/16 21:16 56 172/85 08/16/16 21:16 56 172/85 08/16/16 20:00 97.3 56 18 172/85 98 Room Air 08/16/16 16:00 97.3 70 20 178/66 97 Room Air 08/16/16 12:00 97.8 68 18 139/80 98 Room Air Intake and Output 08/16/16 08/17/16 19:00 07:00 Intake Total 40 ml 387.5 ml Output Total 300 ml 700 ml Balance -260 ml -312.5 ml Intake Oral 360 ml IV Total 40 ml 27.5 ml Output Urine Total 300 ml 700 ml Laboratory Tests 08/17/16 05:55: Prothrombin Time 29.4H, Prothromb Time International Ratio 2.8H 08/17/16 06:20: Urine Eosinophils None seen Height (Feet): 5 Height (Inches): 0.00 Weight (Pounds): 106 EENT: PERRL/EOMI Neck: supple Cardiovascular: normal rate Respiratory/Chest: lungs clear Abdomen: soft Coco Jackson MD Aug 17, 2016 11:59
[2016-08-17 12:00] VITALS: BP 134/68
[2016-08-17] MEDS: cefTRIAXone 2 GM in D5W 110 ML IVPB SCH (12:25)
--- NOTE | 2016-08-17 12:54 | General Progress Note ---
Assessment/Plan Status: stable Status Narrative Cr 1.3 Assessment/Plan Acute kidney injury, partially dehydration, and low BP, partly sepsis Encephalopathy UTI , Sepsis Vomiting and Diarrhea ? infectious DVT Aspiration prone Dementia Plan: adjust BP meds- Slow hydrate- K supplement Monitor renal parameters- avoid nephrotoxics- Keeps BP and BS in check Fluid challenged previously Subjective ROS Limited/Unobtainable: No Constitutional: Reports: malaise Allergies: Coded Allergies: No Known Allergies (Unverified , 07/04/16) Objective Last 24 Hour Vital Signs Date Time Temp Pulse Resp B/P Pulse Ox O2 Delivery O2 Flow Rate FiO2 08/17/16 12:00 97.7 70 18 134/68 94 Room Air 08/17/16 08:57 152/75 08/17/16 08:57 74 152/75 08/17/16 08:00 97.9 74 18 152/75 97 Room Air 08/17/16 04:00 97.7 63 18 159/69 96 Room Air 08/17/16 00:00 97.7 72 18 169/80 96 Room Air 08/16/16 21:16 56 172/85 08/16/16 21:16 56 172/85 08/16/16 20:00 97.3 56 18 172/85 98 Room Air 08/16/16 16:00 97.3 70 20 178/66 97 Room Air Intake and Output 08/16/16 08/17/16 19:00 07:00 Intake Total 40 ml 387.5 ml Output Total 300 ml 700 ml Balance -260 ml -312.5 ml Intake Oral 360 ml IV Total 40 ml 27.5 ml Output Urine Total 300 ml 700 ml Laboratory Tests 08/17/16 05:55: Prothrombin Time 29.4H, Prothromb Time International Ratio 2.8H 08/17/16 06:20: Urine Eosinophils None seen Height (Feet): 5 Height (Inches): 0.00 Weight (Pounds): 106 General Appearance: no apparent distress Objective PE not changed DRE CHAN 25, 2017 12:54
[2016-08-17] MEDS ORDERED: NS 550ML IV ONE (13:33)
--- NOTE | 2016-08-17 14:15 | General Progress Note ---
Assessment/Plan Assessment/Plan Assessment - N/V - resolved - Diarrhea - encephalopathy - GERD Recommendations - po diet - follow mental status - check stool w/u - abx per ID Subjective Allergies: Coded Allergies: No Known Allergies (Unverified , 07/04/16) Subjective more awake today eating better d/w RN Objective Last 24 Hour Vital Signs Date Time Temp Pulse Resp B/P Pulse Ox O2 Delivery O2 Flow Rate FiO2 08/17/16 12:00 97.7 70 18 134/68 94 Room Air 08/17/16 08:57 152/75 08/17/16 08:57 74 152/75 08/17/16 08:00 97.9 74 18 152/75 97 Room Air 08/17/16 04:00 97.7 63 18 159/69 96 Room Air 08/17/16 00:00 97.7 72 18 169/80 96 Room Air 08/16/16 21:16 56 172/85 08/16/16 21:16 56 172/85 08/16/16 20:00 97.3 56 18 172/85 98 Room Air 08/16/16 16:00 97.3 70 20 178/66 97 Room Air Intake and Output 08/16/16 08/17/16 19:00 07:00 Intake Total 40 ml 387.5 ml Output Total 300 ml 700 ml Balance -260 ml -312.5 ml Intake Oral 360 ml IV Total 40 ml 27.5 ml Output Urine Total 300 ml 700 ml Laboratory Tests 08/17/16 05:55: Prothrombin Time 29.4H, Prothromb Time International Ratio 2.8H 08/17/16 06:20: Urine Eosinophils None seen Height (Feet): 5 Height (Inches): 0.00 Weight (Pounds): 106 DARRYNJUSTO DOUGLAS Aug 17, 2016 14:15
--- NOTE | 2016-08-17 14:45 | Infectious Diseases Prog Note ---
Assessment/Plan Problems: (1) Urinary tract infection Assessment & Plan: with E coli, on zosyn empirically , will switch to ceftriaxon (2) Sepsis Assessment & Plan: with E coli, source is UTI, and coag negative staph most likely contamination , on zosyn , will switch to ceftriaxon and treat her for two weeks, will repeat blood culture to confirm clearance . (3) Diarrhea Assessment & Plan: improved, rule out infectious etiology, will send stool culture and C diff toxin, and continue oral vancomycin empirically (4) DVT (deep venous thrombosis) Assessment & Plan: of the left leg veins , management as per hematology Subjective ROS Limited/Unobtainable: Yes Allergies: Coded Allergies: No Known Allergies (Unverified , 07/04/16) Subjective she is demented , comfortable, lying in bed, open eyes spontaneously, not agitated, afebrile Objective Vital Signs Last 24 Hour Vital Signs Date Time Temp Pulse Resp B/P Pulse Ox O2 Delivery O2 Flow Rate FiO2 08/17/16 12:00 97.7 70 18 134/68 94 Room Air 08/17/16 08:57 152/75 08/17/16 08:57 74 152/75 08/17/16 08:00 97.9 74 18 152/75 97 Room Air 08/17/16 04:00 97.7 63 18 159/69 96 Room Air 08/17/16 00:00 97.7 72 18 169/80 96 Room Air 08/16/16 21:16 56 172/85 08/16/16 21:16 56 172/85 08/16/16 20:00 97.3 56 18 172/85 98 Room Air 08/16/16 16:00 97.3 70 20 178/66 97 Room Air Height (Feet): 5 Height (Inches): 0.00 Weight (Pounds): 106 General Appearance: WD/WN, no acute distress HEENT: normocephalic, atraumatic, anicteric, mucous membranes moist Respiratory/Chest: chest wall non-tender, lungs clear, normal breath sounds, no respiratory distress, no accessory muscle use Cardiovascular: normal peripheral pulses, normal rate, regular rhythm, no gallop/murmur Abdomen: normal bowel sounds, soft, non tender, no organomegaly, non distended , no mass Extremities: no cyanosis, no clubbing Skin: no rash, no lesions Laboratory Tests Test 3/25/17 05:55 08/17/16 06:20 Prothrombin Time 29.4 SEC (9.30-11.50) H Prothromb Time International Ratio 2.8 (0.9-1.1) H Urine Eosinophils None seen Current Medications Medications (Trade) Dose Ordered Sig/Selena Route PRN Reason Start Time Stop Time Status Last Admin Dose Admin Acetaminophen (Tylenol) 650 mg Q4H PRN ORAL fever 08/16/16 04:28 09/15/16 04:27 Ceftriaxone Sodium/Dextrose (Rocephin/D5W) 110 ml @ 220 mls/hr Q24H IVPB 08/17/16 11:00 08/24/16 10:59 08/17/16 12:25 Dextrose (Dextrose 50%) STAT PRN IV Hypoglycemia 08/16/16 23:00 09/15/16 22:59 Heparin Sodium/ Sodium Chloride 2000 unit 2,000 unit ONCE PRN INJ PICC PLACEMENT 08/16/16 09:45 08/17/16 23:59 Lidocaine HCl (Xylocaine 1% 30ml) 30 ml ONCE PRN INJ PICC PLACEMENT 08/16/16 09:45 08/17/16 23:59 Lisinopril (Zestril) 5 mg BID ORAL 08/17/16 18:00 09/16/16 17:59 Metoprolol Tartrate (Lopressor) 25 mg EVERY 12 HOURS ORAL 08/16/16 09:00 09/15/16 08:59 08/17/16 08:57 Mirtazapine (Remeron) 30 mg BEDTIME ORAL 08/16/16 21:00 09/15/16 20:59 08/16/16 21:16 Morphine Sulfate (Morphine Sulfate) 2 mg Q4H PRN IVP severe Pain (Pain Scale 7-10) 08/16/16 04:32 08/23/16 04:31 Nitroglycerin (Ntg) 0.4 mg Q5M X 3 DOSES PRN SL Prn Chest Pain 08/16/16 03:30 09/15/16 03:29 Ondansetron HCl (Zofran) 4 mg Q6H PRN IVP Nausea & Vomiting 08/16/16 04:34 09/15/16 04:33 Pantoprazole (Protonix) 40 mg DAILY IVP 08/16/16 09:00 09/15/16 08:59 08/17/16 10:00 Polyethylene Glycol (Miralax) 17 gm HSPRN PRN ORAL Constipation 08/16/16 04:36 09/15/16 04:35 Quetiapine Fumarate (SEROquel) 25 mg Q12H PRN ORAL agitation 08/16/16 04:03 09/15/16 04:02 Sodium Bicarbonate (Sodium Bicarbonate) 50 ml ONCE PRN IV PICC PLACEMENT 08/16/16 10:00 08/17/16 23:59 Warfarin Sodium (Coumadin per pharmacy) 1 ea DAILY PRN MISC Per rx protocol 08/16/16 09:00 09/15/16 08:59 Erika Hart M.D. Aug 17, 2016 14:45
[2016-08-17 16:00] VITALS: BP 157/63
--- NOTE | 2016-08-17 18:58 | General Progress Note ---
Assessment/Plan Assessment/Plan ASSESSMENT: 1. Acute deep vein thrombosis of the left common femoral vein. Remains on coumadin 2. Anemia, secondary to gastrointestinal bleed and hematemesis. Currently hgb > 10 3. Thrombocytopenia - new onset, likely 2/2 infection, ID following, patient febrile, is on abx 4. Nausea and vomiting - current and in past egd showed gerd 5. Dementia/Altered mental status. 6. Acute kidney injury. 7. Hiatal hernia. 8. Acid reflux. RECOMMENDATIONS: 1. Monitor counts. 2. CT a/p shows accessory spleen 3. Appreciate Gi ID, renal recs 4. Continue ASSESSMENT: 1. Acute deep vein thrombosis of the left common femoral vein. Remains on coumadin 2. Anemia, secondary to gastrointestinal bleed and hematemesis. Currently hgb > 10 3. Thrombocytopenia - new onset, likely 2/2 infection, ID following, patient febrile, is on abx 4. Nausea and vomiting - current and in past egd showed gerd 5. Dementia/Altered mental status. 6. Acute kidney injury. 7. Hiatal hernia. 8. Acid reflux. RECOMMENDATIONS: 1. Monitor counts. 2. CT a/p shows accessory spleen 3. Appreciate Gi ID, renal recs 4. Continue Coumadin 5. Maintain INR between 2-3. 6. Anemia w/u in prior reviewed, shows ACD 7. Duplex of lower ext to r/o dvt shows same dvt as before 8. GI ppx with protonix 9. DW the staff. Thank you, Mike Paige M.D. Coumadin 5. Maintain INR between 2-3. 6. Anemia w/u in prior reviewed, shows ACD 7. Duplex of lower ext to r/o dvt shows same dvt as before 8. GI ppx with protonix 9. DW the staff. Thank you, Srinath Paige M.D. Subjective Constitutional: Reports: no symptoms HEENT: Reports: no symptoms Cardiovascular: Reports: no symptoms Respiratory: Reports: no symptoms Gastrointestinal/Abdominal: Reports: no symptoms Genitourinary: Reports: no symptoms Neurologic/Psychiatric: Reports: no symptoms Endocrine: Reports: no symptoms Hematologic/Lymphatic: Reports: no symptoms Allergies: Coded Allergies: No Known Allergies (Unverified , 07/04/16) Objective Last 24 Hour Vital Signs Date Time Temp Pulse Resp B/P Pulse Ox O2 Delivery O2 Flow Rate FiO2 08/17/16 17:12 157/63 08/17/16 16:00 97.0 72 18 157/63 96 Room Air 08/17/16 12:00 97.7 70 18 134/68 94 Room Air 08/17/16 08:57 152/75 08/17/16 08:57 74 152/75 08/17/16 08:00 97.9 74 18 152/75 97 Room Air 08/17/16 04:00 97.7 63 18 159/69 96 Room Air 08/17/16 00:00 97.7 72 18 169/80 96 Room Air 08/16/16 21:16 56 172/85 08/16/16 21:16 56 172/85 08/16/16 20:00 97.3 56 18 172/85 98 Room Air Intake and Output 08/16/16 08/17/16 19:00 07:00 Intake Total 40 ml 387.5 ml Output Total 300 ml 700 ml Balance -260 ml -312.5 ml Intake Oral 360 ml IV Total 40 ml 27.5 ml Output Urine Total 300 ml 700 ml Laboratory Tests 08/17/16 05:55: Prothrombin Time 29.4H, Prothromb Time International Ratio 2.8H 08/17/16 06:20: Urine Eosinophils None seen Height (Feet): 5 Height (Inches): 0.00 Weight (Pounds): 106 General Appearance: no apparent distress EENT: TMs normal Neck: supple Cardiovascular: normal rate Respiratory/Chest: lungs clear Abdomen: no mass Extremities: non-tender Edema: no edema noted Arm (L), no edema noted Arm (R), no edema noted Leg (L), no edema noted Leg (R), no edema noted Pedal (L), no edema noted Pedal (R), no edema noted Generalized Edema: mild edema Neurologic: abnormal gait Skin: warm/dry Lymphatic: normal anterior cervical (L), normal anterior cervical (R), normal axillary (L), normal axillary (R), normal inguinal (L), normal inguinal (R), normal other, normal posterior cervical (L), normal posterior cervical (R), normal submandibular (L), normal submandibular (R), normal supraclavicular (L), normal supraclavicular (R) SRINATH PAIGE Aug 17, 2016 18:58
[2016-08-17 20:00] VITALS: BP 153/63
--- NOTE | 2016-08-17 21:43 | Pulmonology Progress Note ---
Assessment/Plan Problems: (1) Sepsis (2) Pyelonephritis (3) At high risk for aspiration (4) Dehydration Assessment/Plan continue antibiotics check cultures anemia w/u GI w/u H/H stable, might go to med/surg all labs and notes reviewed Subjective Allergies: Coded Allergies: No Known Allergies (Unverified , 07/04/16) Objective Last 24 Hour Vital Signs Date Time Temp Pulse Resp B/P Pulse Ox O2 Delivery O2 Flow Rate FiO2 08/17/16 21:33 69 153/63 08/17/16 17:12 157/63 08/17/16 16:00 97.0 72 18 157/63 96 Room Air 08/17/16 12:00 97.7 70 18 134/68 94 Room Air 08/17/16 08:57 152/75 08/17/16 08:57 74 152/75 08/17/16 08:00 97.9 74 18 152/75 97 Room Air 08/17/16 04:00 97.7 63 18 159/69 96 Room Air 08/17/16 00:00 97.7 72 18 169/80 96 Room Air Intake and Output 08/16/16 08/17/16 19:00 07:00 Intake Total 40 ml 387.5 ml Output Total 300 ml 700 ml Balance -260 ml -312.5 ml Intake Oral 360 ml IV Total 40 ml 27.5 ml Output Urine Total 300 ml 700 ml Objective General Appearance: WD/WN HEENT: normocephalic, atraumatic Respiratory/Chest: chest wall non-tender, lungs clear Breasts: no masses Cardiovascular: normal peripheral pulses Abdomen: normal bowel sounds, soft, non tender Genitourinary: normal external genitalia Extremities: no cyanosis Neurologic/Psychiatric: back hoe operator II-XII grossly normal, Lymphatic: no neck adenopathy Laboratory Tests 08/17/16 05:55: Prothrombin Time 29.4H, Prothromb Time International Ratio 2.8H 08/17/16 06:20: Urine Eosinophils None seen Current Medications Medications (Trade) Dose Ordered Sig/Selena Route PRN Reason Start Time Stop Time Status Last Admin Dose Admin Acetaminophen (Tylenol) 650 mg Q4H PRN ORAL fever 08/16/16 04:28 09/15/16 04:27 Ceftriaxone Sodium/Dextrose (Rocephin/D5W) 110 ml @ 220 mls/hr Q24H IVPB 08/17/16 11:00 08/24/16 10:59 08/17/16 12:25 Dextrose (Dextrose 50%) STAT PRN IV Hypoglycemia 08/16/16 23:00 09/15/16 22:59 Heparin Sodium/ Sodium Chloride 2000 unit 2,000 unit ONCE PRN INJ PICC PLACEMENT 08/16/16 09:45 08/17/16 23:59 Lidocaine HCl (Xylocaine 1% 30ml) 30 ml ONCE PRN INJ PICC PLACEMENT 08/16/16 09:45 08/17/16 23:59 Lisinopril (Zestril) 5 mg BID ORAL 08/17/16 18:00 09/16/16 17:59 08/17/16 17:12 Metoprolol Tartrate (Lopressor) 25 mg EVERY 12 HOURS ORAL 08/16/16 09:00 09/15/16 08:59 08/17/16 21:33 Mirtazapine (Remeron) 30 mg BEDTIME ORAL 08/16/16 21:00 09/15/16 20:59 08/17/16 21:32 Morphine Sulfate (Morphine Sulfate) 2 mg Q4H PRN IVP severe Pain (Pain Scale 7-10) 08/16/16 04:32 08/23/16 04:31 Nitroglycerin (Ntg) 0.4 mg Q5M X 3 DOSES PRN SL Prn Chest Pain 08/16/16 03:30 09/15/16 03:29 Ondansetron HCl (Zofran) 4 mg Q6H PRN IVP Nausea & Vomiting 08/16/16 04:34 09/15/16 04:33 Pantoprazole (Protonix) 40 mg DAILY IVP 08/16/16 09:00 09/15/16 08:59 08/17/16 10:00 Polyethylene Glycol (Miralax) 17 gm HSPRN PRN ORAL Constipation 08/16/16 04:36 09/15/16 04:35 Quetiapine Fumarate (SEROquel) 25 mg Q12H PRN ORAL agitation 08/16/16 04:03 09/15/16 04:02 Sodium Bicarbonate (Sodium Bicarbonate) 50 ml ONCE PRN IV PICC PLACEMENT 08/16/16 10:00 08/17/16 23:59 Warfarin Sodium (Coumadin per pharmacy) 1 ea DAILY PRN MISC Per rx protocol 08/16/16 09:00 09/15/16 08:59 BELKIS WELLINGTON Aug 17, 2016 21:43
[2016-08-18] VITALS: BP 156/70
--- NOTE | 2016-08-18 02:58 | Progress Note ---
DATE: 08/16/2016 SUBJECTIVE: The patient is presenting waxing and waning consciousness, more alert, however, still not able to provide any history of engaged during the evaluation. MENTAL STATUS EXAMINATION: She is confused. Not engaged during the evaluation. ASSESSMENT: Delirium. PLAN: 1. The patient will be continued on mirtazapine 30 mg by mouth nightly. 2. We will continue to follow and readjust the medications. Meena Moon M.D. DR: John JOB#: [id number] CC:
[2016-08-18 04:00] VITALS: BP 140/57
--- NOTE | 2016-08-18 05:38 | Progress Note ---
DATE: 08/17/2016 SUBJECTIVE: The patient is presenting with waxing and waning consciousness; impairment of concentration, memory, and attention; decreased appetite with still anxiety; and agitation is less. The patient is not engaged. MENTAL STATUS EXAMINATION: The patient is in no apparent distress. Disoriented and confused. Mood is neutral to anxious. Affect is constricted, congruent with mood. Thought process is concrete. Thought content, no suicidal or homicidal ideations. ASSESSMENT: 1. Delirium. 2. Cognitive impairment. PLAN: The patient will be continued on current medication. Provide the patient with supportive therapy and reality orientation. Meena Moon M.D. DR: JOZEF JOB#: [id number] CC:
[2016-08-18 08:00] VITALS: BP 166/89
--- NOTE | 2016-08-18 08:11 | General Progress Note ---
Assessment/Plan Assessment/Plan ASSESSMENT: 1. Acute deep vein thrombosis of the left common femoral vein. Remains on coumadin 2. Anemia, secondary to gastrointestinal bleed and hematemesis. Currently hgb > 10 3. Thrombocytopenia - new onset, likely 2/2 infection, ID following, patient febrile, is on abx 4. Nausea and vomiting - current and in past egd showed gerd 5. Dementia/Altered mental status. 6. Acute kidney injury. 7. Hiatal hernia. 8. Acid reflux. RECOMMENDATIONS: 1. Monitor counts. 2. CT a/p shows accessory spleen 3. Appreciate Gi ID, renal recs 4. Continue Coumadin 5. Maintain INR between 2-3. 6. Anemia w/u in prior reviewed, shows ACD 7. Duplex of lower ext to r/o dvt shows same dvt as before 8. GI ppx with protonix 9. DW the staff. Thank you, Mike Paige M.D. Subjective Constitutional: Reports: no symptoms HEENT: Reports: no symptoms Cardiovascular: Reports: no symptoms Respiratory: Reports: no symptoms Gastrointestinal/Abdominal: Reports: poor appetite Genitourinary: Reports: no symptoms Neurologic/Psychiatric: Reports: no symptoms Endocrine: Reports: no symptoms Hematologic/Lymphatic: Reports: anemia Allergies: Coded Allergies: No Known Allergies (Unverified , 07/04/16) Subjective stable, remains demented, verbal but minimally, sleeping Objective Last 24 Hour Vital Signs Date Time Temp Pulse Resp B/P Pulse Ox O2 Delivery O2 Flow Rate FiO2 08/18/16 04:00 97.0 66 19 140/57 97 Room Air 08/18/16 00:00 97.1 69 17 156/70 97 Room Air 08/17/16 21:33 69 153/63 08/17/16 20:00 97.0 69 21 153/63 96 Room Air 08/17/16 17:12 157/63 08/17/16 16:00 97.0 72 18 157/63 96 Room Air 08/17/16 12:00 97.7 70 18 134/68 94 Room Air 08/17/16 08:57 152/75 08/17/16 08:57 74 152/75 Intake and Output 08/17/16 08/18/16 19:00 07:00 Intake Total 480 ml 120 ml Output Total 300 ml 600 ml Balance 180 ml -480 ml Intake Oral 480 ml 120 ml Output Urine Total 300 ml 600 ml # Bowel Movements 1 Height (Feet): 5 Height (Inches): 0.00 Weight (Pounds): 106 General Appearance: no apparent distress EENT: TMs normal Neck: normal alignment Cardiovascular: regular rhythm Respiratory/Chest: no respiratory distress Abdomen: normal bowel sounds Extremities: non-tender Edema: 1+ Leg (L), 1+ Leg (R) Edema: mild edema Neurologic: alert Skin: warm/dry Mike Paige Aug 18, 2016 08:11
[2016-08-18 08:18] LABS: BASOPHILS % (AUTO) 0.2 % (0.0-2.0); EOSINOPHILS % (AUTO) 0.1 % (0.0-3.0); LYMPHOCYTES % (AUTO) 22.7 % (20.0-45.0); MEAN CORPUSCULAR HEMOGLOBIN 28.2 PG (27.0-31.0); MEAN CORPUSCULAR HGB CONC 34.2 G/DL (32.0-36.0); MEAN CORPUSCULAR VOLUME 82 FL (80-99); MEAN PLATELET VOLUME 7.6 FL (6.5-10.1); MONOCYTES % (AUTO) 10.6 % (1.0-10.0); NEUTROPHILS % (AUTO) 66.4 % (45.0-75.0); PLATELET COUNT 191 K/UL (150-450); RED BLOOD COUNT 3.92 M/UL (4.20-5.40); RED CELL DISTRIBUTION WIDTH 13.8 % (11.6-14.8); WHITE BLOOD COUNT 4.9 K/UL (4.8-10.8)
[2016-08-18] MEDS: Metoprolol 25mg tab ORAL SCH ×2 (08:38→20:35)
[2016-08-18] MEDS: Lisinopril 2.5mg tab ORAL SCH (08:38)
[2016-08-18] MEDS: Pantoprazole Inj IVP SCH (10:34)
--- NOTE | 2016-08-18 11:41 | General Progress Note ---
Assessment/Plan Problem List: (1) Pyelonephritis ICD Codes: N12 - Tubulo-interstitial nephritis, not specified as acute or chronic SNOMED: 66491289 (2) Dehydration ICD Codes: E86.0 - Dehydration SNOMED: 39538625 (3) Sepsis ICD Codes: A41.9 - Sepsis, unspecified organism SNOMED: 69765751 (4) Debility ICD Codes: R53.81 - Other malaise SNOMED: 36513998 (5) HTN (hypertension) ICD Codes: I10 - Essential (primary) hypertension SNOMED: 61307087 Status: progressing Assessment/Plan sepsis abx per id clinically improving dc planning vitals stable Subjective ROS Limited/Unobtainable: Yes Allergies: Coded Allergies: No Known Allergies (Unverified , 07/04/16) Objective Last 24 Hour Vital Signs Date Time Temp Pulse Resp B/P Pulse Ox O2 Delivery O2 Flow Rate FiO2 08/18/16 08:38 166/89 08/18/16 08:38 82 166/89 08/18/16 08:00 97.4 82 18 166/89 97 Room Air 08/18/16 04:00 97.0 66 19 140/57 97 Room Air 08/18/16 00:00 97.1 69 17 156/70 97 Room Air 08/17/16 21:33 69 153/63 08/17/16 20:00 97.0 69 21 153/63 96 Room Air 08/17/16 17:12 157/63 08/17/16 16:00 97.0 72 18 157/63 96 Room Air 08/17/16 12:00 97.7 70 18 134/68 94 Room Air Intake and Output 08/17/16 08/18/16 19:00 07:00 Intake Total 480 ml 120 ml Output Total 300 ml 600 ml Balance 180 ml -480 ml Intake Oral 480 ml 120 ml Output Urine Total 300 ml 600 ml # Bowel Movements 1 Laboratory Tests 08/18/16 04:20: White Blood Count 4.9, Red Blood Count 3.92L, Hemoglobin 11.0L, Hematocrit 32.3L , Mean Corpuscular Volume 82, Mean Corpuscular Hemoglobin 28.2, Mean Corpuscular Hemoglobin Concent 34.2, Red Cell Distribution Width 13.8, Platelet Count 191, Mean Platelet Volume 7.6, Neutrophils (%) (Auto) 66.4, Lymphocytes (% ) (Auto) 22.7, Monocytes (%) (Auto) 10.6H, Eosinophils (%) (Auto) 0.1, Basophils (%) (Auto) 0.2 Height (Feet): 5 Height (Inches): 0.00 Weight (Pounds): 106 General Appearance: confused Coco Jackson MD Aug 18, 2016 11:41
--- NOTE | 2016-08-18 11:43 | General Progress Note ---
Assessment/Plan Status: unchanged Assessment/Plan Acute kidney injury, partially dehydration, and low BP, partly sepsis Encephalopathy UTI , Sepsis Vomiting and Diarrhea ? infectious DVT Aspiration prone Dementia Plan: adjust BP meds- increase lisinopril Slow hydrate- K supplement Monitor renal parameters- avoid nephrotoxics- Keeps BP and BS in check Fluid challenged previously Subjective ROS Limited/Unobtainable: No Constitutional: Reports: malaise, weakness Allergies: Coded Allergies: No Known Allergies (Unverified , 07/04/16) Objective Last 24 Hour Vital Signs Date Time Temp Pulse Resp B/P Pulse Ox O2 Delivery O2 Flow Rate FiO2 08/18/16 08:38 166/89 08/18/16 08:38 82 166/89 08/18/16 08:00 97.4 82 18 166/89 97 Room Air 08/18/16 04:00 97.0 66 19 140/57 97 Room Air 08/18/16 00:00 97.1 69 17 156/70 97 Room Air 08/17/16 21:33 69 153/63 08/17/16 20:00 97.0 69 21 153/63 96 Room Air 08/17/16 17:12 157/63 08/17/16 16:00 97.0 72 18 157/63 96 Room Air 08/17/16 12:00 97.7 70 18 134/68 94 Room Air Intake and Output 08/17/16 08/18/16 19:00 07:00 Intake Total 480 ml 120 ml Output Total 300 ml 600 ml Balance 180 ml -480 ml Intake Oral 480 ml 120 ml Output Urine Total 300 ml 600 ml # Bowel Movements 1 Laboratory Tests 08/18/16 04:20: White Blood Count 4.9, Red Blood Count 3.92L, Hemoglobin 11.0L, Hematocrit 32.3L , Mean Corpuscular Volume 82, Mean Corpuscular Hemoglobin 28.2, Mean Corpuscular Hemoglobin Concent 34.2, Red Cell Distribution Width 13.8, Platelet Count 191, Mean Platelet Volume 7.6, Neutrophils (%) (Auto) 66.4, Lymphocytes (% ) (Auto) 22.7, Monocytes (%) (Auto) 10.6H, Eosinophils (%) (Auto) 0.1, Basophils (%) (Auto) 0.2 Height (Feet): 5 Height (Inches): 0.00 Weight (Pounds): 106 Objective PE not changed DRE CHAN Aug 18, 2016 11:43
[2016-08-18 12:00] VITALS: BP 144/53
[2016-08-18] MEDS: cefTRIAXone 2 GM in D5W 110 ML IVPB SCH (13:29)
[2016-08-18 16:17] VITALS: BP 150/76
[2016-08-18] MEDS: Lisinopril 10mg tab ORAL SCH (17:11)
--- NOTE | 2016-08-18 18:00 | General Progress Note ---
Assessment/Plan Assessment/Plan Assessment - N/V - resolved - Diarrhea - encephalopathy - improving - GERD Recommendations - po diet - follow mental status - check stool w/u - abx per ID Subjective Allergies: Coded Allergies: No Known Allergies (Unverified , 07/04/16) Subjective more awake today eating better d/w RN Objective Last 24 Hour Vital Signs Date Time Temp Pulse Resp B/P Pulse Ox O2 Delivery O2 Flow Rate FiO2 08/18/16 17:11 150/76 08/18/16 16:17 96.8 69 18 150/76 95 Room Air 08/18/16 12:00 97.0 73 18 144/53 97 Room Air 08/18/16 08:38 166/89 08/18/16 08:38 82 166/89 08/18/16 08:00 97.4 82 18 166/89 97 Room Air 08/18/16 04:00 97.0 66 19 140/57 97 Room Air 08/18/16 00:00 97.1 69 17 156/70 97 Room Air 08/17/16 21:33 69 153/63 08/17/16 20:00 97.0 69 21 153/63 96 Room Air Intake and Output 08/17/16 08/18/16 19:00 07:00 Intake Total 480 ml 120 ml Output Total 300 ml 600 ml Balance 180 ml -480 ml Intake Oral 480 ml 120 ml Output Urine Total 300 ml 600 ml # Bowel Movements 1 Laboratory Tests 08/18/16 04:20: White Blood Count 4.9, Red Blood Count 3.92L, Hemoglobin 11.0L, Hematocrit 32.3L , Mean Corpuscular Volume 82, Mean Corpuscular Hemoglobin 28.2, Mean Corpuscular Hemoglobin Concent 34.2, Red Cell Distribution Width 13.8, Platelet Count 191, Mean Platelet Volume 7.6, Neutrophils (%) (Auto) 66.4, Lymphocytes (% ) (Auto) 22.7, Monocytes (%) (Auto) 10.6H, Eosinophils (%) (Auto) 0.1, Basophils (%) (Auto) 0.2 Height (Feet): 5 Height (Inches): 0.00 Weight (Pounds): 106 JUSTO MAYERS Aug 18, 2016 18:00
--- NOTE | 2016-08-18 18:27 | Cardiology Report ---
APPROVED REPORT EKG Measurement Heart [id number] ID [id number] Sinus tachycardia with premature supraventricular complexes Anterior infarct, age undetermined Abnormal ECG
[2016-08-18 20:11] VITALS: BP 161/65
--- NOTE | 2016-08-18 22:55 | Pulmonology Progress Note ---
Assessment/Plan Problems: (1) Sepsis (2) Pyelonephritis (3) At high risk for aspiration (4) Dehydration Assessment/Plan continue antibiotics check cultures anemia w/u GI w/u H/H stable, might go to med/surg all labs and notes reviewed Subjective Allergies: Coded Allergies: No Known Allergies (Unverified , 07/04/16) Objective Last 24 Hour Vital Signs Date Time Temp Pulse Resp B/P Pulse Ox O2 Delivery O2 Flow Rate FiO2 08/18/16 20:35 70 161/65 08/18/16 20:11 97.9 70 19 161/65 96 Room Air 08/18/16 17:11 150/76 08/18/16 16:17 96.8 69 18 150/76 95 Room Air 08/18/16 12:00 97.0 73 18 144/53 97 Room Air 08/18/16 08:38 166/89 08/18/16 08:38 82 166/89 08/18/16 08:00 97.4 82 18 166/89 97 Room Air 08/18/16 04:00 97.0 66 19 140/57 97 Room Air 08/18/16 00:00 97.1 69 17 156/70 97 Room Air Intake and Output 08/17/16 08/18/16 19:00 07:00 Intake Total 480 ml 120 ml Output Total 300 ml 600 ml Balance 180 ml -480 ml Intake Oral 480 ml 120 ml Output Urine Total 300 ml 600 ml # Bowel Movements 1 Objective General Appearance: WD/WN HEENT: normocephalic, atraumatic Respiratory/Chest: chest wall non-tender, lungs clear Breasts: no masses Cardiovascular: normal peripheral pulses Abdomen: normal bowel sounds, soft, non tender Genitourinary: normal external genitalia Extremities: no cyanosis Neurologic/Psychiatric: fusing machine tender II-XII grossly normal, Lymphatic: no neck adenopathy Microbiology Date/Time Source Procedure Growth Status 08/17/16 22:00 Stool Clostridium difficile Toxin Assay - Final Complete Laboratory Tests 08/18/16 04:20: White Blood Count 4.9, Red Blood Count 3.92L, Hemoglobin 11.0L, Hematocrit 32.3L , Mean Corpuscular Volume 82, Mean Corpuscular Hemoglobin 28.2, Mean Corpuscular Hemoglobin Concent 34.2, Red Cell Distribution Width 13.8, Platelet Count 191, Mean Platelet Volume 7.6, Neutrophils (%) (Auto) 66.4, Lymphocytes (% ) (Auto) 22.7, Monocytes (%) (Auto) 10.6H, Eosinophils (%) (Auto) 0.1, Basophils (%) (Auto) 0.2 Current Medications Medications (Trade) Dose Ordered Sig/Selena Route PRN Reason Start Time Stop Time Status Last Admin Dose Admin Acetaminophen (Tylenol) 650 mg Q4H PRN ORAL fever 08/16/16 04:28 09/15/16 04:27 Ceftriaxone Sodium/Dextrose (Rocephin/D5W) 110 ml @ 220 mls/hr Q24H IVPB 08/17/16 11:00 08/24/16 10:59 08/18/16 13:29 Dextrose (Dextrose 50%) STAT PRN IV Hypoglycemia 08/16/16 23:00 09/15/16 22:59 Lisinopril (Zestril) 10 mg BID ORAL 08/18/16 18:00 09/17/16 17:59 08/18/16 17:11 Metoprolol Tartrate (Lopressor) 25 mg EVERY 12 HOURS ORAL 08/16/16 09:00 09/15/16 08:59 08/18/16 20:35 Mirtazapine (Remeron) 30 mg BEDTIME ORAL 08/16/16 21:00 09/15/16 20:59 08/18/16 20:35 Morphine Sulfate (Morphine Sulfate) 2 mg Q4H PRN IVP severe Pain (Pain Scale 7-10) 08/16/16 04:32 08/23/16 04:31 Nitroglycerin (Ntg) 0.4 mg Q5M X 3 DOSES PRN SL Prn Chest Pain 08/16/16 03:30 09/15/16 03:29 Ondansetron HCl (Zofran) 4 mg Q6H PRN IVP Nausea & Vomiting 08/16/16 04:34 09/15/16 04:33 Pantoprazole (Protonix) 40 mg DAILY IVP 08/16/16 09:00 09/15/16 08:59 08/18/16 10:34 Polyethylene Glycol (Miralax) 17 gm HSPRN PRN ORAL Constipation 08/16/16 04:36 09/15/16 04:35 Potassium Chloride (K-Dur) 20 meq TWICE A DAY ORAL 08/18/16 11:45 08/19/16 11:44 08/18/16 17:10 Quetiapine Fumarate (SEROquel) 25 mg Q12H PRN ORAL agitation 08/16/16 04:03 09/15/16 04:02 Warfarin Sodium 1 ea 1 ea DAILY PRN MISC Per rx protocol 08/16/16 09:00 09/15/16 08:59 BELKIS WELLINGTON Aug 18, 2016 22:55
[2016-08-19] VITALS: BP 164/98
[2016-08-19 04:00] VITALS: BP 157/98
[2016-08-19 07:30] LABS: BASOPHILS % (AUTO) 0.5 % (0.0-2.0); EOSINOPHILS % (AUTO) 0.1 % (0.0-3.0); LYMPHOCYTES % (AUTO) 30.4 % (20.0-45.0); MEAN CORPUSCULAR HEMOGLOBIN 27.6 PG (27.0-31.0); MEAN CORPUSCULAR HGB CONC 33.3 G/DL (32.0-36.0); MEAN CORPUSCULAR VOLUME 83 FL (80-99); MEAN PLATELET VOLUME 8.1 FL (6.5-10.1); MONOCYTES % (AUTO) 10.1 % (1.0-10.0); NEUTROPHILS % (AUTO) 58.8 % (45.0-75.0); PLATELET COUNT 202 K/UL (150-450); RED BLOOD COUNT 3.72 M/UL (4.20-5.40); RED CELL DISTRIBUTION WIDTH 13.7 % (11.6-14.8); WHITE BLOOD COUNT 4.8 K/UL (4.8-10.8)
[2016-08-19 08:00] VITALS: BP 150/109
[2016-08-19 08:03] LABS: ALANINE AMINOTRANSFERASE 9 U/L (3-33); ALBUMIN/GLOBULIN RATIO 0.9 (1.0-2.7); ANION GAP 14 (5-15); ASPARTATE AMINO TRANSFERASE 18 U/L (5-40); CALCIUM 8.5 mg/dL (8.6-10.2); CARBON DIOXIDE 27 mEQ/L (20-30); CHLORIDE 105 mEQ/L (98-107); CREATININE 0.9 mg/dL (0.5-0.9); CRP QUANT 4.6 mg/dL (< 0.5); HEMOLYSIS 5; PHOSPHORUS 2.6 mg/dL (2.5-4.8); POTASSIUM 3.6 mEQ/L (3.4-4.9); SODIUM 146 mEQ/L (135-145); TOTAL PROTEIN 6.1 g/dL (6.6-8.7); URIC ACID 5.3 mg/dL (3.0-7.5)
[2016-08-19 08:23] LABS: INR 1.6 (0.9-1.1)
[2016-08-19] MEDS: Lisinopril 10mg tab ORAL SCH (09:22)
[2016-08-19] MEDS: Metoprolol 25mg tab ORAL SCH (09:22)
[2016-08-19] MEDS: Pantoprazole Inj IVP SCH (09:23)
--- NOTE | 2016-08-19 09:28 | General Progress Note ---
Assessment/Plan Status: stable - from renal stand Assessment/Plan Acute kidney injury, partially dehydration, and low BP, partly sepsis Encephalopathy UTI , Sepsis Vomiting and Diarrhea ? infectious DVT Aspiration prone Dementia Plan: adjust BP meds- increase lisinopril dose again Slow hydrate- K supplement Monitor renal parameters- avoid nephrotoxics- Keeps BP and BS in check Fluid challenged previously Subjective ROS Limited/Unobtainable: No Allergies: Coded Allergies: No Known Allergies (Unverified , 07/04/16) Objective Last 24 Hour Vital Signs Date Time Temp Pulse Resp B/P Pulse Ox O2 Delivery O2 Flow Rate FiO2 08/19/16 09:22 150/109 08/19/16 09:22 63 150/109 08/19/16 04:00 97.7 78 18 157/98 93 Room Air 08/19/16 00:00 97.3 73 18 164/98 94 Room Air 08/18/16 20:35 70 161/65 08/18/16 20:11 97.9 70 19 161/65 96 Room Air 08/18/16 17:11 150/76 08/18/16 16:17 96.8 69 18 150/76 95 Room Air 08/18/16 12:00 97.0 73 18 144/53 97 Room Air Intake and Output 08/18/16 08/19/16 19:00 07:00 Intake Total 830 ml 100 ml Output Total 100 ml 730 ml Balance 730 ml -630 ml Intake Oral 720 ml 100 ml IV Total 110 ml Output Urine Total 100 ml 730 ml # Bowel Movements 2 1 Laboratory Tests 08/19/16 04:15: White Blood Count 4.8, Red Blood Count 3.72L, Hemoglobin 10.3L, Hematocrit 30.9L , Mean Corpuscular Volume 83, Mean Corpuscular Hemoglobin 27.6, Mean Corpuscular Hemoglobin Concent 33.3, Red Cell Distribution Width 13.7, Platelet Count 202, Mean Platelet Volume 8.1, Neutrophils (%) (Auto) 58.8, Lymphocytes (% ) (Auto) 30.4, Monocytes (%) (Auto) 10.1H, Eosinophils (%) (Auto) 0.1, Basophils (%) (Auto) 0.5, Prothrombin Time 16.0H, Prothromb Time International Ratio 1.6H, Sodium Level 146H, Potassium Level 3.6, Chloride Level 105, Carbon Dioxide Level 27, Anion Gap 14, Blood Urea Nitrogen 14, Creatinine 0.9, Estimat Glomerular Filtration Rate , Glucose Level 97, Uric Acid 5.3, Calcium Level 8.5L , Phosphorus Level 2.6, Total Bilirubin 0.3, Gamma Glutamyl Transpeptidase 14, Aspartate Amino Transf (AST/SGOT) 18, Alanine Aminotransferase (ALT/SGPT) 9, Alkaline Phosphatase 50, C-Reactive Protein, Quantitative 4.6H, Pro-B-Type Natriuretic Peptide 3415H, Total Protein 6.1L, Albumin 2.9L, Globulin 3.2, Albumin/Globulin Ratio 0.9L Height (Feet): 5 Height (Inches): 0.00 Weight (Pounds): 106 General Appearance: no apparent distress Objective PE not changed DRE CHAN Aug 19, 2016 09:28
[2016-08-19] MEDS: cefTRIAXone 2 GM in D5W 110 ML IVPB SCH (11:37)
[2016-08-19 12:00] VITALS: BP 179/83
--- NOTE | 2016-08-19 12:29 | General Progress Note ---
Assessment/Plan Problem List: (1) Pyelonephritis ICD Codes: N12 - Tubulo-interstitial nephritis, not specified as acute or chronic SNOMED: 14583283 (2) Dehydration ICD Codes: E86.0 - Dehydration SNOMED: 52203993 (3) Sepsis ICD Codes: A41.9 - Sepsis, unspecified organism SNOMED: 35554613 (4) Debility ICD Codes: R53.81 - Other malaise SNOMED: 38556665 (5) HTN (hypertension) ICD Codes: I10 - Essential (primary) hypertension SNOMED: 96843220 Status: progressing Assessment/Plan sepsis stable for dc so dc to snf see dc summary for details Subjective ROS Limited/Unobtainable: Yes Constitutional: Reports: no symptoms Allergies: Coded Allergies: No Known Allergies (Unverified , 07/04/16) Objective Last 24 Hour Vital Signs Date Time Temp Pulse Resp B/P Pulse Ox O2 Delivery O2 Flow Rate FiO2 08/19/16 12:00 98.2 65 18 179/83 96 Room Air 08/19/16 09:22 150/109 08/19/16 09:22 63 150/109 08/19/16 08:00 98.6 63 18 150/109 99 Room Air 08/19/16 04:00 97.7 78 18 157/98 93 Room Air 08/19/16 00:00 97.3 73 18 164/98 94 Room Air 08/18/16 20:35 70 161/65 08/18/16 20:11 97.9 70 19 161/65 96 Room Air 08/18/16 17:11 150/76 08/18/16 16:17 96.8 69 18 150/76 95 Room Air Intake and Output 08/18/16 08/19/16 19:00 07:00 Intake Total 830 ml 100 ml Output Total 100 ml 730 ml Balance 730 ml -630 ml Intake Oral 720 ml 100 ml IV Total 110 ml Output Urine Total 100 ml 730 ml # Bowel Movements 2 1 Laboratory Tests 08/19/16 04:15: White Blood Count 4.8, Red Blood Count 3.72L, Hemoglobin 10.3L, Hematocrit 30.9L , Mean Corpuscular Volume 83, Mean Corpuscular Hemoglobin 27.6, Mean Corpuscular Hemoglobin Concent 33.3, Red Cell Distribution Width 13.7, Platelet Count 202, Mean Platelet Volume 8.1, Neutrophils (%) (Auto) 58.8, Lymphocytes (% ) (Auto) 30.4, Monocytes (%) (Auto) 10.1H, Eosinophils (%) (Auto) 0.1, Basophils (%) (Auto) 0.5, Prothrombin Time 16.0H, Prothromb Time International Ratio 1.6H, Sodium Level 146H, Potassium Level 3.6, Chloride Level 105, Carbon Dioxide Level 27, Anion Gap 14, Blood Urea Nitrogen 14, Creatinine 0.9, Estimat Glomerular Filtration Rate , Glucose Level 97, Uric Acid 5.3, Calcium Level 8.5L , Phosphorus Level 2.6, Total Bilirubin 0.3, Gamma Glutamyl Transpeptidase 14, Aspartate Amino Transf (AST/SGOT) 18, Alanine Aminotransferase (ALT/SGPT) 9, Alkaline Phosphatase 50, C-Reactive Protein, Quantitative 4.6H, Pro-B-Type Natriuretic Peptide 3415H, Total Protein 6.1L, Albumin 2.9L, Globulin 3.2, Albumin/Globulin Ratio 0.9L Height (Feet): 5 Height (Inches): 0.00 Weight (Pounds): 106 Cardiovascular: normal rate Respiratory/Chest: lungs clear Abdomen: soft Coco Jackson MD Aug 19, 2016 12:29
[2016-08-19] MEDS: HydrALAZINE 25mg tab ORAL PRN ×2 (14:28→16:22)
[2016-08-19] MEDS ORDERED: COUMADIN2.5 MG ORAL (14:57)
[2016-08-19] MEDS ORDERED: CEFTRIAXON1 GM/50 ML IVPB (15:12)
--- NOTE | 2016-08-19 15:57 | Infectious Diseases Prog Note ---
Assessment/Plan Problems: (1) Urinary tract infection Assessment & Plan: with E coli, on ceftriaxon empirically , will treat for two weeks . EOT 08/02/16 (2) Sepsis Assessment & Plan: with E coli, source is UTI, and coag negative staph most likely contamination , on ceftriaxon , will treat her for two weeks, will repeat blood culture to confirm clearance . (3) Diarrhea Assessment & Plan: improved, rule out infectious etiology, will send stool culture and C diff toxin, and continue oral vancomycin empirically (4) DVT (deep venous thrombosis) Assessment & Plan: of the left leg veins , management as per hematology Subjective ROS Limited/Unobtainable: Yes Allergies: Coded Allergies: No Known Allergies (Unverified , 07/04/16) Subjective she is demented , comfortable, lying in bed, open eyes spontaneously, not agitated, afebrile Objective Vital Signs Last 24 Hour Vital Signs Date Time Temp Pulse Resp B/P Pulse Ox O2 Delivery O2 Flow Rate FiO2 08/19/16 14:28 188/74 08/19/16 12:00 98.2 65 18 179/83 96 Room Air 08/19/16 09:22 150/109 08/19/16 09:22 63 150/109 08/19/16 08:00 98.6 63 18 150/109 99 Room Air 08/19/16 04:00 97.7 78 18 157/98 93 Room Air 08/19/16 00:00 97.3 73 18 164/98 94 Room Air 08/18/16 20:35 70 161/65 08/18/16 20:11 97.9 70 19 161/65 96 Room Air 08/18/16 17:11 150/76 08/18/16 16:17 96.8 69 18 150/76 95 Room Air Height (Feet): 5 Height (Inches): 0.00 Weight (Pounds): 106 General Appearance: WD/WN, no acute distress HEENT: normocephalic, atraumatic, anicteric, mucous membranes moist Respiratory/Chest: chest wall non-tender, lungs clear, normal breath sounds, no respiratory distress, no accessory muscle use Cardiovascular: normal peripheral pulses, normal rate, regular rhythm Abdomen: normal bowel sounds, soft, non tender, no organomegaly, non distended Extremities: no cyanosis, no clubbing Skin: no rash, no lesions Microbiology Date/Time Source Procedure Growth Status 08/17/16 22:00 Stool Clostridium difficile Toxin Assay - Final Complete Laboratory Tests Test 08/19/16 04:15 White Blood Count 4.8 K/UL (4.8-10.8) Red Blood Count 3.72 M/UL (4.20-5.40) L Hemoglobin 10.3 G/DL (12.0-16.0) L Hematocrit 30.9 % (37.0-47.0) L Mean Corpuscular Volume 83 FL (80-99) Mean Corpuscular Hemoglobin 27.6 PG (27.0-31.0) Mean Corpuscular Hemoglobin Concent 33.3 G/DL (32.0-36.0) Red Cell Distribution Width 13.7 % (11.6-14.8) Platelet Count 202 K/UL (150-450) Mean Platelet Volume 8.1 FL (6.5-10.1) Neutrophils (%) (Auto) 58.8 % (45.0-75.0) Lymphocytes (%) (Auto) 30.4 % (20.0-45.0) Monocytes (%) (Auto) 10.1 % (1.0-10.0) H Eosinophils (%) (Auto) 0.1 % (0.0-3.0) Basophils (%) (Auto) 0.5 % (0.0-2.0) Prothrombin Time 16.0 SEC (9.30-11.50) H Prothromb Time International Ratio 1.6 (0.9-1.1) H Sodium Level 146 mEQ/L (135-145) H Potassium Level 3.6 mEQ/L (3.4-4.9) Chloride Level 105 mEQ/L (98-107) Carbon Dioxide Level 27 mEQ/L (20-30) Anion Gap 14 (5-15) Blood Urea Nitrogen 14 mg/dL (7-23) Creatinine 0.9 mg/dL (0.5-0.9) Estimat Glomerular Filtration Rate mL/min (>60) Glucose Level 97 mg/dL (74-106) Uric Acid 5.3 mg/dL (3.0-7.5) Calcium Level 8.5 mg/dL (8.6-10.2) L Phosphorus Level 2.6 mg/dL (2.5-4.8) Total Bilirubin 0.3 mg/dL (0.0-1.2) Gamma Glutamyl Transpeptidase 14 U/L (5-36) Aspartate Amino Transf (AST/SGOT) 18 U/L (5-40) Alanine Aminotransferase (ALT/SGPT) 9 U/L (3-33) Alkaline Phosphatase 50 U/L (35-104) C-Reactive Protein, Quantitative 4.6 mg/dL (< 0.5) H Pro-B-Type Natriuretic Peptide 3415 pg/mL (0-450) H Total Protein 6.1 g/dL (6.6-8.7) L Albumin 2.9 g/dL (3.5-5.2) L Globulin 3.2 g/dL Albumin/Globulin Ratio 0.9 (1.0-2.7) L Current Medications Medications (Trade) Dose Ordered Sig/Selena Route PRN Reason Start Time Stop Time Status Last Admin Dose Admin Acetaminophen (Tylenol) 650 mg Q4H PRN ORAL fever 08/16/16 04:28 09/15/16 04:27 Ceftriaxone Sodium/Dextrose (Rocephin/D5W) 110 ml @ 220 mls/hr Q24H IVPB 08/17/16 11:00 08/24/16 10:59 08/19/16 11:37 Dextrose (Dextrose 50%) STAT PRN IV Hypoglycemia 08/16/16 23:00 09/15/16 22:59 Hydralazine HCl (Apresoline) 25 mg Q6HR PRN ORAL For High Blood Pressure 08/19/16 13:00 09/18/16 12:59 08/19/16 14:28 Lisinopril (Prinivil) 20 mg BID ORAL 08/19/16 18:00 09/18/16 17:59 Metoprolol Tartrate (Lopressor) 25 mg EVERY 12 HOURS ORAL 08/16/16 09:00 09/15/16 08:59 08/19/16 09:22 Mirtazapine (Remeron) 30 mg BEDTIME ORAL 08/16/16 21:00 09/15/16 20:59 08/18/16 20:35 Morphine Sulfate (Morphine Sulfate) 2 mg Q4H PRN IVP severe Pain (Pain Scale 7-10) 08/16/16 04:32 08/23/16 04:31 Nitroglycerin (Ntg) 0.4 mg Q5M X 3 DOSES PRN SL Prn Chest Pain 08/16/16 03:30 09/15/16 03:29 Ondansetron HCl (Zofran) 4 mg Q6H PRN IVP Nausea & Vomiting 08/16/16 04:34 09/15/16 04:33 Pantoprazole (Protonix) 40 mg DAILY ORAL 08/20/16 09:00 09/19/16 08:59 Polyethylene Glycol (Miralax) 17 gm HSPRN PRN ORAL Constipation 08/16/16 04:36 09/15/16 04:35 Quetiapine Fumarate (SEROquel) 25 mg Q12H PRN ORAL agitation 08/16/16 04:03 09/15/16 04:02 Warfarin Sodium (Coumadin) 2.5 mg COUMADIN ONCE ORAL 08/19/16 17:00 08/19/16 17:01 Warfarin Sodium 1 ea 1 ea DAILY PRN MISC Per rx protocol 08/16/16 09:00 09/15/16 08:59 Erika Hart M.D. Aug 19, 2016 15:57
[2016-08-19 16:22] VITALS: BP 158/86
[2016-08-19] MEDS ORDERED: Warfarin Sodium 2.5mg ORAL ONE (17:00)
[2016-08-19] MEDS ORDERED: Lisinopril 20mg tab ORAL SCH (18:00)
--- NOTE | 2016-08-19 22:17 | General Progress Note ---
Assessment/Plan Assessment/Plan Assessment - N/V - resolved - Diarrhea - encephalopathy - improving - GERD Recommendations - po diet - follow mental status - check stool w/u - abx per ID Subjective Allergies: Coded Allergies: No Known Allergies (Unverified , 07/04/16) Subjective more awake today eating well for discharge today Objective Last 24 Hour Vital Signs Date Time Temp Pulse Resp B/P Pulse Ox O2 Delivery O2 Flow Rate FiO2 08/19/16 16:22 158/86 08/19/16 14:28 188/74 08/19/16 12:00 98.2 65 18 179/83 96 Room Air 08/19/16 09:22 150/109 08/19/16 09:22 63 150/109 08/19/16 08:00 98.6 63 18 150/109 99 Room Air 08/19/16 04:00 97.7 78 18 157/98 93 Room Air 08/19/16 00:00 97.3 73 18 164/98 94 Room Air Intake and Output 08/18/16 08/19/16 19:00 07:00 Intake Total 830 ml 100 ml Output Total 100 ml 730 ml Balance 730 ml -630 ml Intake Oral 720 ml 100 ml IV Total 110 ml Output Urine Total 100 ml 730 ml # Bowel Movements 2 1 Laboratory Tests 08/19/16 04:15: White Blood Count 4.8, Red Blood Count 3.72L, Hemoglobin 10.3L, Hematocrit 30.9L , Mean Corpuscular Volume 83, Mean Corpuscular Hemoglobin 27.6, Mean Corpuscular Hemoglobin Concent 33.3, Red Cell Distribution Width 13.7, Platelet Count 202, Mean Platelet Volume 8.1, Neutrophils (%) (Auto) 58.8, Lymphocytes (% ) (Auto) 30.4, Monocytes (%) (Auto) 10.1H, Eosinophils (%) (Auto) 0.1, Basophils (%) (Auto) 0.5, Prothrombin Time 16.0H, Prothromb Time International Ratio 1.6H, Sodium Level 146H, Potassium Level 3.6, Chloride Level 105, Carbon Dioxide Level 27, Anion Gap 14, Blood Urea Nitrogen 14, Creatinine 0.9, Estimat Glomerular Filtration Rate , Glucose Level 97, Uric Acid 5.3, Calcium Level 8.5L , Phosphorus Level 2.6, Total Bilirubin 0.3, Gamma Glutamyl Transpeptidase 14, Aspartate Amino Transf (AST/SGOT) 18, Alanine Aminotransferase (ALT/SGPT) 9, Alkaline Phosphatase 50, C-Reactive Protein, Quantitative 4.6H, Pro-B-Type Natriuretic Peptide 3415H, Total Protein 6.1L, Albumin 2.9L, Globulin 3.2, Albumin/Globulin Ratio 0.9L Height (Feet): 5 Height (Inches): 0.00 Weight (Pounds): 106 JUSTO MAYERS Aug 19, 2016 22:17
--- NOTE | 2016-08-19 22:52 | General Progress Note ---
Assessment/Plan Assessment/Plan ASSESSMENT: 1. Acute deep vein thrombosis of the left common femoral vein. Remains on coumadin 2. Anemia, secondary to gastrointestinal bleed and hematemesis. Currently hgb > 10 3. Thrombocytopenia - new onset, likely 2/2 infection, ID following, patient febrile, is on abx 4. Nausea and vomiting - current and in past egd showed gerd 5. Dementia/Altered mental status. 6. Acute kidney injury. 7. Hiatal hernia. 8. Acid reflux. RECOMMENDATIONS: 1. Monitor counts. 2. CT a/p shows accessory spleen 3. Appreciate Gi ID, renal recs 4. Continue Coumadin 5. Maintain INR between 2-3. 6. Anemia w/u in prior reviewed, shows ACD 7. Duplex of lower ext to r/o dvt shows same dvt as before 8. GI ppx with protonix 9. DW the staff. Thank you, Mike Paige M.D. Subjective Constitutional: Reports: no symptoms HEENT: Reports: no symptoms Cardiovascular: Reports: no symptoms Respiratory: Reports: no symptoms Gastrointestinal/Abdominal: Reports: no symptoms Genitourinary: Reports: no symptoms Neurologic/Psychiatric: Reports: no symptoms Endocrine: Reports: no symptoms Hematologic/Lymphatic: Reports: anemia Allergies: Coded Allergies: No Known Allergies (Unverified , 07/04/16) Subjective stable, remains demented, more verbal today Objective Last 24 Hour Vital Signs Date Time Temp Pulse Resp B/P Pulse Ox O2 Delivery O2 Flow Rate FiO2 08/19/16 16:22 158/86 08/19/16 14:28 188/74 08/19/16 12:00 98.2 65 18 179/83 96 Room Air 08/19/16 09:22 150/109 08/19/16 09:22 63 150/109 08/19/16 08:00 98.6 63 18 150/109 99 Room Air 08/19/16 04:00 97.7 78 18 157/98 93 Room Air 08/19/16 00:00 97.3 73 18 164/98 94 Room Air Intake and Output 08/18/16 08/19/16 19:00 07:00 Intake Total 830 ml 100 ml Output Total 100 ml 730 ml Balance 730 ml -630 ml Intake Oral 720 ml 100 ml IV Total 110 ml Output Urine Total 100 ml 730 ml # Bowel Movements 2 1 Laboratory Tests 08/19/16 04:15: White Blood Count 4.8, Red Blood Count 3.72L, Hemoglobin 10.3L, Hematocrit 30.9L , Mean Corpuscular Volume 83, Mean Corpuscular Hemoglobin 27.6, Mean Corpuscular Hemoglobin Concent 33.3, Red Cell Distribution Width 13.7, Platelet Count 202, Mean Platelet Volume 8.1, Neutrophils (%) (Auto) 58.8, Lymphocytes (% ) (Auto) 30.4, Monocytes (%) (Auto) 10.1H, Eosinophils (%) (Auto) 0.1, Basophils (%) (Auto) 0.5, Prothrombin Time 16.0H, Prothromb Time International Ratio 1.6H, Sodium Level 146H, Potassium Level 3.6, Chloride Level 105, Carbon Dioxide Level 27, Anion Gap 14, Blood Urea Nitrogen 14, Creatinine 0.9, Estimat Glomerular Filtration Rate , Glucose Level 97, Uric Acid 5.3, Calcium Level 8.5L , Phosphorus Level 2.6, Total Bilirubin 0.3, Gamma Glutamyl Transpeptidase 14, Aspartate Amino Transf (AST/SGOT) 18, Alanine Aminotransferase (ALT/SGPT) 9, Alkaline Phosphatase 50, C-Reactive Protein, Quantitative 4.6H, Pro-B-Type Natriuretic Peptide 3415H, Total Protein 6.1L, Albumin 2.9L, Globulin 3.2, Albumin/Globulin Ratio 0.9L Height (Feet): 5 Height (Inches): 0.00 Weight (Pounds): 106 General Appearance: alert EENT: normal ENT inspection Neck: normal alignment Cardiovascular: regular rhythm Respiratory/Chest: lungs clear Abdomen: normal bowel sounds Pelvis: no masses Extremities: non-tender Edema: 1+ Leg (L), 1+ Leg (R) Edema: mild edema Neurologic: alert Skin: warm/dry Mike Paige Aug 19, 2016 22:51
--- NOTE | 2016-08-20 15:34 | Discharge Summary ---
Discharge Summary Hospital Course Date of Admission Aug 13, 2016 at 19:51 Date of Discharge Aug 19, 2016 at 16:50 Admitting Diagnosis sepsis, vomiting HPI Caridad Lopez is a 86 year old female who was admitted on Aug 13, 2016 at 19:51 for Sepsis,Vomiting Hospital Course dc summary #[id number] Discharge Medications Continued Medications: Atorvastatin Calcium* (Lipitor*) 10 Mg Tablet 10 MG ORAL BEDTIME, TAB Ceftriaxone Na/Dextrose,Iso (Ceftriaxone 1 Gm Piggyback) 1 Gm/50 Ml Froz.piggy 2 GM IVPB Q24H for 14 Days, BAG Docusate Sodium* (Docusate Sodium*) 100 Mg Capsule 100 MG ORAL TWICE A DAY, CAP Heparin Sod (Porcine) (Heparin Sodium*) 5 000/1 Ml Vial 5000 UNITS SUBQ EVERY 12 HOURS, VIAL Hydrochlorothiazide* (Hydrochlorothiazide*) 25 Mg Tablet 25 MG ORAL DAILY, TAB Lisinopril (Lisinopril*) 20 Mg Tablet 20 MG ORAL DAILY, TAB Magnesium Hydroxide* (Milk Of Magnesia*) 400 Mg/5 Ml Oral.susp 30 ML ORAL DAILY PRN for Constipation, ML Magnesium Oxide (Magnesium) 400 Mg Capsule 400 MG PO BID, CAP Memantine Hcl* (Namenda*) 5 Mg Tablet 5 MG ORAL BEDTIME, TAB Metoprolol Tartrate* (Metoprolol Tartrate*) 25 Mg Tablet 25 MG ORAL EVERY 12 HOURS, TAB Mirtazapine* (Remeron*) 45 Mg Tablet 22.5 MG ORAL BEDTIME, TAB Multivitamin With Minerals (Multivitamins With Minerals*) 1 Each Tablet 1 TAB ORAL DAILY, TAB Omeprazole (Omeprazole) 20 Mg Capsule.dr 20 MG ORAL DAILY, CAP Quetiapine Fumarate (Seroquel) 50 Mg Tablet 50 MG ORAL TWICE A DAY, TAB 0 Refills Vitamin D (Vitamin D3) 400 Unit Tablet 2000 UNITS ORAL DAILY, TAB Warfarin Sod* (Coumadin*) 2.5 Mg Tablet 2.5 MG ORAL DAILY, TAB [Tylenol] () 650 MG PO EVERY 4 HOURS PRN for Pain Scale (3-5) Discharge Condition Upon Discharge: stable Discharge Disposition Patient was discharged to SNF/Subacute Facility(03) Discharge Diagnoses: Discharge Instructions Discharge Instructions Special Instructions I have been assigned to complete a D/C Summary on this account. I was not involved in the patient management Lani Avila NP (Vanchtein) Aug 20, 2016 15:33
--- NOTE | 2016-08-21 10:39 | Discharge Summary 2 SIG ---
DATE OF ADMISSION: 08/13/2016 DATE OF DISCHARGE: 08/19/2016 REASON FOR ADMISSION: 86-year-old female, presented to the emergency department after having fever and episode of emesis. The patient had a dark color vomitus, she was sent from intermediate for evaluation. The patient with a prior history of dementia and unable to provide any information. Emergency department workup revealed mild leukocytosis , WBC -12.4, BUN- 31, creatinine -1.6, and lactic acid was within normal limits at 1.4. Transaminases are within normal limits. Troponin was negative. Pro BNP was 3472. Urinalysis wasgrossly positive for UTI. Vital signs revealed low-grade fever, borderline tachycardia, no tachypnea, stable pulse oximetry on the room air. Patuietn started on empriic antibiotic and admitted for further management. ADMITTING DIAGNOSES: 1. Sepsis. 2. Pyelonephritis. 3. Dehydration. HOSPITAL STAY: The patient pancultured and started on empiric antibiotics. ID consult along with [place] [employer] police officer and compliance coordinator were called initially on the case. Blood culture positive initially for E. coli, repeated 2 out of 4 were positive for Staph coagulase-negative. Urine culture was positive for E coli. Bacteremia likely secondary to UTI, repeated urine culture next day still revealed E. coli. Stool for C. difficile done due to the diarrhea and was negative. According to Infectious Disease doctor, the patient will need two weeks of antibiotic as well as repeat blood culture in the [facility] facility. Antibiotic regimen was optimized by ID based on sensitivity. Supplemental oxygen and pulmonary toilet provided as needed. Chest x-ray was negative. The patient at high risk for aspiration, strict aspiration precaution maintained. The patient was under speech therapy daily treatment. Due to the acute kidney injury, the patient started on the gentle IV fluids. B2B Appointment Setter followed closely. Acute kidney injury likely secondary to dehydration as well as hypotension and sepsis. Renal parameters improved. BUN down to 14 and creatinine down to 0.9. GI doctor followed. GI prophylaxis maintained. CT of the abdomen and pelvis revealed no acute pathology , there was no change from the previous CT of the abdomen and pelvis done for this patient. Initial nausea and vomiting resolved. Antiemetic provided as needed. Stool was negative for C. diff. Diarrhea resolved. Encephalopathy was improving. Venous duplex bilateral lower extremities revealed acute thrombus in common femoral and popliteal vein left lower extremity. The patient started on Coumadin to maintain therapeutic INR between 2 and 3. The patient was also noted to be anemic. Anemia likely secondary to initial hematemesis and possibly GI bleeding. GI followed. Anemia workup revealed low iron and stable B12 and folate. Stool OB was never collected, but GI recommended reflux precaution, PPI, bowel regimen instituted. The patient hemoglobin and hematocrit at baseline. Monitor hemoglobin and hematocrit at the intermediate. If there will be significant trend down in hemoglobin /hematocrit then the patient will need GI procedure. Neurologist seen the patient initially. The patient seen in neurological consultation due to persistent lethargy. Neurologist recommended to hold all sedatives, continue IV fluids and antibiotics as needed. Recommended limited only as needed sedation and to observe for any paroxysmal event. At the same time, psychiatrist also recommended to avoid benzodiazepine , opiates, and anticholinergic since they can exacerbate delirium and agitation. The psychiatrist evaluated the patient and diagnosed her with delirium due to the general medical condition. Psychiatric medication regimen was optimized. Pain management was carefully selected, all sedatives were stopped. The patient back to her baseline mental status. Blood pressure was managed with the existing regimen and was stable. The patient was stable for discharge to the [facility] facility. DISCHARGE DIAGNOSES: 1. Sepsis with bacteremia./E coli 2. Bacteremia secondary to urinary tract infection/Ecoli. 3. Urinary tract infection/Ecoli. 4. Acute deep vein thrombosis left lower extremity, common femoral popliteal vein. 5. Anemia secondary to the gastrointestinal bleeding and hematemesis, stable. 6. Acute kidney injury likely secondary to dehydration and hypertension and sepsis. 7. Senile dementia, behavioral abnormality. 8. Acute encephalopathy on chronic dementia. 9. Aspiration risk. 10. Dehydration, resolved. 11. Gastroesophageal reflux disease. 12. Degenerative joint disease. 13. Delirium secondary to general medical condition. DISCHARGE MEDICATIONS: See medication reconciliation. DISCHARGE INSTRUCTIONS: The patient discharged to [facility] facility. Closely monitor hemoglobin and hematocrit as well as the renal parameters. Continue antibiotics for total of 2 weeks as per ID recommendations, repeat surveillance blood culture in the facility. Coco Jackson M.D. I have been assigned to dictate discharge summary on this account and I was not involved in the patient's management. Lani TalbotGumaro bustillo DR: Rafa JOB#: [id number] CC: MIO
--- NOTE | 2016-08-21 15:02 | Diagnostic Imaging Report ---
Indications: DYSPHAGIA Technique: Patient ingested multiple substances under the supervision of speech pathology. Video fluoroscopic recording performed. Total fluoroscopy time 85 seconds. Total dose area product 0.94067 mGycm2 Comparison: none Findings: Equivocal trace penetration of nectar thick liquid barium is demonstrated. No jeffery aspiration demonstrated. Ingestion of honey thick liquid barium and barium pur?e demonstrates minimal early pooling, otherwise unremarkable Impression: Equivocal trace penetration of thin and nectar thick liquid barium. No jeffery aspiration demonstrated
[2016-09-09] MEDS ORDERED: PROTONIX40 MG ORAL (13:23)
[2016-09-09] MEDS ORDERED: MIRTAZAPINE15 MG ORAL (13:23)
== END 2016-08-19 16:50 | DRG 871 ==
LOC: EDBD 18:38 → EMR 18:58 → 2E 19:51 → EDBEDREQ 19:58 → 4W 08-16 02:04
PROC: 02HV33Z Insertion of Infusion Device into Superior Vena Cava, Percutaneous Approach (ICD-10-PCS; principal; 2016-08-16)
DX: A41.9 Sepsis, unspecified organism (principal); G93.40 Encephalopathy, unspecified; N17.9 Acute kidney failure, unspecified; I82.412 Acute embolism and thrombosis of left femoral vein; K92.2 Gastrointestinal hemorrhage, unspecified; F05 Delirium due to known physiological condition; N12 Tubulo-interstitial nephritis, not specified as acute or chronic; I82.432 Acute embolism and thrombosis of left popliteal vein; E86.0 Dehydration; I10 Essential (primary) hypertension; B96.20 Unspecified Escherichia coli [E. coli] as the cause of diseases classified elsewhere; D50.0 Iron deficiency anemia secondary to blood loss (chronic); F03.90 Unspecified dementia, unspecified severity, without behavioral disturbance, psychotic disturbance, mood disturbance, and anxiety; K21.9 Gastro-esophageal reflux disease without esophagitis; M19.90 Unspecified osteoarthritis, unspecified site; E78.5 Hyperlipidemia, unspecified; Z79.01 Long term (current) use of anticoagulants; K44.9 Diaphragmatic hernia without obstruction or gangrene; R19.7 Diarrhea, unspecified; D69.6 Thrombocytopenia, unspecified
CPT/HCPCS: 36415; 36569; 71010; 74176; 74230; 76775; 76937; 80053; 80061; 81001; 81003; 82150; 82248; 82436; 82533; 82550; 82553; 82977; 83036; 83605; 83690; 83735; 83880; 83930; 83935; 84100; 84133; 84300; 84439; 84443; 84484; 84550; 85007; 85025; 85044; 85060; 85610; 85730; 86140; 87040; 87081; 87086; 87181; 87324; 89050; 93005; 93970; J8499

== ENCOUNTER 2016-09-01 21:01 | Inpatient (IN) | payer MEDICARE, MEDICAID ==
[~2016-09-01] VITALS: Ht 134.6 cm; Wt 47.6 kg
[~2016-09-01 21:01] MED LIST changes: +CEFTRIAXON1 GM/50 ML IVPB; +COUMADIN2.5 MG ORAL; +HEPARIN SO5000 UNIT2 SUBQ
--- NOTE | 2016-09-01 21:29 | Emergency Room Report ---
History of Present Illness General Chief Complaint: Vomiting Source: Medical Record Present Illness HPI Is an 86-year-old Chadian speaking female with a history of dementia and multiple medical problem. She's been admitted several times for sepsis from UTI. She presents with chief complaint of vomiting twice today. Unable to get any history from patient. History is from her snf note and previous records. Vomiting is nonbloody and nonbilious. No documentation of fever. Allergies: Coded Allergies: No Known Allergies (Unverified , 07/04/16) Patient History Past Medical History: see triage record, old chart reviewed, DM, HTN, dementia Past Surgical History: other Pertinent Family History: other Social History: Denies: smoking Now: No Immunizations: other Reviewed Nursing Documentation: PMH: Agreed, PSxH: Agreed Nursing Documentation-PMH Past Medical History: No History, Except For Hx Hypertension: Yes Hx Cancer: No Hx Gastrointestinal Problems: Yes - gerd History Of Psychiatric Problem: Yes - psychosis Hx Neurological Problems: Yes - dementia Hx Dementia: Yes Review of Systems Eye: Denies: blurred vision, eye pain ENT: Denies: ear pain, nose congestion, throat swelling Respiratory: Denies: cough, shortness of breath Cardiovascular: Denies: chest pain, palpitations Gastrointestinal: Reports: nausea, vomiting, Denies: abdominal pain, diarrhea Musculoskeletal: Denies: back pain, joint pain Skin: Denies: rash Neurological: Denies: headache, numbness Endocrine: Denies: increased thirst, increased urine Hematologic/Lymphatic: Denies: easy bruising All Other Systems: limited - Secondary to dementia Physical Exam Vital Signs Date Time Temp Pulse Resp B/P Pulse Ox O2 Delivery O2 Flow Rate FiO2 09/01/16 21:04 98.1 92 12 123/76 96 Room Air vitals unremarkable [id number] EP Interpretation: reviewed, normal General Appearance: well appearing, no apparent distress, alert Head: normocephalic, atraumatic Eyes: bilateral eye EOMI, bilateral eye PERRL ENT: hearing grossly normal, normal pharynx Neck: full range of motion, supple, no meningismus Respiratory: chest non-tender, lungs clear, normal breath sounds Cardiovascular #1: regular rate, rhythm, no murmur Gastrointestinal: normal bowel sounds, non tender, no mass, no organomegaly, no bruit, non-distended Musculoskeletal: back normal, gait/station normal, normal range of motion Neurologic: grossly normal Psychiatric: mood/affect normal Skin: warm/dry Medical Decision Making Diagnostic Impression: Primary Impression: Vomiting Qualified Codes: R11.2 - Nausea with vomiting, unspecified Additional Impressions: UTI (urinary tract infection) Qualified Codes: N30.00 - Acute cystitis without hematuria Anemia, chronic disease Proteinuria Qualified Codes: R80.9 - Proteinuria, unspecified ER Course She presents with vomiting. This may be secondary to infectious cause. No evidence of sepsis, pneumonia, ACS or PE. No vomiting here. Will admit for IV antibiotics. She grew out Escherichia coli in the past and sensitive to most antibiotics. Lab Results Impression labs unremarkable EKG Diagnostic Results Rate: normal Rhythm: NSR ST Segments: no acute changes Rhythm Strip Diag. Results EP Interpretation: yes Rate: 91 Rhythm: NSR, no PVC's, no ectopy Chest X-Ray Diagnostic Results EP Interpretation: Yes Findings: no consolidation, no effusion, no pneumothorax, no acute cardiopulmonary disease Number of Views: 1 Last Vital Signs Date Time Temp Pulse Resp B/P Pulse Ox O2 Delivery O2 Flow Rate FiO2 09/01/16 21:04 98.1 92 12 123/76 96 Room Air Status: improved Disposition: ADMITTED INPATIENT Condition: Serious MILAGROS ALLEN M.D. Sep 01, 2016 21:29
[2016-09-01] MEDS ORDERED: NS 1000ml 1,400 ML IVLG ONE (21:30)
[2016-09-01 21:40] LABS: BASOPHILS % (AUTO) 0.5 % (0.0-2.0); EOSINOPHILS % (AUTO) 0.1 % (0.0-3.0); MEAN CORPUSCULAR HEMOGLOBIN 27.2 PG (27.0-31.0); MEAN CORPUSCULAR VOLUME 83 FL (80-99); MEAN PLATELET VOLUME 7.2 FL (6.5-10.1); MONOCYTES % (AUTO) 6.4 % (1.0-10.0); PLATELET COUNT 284 K/UL (150-450); RED BLOOD COUNT 3.99 M/UL (4.20-5.40); RED CELL DISTRIBUTION WIDTH 14.4 % (11.6-14.8); WHITE BLOOD COUNT 6.3 K/UL (4.8-10.8)
[2016-09-01 21:50] LABS: INR 1.3 (0.9-1.1); PROTHROMBIN TIME 13.3 SEC (9.30-11.50)
[2016-09-01 21:57] LABS: TROPONIN I < 0.30 ng/mL (<=0.30)
[2016-09-01 22:02] LABS: ALANINE AMINOTRANSFERASE 5 U/L (3-33); ALBUMIN/GLOBULIN RATIO 0.9 (1.0-2.7); ANION GAP 14 (5-15); ASPARTATE AMINO TRANSFERASE 11 U/L (5-40); CALCIUM 8.9 mg/dL (8.6-10.2); CARBON DIOXIDE 31 mEQ/L (20-30); CHLORIDE 98 mEQ/L (98-107); CREATININE 1.1 mg/dL (0.5-0.9); HEMOLYSIS 1; POTASSIUM 3.4 mEQ/L (3.4-4.9); SODIUM 143 mEQ/L (135-145); TOTAL PROTEIN 6.6 g/dL (6.6-8.7)
[2016-09-01 22:07] LABS: APPEARANCE,URINE SLIGHTLY CLOUDY; KETONES,URINE NEGATIVE (NEGATIVE); LEUKOCYTE ESTERASE ,URINE 1+ (NEGATIVE); NITRITE,URINE NEGATIVE (NEGATIVE); PH,URINE 6 (4.5-8.0); PROTEIN,URINE 2+ (NEGATIVE); UROBILINOGEN,URINE NORMAL MG/DL (0.0-1.0)
[2016-09-01 22:10] LABS: BACTERIA,URINE MODERATE /HPF; MUCUS,URINE FEW /LPF (NONE/OCC); SQUAMOUS EPITHELIAL CELL,UR MODERATE /LPF (NONE/OCC)
[2016-09-01 22:12] LABS: CKMB < 1.5 ng/mL (< 3.8)
[2016-09-01 22:13] LABS: ICTOTEST NEGATIVE
[2016-09-01] MEDS ORDERED: cefTRIAXone 1 GM in NS 55 ML IVPB ONE (22:45)
[2016-09-01 23:15] VITALS: BP 144/60
[2016-09-02] VITALS (9 sets, daily range): BP systolic 102–183; BP diastolic 55–137
--- NOTE | 2016-09-02 09:18 | Diagnostic Imaging Report ---
Indications: Shortness of breath Technique: Portable AP chest Findings: Comparison: 08/13/2016 Elevation of the apparent right hemidiaphragm has developed. Linear densities are suggested in the overlying right lung base. Left lung, bilateral pleural surfaces remain clear. Cardiac silhouette remains upper limits of normal in size. Pulmonary vasculature remains within normal limits. Aortic arch calcification, thoracic vertebral osteophytes again noted. Central venous catheter has been placed via right upper extremity, tip in region of superior vena cava. IMPRESSION: Interval right lung volume loss with elevation of the apparent right hemidiaphragm, overlying subsegmental atelectasis. Additional underlying right lung base pathology not excludable. No other evidence of acute cardiopulmonary disease, unchanged Interval right upper extremity central venous catheter placement, in good position Stable chronic changes as described
[2016-09-02] MEDS ORDERED: Milk of Magnesia 30ml Ud ORAL PRN (11:45)
[2016-09-02 13:48] LABS: INR 1.7 (0.9-1.1); PROTHROMBIN TIME 17.2 SEC (9.30-11.50)
--- NOTE | 2016-09-02 15:04 | Infectious Diseases Prog Note ---
Assessment/Plan Problems: (1) Sepsis due to Escherichia coli (E. coli) Assessment & Plan: on ceftriaxone for two weeks with end of date today, will continue ceftriaxone for now until blood culture and urine culture is obtained (2) Vomiting Assessment & Plan: unclear etiology, continue antinausea meds, consult GI for further work up (3) UTI (urinary tract infection) Assessment & Plan: on ceftriaxon, await urine culture (4) DVT (deep venous thrombosis) Assessment & Plan: continue anticoagulation, consult hematology (5) HTN (hypertension) Assessment & Plan: continue meds, keep systolic blood pressure less than 140 Subjective Allergies: Coded Allergies: No Known Allergies (Unverified , 07/04/16) Objective Vital Signs Last 24 Hour Vital Signs Date Time Temp Pulse Resp B/P Pulse Ox O2 Delivery O2 Flow Rate FiO2 09/02/16 12:34 97.2 97 18 102/55 98 Room Air 09/02/16 08:00 97.9 90 18 133/81 93 Room Air 09/02/16 04:00 97.7 98 19 142/59 95 Room Air 09/02/16 03:02 97.8 69 16 158/83 94 Room Air 09/02/16 02:52 97.8 69 16 158/83 94 Room Air 09/02/16 02:44 97.8 69 16 151/82 94 Room Air 09/02/16 02:42 97.8 69 16 176/137 94 Room Air 09/02/16 02:42 176/137 09/02/16 01:53 97.8 69 16 183/76 94 Room Air 09/01/16 23:15 98.1 76 14 144/60 94 Room Air 09/01/16 21:04 98.1 92 12 123/76 96 Room Air Height (Feet): 4 Height (Inches): 5.00 Weight (Pounds): 105 Microbiology Date/Time Source Procedure Growth Status 09/01/16 21:45 Urine,Clean Catch Urine Culture - Preliminary NO GROWTH Resulted Laboratory Tests Test 09/01/16 21:20 09/01/16 21:45 09/02/16 13:28 White Blood Count 6.3 K/UL (4.8-10.8) Red Blood Count 3.99 M/UL (4.20-5.40) L Hemoglobin 10.9 G/DL (12.0-16.0) L Hematocrit 32.9 % (37.0-47.0) L Mean Corpuscular Volume 83 FL (80-99) Mean Corpuscular Hemoglobin 27.2 PG (27.0-31.0) Mean Corpuscular Hemoglobin Concent 33.0 G/DL (32.0-36.0) Red Cell Distribution Width 14.4 % (11.6-14.8) Platelet Count 284 K/UL (150-450) Mean Platelet Volume 7.2 FL (6.5-10.1) Neutrophils (%) (Auto) 77.0 % (45.0-75.0) H Lymphocytes (%) (Auto) 16.0 % (20.0-45.0) L Monocytes (%) (Auto) 6.4 % (1.0-10.0) Eosinophils (%) (Auto) 0.1 % (0.0-3.0) Basophils (%) (Auto) 0.5 % (0.0-2.0) Prothrombin Time 13.3 SEC (9.30-11.50) H 17.2 SEC (9.30-11.50) H Prothromb Time International Ratio 1.3 (0.9-1.1) H 1.7 (0.9-1.1) H Activated Partial Thromboplast Time 31 SEC (23-33) Sodium Level 143 mEQ/L (135-145) Potassium Level 3.4 mEQ/L (3.4-4.9) Chloride Level 98 mEQ/L (98-107) Carbon Dioxide Level 31 mEQ/L (20-30) H Anion Gap 14 (5-15) Blood Urea Nitrogen 11 mg/dL (7-23) Creatinine 1.1 mg/dL (0.5-0.9) H Estimat Glomerular Filtration Rate mL/min (>60) Glucose Level 141 mg/dL (74-106) H Lactic Acid Level 1.20 mmol/L (0.66-2.22) Calcium Level 8.9 mg/dL (8.6-10.2) Total Bilirubin 0.4 mg/dL (0.0-1.2) Aspartate Amino Transf (AST/SGOT) 11 U/L (5-40) Alanine Aminotransferase (ALT/SGPT) 5 U/L (3-33) Alkaline Phosphatase 61 U/L (35-104) Total Creatine Kinase 19 U/L (26-140) L Creatine Kinase MB < 1.5 ng/mL (< 3.8) Creatine Kinase MB Relative Index Troponin I < 0.30 ng/mL (<=0.30) Total Protein 6.6 g/dL (6.6-8.7) Albumin 3.2 g/dL (3.5-5.2) L Globulin 3.4 g/dL Albumin/Globulin Ratio 0.9 (1.0-2.7) L Urine Color Mena Urine Appearance Slightly cloudy Urine pH 6 (4.5-8.0) Urine Specific [place] 1.015 (1.005-1.035) Urine Protein 2+ (NEGATIVE) H Urine Glucose (UA) Negative (NEGATIVE) Urine Ketones Negative (NEGATIVE) Urine Occult Blood 1+ (NEGATIVE) H Urine Nitrite Negative (NEGATIVE) Urine Bilirubin Negative (NEGATIVE) Urine Ictotest Negative Urine Urobilinogen Normal MG/DL (0.0-1.0) Urine Leukocyte Esterase 1+ (NEGATIVE) H Urine RBC 2-4 /HPF (0 - 2) H Urine WBC 10-15 /HPF (0 - 2) H Urine Squamous Epithelial Cells Moderate /LPF (NONE/OCC) H Urine Bacteria Moderate /HPF (NONE) H Urine Hyaline Casts 2-4 /LPF (NONE) H Urine Mucus Few /LPF (NONE/OCC) H Current Medications Medications (Trade) Dose Ordered Sig/Selena Route PRN Reason Start Time Stop Time Status Last Admin Dose Admin Atorvastatin Calcium (Lipitor) 10 mg BEDTIME ORAL 09/02/16 21:00 10/02/16 20:59 Ceftriaxone Sodium/Dextrose (Rocephin/D5W) 110 ml @ 220 mls/hr Q24H IVPB 09/02/16 22:00 09/03/16 00:00 Ceftriaxone Sodium/Sodium Chloride (Rocephin/Sodium Chloride) 110 ml @ 220 mls/hr Q24H IVPB 09/03/16 22:00 09/10/16 21:59 Hydrochlorothiazide (Hydrodiuril) 25 mg DAILY ORAL 09/03/16 09:00 10/03/16 08:59 Lisinopril (Prinivil) 20 mg DAILY ORAL 09/03/16 09:00 10/03/16 08:59 Magnesium Hydroxide (Mom) 30 ml DAILYPRN PRN ORAL Constipation 09/02/16 11:45 10/02/16 11:44 Memantine (Namenda) 5 mg BEDTIME ORAL 09/02/16 21:00 10/02/16 20:59 Metoprolol Tartrate (Lopressor) 25 mg EVERY 12 HOURS ORAL 09/02/16 21:00 10/02/16 20:59 Mirtazapine (Remeron) 22.5 mg BEDTIME ORAL 09/02/16 21:00 10/02/16 20:59 Multivitamins Therapeutic (Therapeutic Multivitamin) 1 ea DAILY ORAL 09/03/16 09:00 10/03/16 08:59 Vitamin D (Vitamin D) 400 intlu DAILY ORAL 09/03/16 09:00 10/03/16 08:59 Warfarin Sodium 2.5 mg 2.5 mg COUMADIN ONCE ORAL 09/02/16 17:00 09/02/16 17:01 Warfarin Sodium 1 ea 1 ea DAILY PRN MISC PER RX PROTOCOL 09/02/16 12:30 10/02/16 12:29 Erika Hart M.D. Sep 02, 2016 15:04
--- NOTE | 2016-09-02 16:27 | Consultation ---
Consult Note Consult Note DATE OF CONSULTATION: 09/02/2016 HEMATOLOGY/ONCOLOGY CONSULTATION CONSULTING PHYSICIAN: Mike Paige M.D. REFERRING PHYSICIAN: Coco Jackson M.D. REASON FOR CONSULTATION: Evaluation of acute DVT of the left common femoral vein and anemia IDENTIFYING DATA: Dear Dr. Coco Jackson, The patient is a pleasant 86-year-old female with history of dementia; history of debilitation; Chadian speaking; and history of speaking Chinese, however, given dementia, her Chinese speaking ability has gotten worse. At this time, she presented with comiting from nursing facility, brought into the hospital for further evaluation - in addition she was febrile. It was noted he patient had an acute blood clot in the common femoral vein on 07/05/16. She also had an EGD completed on previous admission, which showed GERD as well as hiatal hernia. Hematology Service was consulted given the patient's history of acute clot in regards to further anticoagulation PAST MEDICAL HISTORY: Dementia, hypercholesterolemia, hypertension, and history of GERD. MEDICATIONS: Reviewed. SOCIAL HISTORY: Resides in [facility] [place] and [facility]. No recent history of alcohol, tobacco or illicit drug use. FAMILY HISTORY: Noncontributory. REVIEW OF SYSTEMS: Constitutional: No fever, chills, or night sweats. Skin: No rashes, lumps, or itching. HEENT: No headache, hearing or vision changes. Breasts: No lumps, pain, or discharge. Pulmonary: No cough, sputum, or shortness of breath. Cardiovascular: No chest pain, tightness, or palpitations. Gastrointestinal: No nausea, vomiting, or diarrhea. Genitourinary: No dysuria, frequency, or urgency. Musculoskeletal: No joint swelling, muscle pain, or trauma. Neurological: No dizziness, fainting, or seizures. PHYSICAL EXAMINATION: GENERAL: NAD, A+O x3 VITAL SIGNS: Last 24 Hour Vital Signs Date Time Temp Pulse Resp B/P Pulse Ox O2 Delivery O2 Flow Rate FiO2 09/02/16 12:34 97.2 97 18 102/55 98 Room Air 09/02/16 08:00 97.9 90 18 133/81 93 Room Air 09/02/16 04:00 97.7 98 19 142/59 95 Room Air 09/02/16 03:02 97.8 69 16 158/83 94 Room Air 09/02/16 02:52 97.8 69 16 158/83 94 Room Air 09/02/16 02:44 97.8 69 16 151/82 94 Room Air 09/02/16 02:42 97.8 69 16 176/137 94 Room Air 09/02/16 02:42 176/137 09/02/16 01:53 97.8 69 16 183/76 94 Room Air 09/01/16 23:15 98.1 76 14 144/60 94 Room Air 09/01/16 21:04 98.1 92 12 123/76 96 Room Air PULMONARY: Decreased breath sounds. CARDIOVASCULAR: Regular rate and rhythm. No S3 or S4. ABDOMEN: Soft, nontender, and nondistended. EXTREMITIES: A 1+ edema. ASSESSMENT: 1. Acute deep vein thrombosis of the left common femoral vein. Remains on coumadin 2. Anemia, secondary to gastrointestinal bleed and hematemesis. Currently hgb > 10 3. Thrombocytopenia - new onset, likely 2/2 infection, has now improved 4. Nausea and vomiting - current and in past egd showed gerd 5. Dementia/Altered mental status. 6. Acute kidney injury. 7. Hiatal hernia. 8. Acid reflux. RECOMMENDATIONS: 1. Monitor counts. 2. Recent imaging reviewed, CT a/p shows accessory spleen 3. Appreciate Gi ID, renal recs 4. Continue Coumadin 5. Maintain INR between 2-3. 6. Anemia w/u in prior reviewed, shows ACD 7. Duplex of lower ext to r/o dvt shows same dvt as before 8. GI ppx with protonix 9. DW the staff. Thank you, Mike Paige M.D. Mike Paige Sep 02, 2016 16:26
[2016-09-02] MEDS ORDERED: Warfarin Sodium 2.5mg ORAL ONE (17:00)
--- NOTE | 2016-09-02 17:41 | General Progress Note ---
Assessment/Plan Assessment/Plan Assessment - N/V - resolved? - UTI - GERD - Hiatal hernia - DVT - OBS Recommendations - IV PPI - elevate HOB - Reflux precautions - po as tolerated - further w/u if symptoms persist Subjective Allergies: Coded Allergies: No Known Allergies (Unverified , 07/04/16) Objective Last 24 Hour Vital Signs Date Time Temp Pulse Resp B/P Pulse Ox O2 Delivery O2 Flow Rate FiO2 09/02/16 16:00 97.0 80 18 111/69 95 Room Air 09/02/16 12:34 97.2 97 18 102/55 98 Room Air 09/02/16 08:00 97.9 90 18 133/81 93 Room Air 09/02/16 04:00 97.7 98 19 142/59 95 Room Air 09/02/16 03:02 97.8 69 16 158/83 94 Room Air 09/02/16 02:52 97.8 69 16 158/83 94 Room Air 09/02/16 02:44 97.8 69 16 151/82 94 Room Air 09/02/16 02:42 97.8 69 16 176/137 94 Room Air 09/02/16 02:42 176/137 09/02/16 01:53 97.8 69 16 183/76 94 Room Air 09/01/16 23:15 98.1 76 14 144/60 94 Room Air 09/01/16 21:04 98.1 92 12 123/76 96 Room Air Intake and Output 09/01/16 09/02/16 19:00 07:00 Intake Total 2355 ml Output Total 500 ml Balance 1855 ml IV Total 955 ml Other 1400 ml Output Urine Total 500 ml # Voids 1 # Bowel Movements 1 Laboratory Tests 09/01/16 21:20: White Blood Count 6.3, Red Blood Count 3.99L, Hemoglobin 10.9L, Hematocrit 32.9L , Mean Corpuscular Volume 83, Mean Corpuscular Hemoglobin 27.2, Mean Corpuscular Hemoglobin Concent 33.0, Red Cell Distribution Width 14.4, Platelet Count 284, Mean Platelet Volume 7.2, Neutrophils (%) (Auto) 77.0H, Lymphocytes ( %) (Auto) 16.0L, Monocytes (%) (Auto) 6.4, Eosinophils (%) (Auto) 0.1, Basophils (%) (Auto) 0.5, Prothrombin Time 13.3H, Prothromb Time International Ratio 1.3H, Activated Partial Thromboplast Time 31, Sodium Level 143, Potassium Level 3.4, Chloride Level 98, Carbon Dioxide Level 31H, Anion Gap 14, Blood Urea Nitrogen 11, Creatinine 1.1H, Estimat Glomerular Filtration Rate , Glucose Level 141H, Lactic Acid Level 1.20, Calcium Level 8.9, Total Bilirubin 0.4, Aspartate Amino Transf (AST/SGOT) 11, Alanine Aminotransferase (ALT/SGPT) 5, Alkaline Phosphatase 61, Total Creatine Kinase 19L, Creatine Kinase MB < 1.5, Creatine Kinase MB Relative Index , Troponin I < 0.30, Total Protein 6.6, Albumin 3.2L, Globulin 3.4, Albumin/Globulin Ratio 0.9L 09/01/16 21:45: Urine Color Mena, Urine Appearance Slightly cloudy, Urine pH 6, Urine Specific [place] 1.015, Urine Protein 2+H, Urine Glucose (UA) Negative, Urine Ketones Negative, Urine Occult Blood 1+H, Urine Nitrite Negative, Urine Bilirubin Negative, Urine Ictotest Negative, Urine Urobilinogen Normal, Urine Leukocyte Esterase 1+H, Urine RBC 2-4H, Urine WBC 10-15H, Urine Squamous Epithelial Cells ModerateH, Urine Bacteria ModerateH, Urine Hyaline Casts 2-4H, Urine Mucus FewH 09/02/16 13:28: Prothrombin Time 17.2H, Prothromb Time International Ratio 1.7H Height (Feet): 4 Height (Inches): 5.00 Weight (Pounds): 105 JUSTO MAYERS Sep 02, 2016 17:41
[2016-09-02] MEDS: Pantoprazole 80 MG in NS 250 ML IV SCH (19:01)
--- NOTE | 2016-09-02 20:08 | History and Physical Report ---
DATE OF ADMISSION: 09/01/2016 HISTORY OF PRESENT ILLNESS: The patient is a very poor historian and cannot get reliable history from her. The patient is [facility] and is admitted for UTI and altered mental status as well as urinary tract infection. Cannot obtain any history from the patient at this point. PAST MEDICAL HISTORY: Advanced dementia as well as hypertension and mood disorder and arrhythmia as well as GERD and psychosis. PAST SURGICAL HISTORY: Denies. MEDICATIONS: Hydrochlorothiazide, heparin, Colace, lisinopril, Coumadin, metoprolol, mirtazapine, omeprazole, Seroquel, and vitamin D. ALLERGIES: None. FAMILY HISTORY: Unable to obtain. SOCIAL HISTORY: Unable to obtain. REVIEW OF SYSTEMS: Unable to obtain. A poor historian. PHYSICAL EXAMINATION: VITAL SIGNS: Temperature 97.8, pulse is 69, blood pressure 151/82. HEENT: PERRLA. NECK: Supple. No lymphadenopathy. CHEST: Clear to auscultation. GASTROINTESTINAL: Soft and distended, however, nontender. Positive bowel sounds. EXTREMITIES: No edema. Does have contractures. NEUROLOGIC: Alert and oriented x0. LABORATORY DATA: Labs show WBC of 6.3, hemoglobin 10.9, and platelets of 284,000. Sodium 140, potassium of 3.4, BUN of 11, creatinine 0.1, and glucose of 141. ASSESSMENT: 1. Hyperkalemia. 2. Urinary tract infection. 3. Altered mental status. 4. Lethargy. 5. Dementia. PLAN: I was asked by Dr. Fernando, Dr. Andersen, and Dr. Hart to see the patient for the vomiting and the above-mentioned diagnoses and treatment. Coco Jackson M.D. DR: JOSE RAFAEL JOB#: [id number] CC: MIO
--- NOTE | 2016-09-02 20:28 | Consultation ---
DATE OF CONSULTATION: INFECTIOUS DISEASE CONSULTATION CONSULTING PHYSICIAN: Erika Hart M.D. REQUESTING PHYSICIAN: Coco Jackson M.D. REASON FOR CONSULTATION: Urinary tract infection, recent E. coli bacteremia. Recommendation for antibiotics treatment. HISTORY OF PRESENT ILLNESS: The patient is an 86-year-old female with past medical history of hypertension, psychosis, dementia, and GERD, who was recently hospitalized by the end of July 2016 for sepsis due to E. coli and urinary tract infection, was sent again from [facility] for vomiting several times. The patient vomited twice on the day of admission. There was no blood or ángel in her vomits. No significant abdominal pain. No diarrhea. No blood in the stool. The patient was sent to [facility] for further evaluation and management. No fever or chills at the rehabilitation home. In the emergency room, the patient was afebrile with normal white count. She had urinalysis that showed evidence of infection, so she was started on ceftriaxone empirically and I was consulted by the primary provider for antibiotics recommendation. As of note, the patient is a poor historian and cannot provide any history. History was mainly obtained from the medical record. PAST MEDICAL HISTORY: Significant for dementia, psychosis, GERD, and hypertension. PAST SURGICAL HISTORY: Negative. MEDICATIONS: She had ceftriaxone in the emergency room. For the rest of her medications, please refer to MAR. ALLERGIES: She has no known drug allergy. SOCIAL HISTORY: She is a [facility] resident. No recent drugs, tobacco, or alcohol. FAMILY HISTORY: Unknown. PHYSICAL EXAMINATION: VITAL SIGNS: Temperature 97.2 degrees, pulse 97, respirations 18, blood pressure 102/55, and saturation 98% on room air. GENERAL: This is an elderly female, demented, but awake, alert, and comfortable, not in distress, and up in bed. HEENT: Normocephalic and atraumatic. Pupils reactive to light equally. Moist oral mucosa. No exudate. NECK: Supple. No lymphadenopathy. CARDIOVASCULAR: Regular rate and rhythm. No murmur or gallop. LUNGS: Clear bilaterally. No wheezing or rhonchi. Diminished breathing sounds at the bases. ABDOMEN: Soft, nontender, and nondistended. Positive bowel sounds. No hepatosplenomegaly. No ascites. EXTREMITIES: No edema. No cyanosis. SKIN: She has diaper rash in the perianal area. No significant skin breakdown or decubitus wound noticed. LABORATORY DATA: Labs showed white count of 6.3, hemoglobin of 10.9, and platelet count of 284,000. BUN of 11 and creatinine of 1.1. AST of 11 and ALT of 5. Urinalysis showed +1 leukocyte esterase, 10 to 15 WBC, moderate amount of squamous epithelial cells, urine bacteria moderate amount, and urine mucus few. MICROBIOLOGY: Urine culture showed no growth so far. IMAGING: Chest x-ray showed interval right lung volume loss with elevation of the apparent right hemidiaphragm, overlying subsegmental atelectasis, additional underlying right lung base pathology is not excluded, no other evidence of acute cardiopulmonary disease unchanged, interval right upper extremity central venous catheter placement in good position with stable chronic change as described. ASSESSMENT AND PLAN: 1. Sepsis due to Escherichia coli. The patient is on ceftriaxone for two weeks with end of date today. We will continue ceftriaxone for now until blood culture and urine culture is obtained and we will stop ceftriaxone completely if her culture turns out to be negative. 2. Vomiting, unclear etiology, rule out gastroenteritis. Continue anti-nausea medicine. Consult Gastrointestinal for further workup. 3. Urinary tract infection. The patient is already on ceftriaxone. We will await her urine culture. We will adjust antibiotics as per her culture results. The patient received [place] catheter in the emergency room. Recommended to remove if not needed. 4. Deep venous thrombosis. Continue anticoagulation. Consult Hematology. 5. Hypertension. Continue medications to keep systolic blood pressure less than 140. Erika Hart M.D. DR: TIANNA JOB#: [id number] CC:
[2016-09-02] MEDS: Memantine 5 MG TAB ORAL SCH (21:00)
[2016-09-02] MEDS: Metoprolol 25mg tab ORAL SCH (21:00)
[2016-09-02] MEDS ORDERED: Heparin 5000 units/ml inj SUBQ SCH (21:00)
[2016-09-02] MEDS ORDERED: cefTRIAXone 2 GM in D5W 110 ML IVPB SCH (22:00)
--- NOTE | 2016-09-02 23:08 | Consultation ---
DATE OF CONSULTATION: 09/02/2016 CHIEF COMPLAINT: I was asked to see this patient for evaluation of vomiting. HISTORY OF PRESENT ILLNESS: The patient is an unfortunate 86-year-old white woman with advanced cognitive dementia, who was brought in from skilled nursing for vomiting. There is a very little history that can be obtained from the patient. The patient was previously seen in June of this year with upper gastrointestinal bleeding, and at that time she had endoscopy showing 4 cm to 5 cm hiatal hernia and also gastroesophageal reflux disease with reflux related erosions in the lower esophagus. The patient was placed on proton pump inhibitor. That medication is not on her current inpatient medication list. The patient also has had a history of deep vein thrombosis for which she is on anticoagulation. PAST MEDICAL HISTORY: History of dementia, gastroesophageal reflux disease, hiatal hernia, hypercholesterolemia, hypertension, history of gastrointestinal bleeding, and deep vein thrombosis. FAMILY HISTORY: Noncontributory. SOCIAL HISTORY: The patient has no recent history of smoking or drinking. REVIEW OF SYSTEMS: Otherwise unobtainable. PHYSICAL EXAMINATION: GENERAL: Debilitated elderly white woman, seen in her room. HEENT: Normocephalic and atraumatic. Sclerae anicteric. Oropharynx clear. NECK: Supple. CHEST: Clear to auscultation. CARDIOVASCULAR: Regular rate. ABDOMEN: Soft, seemingly nontender. Good bowel sounds. There is no organomegaly. EXTREMITIES: No edema. LABORATORY DATA: Noted. ASSESSMENT: This patient presents with recurrent nausea and vomiting of unclear etiology. She does have urinary tract infection, which may promote vomiting. On the other hand, she also has gastroesophageal reflux disease with hiatal hernia. She is going to be treated aggressively with proton pump inhibitor. I would place the patient back on proton pump inhibitor for now and elevate head of bed and follow reflux precautions. She can be restarted on oral diet tomorrow and I would start with a clear liquid diet first. Should she have no further vomiting then the diet can be slowly advanced. Should the vomiting persist further evaluation including imaging studies and endoscopy can be considered. RECOMMENDATIONS: Per above discussion and per orders written in the chart. Thank you for asking me to participate in care of this patient. Marlys Andersen M.D. DR: LÁZARO JOB#: [id number] CC:
[2016-09-03 04:00] VITALS: BP 154/74
[2016-09-03] MEDS: Pantoprazole 80 MG in NS 250 ML IV SCH ×3 (04:30→14:26)
[2016-09-03 04:32] LABS: INR 2.7 (0.9-1.1); PROTHROMBIN TIME 28.1 SEC (9.30-11.50)
[2016-09-03 08:00] VITALS: BP 170/90
[2016-09-03] MEDS: Vitamin D 400 INTLU TAB ORAL SCH (08:37)
[2016-09-03] MEDS: Metoprolol 25mg tab ORAL SCH ×2 (08:38→21:00)
[2016-09-03] MEDS: Lisinopril 20mg tab ORAL SCH (08:40)
[2016-09-03] MEDS: Multivitamin w/Minerals tab ORAL SCH (09:59)
--- NOTE | 2016-09-03 10:23 | General Progress Note ---
Assessment/Plan Assessment/Plan ASSESSMENT: 1. Acute deep vein thrombosis of the left common femoral vein. Remains on coumadin 2. Anemia, secondary to gastrointestinal bleed and hematemesis. Currently hgb > 10 3. Thrombocytopenia - new onset, likely 2/2 infection, has now improved 4. Nausea and vomiting - current and in past egd showed gerd 5. Dementia/Altered mental status. 6. Acute kidney injury. 7. Hiatal hernia. 8. Acid reflux. RECOMMENDATIONS: 1. Monitor counts. 2. Recent imaging reviewed, CT a/p shows accessory spleen 3. Appreciate Gi ID, renal recs 4. Continue Coumadin 5. Maintain INR between 2-3. 6. GI ppx with protonix 7. DW the staff. Thank you, Mike Paige M.D. Subjective Constitutional: Reports: no symptoms HEENT: Reports: no symptoms Cardiovascular: Reports: no symptoms Respiratory: Reports: no symptoms Gastrointestinal/Abdominal: Reports: no symptoms Genitourinary: Reports: no symptoms Neurologic/Psychiatric: Reports: no symptoms Endocrine: Reports: no symptoms Hematologic/Lymphatic: Reports: anemia Allergies: Coded Allergies: No Known Allergies (Unverified , 07/04/16) Subjective stable, no fevers or chills noted Objective Last 24 Hour Vital Signs Date Time Temp Pulse Resp B/P Pulse Ox O2 Delivery O2 Flow Rate FiO2 09/03/16 08:40 172/90 09/03/16 08:38 73 172/90 09/03/16 08:00 97.5 73 20 170/90 94 Room Air 09/03/16 04:00 98.0 86 18 154/74 95 Room Air 09/02/16 21:00 99 181/106 09/02/16 20:00 97.7 99 18 181/106 95 Room Air 09/02/16 16:00 97.0 80 18 111/69 95 Room Air 09/02/16 12:34 97.2 97 18 102/55 98 Room Air Intake and Output 09/02/16 09/03/16 19:00 07:00 Intake Total 300 ml 180 ml Output Total 400 ml 850 ml Balance -100 ml -670 ml Intake Oral 300 ml 180 ml Output Urine Total 400 ml 850 ml Laboratory Tests 09/02/16 13:28: Prothrombin Time 17.2H, Prothromb Time International Ratio 1.7H 09/02/16 17:35: Ferritin 102 09/03/16 03:40: Prothrombin Time 28.1H, Prothromb Time International Ratio 2.7H Height (Feet): 4 Height (Inches): 5.00 Weight (Pounds): 105 General Appearance: no apparent distress EENT: TMs normal Neck: normal alignment Cardiovascular: normal rate Respiratory/Chest: lungs clear Abdomen: non tender Pelvis: normal rectal exam Extremities: non-tender Edema: 1+ Leg (L), 1+ Leg (R) Edema: mild edema Neurologic: abnormal gait Skin: warm/dry Mike Paige Sep 03, 2016 10:23
[2016-09-03 11:42] VITALS: BP 157/79
--- NOTE | 2016-09-03 11:58 | General Progress Note ---
Assessment/Plan Problem List: (1) Anemia, chronic disease ICD Codes: D63.8 - Anemia in other chronic diseases classified elsewhere SNOMED: 033581330 (2) HTN (hypertension) ICD Codes: I10 - Essential (primary) hypertension SNOMED: 71122980 (3) UTI (urinary tract infection) ICD Codes: N39.0 - Urinary tract infection, site not specified SNOMED: 56566569 Qualifiers: Qualified Codes: N30.00 - Acute cystitis without hematuria Status: progressing Assessment/Plan afebrile anemia htn vitals stable abx per id Subjective ROS Limited/Unobtainable: Yes Constitutional: Reports: no symptoms Allergies: Coded Allergies: No Known Allergies (Unverified , 07/04/16) Objective Last 24 Hour Vital Signs Date Time Temp Pulse Resp B/P Pulse Ox O2 Delivery O2 Flow Rate FiO2 09/03/16 11:42 97.1 71 18 157/79 96 Room Air 09/03/16 08:40 172/90 09/03/16 08:38 73 172/90 09/03/16 08:00 97.5 73 20 170/90 94 Room Air 09/03/16 04:00 98.0 86 18 154/74 95 Room Air 09/02/16 21:00 99 181/106 09/02/16 20:00 97.7 99 18 181/106 95 Room Air 09/02/16 16:00 97.0 80 18 111/69 95 Room Air 09/02/16 12:34 97.2 97 18 102/55 98 Room Air Intake and Output 09/02/16 09/03/16 19:00 07:00 Intake Total 300 ml 180 ml Output Total 400 ml 850 ml Balance -100 ml -670 ml Intake Oral 300 ml 180 ml Output Urine Total 400 ml 850 ml Laboratory Tests 09/02/16 13:28: Prothrombin Time 17.2H, Prothromb Time International Ratio 1.7H 09/02/16 17:35: Ferritin 102 09/03/16 03:40: Prothrombin Time 28.1H, Prothromb Time International Ratio 2.7H Height (Feet): 4 Height (Inches): 5.00 Weight (Pounds): 105 EENT: PERRL/EOMI Neck: supple Cardiovascular: normal rate Respiratory/Chest: lungs clear Abdomen: soft Coco Jackson MD Sep 03, 2016 11:58
--- NOTE | 2016-09-03 15:20 | Diagnostic Imaging Report ---
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 Large collateral vein noted anterior to the superficial femoral artery. Remainder of the deep venous system within normal limits. No evidence of thrombus in the common femoral, popliteal and calf veins. Greater saphenous vein also within normal limits. LEFT LEG: Venous imaging reveals acute thrombus in the common femoral vein. Imaging also reveals chronic thrombus in the superficial femoral and popliteal veins. Remainder of the deep venous system within normal limits. No evidence of thrombus in the calf veins. Greater saphenous vein also within normal limits. TAMEKA Sandy was notified of abnormal results at 0945 hours.
[2016-09-03 16:00] VITALS: BP 157/81
[2016-09-03 20:00] VITALS: BP 155/78
[2016-09-03] MEDS: Memantine 5 MG TAB ORAL SCH (21:00)
[2016-09-03] MEDS: Pantoprazole Inj IVP SCH (21:00)
--- NOTE | 2016-09-03 21:28 | Infectious Diseases Prog Note ---
Assessment/Plan Problems: (1) Sepsis due to Escherichia coli (E. coli) Assessment & Plan: on ceftriaxone for two weeks , will continue ceftriaxone for now until blood culture and urine culture are finals, will D/C ceftriaxon if now growth (2) Vomiting Assessment & Plan: unclear etiology, continue antinausea meds, consult GI for further work up (3) UTI (urinary tract infection) Assessment & Plan: on ceftriaxon, await urine culture (4) DVT (deep venous thrombosis) Assessment & Plan: continue anticoagulation, consult hematology (5) HTN (hypertension) Assessment & Plan: continue meds, keep systolic blood pressure less than 140 Subjective ROS Limited/Unobtainable: Yes Allergies: Coded Allergies: No Known Allergies (Unverified , 07/04/16) Subjective she is demented, awake and alert, nonverbal, afebrile. Objective Vital Signs Last 24 Hour Vital Signs Date Time Temp Pulse Resp B/P Pulse Ox O2 Delivery O2 Flow Rate FiO2 09/03/16 16:00 98.1 72 18 157/81 95 Room Air 09/03/16 11:42 97.1 71 18 157/79 96 Room Air 09/03/16 08:40 172/90 09/03/16 08:38 73 172/90 09/03/16 08:00 97.5 73 20 170/90 94 Room Air 09/03/16 04:00 98.0 86 18 154/74 95 Room Air Height (Feet): 4 Height (Inches): 5.00 Weight (Pounds): 105 General Appearance: WD/WN, no acute distress HEENT: normocephalic, atraumatic, anicteric, mucous membranes moist Respiratory/Chest: chest wall non-tender, lungs clear, normal breath sounds, no respiratory distress, no accessory muscle use Cardiovascular: normal peripheral pulses, normal rate, regular rhythm, no gallop/murmur, no JVD Abdomen: normal bowel sounds, soft, non tender, no organomegaly, non distended , no mass, no scars Extremities: no cyanosis, no clubbing Skin: no rash Microbiology Date/Time Source Procedure Growth Status 09/01/16 21:29 Blood Blood Culture - Preliminary NO GROWTH AFTER 24 HOURS Resulted 09/01/16 21:20 Blood Blood Culture - Preliminary NO GROWTH AFTER 24 HOURS Resulted 09/01/16 21:45 Urine,Clean Catch Urine Culture - Preliminary NO GROWTH AFTER 24 HOURS Resulted Laboratory Tests Test 09/03/16 03:40 Prothrombin Time 28.1 SEC (9.30-11.50) H Prothromb Time International Ratio 2.7 (0.9-1.1) H Current Medications Medications (Trade) Dose Ordered Sig/Selena Route PRN Reason Start Time Stop Time Status Last Admin Dose Admin Atorvastatin Calcium (Lipitor) 10 mg BEDTIME ORAL 09/02/16 21:00 10/02/16 20:59 09/02/16 21:00 Ceftriaxone Sodium/Sodium Chloride (Rocephin/Sodium Chloride) 110 ml @ 220 mls/hr Q24H IVPB 09/03/16 22:00 09/10/16 21:59 Hydrochlorothiazide (Hydrodiuril) 25 mg DAILY ORAL 09/03/16 09:00 10/03/16 08:59 09/03/16 08:40 Lisinopril (Prinivil) 20 mg DAILY ORAL 09/03/16 09:00 10/03/16 08:59 09/03/16 08:40 Magnesium Hydroxide (Mom) 30 ml DAILYPRN PRN ORAL Constipation 09/02/16 11:45 10/02/16 11:44 Memantine (Namenda) 5 mg BEDTIME ORAL 09/02/16 21:00 10/02/16 20:59 09/02/16 21:00 Metoprolol Tartrate (Lopressor) 25 mg EVERY 12 HOURS ORAL 09/02/16 21:00 10/02/16 20:59 09/03/16 08:38 Mirtazapine (Remeron) 22.5 mg BEDTIME ORAL 09/02/16 21:00 10/02/16 20:59 09/02/16 21:00 Multivitamins Therapeutic (Therapeutic Multivitamin) 1 ea DAILY ORAL 09/03/16 09:00 10/03/16 08:59 09/03/16 09:59 Pantoprazole (Protonix) 40 mg Q12HR IVP 09/03/16 21:00 10/03/16 20:59 Vitamin D (Vitamin D) 400 intlu DAILY ORAL 09/03/16 09:00 10/03/16 08:59 09/03/16 08:37 Warfarin Sodium 1 ea 1 ea DAILY PRN MISC PER RX PROTOCOL 09/02/16 12:30 10/02/16 12:29 Erika Hart M.D. Sep 03, 2016 21:28
[2016-09-03] MEDS ORDERED: cefTRIAXone 2 GM in NS 110 ML IVPB SCH (22:00)
--- NOTE | 2016-09-03 22:22 | General Progress Note ---
Assessment/Plan Assessment/Plan Assessment - N/V - resolved? - UTI - GERD - Hiatal hernia - DVT - OBS Recommendations - IV PPI - elevate HOB - Reflux precautions - po as tolerated - further w/u if symptoms persist Subjective Allergies: Coded Allergies: No Known Allergies (Unverified , 07/04/16) Subjective minimally interactive sleepy no vomiting reported Objective Last 24 Hour Vital Signs Date Time Temp Pulse Resp B/P Pulse Ox O2 Delivery O2 Flow Rate FiO2 09/03/16 16:00 98.1 72 18 157/81 95 Room Air 09/03/16 11:42 97.1 71 18 157/79 96 Room Air 09/03/16 08:40 172/90 09/03/16 08:38 73 172/90 09/03/16 08:00 97.5 73 20 170/90 94 Room Air 09/03/16 04:00 98.0 86 18 154/74 95 Room Air Intake and Output 09/02/16 09/03/16 19:00 07:00 Intake Total 300 ml 180 ml Output Total 400 ml 850 ml Balance -100 ml -670 ml Intake Oral 300 ml 180 ml Output Urine Total 400 ml 850 ml Laboratory Tests 09/03/16 03:40: Prothrombin Time 28.1H, Prothromb Time International Ratio 2.7H Height (Feet): 4 Height (Inches): 5.00 Weight (Pounds): 105 Objective Elderly woman NAD NCAT supple CTA RRR Soft NT ND no edema non focal JUSTO MAYERS Sep 03, 2016 22:22
[2016-09-04] VITALS: BP 153/99
[2016-09-04 06:25] LABS: BASOPHILS % (AUTO) 0.6 % (0.0-2.0); EOSINOPHILS % (AUTO) 0.3 % (0.0-3.0); LYMPHOCYTES % (AUTO) 18.1 % (20.0-45.0); MEAN CORPUSCULAR HEMOGLOBIN 26.9 PG (27.0-31.0); MEAN CORPUSCULAR HGB CONC 32.6 G/DL (32.0-36.0); MEAN CORPUSCULAR VOLUME 83 FL (80-99); MEAN PLATELET VOLUME 7.5 FL (6.5-10.1); MONOCYTES % (AUTO) 10.4 % (1.0-10.0); NEUTROPHILS % (AUTO) 70.7 % (45.0-75.0); PLATELET COUNT 229 K/UL (150-450); RED BLOOD COUNT 3.91 M/UL (4.20-5.40); RED CELL DISTRIBUTION WIDTH 14.7 % (11.6-14.8); WHITE BLOOD COUNT 5.1 K/UL (4.8-10.8)
[2016-09-04 06:47] LABS: INR 4.2 (0.9-1.1); PROTHROMBIN TIME 44.2 SEC (9.30-11.50)
[2016-09-04] MEDS: Vitamin D 400 INTLU TAB ORAL SCH (08:18)
[2016-09-04] MEDS: Multivitamin w/Minerals tab ORAL SCH (08:19)
[2016-09-04] MEDS: Metoprolol 25mg tab ORAL SCH ×2 (08:35→20:29)
[2016-09-04] MEDS: Lisinopril 20mg tab ORAL SCH (08:39)
[2016-09-04 08:52] VITALS: BP 136/109
[2016-09-04] MEDS: Pantoprazole Inj IVP SCH ×2 (09:02→20:28)
--- NOTE | 2016-09-04 10:31 | General Progress Note ---
Assessment/Plan Problem List: (1) Anemia, chronic disease ICD Codes: D63.8 - Anemia in other chronic diseases classified elsewhere SNOMED: 999008018 (2) HTN (hypertension) ICD Codes: I10 - Essential (primary) hypertension SNOMED: 52982281 (3) UTI (urinary tract infection) ICD Codes: N39.0 - Urinary tract infection, site not specified SNOMED: 08207298 Qualifiers: Qualified Codes: N30.00 - Acute cystitis without hematuria Status: progressing Assessment/Plan afebrile anemia htn uti and sepsis are improving vitals stable Subjective ROS Limited/Unobtainable: Yes Constitutional: Reports: no symptoms Allergies: Coded Allergies: No Known Allergies (Unverified , 07/04/16) Objective Last 24 Hour Vital Signs Date Time Temp Pulse Resp B/P Pulse Ox O2 Delivery O2 Flow Rate FiO2 09/04/16 08:52 98.1 67 20 136/109 96 Room Air 09/04/16 08:39 134/106 09/04/16 08:35 77 134/106 09/04/16 04:00 98.1 72 20 93 Room Air 09/04/16 00:00 97.9 85 20 153/99 95 Room Air 09/03/16 21:00 75 155/85 09/03/16 20:00 97.3 85 20 155/78 96 Room Air 09/03/16 16:00 98.1 72 18 157/81 95 Room Air 09/03/16 11:42 97.1 71 18 157/79 96 Room Air Intake and Output 09/03/16 09/04/16 19:00 07:00 Intake Total 700 ml Output Total 500 ml 550 ml Balance 200 ml -550 ml Intake Oral 700 ml Output Urine Total 500 ml 550 ml Laboratory Tests 09/04/16 05:35: White Blood Count 5.1, Red Blood Count 3.91L, Hemoglobin 10.5L, Hematocrit 32.3L , Mean Corpuscular Volume 83, Mean Corpuscular Hemoglobin 26.9L, Mean Corpuscular Hemoglobin Concent 32.6, Red Cell Distribution Width 14.7, Platelet Count 229, Mean Platelet Volume 7.5, Neutrophils (%) (Auto) 70.7, Lymphocytes (% ) (Auto) 18.1L, Monocytes (%) (Auto) 10.4H, Eosinophils (%) (Auto) 0.3, Basophils (%) (Auto) 0.6, Prothrombin Time 44.2H, Prothromb Time International Ratio 4.2H Height (Feet): 4 Height (Inches): 5.00 Weight (Pounds): 105 EENT: PERRL/EOMI Neck: supple Cardiovascular: normal rate Respiratory/Chest: lungs clear Abdomen: soft Coco Jackson MD Sep 04, 2016 10:31
--- NOTE | 2016-09-04 11:13 | General Progress Note ---
Assessment/Plan Assessment/Plan ASSESSMENT: 1. Acute deep vein thrombosis of the left common femoral vein. Remains on coumadin, INR 2-3 goal 2. Anemia, secondary to gastrointestinal bleed and hematemesis. Currently hgb > 10 3. Thrombocytopenia - new onset, likely 2/2 infection, has now improved 4. Nausea and vomiting - current and in past egd showed gerd 5. Dementia/Altered mental status. 6. Acute kidney injury. 7. Hiatal hernia. 8. Acid reflux. RECOMMENDATIONS: 1. Monitor counts. 2. Recent imaging reviewed, CT a/p shows accessory spleen 3. Appreciate Gi ID, renal recs 4. Continue Coumadin 5. Maintain INR between 2-3. 6. GI ppx with protonix 7. DW the staff. Thank you, Mike Paige M.D. Subjective Constitutional: Reports: no symptoms HEENT: Reports: no symptoms Cardiovascular: Reports: no symptoms Respiratory: Reports: no symptoms Gastrointestinal/Abdominal: Reports: poor fluid intake Genitourinary: Reports: no symptoms Neurologic/Psychiatric: Reports: no symptoms Endocrine: Reports: no symptoms Hematologic/Lymphatic: Reports: anemia Allergies: Coded Allergies: No Known Allergies (Unverified , 07/04/16) Subjective stable, no fevers or chills reported, very sleepy this am Objective Last 24 Hour Vital Signs Date Time Temp Pulse Resp B/P Pulse Ox O2 Delivery O2 Flow Rate FiO2 09/04/16 08:52 98.1 67 20 136/109 96 Room Air 09/04/16 08:39 134/106 09/04/16 08:35 77 134/106 09/04/16 04:00 98.1 72 20 93 Room Air 09/04/16 00:00 97.9 85 20 153/99 95 Room Air 09/03/16 21:00 75 155/85 09/03/16 20:00 97.3 85 20 155/78 96 Room Air 09/03/16 16:00 98.1 72 18 157/81 95 Room Air 09/03/16 11:42 97.1 71 18 157/79 96 Room Air Intake and Output 09/03/16 09/04/16 18:59 06:59 Intake Total 700 ml Output Total 1050 ml Balance -350 ml Intake Oral 700 ml Output Urine Total 1050 ml Laboratory Tests 09/04/16 05:35: White Blood Count 5.1, Red Blood Count 3.91L, Hemoglobin 10.5L, Hematocrit 32.3L , Mean Corpuscular Volume 83, Mean Corpuscular Hemoglobin 26.9L, Mean Corpuscular Hemoglobin Concent 32.6, Red Cell Distribution Width 14.7, Platelet Count 229, Mean Platelet Volume 7.5, Neutrophils (%) (Auto) 70.7, Lymphocytes (% ) (Auto) 18.1L, Monocytes (%) (Auto) 10.4H, Eosinophils (%) (Auto) 0.3, Basophils (%) (Auto) 0.6, Prothrombin Time 44.2H, Prothromb Time International Ratio 4.2H Height (Feet): 4 Height (Inches): 5.00 Weight (Pounds): 105 General Appearance: no apparent distress EENT: normal ENT inspection Neck: normal inspection Cardiovascular: regular rhythm Respiratory/Chest: no respiratory distress Abdomen: no organomegaly Pelvis: normal rectal exam Extremities: non-tender Mike Paige Sep 04, 2016 11:12
[2016-09-04] MEDS ORDERED: Sorbitol Solution UD 30ml ORAL PRN (11:30)
[2016-09-04 12:00] VITALS: BP 144/118
[2016-09-04] MEDS ORDERED: Sorbitol Solution UD 30ml ORAL ONE (12:00)
--- NOTE | 2016-09-04 15:09 | Infectious Diseases Prog Note ---
Assessment/Plan Problems: (1) Sepsis due to Escherichia coli (E. coli) Assessment & Plan: was on ceftriaxone for two weeks with EOT 09/02, now repeated blood culture and urine culture is negative, so will discontinue ceftriaxon . (2) Vomiting Assessment & Plan: unclear etiology, improved, continue antinausea meds, consult GI for further work up (3) UTI (urinary tract infection) Assessment & Plan: with negative culture, already received ceftriaxon for more than two weeks , will D/C (4) DVT (deep venous thrombosis) Assessment & Plan: continue anticoagulation, consult hematology (5) HTN (hypertension) Assessment & Plan: continue meds, keep systolic blood pressure less than 140 Subjective ROS Limited/Unobtainable: Yes Allergies: Coded Allergies: No Known Allergies (Unverified , 07/04/16) Subjective she is demented, awake and alert, nonverbal, afebrile. Objective Vital Signs Last 24 Hour Vital Signs Date Time Temp Pulse Resp B/P Pulse Ox O2 Delivery O2 Flow Rate FiO2 09/04/16 12:00 98.1 71 19 144/118 95 Room Air 09/04/16 08:52 98.1 67 20 136/109 96 Room Air 09/04/16 08:39 134/106 09/04/16 08:35 77 134/106 09/04/16 04:00 98.1 72 20 93 Room Air 09/04/16 00:00 97.9 85 20 153/99 95 Room Air 09/03/16 21:00 75 155/85 09/03/16 20:00 97.3 85 20 155/78 96 Room Air 09/03/16 16:00 98.1 72 18 157/81 95 Room Air Height (Feet): 4 Height (Inches): 5.00 Weight (Pounds): 105 General Appearance: WD/WN, no acute distress HEENT: normocephalic, atraumatic, anicteric Respiratory/Chest: chest wall non-tender, lungs clear, normal breath sounds, no respiratory distress, no accessory muscle use Cardiovascular: normal peripheral pulses, normal rate, regular rhythm, no gallop/murmur Abdomen: normal bowel sounds, soft, non tender, no organomegaly, non distended , no mass Extremities: no cyanosis, no clubbing Skin: no rash, no lesions Microbiology Date/Time Source Procedure Growth Status 09/01/16 21:29 Blood Blood Culture - Preliminary NO GROWTH AFTER 48 HOURS Resulted 09/01/16 21:20 Blood Blood Culture - Preliminary NO GROWTH AFTER 48 HOURS Resulted 09/01/16 21:45 Nasal Nares MRSA Culture - Final NO METHICILLIN RESISTANT STAPH AUREUS... Complete 09/01/16 21:45 Urine,Clean Catch Urine Culture - Final NO GROWTH AFTER 48 HOURS Complete 09/01/16 21:45 Rectum VRE Culture - Final NO VANCOMYCIN RESISTANT ENTEROCOCCUS ... Complete Laboratory Tests Test 09/04/16 05:35 White Blood Count 5.1 K/UL (4.8-10.8) Red Blood Count 3.91 M/UL (4.20-5.40) L Hemoglobin 10.5 G/DL (12.0-16.0) L Hematocrit 32.3 % (37.0-47.0) L Mean Corpuscular Volume 83 FL (80-99) Mean Corpuscular Hemoglobin 26.9 PG (27.0-31.0) L Mean Corpuscular Hemoglobin Concent 32.6 G/DL (32.0-36.0) Red Cell Distribution Width 14.7 % (11.6-14.8) Platelet Count 229 K/UL (150-450) Mean Platelet Volume 7.5 FL (6.5-10.1) Neutrophils (%) (Auto) 70.7 % (45.0-75.0) Lymphocytes (%) (Auto) 18.1 % (20.0-45.0) L Monocytes (%) (Auto) 10.4 % (1.0-10.0) H Eosinophils (%) (Auto) 0.3 % (0.0-3.0) Basophils (%) (Auto) 0.6 % (0.0-2.0) Prothrombin Time 44.2 SEC (9.30-11.50) H Prothromb Time International Ratio 4.2 (0.9-1.1) H Current Medications Medications (Trade) Dose Ordered Sig/Selena Route PRN Reason Start Time Stop Time Status Last Admin Dose Admin Atorvastatin Calcium (Lipitor) 10 mg BEDTIME ORAL 09/02/16 21:00 10/02/16 20:59 09/03/16 21:00 Ceftriaxone Sodium/Sodium Chloride (Rocephin/Sodium Chloride) 110 ml @ 220 mls/hr Q24H IVPB 09/03/16 22:00 09/10/16 21:59 09/03/16 22:00 Hydrochlorothiazide (Hydrodiuril) 25 mg DAILY ORAL 09/03/16 09:00 10/03/16 08:59 09/04/16 08:18 Lisinopril (Prinivil) 20 mg DAILY ORAL 09/03/16 09:00 10/03/16 08:59 09/04/16 08:39 Magnesium Hydroxide (Mom) 30 ml DAILYPRN PRN ORAL Constipation 09/02/16 11:45 10/02/16 11:44 Memantine (Namenda) 5 mg BEDTIME ORAL 09/02/16 21:00 10/02/16 20:59 09/03/16 21:00 Metoprolol Tartrate (Lopressor) 25 mg EVERY 12 HOURS ORAL 09/02/16 21:00 10/02/16 20:59 09/04/16 08:35 Mirtazapine (Remeron) 22.5 mg BEDTIME ORAL 09/02/16 21:00 10/02/16 20:59 09/03/16 21:00 Multivitamins Therapeutic (Therapeutic Multivitamin) 1 ea DAILY ORAL 09/03/16 09:00 10/03/16 08:59 09/04/16 08:19 Pantoprazole (Protonix) 40 mg Q12HR IVP 09/03/16 21:00 10/03/16 20:59 09/04/16 09:02 Sorbitol (Sorbitol) 45 ml Q12HR PRN ORAL Constipation 09/04/16 11:30 10/04/16 11:29 Vitamin D (Vitamin D) 400 intlu DAILY ORAL 09/03/16 09:00 10/03/16 08:59 09/04/16 08:18 Warfarin Sodium 1 ea 1 ea DAILY PRN MISC PER RX PROTOCOL 09/02/16 12:30 10/02/16 12:29 Erika Hart M.D. Sep 04, 2016 15:09
[2016-09-04 16:00] VITALS: BP 153/96
--- NOTE | 2016-09-04 16:18 | Cardiology Report ---
APPROVED REPORT EKG Measurement Heart [id number] Sinus rhythm with premature atrial complexes Prolonged QT Abnormal ECG
[2016-09-04 20:10] VITALS: BP 152/80
[2016-09-04] MEDS: Memantine 5 MG TAB ORAL SCH (20:30)
[2016-09-05] VITALS (8 sets, daily range): BP systolic 132–172; BP diastolic 61–138
[2016-09-05] MEDS: Lisinopril 20mg tab ORAL SCH ×2 (06:42→17:13)
[2016-09-05 06:51] LABS: INR 3.7 (0.9-1.1); PROTHROMBIN TIME 39.6 SEC (9.30-11.50)
[2016-09-05] MEDS: Multivitamin w/Minerals tab ORAL SCH (09:02)
[2016-09-05] MEDS: Vitamin D 400 INTLU TAB ORAL SCH (09:02)
[2016-09-05] MEDS: Pantoprazole Inj IVP SCH (09:02)
[2016-09-05] MEDS: Metoprolol 25mg tab ORAL SCH ×2 (09:03→20:36)
--- NOTE | 2016-09-05 12:34 | General Progress Note ---
Assessment/Plan Problem List: (1) Anemia, chronic disease ICD Codes: D63.8 - Anemia in other chronic diseases classified elsewhere SNOMED: 389919892 (2) HTN (hypertension) ICD Codes: I10 - Essential (primary) hypertension SNOMED: 77893893 (3) UTI (urinary tract infection) ICD Codes: N39.0 - Urinary tract infection, site not specified SNOMED: 81763924 Qualifiers: Qualified Codes: N30.00 - Acute cystitis without hematuria Status: progressing Assessment/Plan vitals stale htn and anemia uti and sepsis are improving dc planning Subjective ROS Limited/Unobtainable: Yes Constitutional: Reports: no symptoms Allergies: Coded Allergies: No Known Allergies (Unverified , 07/04/16) Objective Last 24 Hour Vital Signs Date Time Temp Pulse Resp B/P Pulse Ox O2 Delivery O2 Flow Rate FiO2 09/05/16 09:03 85 172/96 09/05/16 08:00 97.7 85 20 172/96 Room Air 09/05/16 06:42 160/75 09/05/16 04:22 97.9 80 19 161/75 94 Room Air 09/05/16 00:10 97.7 81 18 149/94 93 Room Air 09/04/16 20:29 92 152/80 09/04/16 20:10 97.9 92 17 152/80 98 Room Air 09/04/16 16:00 97.2 70 21 153/96 94 Room Air Intake and Output 09/04/16 09/05/16 19:00 07:00 Intake Total 150 ml Output Total 800 ml 350 ml Balance -650 ml -350 ml Intake Oral 150 ml Output Urine Total 800 ml 350 ml # Bowel Movements 2 Laboratory Tests 09/05/16 05:00: Prothrombin Time 39.6H, Prothromb Time International Ratio 3.7H Height (Feet): 4 Height (Inches): 5.00 Weight (Pounds): 105 EENT: PERRL/EOMI Neck: supple Cardiovascular: normal rate Respiratory/Chest: lungs clear Abdomen: non tender Coco Jackson MD Sep 05, 2016 12:34
--- NOTE | 2016-09-05 14:50 | Consultation ---
Consult Note Consult Note asked to eval for BP management Chief Complaint: Vomiting Is an 86-year-old [place] speaking female with a history of dementia and multiple medical problem. She's been admitted several times for sepsis from UTI. She presents with chief complaint of vomiting twice today. Unable to get any history from patient. History is from her long-term note and previous records. Vomiting is nonbloody and nonbilious. No documentation of fever. Past Medical History: see triage record, old chart reviewed, DM, HTN, dementia Past Medical History: No History, Except For Hx Hypertension: Yes Hx Gastrointestinal Problems: Yes - gerd History Of Psychiatric Problem: Yes - psychosis Hx Neurological Problems: Yes - dementia Hx Dementia: Yes . Assessment/Plan status: Vomiting and Diarrhea ? infectious Encephalopathy UTI , Sepsis DVT Aspiration prone Dementia Plan: Adjust BP meds- Increse lisinopril and PRN Clonidine Slow hydrate- K supplement as needed Monitor renal parameters- avoid nephrotoxics- Keeps BP and BS in check DRE CHAN Sep 05, 2016 14:50
--- NOTE | 2016-09-05 14:59 | Infectious Diseases Prog Note ---
Assessment/Plan Problems: (1) Sepsis due to Escherichia coli (E. coli) Assessment & Plan: finished course of ceftriaxone for two weeks , now repeated blood culture and urine culture are negative, off ceftriaxon . (2) Vomiting Assessment & Plan: unclear etiology, improved, continue antinausea meds, consult GI for further work up (3) UTI (urinary tract infection) Assessment & Plan: with negative culture, already received ceftriaxon for more than two weeks , off ceftriaxon (4) DVT (deep venous thrombosis) Assessment & Plan: continue anticoagulation, consult hematology (5) HTN (hypertension) Assessment & Plan: continue meds, keep systolic blood pressure less than 140 Subjective ROS Limited/Unobtainable: Yes Allergies: Coded Allergies: No Known Allergies (Unverified , 07/04/16) Subjective she is demented, awake and alert, nonverbal, afebrile. not in distress Objective Vital Signs Last 24 Hour Vital Signs Date Time Temp Pulse Resp B/P Pulse Ox O2 Delivery O2 Flow Rate FiO2 09/05/16 14:12 84 146/80 09/05/16 13:50 167/138 09/05/16 12:00 98.2 71 20 167/138 93 Room Air 09/05/16 09:03 85 172/96 09/05/16 08:00 97.7 85 20 172/96 95 Room Air 09/05/16 06:42 160/75 09/05/16 04:22 97.9 80 19 161/75 94 Room Air 09/05/16 00:10 97.7 81 18 149/94 93 Room Air 09/04/16 20:29 92 152/80 09/04/16 20:10 97.9 92 17 152/80 98 Room Air 09/04/16 16:00 97.2 70 21 153/96 94 Room Air Height (Feet): 4 Height (Inches): 5.00 Weight (Pounds): 105 General Appearance: WD/WN, no acute distress HEENT: normocephalic, atraumatic, anicteric, mucous membranes moist Respiratory/Chest: chest wall non-tender, lungs clear, normal breath sounds, no respiratory distress, no accessory muscle use Cardiovascular: normal peripheral pulses, normal rate, regular rhythm, no gallop/murmur Abdomen: normal bowel sounds, soft, non tender, no organomegaly, non distended , no mass, no scars Extremities: no cyanosis, no clubbing Skin: no rash, no lesions Laboratory Tests Test 09/05/16 05:00 Prothrombin Time 39.6 SEC (9.30-11.50) H Prothromb Time International Ratio 3.7 (0.9-1.1) H Current Medications Medications (Trade) Dose Ordered Sig/Selena Route PRN Reason Start Time Stop Time Status Last Admin Dose Admin Atorvastatin Calcium (Lipitor) 10 mg BEDTIME ORAL 09/02/16 21:00 10/02/16 20:59 09/04/16 20:30 Clonidine HCl (Catapres) 0.1 mg Q4H PRN ORAL bp over 160 syst 09/05/16 15:00 10/05/16 14:59 UNV Lisinopril (Prinivil) 20 mg BID ORAL 09/05/16 18:00 10/05/16 17:59 UNV Magnesium Hydroxide (Mom) 30 ml DAILYPRN PRN ORAL Constipation 09/02/16 11:45 10/02/16 11:44 Memantine (Namenda) 5 mg BEDTIME ORAL 09/02/16 21:00 10/02/16 20:59 09/04/16 20:30 Metoprolol Tartrate (Lopressor) 25 mg EVERY 12 HOURS ORAL 09/02/16 21:00 10/02/16 20:59 09/05/16 09:03 Mirtazapine (Remeron) 22.5 mg BEDTIME ORAL 09/02/16 21:00 10/02/16 20:59 09/04/16 20:29 Multivitamins Therapeutic (Therapeutic Multivitamin) 1 ea DAILY ORAL 09/03/16 09:00 10/03/16 08:59 09/05/16 09:02 Pantoprazole (Protonix) 40 mg EVERY 12 HOURS ORAL 09/05/16 21:00 10/05/16 20:59 UNV Potassium Chloride (KCl 10% 40mEq Oral solution) 40 meq ONCE ONCE NG 09/05/16 15:00 09/05/16 15:01 UNV Sorbitol (Sorbitol) 45 ml Q12HR PRN ORAL Constipation 09/04/16 11:30 10/04/16 11:29 Vitamin D (Vitamin D) 400 intlu DAILY ORAL 09/03/16 09:00 10/03/16 08:59 09/05/16 09:02 Warfarin Sodium (Coumadin per pharmacy) 1 ea DAILY PRN MISC PER RX PROTOCOL 09/02/16 12:30 10/02/16 12:29 Erika Hart M.D. Sep 05, 2016 14:59
[2016-09-05] MEDS ORDERED: KCl 10% 40mEq/30ml liquid NG ONE (15:30)
--- NOTE | 2016-09-05 15:34 | General Progress Note ---
Assessment/Plan Assessment/Plan ASSESSMENT: 1. Acute deep vein thrombosis of the left common femoral vein. Therapeutic INR 2 -3 goal, continue on coumadin 2. Anemia, secondary to gastrointestinal bleed and hematemesis. Currently hgb > 10 3. Thrombocytopenia - new onset, likely 2/2 infection, has now improved 4. Nausea and vomiting - current and in past egd showed gerd 5. Dementia/Altered mental status. 6. Acute kidney injury. 7. Hiatal hernia. 8. Acid reflux. RECOMMENDATIONS: 1. Monitor counts. 2. Recent imaging reviewed, CT a/p shows accessory spleen 3. Appreciate Gi ID, renal recs 4. Continue Coumadin 5. Maintain INR between 2-3. 6. GI ppx with protonix 7. DW the staff. Thank you, Mike Paige M.D. Subjective Constitutional: Reports: no symptoms HEENT: Reports: no symptoms Cardiovascular: Reports: no symptoms Respiratory: Reports: no symptoms Gastrointestinal/Abdominal: Reports: poor appetite Genitourinary: Reports: no symptoms Neurologic/Psychiatric: Reports: no symptoms Endocrine: Reports: no symptoms Hematologic/Lymphatic: Reports: anemia Allergies: Coded Allergies: No Known Allergies (Unverified , 07/04/16) Subjective stable, no fevers or chills reported, nonverbal today Objective Last 24 Hour Vital Signs Date Time Temp Pulse Resp B/P Pulse Ox O2 Delivery O2 Flow Rate FiO2 09/05/16 14:12 84 146/80 09/05/16 13:50 167/138 09/05/16 12:00 98.2 71 20 167/138 93 Room Air 09/05/16 09:03 85 172/96 09/05/16 08:00 97.7 85 20 172/96 95 Room Air 09/05/16 06:42 160/75 09/05/16 04:22 97.9 80 19 161/75 94 Room Air 09/05/16 00:10 97.7 81 18 149/94 93 Room Air 09/04/16 20:29 92 152/80 09/04/16 20:10 97.9 92 17 152/80 98 Room Air 09/04/16 16:00 97.2 70 21 153/96 94 Room Air Intake and Output 09/04/16 09/05/16 19:00 07:00 Intake Total 150 ml Output Total 800 ml 350 ml Balance -650 ml -350 ml Intake Oral 150 ml Output Urine Total 800 ml 350 ml # Bowel Movements 2 Laboratory Tests 09/05/16 05:00: Prothrombin Time 39.6H, Prothromb Time International Ratio 3.7H Height (Feet): 4 Height (Inches): 5.00 Weight (Pounds): 105 General Appearance: alert EENT: normal ENT inspection Neck: supple Cardiovascular: regular rhythm Respiratory/Chest: no respiratory distress Extremities: non-tender Edema: 1+ Leg (L), 1+ Leg (R) Edema: mild edema Neurologic: alert Skin: warm/dry Mike Paige Sep 05, 2016 15:34
[2016-09-05] MEDS: Memantine 5 MG TAB ORAL SCH (20:36)
--- NOTE | 2016-09-05 22:07 | General Progress Note ---
Assessment/Plan Assessment/Plan Assessment - N/V - resolved - UTI - GERD - Hiatal hernia - DVT - OBS Recommendations - IPPI - elevate HOB - Reflux precautions - po as tolerated - further w/u if symptoms persist Subjective Allergies: Coded Allergies: No Known Allergies (Unverified , 07/04/16) Subjective minimally interactive sleepy no vomiting reported d/w RN Objective Last 24 Hour Vital Signs Date Time Temp Pulse Resp B/P Pulse Ox O2 Delivery O2 Flow Rate FiO2 09/05/16 20:36 80 141/97 09/05/16 20:00 98.1 80 19 141/97 93 Room Air 09/05/16 17:13 133/68 09/05/16 17:13 80 133/68 09/05/16 16:00 99.3 79 18 132/61 97 Room Air 09/05/16 14:12 84 146/80 09/05/16 13:50 167/138 09/05/16 12:00 98.2 71 20 167/138 93 Room Air 09/05/16 09:03 85 172/96 09/05/16 08:00 97.7 85 20 172/96 95 Room Air 09/05/16 06:42 160/75 09/05/16 04:22 97.9 80 19 161/75 94 Room Air 09/05/16 00:10 97.7 81 18 149/94 93 Room Air Intake and Output 09/04/16 09/05/16 19:00 07:00 Intake Total 150 ml Output Total 800 ml 350 ml Balance -650 ml -350 ml Intake Oral 150 ml Output Urine Total 800 ml 350 ml # Bowel Movements 2 Laboratory Tests 09/05/16 05:00: Prothrombin Time 39.6H, Prothromb Time International Ratio 3.7H Height (Feet): 4 Height (Inches): 5.00 Weight (Pounds): 105 Objective Elderly woman NAD NCAT supple CTA RRR Soft NT ND no edema non focal JUSTO MAYERS Sep 05, 2016 22:07
[2016-09-06] VITALS: BP 136/76
[2016-09-06 04:00] VITALS: BP 130/70
[2016-09-06 08:00] VITALS: BP 154/85
[2016-09-06] MEDS: Vitamin D 400 INTLU TAB ORAL SCH (08:34)
[2016-09-06] MEDS: Lisinopril 20mg tab ORAL SCH (08:35)
[2016-09-06] MEDS: Metoprolol 25mg tab ORAL SCH (08:35)
[2016-09-06] MEDS ORDERED: Multivitamins W/Minerals 15 ML UDC ORAL SCH (09:00)
--- NOTE | 2016-09-06 10:42 | General Progress Note ---
Assessment/Plan Problem List: (1) Anemia, chronic disease ICD Codes: D63.8 - Anemia in other chronic diseases classified elsewhere SNOMED: 117790594 (2) HTN (hypertension) ICD Codes: I10 - Essential (primary) hypertension SNOMED: 79118145 (3) UTI (urinary tract infection) ICD Codes: N39.0 - Urinary tract infection, site not specified SNOMED: 68941768 Qualifiers: Qualified Codes: N30.00 - Acute cystitis without hematuria Status: progressing Assessment/Plan poor appetite cleared by gi for dc favor comfort care afebrile Subjective ROS Limited/Unobtainable: Yes Constitutional: Reports: no symptoms Allergies: Coded Allergies: No Known Allergies (Unverified , 07/04/16) Objective Last 24 Hour Vital Signs Date Time Temp Pulse Resp B/P Pulse Ox O2 Delivery O2 Flow Rate FiO2 09/06/16 08:35 154/85 09/06/16 08:35 78 154/85 09/06/16 08:00 97.2 78 19 154/85 94 Room Air 09/06/16 04:00 97.5 76 18 130/70 94 Room Air 09/06/16 00:00 98.2 80 18 136/76 93 Room Air 09/05/16 20:36 80 141/97 09/05/16 20:00 98.1 80 19 141/97 93 Room Air 09/05/16 17:13 133/68 09/05/16 17:13 80 133/68 09/05/16 16:00 99.3 79 18 132/61 97 Room Air 09/05/16 14:12 84 146/80 09/05/16 13:50 167/138 09/05/16 12:00 98.2 71 20 167/138 93 Room Air Intake and Output 09/05/16 09/06/16 18:59 06:59 Intake Total 130 ml Output Total 350 ml 300 ml Balance -220 ml -300 ml Intake Oral 130 ml Output Urine Total 350 ml 300 ml # Voids 1 # Bowel Movements 2 Height (Feet): 4 Height (Inches): 5.00 Weight (Pounds): 105 General Appearance: confused Neck: supple Cardiovascular: normal rate Respiratory/Chest: lungs clear Coco Jackson MD Sep 06, 2016 10:42
[2016-09-06 12:00] VITALS: BP 141/88
[2016-09-06 13:28] LABS: INR 3.1 (0.9-1.1); PROTHROMBIN TIME 33.2 SEC (9.30-11.50)
--- NOTE | 2016-09-06 13:30 | General Progress Note ---
Assessment/Plan Status: unchanged Status Narrative BP stable Assessment/Plan status: Vomiting and Diarrhea ? infectious Encephalopathy UTI , Sepsis DVT Aspiration prone Dementia Plan: Adjust BP meds- Increse lisinopril and PRN Clonidine Slow hydrate- K supplement as needed Monitor renal parameters- avoid nephrotoxics- Keeps BP and BS in check Subjective ROS Limited/Unobtainable: No Constitutional: Reports: malaise Allergies: Coded Allergies: No Known Allergies (Unverified , 07/04/16) Objective Last 24 Hour Vital Signs Date Time Temp Pulse Resp B/P Pulse Ox O2 Delivery O2 Flow Rate FiO2 09/06/16 08:35 154/85 09/06/16 08:35 78 154/85 09/06/16 08:00 97.2 78 19 154/85 94 Room Air 09/06/16 04:00 97.5 76 18 130/70 94 Room Air 09/06/16 00:00 98.2 80 18 136/76 93 Room Air 09/05/16 20:36 80 141/97 09/05/16 20:00 98.1 80 19 141/97 93 Room Air 09/05/16 17:13 133/68 09/05/16 17:13 80 133/68 09/05/16 16:00 99.3 79 18 132/61 97 Room Air 09/05/16 14:12 84 146/80 09/05/16 13:50 167/138 Intake and Output 09/05/16 09/06/16 19:00 07:00 Intake Total 130 ml Output Total 350 ml 300 ml Balance -220 ml -300 ml Intake Oral 130 ml Output Urine Total 350 ml 300 ml # Voids 1 # Bowel Movements 2 Laboratory Tests 09/06/16 12:55: Prothrombin Time [Pending], Prothromb Time International Ratio [Pending] Height (Feet): 4 Height (Inches): 5.00 Weight (Pounds): 105 General Appearance: no apparent distress Cardiovascular: normal rate Respiratory/Chest: decreased breath sounds Abdomen: soft Objective other PE not changed DRE CHAN Sep 06, 2016 13:29
--- NOTE | 2016-09-06 13:57 | General Progress Note ---
Assessment/Plan Assessment/Plan Assessment - N/V - resolved - possibly due to GERD/Gastroparesis - UTI - GERD - Hiatal hernia - DVT - OBS Recommendations - BID PPI - continue at SNF - D5 1/2 NS at 50 - continue at SNF - trial of remeron 7.5 qhs - elevate HOB - Reflux precautions - po as tolerated - consider PEG if readmitted Subjective Allergies: Coded Allergies: No Known Allergies (Unverified , 07/04/16) Subjective minimally interactive poor po takes a lot of encouragement to eat d/w DTR in law at length all w/u on prior 3 admits reviewed (labs, CT x 2, EGD) she was also reminded that patient did not show any N/V while inpatient on any of the 3 admits PEG option offered. she and pt son open to it, if patient fails another trial at d/c to SNF Objective Last 24 Hour Vital Signs Date Time Temp Pulse Resp B/P Pulse Ox O2 Delivery O2 Flow Rate FiO2 09/06/16 08:35 154/85 09/06/16 08:35 78 154/85 09/06/16 08:00 97.2 78 19 154/85 94 Room Air 09/06/16 04:00 97.5 76 18 130/70 94 Room Air 09/06/16 00:00 98.2 80 18 136/76 93 Room Air 09/05/16 20:36 80 141/97 09/05/16 20:00 98.1 80 19 141/97 93 Room Air 09/05/16 17:13 133/68 09/05/16 17:13 80 133/68 09/05/16 16:00 99.3 79 18 132/61 97 Room Air 09/05/16 14:12 84 146/80 Intake and Output 09/05/16 09/06/16 19:00 07:00 Intake Total 130 ml Output Total 350 ml 300 ml Balance -220 ml -300 ml Intake Oral 130 ml Output Urine Total 350 ml 300 ml # Voids 1 # Bowel Movements 2 Laboratory Tests 09/06/16 12:55: Prothrombin Time 33.2H, Prothromb Time International Ratio 3.1H Height (Feet): 4 Height (Inches): 5.00 Weight (Pounds): 105 Objective Elderly woman NAD NCAT supple CTA RRR Soft NT ND no edema non focal JUSTO MAYERS Sep 06, 2016 13:57
--- NOTE | 2016-09-06 14:15 | General Progress Note ---
Assessment/Plan Status: stable Assessment/Plan ASSESSMENT: 1. Acute deep vein thrombosis of the left common femoral vein. Therapeutic INR 2 -3 goal, continue on coumadin 2. Anemia, secondary to gastrointestinal bleed and hematemesis. Currently hgb > 10 3. Thrombocytopenia - new onset, likely 2/2 infection, has now improved 5. Nausea and vomiting - has now resolved. 6. Dementia/Altered mental status. 7. Acute kidney injury. 8. Hiatal hernia. 9. Acid reflux. RECOMMENDATIONS: 1. Monitor counts. 2. Recent imaging reviewed, CT a/p shows accessory spleen 3. Appreciate Gi ID, renal recs 4. Continue Coumadin 5. Maintain INR between 2-3. 6. GI ppx with protonix 7. DW the staff. Thank you, Mike Paige M.D. Subjective ROS Limited/Unobtainable: Yes Constitutional: Reports: no symptoms HEENT: Reports: no symptoms Cardiovascular: Reports: edema Gastrointestinal/Abdominal: Reports: no symptoms Genitourinary: Reports: no symptoms Neurologic/Psychiatric: Reports: no symptoms Endocrine: Reports: no symptoms Hematologic/Lymphatic: Reports: anemia Allergies: Coded Allergies: No Known Allergies (Unverified , 07/04/16) Subjective pt stable, pt nonverbal today Objective Last 24 Hour Vital Signs Date Time Temp Pulse Resp B/P Pulse Ox O2 Delivery O2 Flow Rate FiO2 09/06/16 08:35 154/85 09/06/16 08:35 78 154/85 09/06/16 08:00 97.2 78 19 154/85 94 Room Air 09/06/16 04:00 97.5 76 18 130/70 94 Room Air 09/06/16 00:00 98.2 80 18 136/76 93 Room Air 09/05/16 20:36 80 141/97 09/05/16 20:00 98.1 80 19 141/97 93 Room Air 09/05/16 17:13 133/68 09/05/16 17:13 80 133/68 09/05/16 16:00 99.3 79 18 132/61 97 Room Air 09/05/16 14:12 84 146/80 Intake and Output 09/05/16 09/06/16 19:00 07:00 Intake Total 130 ml Output Total 350 ml 300 ml Balance -220 ml -300 ml Intake Oral 130 ml Output Urine Total 350 ml 300 ml # Voids 1 # Bowel Movements 2 Laboratory Tests 09/06/16 12:55: Prothrombin Time 33.2H, Prothromb Time International Ratio 3.1H Height (Feet): 4 Height (Inches): 5.00 Weight (Pounds): 105 General Appearance: confused EENT: PERRL/EOMI Neck: non-tender Cardiovascular: normal peripheral pulses Respiratory/Chest: chest wall non-tender Abdomen: normal bowel sounds Edema: no edema noted Arm (L), 1+ Arm (R), no edema noted Leg (L), no edema noted Leg (R), no edema noted Pedal (L), no edema noted Pedal (R) Edema: mild edema Neurologic: recovery collector II-XII grossly normal Skin: warm/dry Mike Paige Sep 06, 2016 14:15
[2016-09-06] MEDS ORDERED: D5 1/2NS 1,000 ML IV SCH ×2 (15:00→16:00)
[2016-09-06] MEDS ORDERED: CATAPRES0.1 MG ORAL (15:38)
[2016-09-06 16:00] VITALS: BP 142/83
[2016-09-06] MEDS ORDERED: Warfarin Sodium 2.5mg ORAL ONE (17:00)
[2016-09-09] MEDS ORDERED: PROTONIX40 MG ORAL (13:23)
[2016-09-09] MEDS ORDERED: MIRTAZAPINE15 MG ORAL (13:23)
--- NOTE | 2016-09-09 13:29 | Discharge Summary ---
Discharge Summary Hospital Course Date of Admission Sep 01, 2016 at 23:35 Date of Discharge Sep 06, 2016 at 16:50 Admitting Diagnosis Vomiting, UTI HPI Caridad Lopez is a 86 year old female who was admitted on Sep 01, 2016 at 23:35 for Vomiting, Urinary Tract Infection Hospital Course dc summary #[id number] Discharge Medications New Medications: Mirtazapine* (Remeron*) 15 Mg Tablet 7.5 MG ORAL BEDTIME, #30 TAB Pantoprazole* (Protonix*) 40 Mg Tablet.dr 40 MG ORAL EVERY 12 HOURS, #60 TAB Continued Medications: Atorvastatin Calcium* (Lipitor*) 10 Mg Tablet 10 MG ORAL BEDTIME, TAB Clonidine Hcl* (Catapres*) 0.1 Mg Tablet 0.1 MG ORAL EVERY 4 HOURS PRN for For High Blood Pressure, TAB Docusate Sodium* (Docusate Sodium*) 100 Mg Capsule 100 MG ORAL TWICE A DAY, CAP Lisinopril (Lisinopril*) 20 Mg Tablet 20 MG ORAL DAILY, TAB Magnesium Hydroxide* (Milk Of Magnesia*) 400 Mg/5 Ml Oral.susp 30 ML ORAL DAILY PRN for Constipation, ML Memantine Hcl* (Namenda*) 5 Mg Tablet 5 MG ORAL BEDTIME, TAB Metoprolol Tartrate* (Metoprolol Tartrate*) 25 Mg Tablet 25 MG ORAL EVERY 12 HOURS, TAB Multivitamin With Minerals (Multivitamins With Minerals*) 1 Each Tablet 1 TAB ORAL DAILY, TAB Vitamin D (Vitamin D3) 400 Unit Tablet 2000 UNITS ORAL DAILY, TAB Warfarin Sod* (Coumadin*) 2.5 Mg Tablet 2.5 MG ORAL DAILY, TAB Discharge Condition Upon Discharge: stable Discharge Disposition Patient was discharged to SNF Discharge Diagnoses: Discharge Instructions Discharge Instructions Special Instructions I have been assigned to complete a D/C Summary on this account. I was not involved in the patient management Lani Avila NP ([facility]) Sep 09, 2016 13:29
--- NOTE | 2016-09-10 01:08 | Discharge Summary 2 SIG ---
DATE OF ADMISSION: 09/01/2016 DATE OF DISCHARGE: 09/06/2016 REASON FOR ADMISSION: 86-year-old female presented with nausea and vomiting. Vomiting was nonbloody and nonbilious. No documented fevers. The patient had a recent admission for sepsis and urinary tract infection. Workup in the emergency room revealed negative troponin . EKG with normal sinus rhythm. No ischemic changes. Chest x-ray revealed no acute cardiopulmonary disease. Blood pressure was stable. No fever. Stable heart rate. The patient was admitted for IV antibiotics and started on empiric antibiotic due to the prior history of UTI with E. coli. ADMITTING DIAGNOSES: 1. Nausea with vomiting. 2. Possible urinary tract infection. 3. Anemia. 4. Proteinuria. HOSPITAL STAY: The patient was admitted to the hospital. The patient was started on antibiotics. ID consult was requested. The patient was on empiric antibiotics. Blood culture negative. Urine culture negative. Antibiotics were discontinued. 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 The patient was started on heparin and Coumadin to bridge to therapeutic INR. INR therapeutic. Heparin discontinued. The patient was discharged on the Coumadin with further dose per doctor at the facility to keep INR in therapeutic range between 2 and 3. Book Agent followed. The patient was anemic. According to hole filler, anemia was secondary to the GI bleeding. Hemoglobin prior to discharge above 10. Thrombocytopenia was a new finding and likely secondary to the disease process as per hole filler. It was improving. Gastrointestinal specialist followed the patient. The patient had a hiatal hernia and gastroesophageal reflux disease. The patient was started on PPI b.i.d. The patient was on slow hydration. Continue slow hydration at the shelter facility as recommended by GI doctor. The head of bed kept elevated at all times. Reflux precautions were maintained. Senior Safety Support Manager followed the patient as well due to the proteinuria. He recommended as well to continue with slow hydration. Blood pressure was managed with the ANGELA inhibitor, beta-rosetta, and p.r.n. clonidine, it remained stable. Renal parameters were closely monitored. Nephrotoxic were avoided. Swallow evaluation revealed [id number] oropharyngeal dysphagia. Recommended per quality of life diet: nectar thick soup consistency with nectar thick liquids, strict aspiration/reflux precaution with one-to-one feeding, and video swallow evaluation. GI recommended, if the patient gets readmitted, consider G-tube placement. DISCHARGE DIAGNOSES: 1. Possible sepsis, 2. Possible urinary tract infection. 2. Nausea and vomiting, resolved (likely secondary to gastroesophageal reflux disease and gastroparesis). 3. Anemia , secondary to gastrointestinal bleeding. 4. Dementia. 5. Acute deep venous thrombosis of the left lower extremity, common femoral vein. 6. Hypertension. 7. Thrombocytopenia. 8. Hiatal hernia. 9. Gastroesophageal reflux disease. 10. Proteinuria. 11. Dysphagia DISCHARGE MEDICATIONS: See medication reconciliation list. DISCHARGE INSTRUCTIONS: The patient was discharged to shelter facility. FOLLOWUP: Follow up with medical doctor at the facility. Coco Jackson M.D. I have been assigned to dictate discharge summary on this account and I was not involved in the patient's management. Lani Avila ([facility]) N.P. DR: KEISHA JOB#: [id number] CC: MIO
== END 2016-09-06 16:50 | DRG 872 ==
LOC: EDBD 21:01 → EMR 21:20 → 3E 23:35 → EDBEDREQ 09-02 01:51 → 3E 09-02 04:11
DX: A41.51 Sepsis due to Escherichia coli [E. coli] (principal); N17.9 Acute kidney failure, unspecified; I82.412 Acute embolism and thrombosis of left femoral vein; F03.90 Unspecified dementia, unspecified severity, without behavioral disturbance, psychotic disturbance, mood disturbance, and anxiety; D69.6 Thrombocytopenia, unspecified; E87.5 Hyperkalemia; N39.0 Urinary tract infection, site not specified; D64.9 Anemia, unspecified; I10 Essential (primary) hypertension; K21.9 Gastro-esophageal reflux disease without esophagitis; E78.00 Pure hypercholesterolemia, unspecified; D50.0 Iron deficiency anemia secondary to blood loss (chronic); R11.2 Nausea with vomiting, unspecified; K44.9 Diaphragmatic hernia without obstruction or gangrene; F29 Unspecified psychosis not due to a substance or known physiological condition; D63.8 Anemia in other chronic diseases classified elsewhere
CPT/HCPCS: 36415; 71010; 80053; 81003; 82550; 82553; 82728; 83605; 84484; 85025; 85610; 85730; 87040; 87081; 87086; 93005; 93970

== ENCOUNTER 2017-05-27 16:27 | Inpatient (IN) | payer MEDICARE, MEDICAID ==
[~2017-05-27] VITALS: Ht 142.2 cm; Wt 60.8 kg
[~2017-05-27 16:27] MED LIST changes: +CATAPRES0.1 MG ORAL; +MIRTAZAPINE15 MG ORAL; +PROTONIX40 MG ORAL
[2017-05-27] MEDS ORDERED: UNOBMED (16:43)
[2017-05-27 17:00] VITALS: BP 217/65
--- NOTE | 2017-05-27 17:35 | Emergency Room Report ---
History of Present Illness General Chief Complaint: Altered Mental Status Source: Family Member Present Illness HPI The patient presents with vomiting and inability to take medications or oral alimentation. She's in assisted-living at that moment. She has dementia and is unable to tell his symptomatology. Allergies: Coded Allergies: No Known Allergies (Unverified , 07/04/16) Patient History Past Medical History: see triage record Social History Narrative assisted living Last Menstrual Period: Unk Reviewed Nursing Documentation: PMH: Agreed, PSxH: Agreed Nursing Documentation-PMH Hx Hypertension: Yes Hx Cancer: No Hx Gastrointestinal Problems: Yes - GERD Hx Neurological Problems: Yes - Dementia Hx Dementia: Yes Physical Exam Vital Signs Date Time Temp Pulse Resp B/P (MAP) Pulse Ox O2 Delivery O2 Flow Rate FiO2 05/27/17 16:39 97.5 55 17 189/105 95 Room Air Sp02 EP Interpretation: reviewed, abnormal - reviewed and interpreted as slightly low by me General Appearance: no apparent distress, alert, other - sort stature Head: normocephalic Eyes: bilateral eye normal inspection, bilateral eye PERRL ENT: moist mucus membranes Neck: supple Respiratory: lungs clear, normal breath sounds Cardiovascular #1: regular rate, rhythm Cardiovascular #2: 2+ radial (R) Gastrointestinal: normal inspection, normal bowel sounds, non tender, no mass, non-distended Musculoskeletal: back normal, gait/station normal, normal range of motion Neurologic: alert, responsive, motor strength/tone normal, DTRs symmetric, sensory intact, oriented - X1 Psychiatric: depressed affect, anxious Skin: normal inspection, warm/dry Medical Decision Making Diagnostic Impression: Primary Impression: Failure to thrive Qualified Codes: R62.7 - Adult failure to thrive Additional Impressions: Vomiting Qualified Codes: R11.2 - Nausea with vomiting, unspecified Uncontrolled hypertension Dehydration ER Course The patient presents with inability keep down oral fluids and medication. Differential includes gastroenteritis, acute myocardial infarction, occult infection, electrolyte imbalance amongst others. The patient is very complicated and unable to give a history. Evaluation needs the undertaken including CT of the head, chest x-ray, abdominal films, EKG and labs. The patient will receive gentle IV hydration. EKG without injury. CXR with chronic changes. CT with chronic changes. Labs with elevated BUN. Some improvement with treatment, though HTN poorly controlled and needing IV hydralazine, several doses. Facility where she came from unable to care for her. Admit med, Dr. Acevedo. Laboratory Tests Test 05/27/17 17:40 05/27/17 19:25 White Blood Count 6.4 K/UL (4.8-10.8) Red Blood Count 5.17 M/UL (4.20-5.40) Hemoglobin 15.0 G/DL (12.0-16.0) Hematocrit 45.4 % (37.0-47.0) Mean Corpuscular Volume 88 FL (80-99) Mean Corpuscular Hemoglobin 29.0 PG (27.0-31.0) Mean Corpuscular Hemoglobin Concent 33.1 G/DL (32.0-36.0) Red Cell Distribution Width 11.8 % (11.6-14.8) Platelet Count 240 K/UL (150-450) Mean Platelet Volume 9.5 FL (6.5-10.1) Neutrophils (%) (Auto) 61.4 % (45.0-75.0) Lymphocytes (%) (Auto) 27.6 % (20.0-45.0) Monocytes (%) (Auto) 8.2 % (1.0-10.0) Eosinophils (%) (Auto) 2.0 % (0.0-3.0) Basophils (%) (Auto) 0.8 % (0.0-2.0) Prothrombin Time 9.2 SEC (9.30-11.50) L Prothrombin Time INR 0.9 (0.9-1.1) PTT 22 SEC (23-33) L Sodium Level 141 MMOL/L (136-145) Potassium Level 4.3 MMOL/L (3.5-5.1) Chloride Level 104 MMOL/L (98-107) Carbon Dioxide Level 27 MMOL/L (21-32) Anion Gap 10 mmol/L (5-15) Blood Urea Nitrogen 21 mg/dL (7-18) H Creatinine 1.1 MG/DL (0.55-1.30) Estimate Glomerular Filtration Rate mL/min (>60) Glucose Level 106 MG/DL (74-106) Calcium Level 8.5 MG/DL (8.5-10.1) Total Bilirubin 0.7 MG/DL (0.2-1.0) Aspartate Amino Transferase (AST) 21 U/L (15-37) Alanine Aminotransferase (ALT) 17 U/L (12-78) Alkaline Phosphatase 88 U/L (46-116) Total Creatine Kinase 36 U/L (26-308) Troponin I 0.007 ng/mL (0.000-0.056) Pro-B-Type Natriuretic Peptide 796 pg/mL (0-125) H Total Protein 7.7 G/DL (6.4-8.2) Albumin 3.7 G/DL (3.4-5.0) Globulin 4.0 g/dL Albumin/Globulin Ratio 0.9 (1.0-2.7) L Urine Color Pale yellow Urine Appearance Clear Urine pH 8 (4.5-8.0) Urine Specific Biddle 1.020 (1.005-1.035) Urine Protein Negative (NEGATIVE) Urine Glucose (UA) Negative (NEGATIVE) Urine Ketones Negative (NEGATIVE) Urine Occult Blood Negative (NEGATIVE) Urine Nitrite Negative (NEGATIVE) Urine Bilirubin Negative (NEGATIVE) Urine Urobilinogen Normal MG/DL (0.0-1.0) Urine Leukocyte Esterase Negative (NEGATIVE) EKG Diagnostic Results Rate: normal Rhythm: NSR ST Segments: no acute changes Rhythm Strip Diag. Results EP Interpretation: yes Rhythm: NSR, no PVC's, no ectopy Chest X-Ray Diagnostic Results Chest X-Ray Diagnostic Results : Chest X-Ray Ordered: Yes # of Views/Limited/Complete: 1 View Indication: Other Interpretation: no consolidation, no effusion, no pneumothorax, other - tortuous trachea - rotated Impression: Other Electronically Signed by: Electronically signed by Lebron Brito MD CT/MRI/US Diagnostic Results CT/MRI/US Diagnostic Results : Imaging Test Ordered: head Impression Right temporal and parietal encephalomalacia malacia with consistence early infarct. Chronic right cerebellar infarct. Prominence of the CSF space in the right posterior vertex which may be secondary to encephalomalacia or could represent a small CSF density lesion such as subarachnoid cyst. 15 mm calcified extra-axial lesion at the right vertex suggestive of a meningioma. No bleed, midline shift or hydrocephalus Right sphenoid sinus disease Last Vital Signs Date Time Temp Pulse Resp B/P (MAP) Pulse Ox O2 Delivery O2 Flow Rate FiO2 05/27/17 19:35 82 20 205/63 100 Room Air 05/27/17 16:39 97.5 Status: improved Disposition: ADMITTED INPATIENT Condition: Serious Lebron Brito M.D. May 27, 2017 17:35
[2017-05-27 18:41] LABS: BASOPHILS % (AUTO) 0.8 % (0.0-2.0); HEMATOCRIT 45.4 % (37.0-47.0); LYMPHOCYTES % (AUTO) 27.6 % (20.0-45.0); MEAN CORPUSCULAR VOLUME 88 FL (80-99); MONOCYTES % (AUTO) 8.2 % (1.0-10.0); NEUTROPHILS % (AUTO) 61.4 % (45.0-75.0); PLATELET COUNT 240 K/UL (150-450); RED BLOOD COUNT 5.17 M/UL (4.20-5.40); RED CELL DISTRIBUTION WIDTH 11.8 % (11.6-14.8); WHITE BLOOD COUNT 6.4 K/UL (4.8-10.8)
[2017-05-27 19:03] LABS: ANION GAP 10 mmol/L (5-15); BLOOD UREA NITROGEN 21 mg/dL (7-18); CALCIUM 8.5 MG/DL (8.5-10.1); CARBON DIOXIDE 27 MMOL/L (21-32); CHLORIDE 104 MMOL/L (98-107); CREATININE 1.1 MG/DL (0.55-1.30); POTASSIUM 4.3 MMOL/L (3.5-5.1); SODIUM 141 MMOL/L (136-145)
[2017-05-27 19:07] LABS: ALANINE AMINOTRANSFERASE 17 U/L (12-78); ALBUMIN 3.7 G/DL (3.4-5.0); ALBUMIN/GLOBULIN RATIO 0.9 (1.0-2.7); ALKALINE PHOSPHATASE 88 U/L (46-116); ASPARTATE AMINO TRANSFERASE 21 U/L (15-37); BILIRUBIN,TOTAL 0.7 MG/DL (0.2-1.0); CREATINE KINASE 36 U/L (26-308); INR 0.9 (0.9-1.1)
[2017-05-27 19:35] VITALS: BP 205/63
[2017-05-27 19:51] LABS: BILIRUBIN, URINE NEGATIVE (NEGATIVE); COLOR,URINE PALE YELLOW; GLUCOSE, URINE (UA) NEGATIVE (NEGATIVE); KETONES,URINE NEGATIVE (NEGATIVE); LEUKOCYTE ESTERASE ,URINE NEGATIVE (NEGATIVE); NITRITE,URINE NEGATIVE (NEGATIVE); PH,URINE 8 (4.5-8.0); PROTEIN,URINE NEGATIVE (NEGATIVE); UROBILINOGEN,URINE NORMAL MG/DL (0.0-1.0)
[2017-05-27 19:53] LABS: APPEARANCE,URINE CLEAR
[2017-05-27] MEDS ORDERED: Zolpidem 5mg tab ORAL PRN (21:15)
[2017-05-27] MEDS ORDERED: Milk of Magnesia 30ml Ud ORAL PRN (21:15)
[2017-05-27 21:35] VITALS: BP 154/130
[2017-05-27 23:15] VITALS: BP 161/47
[2017-05-28] VITALS (9 sets, daily range): BP systolic 107–175; BP diastolic 40–84
[2017-05-28] MEDS: D5 1/2NS 1,000 ML IV SCH ×2 (11:04→23:00)
--- NOTE | 2017-05-28 11:44 | History & Physical ---
History and Physical History & Physicial HP dictated # [id number] JOLENE BOOTH May 28, 2017 11:44
--- NOTE | 2017-05-28 12:06 | Diagnostic Imaging Report ---
Indication: Chest pain Technique: One view of the chest Comparison: 09/01/2016 Findings: Again demonstrated is scalloping of the right hemidiaphragm, also demonstrated on earlier abdomen and pelvis CT. The lungs and pleural spaces are clear. There are old healed fracture deformities of the left ribs. The heart size is normal. There are severe degenerative changes of both shoulder Impression: No acute process This agrees with the preliminary interpretation provided by the emergency room physician
--- NOTE | 2017-05-28 12:06 | Diagnostic Imaging Report ---
Indications: Altered level of consciousness Technique: Spiral acquisitions obtained through the brain. Angled axial and coronal 5 x 5 mm slices were reconstructed. Total dose length product 1344 mGycm. CTDI vol(s) 70 mGy. Dose reduction achieved using automated exposure control Comparison: None. Findings: There is a large area of encephalomalacia involving most of the right temporal lobe, and extending cephalad into the parietal lobe. There is a contiguous but possibly separate focus of encephalomalacia of the posterior parasagittal right parietal lobe. There is a small old lacunar infarct in the right cerebellar hemisphere There is generalized age-related enlargement of the ventricles and extra-axial CSF spaces. There is extensive periventricular deep white matter chronic ischemic change. There is a 13 mm heavily calcified or ossified extra-axial lesion coming off of the right side of either the falx or the parafalcine dura near the vertex. This does not result in any significant mass effect. No acute hemorrhage or edema. No mass effect or midline shift. The calvarium is intact. There is evidence of prior bilateral ocular surgery. The sinuses are clear.. Impression: Age-related changes, as described, including multiple old infarcts, chronic volume loss, periventricular deep white matter ischemic change Negative for acute intracranial bleed or mass effect. Parafalcine ossified extra-axial mass, presumably meningioma This agrees with the preliminary interpretation provided overnight by [facility] teleradiology service. The CT scanner at [facility] is accredited by the [employer] and the scans are performed using protocols designed to limit radiation exposure to as low as reasonably achievable to attain images of sufficient resolution adequate for diagnostic evaluation.
--- NOTE | 2017-05-28 12:06 | Diagnostic Imaging Report ---
Indication: Abdominal pain Technique: Supine view of the abdomen Comparison: none Findings: Bowel gas pattern is unremarkable. No unusual masses or calcifications. There are degenerative changes of the lumbar spine and left hip Impression: No acute process This agrees with the preliminary interpretation provided by the emergency room physician
--- NOTE | 2017-05-28 13:43 | Wound Care Consultation ---
Wound Assessment Wound Assessment #1: Wound Number: 1 Wound Present on Admission: Yes New Wound: No Status Change of Wound: No Wound Location Body Site Modif: right Wound Location Body Site: metatarsal head - 1st Wound Type: pressure ulcer Mani Test: Does not Mani Pressure Ulcer Stage: Deep Tissue Injury - suspected deep tissue injury Wound Thickness: Full Thickness Wound Length: 2.0 Wound Width: 2.0 Wound Depth: utd Percent of Wound Remy/Red: 100 - deep red/maroon Wound Drainage Amount: None Wound Drainage Odor: None/Absent Tissue Surrounding Wound: Erythemic Wound General Appearance: Reddened - deep red. Wound Assessment #2: Wound Number: 2 Wound Present on Admission: Yes New Wound: No Status Change of Wound: No Wound Location Body Site Modif: left Wound Location Body Site: heel Wound Type: pressure ulcer Mani Test: Does not Mani Pressure Ulcer Stage: Deep Tissue Injury - suspected Wound Thickness: Full Thickness Wound Length: 4.0 Wound Width: 4.0 Wound Depth: utd Percent of Wound Remy/Red: 100 - deep red Wound Drainage Amount: None Wound Drainage Odor: None/Absent Tissue Surrounding Wound: Erythemic Wound General Appearance: Reddened Wound Assessment #3: Wound Number: 3 Wound Present on Admission: Yes New Wound: No Status Change of Wound: No Wound Location Body Site Modif: left, lateral Wound Location Body Site: foot Wound Type: pressure ulcer Mani Test: Does not Mani Pressure Ulcer Stage: Deep Tissue Injury - scattered suspected Wound Thickness: Full Thickness Percent of Wound Remy/Red: 100 - deep red scattered Wound Drainage Amount: None Wound Drainage Odor: None/Absent Tissue Surrounding Wound: Erythemic Wound General Appearance: Reddened Wound Assessment #4: Wound Number: 4 Wound Present on Admission: Yes New Wound: No Status Change of Wound: No Wound Location Body Site Modif: left, lateral Wound Location Body Site: malleolus/ankle Wound Type: pressure ulcer Mani Test: Does not Mani Pressure Ulcer Stage: Deep Tissue Injury Wound Thickness: Full Thickness Wound Length: 2.0 Wound Width: 2.0 Wound Depth: utd Percent of Wound Remy/Red: 50 Percent of Wound Purple/Maroon: 50 Wound Drainage Amount: Moderate Tissue Surrounding Wound: Erythemic Wound General Appearance: Reddened - deep red Wound Assessment #5: Wound Number: 5 Wound Present on Admission: Yes New Wound: No Status Change of Wound: No Wound Location Body Site: perineal area - extending to left and right buttocks Wound Type: rash Mani Test: Does not Mani Percent of Wound Remy/Red: 100 - scattered Wound Drainage Amount: None Wound Drainage Odor: None/Absent Tissue Surrounding Wound: Macerated Wound General Appearance: Reddened Wound Comment #1 right 1st metatarsal head suspected deep tissue injury. #2 left heel suspected deep tissue injury. #3 left lateral foot and mid foot scattered suspected deep tissue injury. #4 Left lateral malleolus deep tissue injury. #5 perineal extending to left and right buttocks rash. recommendation -local wound care as ordered. -Turn and reposition. -Keep clean and dry. -Pressure reducing mattress. -Apply heel protectors. -Offload affected areas. -Aggressive offloading of bilateral feet to prevent further skin breakdown -Optimize nutrition. -ranjana care prn. -Assess and notify MD if any further change of condition to skin is noted. upon assessment repositioned patient to offload ankles and heels, noted patient wanting to returned to same position, noted slight bilateral contracture. Continue with OFFLOADING bilateral feet, at risk for skin breakdown. MIC POLLARD May 28, 2017 13:43
--- NOTE | 2017-05-28 15:45 | History and Physical Report ---
DATE OF ADMISSION: 05/27/2017 CHIEF COMPLAINT: Vomiting and inability to take oral medications and food. HISTORY OF PRESENT ILLNESS: This is an 87-year-old [place] female with a history of dementia, who was brought to the emergency room for above complaints. The patient is unable to provide any history. She had also change in mental status. Apparently, she was living in assisted living and they could not handle her. She was also hypertensive on presentation, blood pressure was 189/105. PAST MEDICAL HISTORY: Includes history of urinary tract infection, history of dementia as mentioned, history of anemia, depression, hypertension, DVT, difficulty walking, and weakness. MEDICATIONS: Reviewed and reconciled in the EMR. ALLERGIES: No known drug allergies. SOCIAL HISTORY: No history of smoking or alcohol abuse. REVIEW OF SYSTEMS: Unobtainable. PHYSICAL EXAMINATION: GENERAL: The patient is an elderly female, in no acute distress. VITAL SIGNS: Blood pressure is /67, pulse is 107, temperature is 97.1, and respirations 18. HEENT: [place] conjunctivae. Anicteric sclerae. NECK: Supple. LUNGS: Clear to auscultation. HEART: S1 and S2 without murmurs or rubs. ABDOMEN: Soft and nontender. EXTREMITIES: No cyanosis or edema. LABORATORY FINDINGS: The CBC shows a WBC of 6.4, hematocrit is 45.4, hemoglobin is 15, and platelets is 240,000. The chemistry panel shows a serum sodium 141, potassium 4.3, chloride 104, CO2 27, BUN is 21, and creatinine 1.1. ProBNP was 796. Albumin is 3.7. The UA was unremarkable. ASSESSMENT: This is an 87-year-old [place] female, who is admitted with change in mental status. She was not opening her eyes until this morning. Currently, she opens eyes, however, she is nonverbal. She also had vomiting yesterday. So far, she has not vomited here. PLAN: The patient will be on IV fluids. We will do a swallowing test to see if she is able to take anything p.o. Her medications will be continued and adjustment will be made in the patient's regimen. Derrell Acevedo M.D. DR: TOR JOB#: [id number] CC:
--- NOTE | 2017-05-28 16:08 | Cardiology Report ---
APPROVED REPORT EKG Measurement Heart [id number] Sinus rhythm with premature atrial complexes with aberrant conduction Otherwise normal ECG
[2017-05-29] VITALS (7 sets, daily range): BP systolic 120–163; BP diastolic 67–95
--- NOTE | 2017-05-29 11:35 | General Progress Note ---
Assessment/Plan Problem List: (1) Vomiting ICD Codes: R11.10 - Vomiting, unspecified SNOMED: 474400440 Qualifiers: Qualified Codes: R11.2 - Nausea with vomiting, unspecified (2) HTN (hypertension) ICD Codes: I10 - Essential (primary) hypertension SNOMED: 23347034 Qualifiers: Qualified Codes: I10 - Essential (primary) hypertension (3) Dehydration ICD Codes: E86.0 - Dehydration SNOMED: 72077976, 43791779 (4) Failure to thrive SNOMED: 61209637 Qualifiers: Qualified Codes: R62.7 - Adult failure to thrive Assessment/Plan IVF discussed with RN DC to SNF tomorrow Subjective Allergies: Coded Allergies: No Known Allergies (Unverified , 07/04/16) Subjective In NAD Objective Last 24 Hour Vital Signs Date Time Temp Pulse Resp B/P (MAP) Pulse Ox O2 Delivery O2 Flow Rate FiO2 05/29/17 08:58 63 120/95 05/29/17 08:00 97.1 63 17 120/95 95 05/29/17 04:00 98.1 63 17 139/95 97 05/29/17 00:28 97.9 60 19 121/86 95 05/28/17 20:39 97.7 64 18 107/62 95 05/28/17 17:44 56 175/58 05/28/17 16:47 175/58 05/28/17 16:30 97 Room Air 05/28/17 16:30 98.1 56 18 175/58 97 Room Air 05/28/17 12:11 98 Room Air 05/28/17 12:10 97.5 62 18 136/64 98 Room Air Intake and Output 05/28/17 05/29/17 19:00 07:00 Intake Total 915 ml 600 ml Balance 915 ml 600 ml Intake Oral 240 ml IV Total 675 ml 600 ml # Voids 4 3 Height (Feet): 4 Height (Inches): 8.00 Weight (Pounds): 134 Respiratory/Chest: lungs clear Abdomen: non tender Edema: no edema noted JOLENE Santiago May 29, 2017 11:35
[2017-05-29] MEDS: D5 1/2NS 1,000 ML IV SCH (14:20)
[2017-05-30] MEDS: D5 1/2NS 1,000 ML IV SCH (03:00)
[2017-05-30 07:31] VITALS: BP 113/75
[2017-05-30 11:53] VITALS: BP 119/73
[2017-05-30] MEDS ORDERED: D5 1/2NS 1000ml IV ONE ×2 (13:54)
[2017-05-30] MEDS ORDERED: NS 500ML ONE (13:54)
--- NOTE | 2017-05-31 00:15 | Discharge Summary ---
DATE OF ADMISSION: 05/27/2017 DATE OF DISCHARGE: 05/30/2017 CHIEF COMPLAINT: Vomiting and failure to thrive. HISTORY OF PRESENT ILLNESS: This is an elderly lady, who was brought in by daughter for vomiting. She is not able to take food. She has failure to thrive. HOSPITAL COURSE: The patient was started on IV fluids and it was felt that she had acute gastroenteritis. Her diet was gradually advanced and she tolerated it. She was taken off the IV fluid, and eventually, she was discharged to senior care facility. DISCHARGE DIAGNOSES: 1. Vomiting, likely as a result of acute gastroenteritis. 2. History of hypertension. 3. Dehydration. 4. Failure to thrive. DISCHARGE MEDICATIONS: Please refer to discharge medication list. Derrell Acevedo M.D. DR: Vandana JOB#: [id number] CC:
== END 2017-05-30 13:55 | DRG 392 ==
LOC: EMR 17:12 → 3E 17:50 → EDBEDREQ 18:09
DX: K52.9 Noninfective gastroenteritis and colitis, unspecified (principal); E86.0 Dehydration; F03.90 Unspecified dementia, unspecified severity, without behavioral disturbance, psychotic disturbance, mood disturbance, and anxiety; I10 Essential (primary) hypertension; R62.7 Adult failure to thrive; Z86.718 Personal history of other venous thrombosis and embolism; Z68.30 Body mass index [BMI] 30.0-30.9, adult
CPT/HCPCS: 36415; 70450; 71045; 74018; 80053; 81003; 82550; 82962; 83880; 84484; 85025; 85610; 85730; 87081; 93005; 99285; J2405